=== PATIENT | female | born 1945 | race American Indian/Alaskan Native ===

== ENCOUNTER 2018-06-30 23:14 | Inpatient (IN) | payer MEDICARE ==
[2018-06-30 23:21] VITALS: BMI 20.9
[2018-06-30] MEDS ORDERED: Sodium Chloride 0.9% 1,000 ML IV STA (23:34)
[2018-07-01 00:01] LABS: BASO # 0.01 K/mm3 (0.0-2.0); BASO % 0.1 % (0.0-3.0); EOS % 0.2 % (1.5-5.0); HEMOGLOBIN 12.4 g/dL (12.0-16.0); LYMPH # 1.3 (1.2-3.4); LYMPH % 13.3 % (22.0-35.0); MEAN CELL VOLUME 86.7 fl (80.0-105.0); MEAN CORPUSCULAR HEMOGLOBIN 28.9 pg (25.0-35.0); MEAN CORPUSCULAR HGB CONC 33.3 g/dl (31.0-37.0); MEAN PLATELET VOLUME 10.8 fl (7.0-11.0); MONO # 0.9 (0.1-0.6); MONO % 8.8 % (1.0-6.0); RBC 4.29 10^6/uL (3.5-6.1); RED CELL DISTRIBUTION WIDTH 12.4 % (11.5-14.5); WHITE BLOOD COUNT 10.1 10^3/uL (4.5-11.0)
[2018-07-01 00:04] LABS: VENOUS BLOOD GAS BASE EXCESS 0.2 mmol/L (0.0-2.0); VENOUS BLOOD GAS PO2 26 mm/Hg (30-55); VENOUS BLOOD PH 7.33 (7.32-7.43)
--- NOTE | 2018-07-01 00:05 | ED PDOC ---
Arrival/HPI - General Chief Complaint: Altered Mental Status Time Seen by Provider: 06/30/18 23:24 Historian: Patient, EMS EM Caveat: Intubated - Critical Care Critical Care Minutes: 75 minutes - History of Present Illness Narrative History of Present Illness (Text): 07/01/18 00:00 73 year old female presents to emergency department brought in by EMS after pharmacist in charge owner [facility] [place]. Bee Keeper states he noticed she was there for a long time and appeared confused. EMS reports her blood sugar read high and her finger stick read high. Patient is alert and awake and oriented to place but nothing else and her answers are nonsensical. When asked if she has a history of diabetes, patient responds saying yes and also says nothing hurts although she is unable to voice complaints. Time/Duration: Prior to Arrival Symptom Onset: Gradual Symptom Course: Unchanged Activities at Onset: Light [facility] Past Medical History - Provider Review Nursing Documentation Reviewed: Yes - Endocrine/Metabolic Hx Diabetes Mellitus Type 2: Yes - Psychiatric Hx Substance Use: No - Anesthesia Hx Anesthesia: No Hx Anesthesia Reactions: No Hx Malignant Hyperthermia: No Family/Social History - Physician Review Nursing Documentation Reviewed: Yes Family/Social History: Unknown Family HX Smoking Status: Unknown If Ever Smoked Hx Alcohol Use: No Hx Substance Use: No Allergies/Home Meds Allergies/Adverse Reactions: Allergies No Known Allergies Allergy (Verified 06/30/18 23:21) Home Medications: Home Meds Medication Instructions Recorded Confirmed Unobtainable 06/30/18 06/30/18 Review of Systems - Physician Review All systems were reviewed & negative as marked: Yes - Review of Systems Systems not reviewed;Unavailable: Altered Mental Status Physical Exam Vital Signs Reviewed: Yes Vital Signs Temp Pulse Resp BP Pulse Ox 06/30/18 23:44 97.9 F 88 18 163/79 H 100 Temperature: Afebrile Blood Pressure: Normal Pulse: Regular Respiratory Rate: Normal Appearance: Positive for: Well-Appearing, Non-Toxic, Comfortable Pain Distress: None Mental Status: Positive for: Confused. No: Lethargic - Systems Exam Head: Present: Atraumatic, Normocephalic Pupils: Present: PERRL Extroacular Muscles: Present: EOMI Conjunctiva: Present: Normal Mouth: Present: Moist Mucous Membranes Neck: Present: Normal Range of Motion Respiratory/Chest: Present: Clear to Auscultation, Good Air Exchange. No: R espiratory Distress, Accessory Muscle Use Cardiovascular: Present: Regular Rate and Rhythm, Normal S1, S2. No: Murmurs Abdomen: No: Tenderness, Distention, Peritoneal Signs, Rebound, Guarding Back: Present: Normal Inspection Upper Extremity: Present: Normal Inspection. No: Cyanosis, Edema Lower Extremity: Present: Normal Inspection. No: Edema Neurological: No: GCS=15 Skin: Present: Warm, Dry, Normal Color. No: Rashes Psychiatric: No: Alert, Oriented x 3 Medical Decision Making ED Course and Treatment: 07/01/18 00:15 Impression: 73 year old female presents to emergency department brought in by EMS after found confused in [facility] in [place]. Plan: -- Labs -- IV Fluids -- Urinalysis -- Reassess and disposition Prior Visits: Notes and results from previous visits were reviewed. Progress Notes: Labs done showing hyperglycemia, but no evidence of DKA. No signs of infection noted as well. 07/01/18 00:41 EKG: Ordered, reviewed, and independently interpreted the EKG. Rate : 95 BPM Rhythm : NSR Interpretation : normal axis, normal intervals, no St elevations 07/01/18 05:15 CT Head: IMPRESSION: 1. Age-appropriate cerebellar and cerebral atrophy. 2. Mild chronic microvascular disease. 3. No evidence of acute intracranial pathology. Thank you for your kind referral of this patient. Electronically signed on Jul 01, 2018 4:21:14 AM EDT by: Boni Sánchez M.D., Certified by ABR, MSK, Neuroradiology Patient continued to be confused throughout ED course. Could still not voice name or any specific complaints. Unsure if this is her baseline. Will admit for further evaluation of altered mental status and hyperglycemia. Case discussed with Dr. Reed for hospitalist admission. - Medication Orders Current Medication Orders: Sodium Chloride (Sodium Chloride 0.9%) 1,000 mls @ 999 mls/hr IV .Q1H1M STA Stop: 07/01/18 00:34 Last Admin: 06/30/18 23:52 Dose: 999 mls/hr eMAR Start Stop Document 06/30/18 23:52 AD (Rec: 06/30/18 23:52 AD [id number] Intravenous Solution Start Date 06/30/18 Start Time 23:52 - Scribe Statement The provider has reviewed the documentation as recorded by the Scribe Tonie Ziegler All medical record entries made by the Scribe were at my direction and personally dictated by me. I have reviewed the chart and agree that the record accurately reflects my personal performance of the history, physical exam, medical decision making, and the department course for this patient. I have also personally directed, reviewed, and agree with the discharge instructions and disposition. Disposition/Present on Arrival - Present on Arrival Any Indicators Present on Arrival: No History of DVT/PE: No History of Uncontrolled Diabetes: No Urinary Catheter: No History of Decub. Ulcer: No History Surgical Site Infection Following: None - Disposition Have Diagnosis and Disposition been Completed?: Yes Diagnosis: Hyperglycemia, Altered mental status Disposition: HOSPITALIZED Disposition Time: 05:37 Condition: FAIR
[2018-07-01 00:32] LABS: ALB/GLOB RATIO 1.1 (1.1-1.8); ALBUMIN 4.4 g/dL (3.0-4.8); ALT/SGPT 42 U/L (7-56); AST/SGOT 39 U/L (14-36); BLOOD UREA NITROGEN 25 mg/dL (7-21); CALCIUM 9.6 mg/dL (8.4-10.5); GFR NON-AFRICAN AMERICAN > 60
[2018-07-01] MEDS ORDERED: Labetalol 5mg/ml (4ml) IV STA (02:45)
[2018-07-01] MEDS ORDERED: Labetalol 5mg/ml (4ml) ONE (02:51)
[2018-07-01 05:02] LABS: URINE BILIRUBIN NEGATIVE (NEGATIVE); URINE BLOOD TRACE-INTACT (NEGATIVE); URINE GLUCOSE (UA) >=1000 mg/dL (NEGATIVE); URINE LEUKOCYTE ESTERASE NEGATIVE Leu/uL (NEGATIVE); URINE PROTEIN TRACE mg/dL (<30 mg/dL); URINE UROBILINOGEN 0.2 E.U./dL (<1 E.U./dL)
--- NOTE | 2018-07-01 05:03 | CP.PCM.HP ---
<Mya Joaquin - Last Filed: 07/01/18 05:59> History of Present Illness - History of Present Illness History of Present Illness: Resident History & Physical for Hospitalist Service Patient is a 73 year old female with past medical history of T2DM presenting with altered mental status. History is limited and mostly obtained from ED and prior records as patient is hypersomnolent and responds to verbal questioning selectively. Patient was found at a laundromat and noted to be altered by the laundromat motor vehicle parts interpreter and so EMS was called. Currently patient denies pain, offers no other symptomatic complaints. PMH: T2DM PSH: unknown SHx: denies alcohol, tobacco, illicit drug use FHx: unknown Allergies: NKDA PMD: unknown Present on Admission - Present on Admission Any Indicators Present on Admission: Yes History of Uncontrolled Diabetes: Yes Review of Systems - Review of Systems Systems not reviewed;Unavailable: Altered Mental Status, Uncooperative Past Patient History - Past Social History Smoking Status: Unknown If Ever Smoked - PSYCHIATRIC Hx Substance Use: No - SURGICAL HISTORY Hx Surgeries: No - ANESTHESIA Hx Anesthesia: No Hx Anesthesia Reactions: No Hx Malignant Hyperthermia: No Meds Allergies/Adverse Reactions: Allergies Allergy/AdvReac Type Severity Reaction Status Date / Time No Known Allergies Allergy Verified 06/30/18 23:21 Physical Exam - Constitutional Appears: Non-toxic, No Acute Distress - Head Exam Head Exam: ATRAUMATIC, NORMOCEPHALIC - Eye Exam Eye Exam: EOMI, Normal appearance, PERRL - ENT Exam ENT Exam: Mucous Membranes Moist - Neck Exam Neck exam: Positive for: Normal Inspection - Respiratory Exam Respiratory Exam: Clear to Auscultation Bilateral, NORMAL BREATHING PATTERN. absent: Accessory Muscle Use, Rales, Rhonchi, Wheezes, Respiratory Distress - Cardiovascular Exam Cardiovascular Exam: REGULAR RHYTHM, +S1, +S2. absent: Systolic Murmur - GI/Abdominal Exam GI & Abdominal Exam: Normal Bowel Sounds, Soft. absent: Distended, Firm, Guarding, Rebound, Rigid, Tenderness Additional comments: midline surgical scar - Extremities Exam Extremities exam: Positive for: normal capillary refill, pedal pulses present. Negative for: tenderness Additional comments: RLE big toe ulcer - Neurological Exam Neurological exam: Altered - Skin Skin Exam: Dry, Intact, Normal Color, Warm Results - Vital Signs Recent Vital Signs: Last Vital Signs Temp 97.9 F 06/30/18 23:44 Pulse 82 07/01/18 03:30 Resp 18 07/01/18 03:30 BP 131/98 H 07/01/18 03:30 Pulse Ox 98 07/01/18 03:30 - Labs Result Diagrams: 06/30/18 23:50 06/30/18 23:50 Labs: Laboratory Results - last 24 hr 06/30/18 06/30/18 06/30/18 23:31 23:50 23:50 WBC 10.1 RBC 4.29 Hgb 12.4 Hct 37.2 MCV 86.7 MCH 28.9 MCHC 33.3 RDW 12.4 Plt Count 340 MPV 10.8 Neut % (Auto) 77.6 H Lymph % (Auto) 13.3 L [place] % (Auto) 8.8 H Eos % (Auto) 0.2 L Baso % (Auto) 0.1 Lymph # (Auto) 1.3 [place] # (Auto) 0.9 H Eos # (Auto) 0.0 Baso # (Auto) 0.01 Absolute Neuts (auto) 7.85 H pO2 26 L VBG pH 7.33 VBG pCO2 51.0 VBG HCO3 26.9 VBG Total CO2 28.5 H VBG O2 Sat (Calc) 49.7 VBG Base Excess 0.2 VBG Potassium 4.5 Sodium 128.0 L Chloride 86.0 L Glucose > 750 H* Lactate 1.6 FiO2 21.0 Crit Value Called To Sandra king Crit Value Called By Blood Gas Notified Time 3 Carbon Dioxide Anion Gap BUN Creatinine Est GFR ( Amer) Est GFR (Non-Af Amer) POC Glucose (mg/dL) > 500 H* Random Glucose Calcium Total Bilirubin AST ALT Alkaline Phosphatase Total Protein Albumin Globulin Albumin/Globulin Ratio Venous Blood Potassium 4.5 06/30/18 07/01/18 23:50 01:03 WBC RBC Hgb Hct MCV MCH MCHC RDW Plt Count MPV Neut % (Auto) Lymph % (Auto) [place] % (Auto) Eos % (Auto) Baso % (Auto) Lymph # (Auto) [place] # (Auto) Eos # (Auto) Baso # (Auto) Absolute Neuts (auto) pO2 VBG pH VBG pCO2 VBG HCO3 VBG Total CO2 VBG O2 Sat (Calc) VBG Base Excess VBG Potassium Sodium 127 L Chloride 88 L Glucose Lactate FiO2 Crit Value Called To Crit Value Called By Blood Gas Notified Time Carbon Dioxide 27 Anion Gap 17 BUN 25 H Creatinine 0.8 Est GFR ( Amer) > 60 Est GFR (Non-Af Amer) > 60 POC Glucose (mg/dL) 465 H* Random Glucose 717 H* Calcium 9.6 Total Bilirubin 0.5 AST 39 H ALT 42 Alkaline Phosphatase 132 H Total Protein 8.5 H Albumin 4.4 Globulin 4.1 Albumin/Globulin Ratio 1.1 Venous Blood Potassium Assessment & Plan - Assessment and Plan (Free Text) Assessment: Patient is a 73 year old female with past medical history of T2DM presenting with altered mental status. Plan: Altered mental status - CT head shows age appropriate changes, no acute pathology - EKG shows NSR - UDS negative - afebrile, no leukocytosis - IVF @ 150 ccs/hr Hyperglycemia - ISS, Accuchecks - Hgba1c - Diabetic education RLE ulcer - wound care Pseudohyponatremia - Na 127 on admission, corrected 133 - continue to monitor PPX - Lovenox SC, Protonix Case reviewed with Dr. Brianna Joaquin PGY-1 <Alexx Reed - Last Filed: 07/01/18 06:06> Results - Vital Signs Recent Vital Signs: Last Vital Signs Temp 97.9 F 06/30/18 23:44 Pulse 96 H 07/01/18 05:33 Resp 18 07/01/18 05:33 BP 136/62 07/01/18 05:33 Pulse Ox 100 07/01/18 05:33 - Labs Result Diagrams: 06/30/18 23:50 06/30/18 23:50 Labs: Laboratory Results - last 24 hr 06/30/18 06/30/18 06/30/18 23:31 23:50 23:50 WBC 10.1 RBC 4.29 Hgb 12.4 Hct 37.2 MCV 86.7 MCH 28.9 MCHC 33.3 RDW 12.4 Plt Count 340 MPV 10.8 Neut % (Auto) 77.6 H Lymph % (Auto) 13.3 L [place] % (Auto) 8.8 H Eos % (Auto) 0.2 L Baso % (Auto) 0.1 Lymph # (Auto) 1.3 [place] # (Auto) 0.9 H Eos # (Auto) 0.0 Baso # (Auto) 0.01 Absolute Neuts (auto) 7.85 H pO2 26 L VBG pH 7.33 VBG pCO2 51.0 VBG HCO3 26.9 VBG Total CO2 28.5 H VBG O2 Sat (Calc) 49.7 VBG Base Excess 0.2 VBG Potassium 4.5 Sodium 128.0 L Chloride 86.0 L Glucose > 750 H* Lactate 1.6 FiO2 21.0 Crit Value Called To Sandra king Crit Value Called By Blood Gas Notified Time 3 Carbon Dioxide Anion Gap BUN Creatinine Est GFR ( Amer) Est GFR (Non-Af Amer) POC Glucose (mg/dL) > 500 H* Random Glucose Calcium Total Bilirubin AST ALT Alkaline Phosphatase Total Protein Albumin Globulin Albumin/Globulin Ratio Venous Blood Potassium 4.5 Urine Color Urine Appearance Urine pH Ur Specific [place] Urine Protein Urine Glucose (UA) Urine Ketones Urine Blood Urine Nitrate Urine Bilirubin Urine Urobilinogen Ur Leukocyte Esterase Urine RBC Urine WBC Ur Epithelial Cells Urine Opiates Screen Urine Methadone Screen Ur Barbiturates Screen Ur Phencyclidine Scrn Ur Amphetamines Screen U Benzodiazepines Scrn U Oth Cocaine Metabols U Cannabinoids Screen 06/30/18 07/01/18 07/01/18 23:50 01:03 04:20 WBC RBC Hgb Hct MCV MCH MCHC RDW Plt Count MPV Neut % (Auto) Lymph % (Auto) [place] % (Auto) Eos % (Auto) Baso % (Auto) Lymph # (Auto) [place] # (Auto) Eos # (Auto) Baso # (Auto) Absolute Neuts (auto) pO2 VBG pH VBG pCO2 VBG HCO3 VBG Total CO2 VBG O2 Sat (Calc) VBG Base Excess VBG Potassium Sodium 127 L Chloride 88 L Glucose Lactate FiO2 Crit Value Called To Crit Value Called By Blood Gas Notified Time Carbon Dioxide 27 Anion Gap 17 BUN 25 H Creatinine 0.8 Est GFR ( Amer) > 60 Est GFR (Non-Af Amer) > 60 POC Glucose (mg/dL) 465 H* Random Glucose 717 H* Calcium 9.6 Total Bilirubin 0.5 AST 39 H ALT 42 Alkaline Phosphatase 132 H Total Protein 8.5 H Albumin 4.4 Globulin 4.1 Albumin/Globulin Ratio 1.1 Venous Blood Potassium Urine Color Light yellow Urine Appearance Sl cloudy Urine pH 7.0 Ur Specific [place] 1.015 Urine Protein Trace H Urine Glucose (UA) >=1000 Urine Ketones 15 H Urine Blood Trace-intact H Urine Nitrate Negative Urine Bilirubin Negative Urine Urobilinogen 0.2 Ur Leukocyte Esterase Negative Urine RBC 0 - 2 Urine WBC 0 - 2 Ur Epithelial Cells 0 - 2 Urine Opiates Screen Urine Methadone Screen Ur Barbiturates Screen Ur Phencyclidine Scrn Ur Amphetamines Screen U Benzodiazepines Scrn U Oth Cocaine Metabols U Cannabinoids Screen 07/01/18 04:20 WBC RBC Hgb Hct MCV MCH MCHC RDW Plt Count MPV Neut % (Auto) Lymph % (Auto) [place] % (Auto) Eos % (Auto) Baso % (Auto) Lymph # (Auto) [place] # (Auto) Eos # (Auto) Baso # (Auto) Absolute Neuts (auto) pO2 VBG pH VBG pCO2 VBG HCO3 VBG Total CO2 VBG O2 Sat (Calc) VBG Base Excess VBG Potassium Sodium Chloride Glucose Lactate FiO2 Crit Value Called To Crit Value Called By Blood Gas Notified Time Carbon Dioxide Anion Gap BUN Creatinine Est GFR ( Amer) Est GFR (Non-Af Amer) POC Glucose (mg/dL) Random Glucose Calcium Total Bilirubin AST ALT Alkaline Phosphatase Total Protein Albumin Globulin Albumin/Globulin Ratio Venous Blood Potassium Urine Color Urine Appearance Urine pH Ur Specific [place] Urine Protein Urine Glucose (UA) Urine Ketones Urine Blood Urine Nitrate Urine Bilirubin Urine Urobilinogen Ur Leukocyte Esterase Urine RBC Urine WBC Ur Epithelial Cells Urine Opiates Screen Negative Urine Methadone Screen Negative Ur Barbiturates Screen Negative Ur Phencyclidine Scrn Negative Ur Amphetamines Screen Negative U Benzodiazepines Scrn Negative U Oth Cocaine Metabols Negative U Cannabinoids Screen Negative Attending/Attestation - Attestation I have personally seen and examined this patient.: Yes I have fully participated in the care of the patient.: Yes I have reviewed all pertinent clinical information: Yes Notes (Text): 07/01/18 06:05 Patient was seen when she was in bed # 14 in the ER. Medical record was reviewed. Agree with history, physical examination, assessment and plan.
[2018-07-01 05:08] LABS: BARBITURATES, UR NEGATIVE (NEGATIVE); BENZODIAZEPINES, UR NEGATIVE (NEGATIVE); OPIATES, UR NEGATIVE (NEGATIVE); PHENCYCLIDINE, UR NEGATIVE (NEGATIVE)
[2018-07-01 05:15] LABS: URINE APPEARANCE SL CLOUDY (CLEAR); URINE COLOR LIGHT YELLOW (YELLOW)
[2018-07-01] MEDS ORDERED: Dextrose 50% SYRINGE Inj (50 ml) IV PRN (05:31)
[2018-07-01 05:52] LABS: URINE RBC 0 - 2 /hpf (0-2); URINE WBC 0 - 2 /hpf (0-6)
[2018-07-01 05:53] LABS: URINE EPITHELIAL CELLS 0 - 2 /hpf (0-5)
[2018-07-01 06:33] LABS: ARTERIAL BLOOD GAS HCO3 22.6 mmol/L (21-28); ARTERIAL BLOOD GAS HEMOGLOBIN 11.1 g/dL (11.7-17.4); ARTERIAL BLOOD GAS O2 CAPACITY 15.4 mL/dl (16-24); ARTERIAL BLOOD GAS O2 CONTENT 15.3 ML/dl (15-23); ARTERIAL BLOOD GAS O2 SAT 99.5 % (95-98); ARTERIAL BLOOD GAS PCO2 29 mm/Hg (35-45); ARTERIAL BLOOD GAS TCO2 23.5 mmol.L (22-28)
[2018-07-01] MEDS: Sodium Chloride 0.9% 1,000 ML IV SCH ×4 (07:57→23:00)
[2018-07-01] MEDS: Insulin Reg-MEDIUM-Coverage SC SCH ×4 (08:04→22:10)
[2018-07-01] MEDS ORDERED: Insulin Regular 1 UNITS/0.01 ML ML ONE (08:07)
[2018-07-01 08:24] LABS: HEMOGLOBIN 11.1 g/dL (12.0-16.0); MEAN CELL VOLUME 84.7 fl (80.0-105.0); MEAN CORPUSCULAR HEMOGLOBIN 29.2 pg (25.0-35.0); MEAN CORPUSCULAR HGB CONC 34.5 g/dl (31.0-37.0); MEAN PLATELET VOLUME 10.3 fl (7.0-11.0); RBC 3.8 10^6/uL (3.5-6.1); RED CELL DISTRIBUTION WIDTH 12.2 % (11.5-14.5); WHITE BLOOD COUNT 9.8 10^3/uL (4.5-11.0)
[2018-07-01 08:54] LABS: ALB/GLOB RATIO 0.9 (1.1-1.8); ALBUMIN 3.4 g/dL (3.0-4.8); ALT/SGPT 36 U/L (7-56); AST/SGOT 33 U/L (14-36); BLOOD UREA NITROGEN 16 mg/dL (7-21); CALCIUM 8.9 mg/dL (8.4-10.5); GFR NON-AFRICAN AMERICAN > 60
[2018-07-01 08:57] LABS: HDL CHOLESTEROL 50 mg/dL (29-60)
[2018-07-01 08:59] LABS: LDL CHOLESTEROL 76 mg/dL (0-129)
[2018-07-01] MEDS: Enoxaparin 40 mg Syringe SC SCH (10:04)
--- NOTE | 2018-07-01 11:25 | RAD ---
PROCEDURE: Radiographs of the right great toe. Clinical history foot ulcer TECHNIQUE:: AP radiograph of the right foot, with oblique and lateral view of the right great toe. COMPARISON: None. FINDINGS: BONES: No visible fracture or evidence of osteomyelitis. JOINTS: Normal. SOFT TISSUES: Soft tissue swelling distal tuft region 1st digit. OTHER FINDINGS: None. IMPRESSION: Soft tissue swelling without acute articular or osseous abnormality.
--- NOTE | 2018-07-01 11:44 | CT ---
Date of service: 07/01/2018 PROCEDURE: CT HEAD WITHOUT CONTRAST. HISTORY: Altered mental status. COMPARISON: None available. TECHNIQUE: Axial computed tomography images were obtained through the head/brain without intravenous contrast. Supplemental Coronal and Sagittal projections created and reviewed. Radiation dose: Total exam DLP = 819.55 mGy-cm. This CT exam was performed using one or more of the following dose reduction techniques: Automated exposure control, adjustment of the mA and/or kV according to patient size, and/or use of iterative reconstruction technique. FINDINGS: HEMORRHAGE: No intracranial hemorrhage. BRAIN: No mass effect or edema. Cortical and cerebellar atrophy, periventricular small vessel disease. VENTRICLES: Unremarkable. No hydrocephalus. CALVARIUM: Unremarkable. PARANASAL SINUSES: Unremarkable as visualized. No significant inflammatory changes. MASTOID AIR CELLS: Unremarkable as visualized. No inflammatory changes. OTHER FINDINGS: None. IMPRESSION: No acute intracranial abnormalities. No significant findings to account for the clinical presentation. Concordant results (preliminary interpretation) provided by [facility]. Procedure Completed: 03:19. Preliminary Report: Interpreted and electronically signed: 04:21. Final Interpretation: 11:40.
[2018-07-01] MEDS ORDERED: Piperacillin/Tazobact 3.375 gm 100 ML IVPB STA (12:09)
--- NOTE | 2018-07-01 12:32 | RAD ---
Date of service: 07/01/2018 HISTORY: fever COMPARISON: No prior. FINDINGS: LUNGS: No active pulmonary disease. PLEURA: No significant pleural effusion identified, no pneumothorax apparent. CARDIOVASCULAR: Atherosclerotic calcifications identified primarily aortic arch. No radiographic findings to suggest acute or significant cardiovascular disease. OSSEOUS STRUCTURES: No significant abnormalities. VISUALIZED UPPER ABDOMEN: Normal. OTHER FINDINGS: None. IMPRESSION: No active disease.
[2018-07-01] MEDS: Vancomycin 1gm in NS 250ml 1 GM/250 ML BAG IVPB SCH (12:35)
[2018-07-01] MEDS ORDERED: Pneumococcal 23-Valent Vaccine IM ONE (14:32)
[2018-07-01] MEDS ORDERED: Influenza Vaccine 60 mcg/0.5 mL SYR (4YR UP) IM ONE (14:32)
--- NOTE | 2018-07-01 15:34 | CP.PCM.PCO ---
Addendum Addendum: Shantanu Araujo PGY2 IM Note RN Ileana Cleveland managed to have records from patient's PMD faxed. Reviewed: Patient's name is Jessica Brizuela (ID faxed but with poor quality picture). : 1945 PMD: Dr. Akbar ([place], [place]) Meds: Aspirin 81mg daily, Atorvastatin 40mg HS, Plavix 75mg daily, Gabapentin 300mg TID, Metformin 1000mg daily, Novolog sliding scale Will start Aspirin 81mg daily at this time Will hold Plavix untill seen by Podiatry for further recs
--- NOTE | 2018-07-01 19:40 | CP.PCM.CON ---
History of Present Illness - History of Present Illness History of Present Illness: Infectious Disease Consultation: July 01, 2018 73 yo female with history of Type II DM. The patient was found to be altered in a laundromat. Patient herself gives little information. Patient's PMD is edouard ellitly in [place], [place], his name is Dr. Akbar. The patient name is Jessica Brizuela. Patient had fever of 101.0 F. No leukocytosis. Limited information provided by the patient. Patient is hyperglycemic on admission and still has elevated glucose levels. PMHx: DM Type 2, unable to obtain further information. PSHx: none given but noted midline abdominal scar. Allergies: Ibuprofen Social Hx: No given Tobacco, EtOH, or illicit drug use Active Medications Acetaminophen (Tylenol 325mg Tab) 650 mg PO Q4 PRN PRN Reason: Fever >100.4 F Aspirin (Ecotrin) 81 mg PO DAILY [facility] Last Admin: 07/01/18 17:20 Dose: 81 mg Dextrose (Dextrose 50% Inj) 0 ml IV STAT PRN; Protocol PRN Reason: Hypoglycemia Protocol Enoxaparin Sodium (Lovenox) 40 mg SC DAILY [facility]; Protocol Last Admin: 07/01/18 10:04 Dose: 40 mg Dextrose (Dextrose 5% In Water 1000 Ml) 1,000 mls @ 0 mls/hr IV .Q0M PRN; Protocol PRN Reason: Hypoglycemia Protocol Sodium Chloride (Sodium Chloride 0.9%) 1,000 mls @ 150 mls/hr IV .Q6H40M [facility] Last Admin: 07/01/18 19:28 Dose: 150 mls/hr Vancomycin HCl (Vancomycin 1gm) 1 gm in 250 mls @ 167 mls/hr IVPB DAILY [facility]; Protocol Last Admin: 07/01/18 12:35 Dose: 167 mls/hr Insulin Detemir (Levemir) 10 unit SC HS [facility] Insulin Human Regular (Humulin R Med) 0 units SC ACHS [facility]; Protocol Last Admin: 07/01/18 17:20 Dose: 7 units Pantoprazole Sodium (Protonix Inj) 40 mg IVP DAILY [facility] Last Admin: 07/01/18 10:03 Dose: 40 mg Family Hx: unknown ROS: not giving much information Past Patient History - Past Social History Smoking Status: Unknown If Ever Smoked - CARDIAC Hx Cardiac Disorders: Yes (UNKNOWN) Hx Hypercholesterolemia: Yes Hx Peripheral Vascular Disease: Yes (PAD) - PULMONARY Hx Respiratory Disorders: No - NEUROLOGICAL Hx Neurological Disorder: Yes (POLYNEUROPATHY) - HEENT Hx HEENT Problems: Yes (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 IS SWOLLEN AND PAINFUL SURROUNDING SKIN IS DARKENED BLACK TO WHITE SKIN DISCOLORATION. RIGHT SHOULDER BRUISED AREA WITH AN OPEN SCRAPED WOUND MEASURES 1 X 1 CM DRY - MUSCULOSKELETAL/RHEUMATOLOGICAL Hx Musculoskeletal Disorders: Yes (DIFFICULTY WALKING DUE TO PAIN TO LEGS,CALVES AND THIGHS) Hx Falls: (UNKNOWN) Hx Unsteady Gait: Yes (CANE) - GASTROINTESTINAL Hx Gastrointestinal Disorders: Yes (INCONTINENT) - GENITOURINARY/GYNECOLOGICAL Hx Genitourinary Disorders: Yes Hx Incontinence: Yes - PSYCHIATRIC Hx Psychophysiologic Disorder: Yes Hx Depression: Yes Hx Substance Use: No (UNKNOWN) - SURGICAL HISTORY Hx Surgeries: Yes (SX DEBRIDEMENT OF INFECTED FOOT ULCER,WAS ON VANCO) - ANESTHESIA Hx Anesthesia: No Hx Anesthesia Reactions: No Hx Malignant Hyperthermia: No Meds Allergies/Adverse Reactions: Allergies Allergy/AdvReac Type Severity Reaction Status Date / Time ibuprofen Allergy RASH Verified 07/01/18 15:40 - Medications Medications: Current Medications Acetaminophen (Tylenol 325mg Tab) 650 mg PO Q4 PRN PRN Reason: Fever >100.4 F Aspirin (Ecotrin) 81 mg PO DAILY [facility] Last Admin: 07/01/18 17:20 Dose: 81 mg Dextrose (Dextrose 50% Inj) 0 ml IV STAT PRN; Protocol PRN Reason: Hypoglycemia Protocol Enoxaparin Sodium (Lovenox) 40 mg SC DAILY [facility]; Protocol Last Admin: 07/01/18 10:04 Dose: 40 mg Dextrose (Dextrose 5% In Water 1000 Ml) 1,000 mls @ 0 mls/hr IV .Q0M PRN; Protocol PRN Reason: Hypoglycemia Protocol Sodium Chloride (Sodium Chloride 0.9%) 1,000 mls @ 150 mls/hr IV .Q6H40M [facility] Last Admin: 07/01/18 15:02 Dose: 150 mls/hr Vancomycin HCl (Vancomycin 1gm) 1 gm in 250 mls @ 167 mls/hr IVPB DAILY [facility]; Protocol Last Admin: 07/01/18 12:35 Dose: 167 mls/hr Insulin Detemir (Levemir) 10 unit SC HS [facility] Insulin Human Regular (Humulin R Med) 0 units SC ACHS [facility]; Protocol Last Admin: 07/01/18 17:20 Dose: 7 units Pantoprazole Sodium (Protonix Inj) 40 mg IVP DAILY [facility] Last Admin: 07/01/18 10:03 Dose: 40 mg Physical Exam - Constitutional Appears: Non-toxic, No Acute Distress - Head Exam Head Exam: ATRAUMATIC, NORMOCEPHALIC - Eye Exam Eye Exam: EOMI, PERRL Pupil Exam: NORMAL ACCOMODATION, PERRL - ENT Exam ENT Exam: Mucous Membranes Moist, Normal External Ear Exam, TM's Normal Bilaterally - Neck Exam Neck exam: Positive for: Full Rom, Normal Inspection - Respiratory Exam Respiratory Exam: Clear to Auscultation Bilateral, NORMAL BREATHING PATTERN. absent: Rales, Rhonchi, Wheezes - Cardiovascular Exam Cardiovascular Exam: REGULAR RHYTHM, RRR, +S1, +S2 - GI/Abdominal Exam GI & Abdominal Exam: Normal Bowel Sounds, Soft. absent: Distended, Tenderness Additional comments: midline surgical scar. - Extremities Exam Additional comments: RLE big toe ulcer. - Neurological Exam Neurological exam: Alert, CN II-XII Intact - Psychiatric Exam Psychiatric exam: Flat Affect Additional comments: Distant - Skin Additional comments: As above. Results - Vital Signs Recent Vital Signs: Last Vital Signs Temp 98.4 F 07/01/18 18:49 Pulse 94 H 07/01/18 18:49 Resp 20 07/01/18 17:07 BP 116/61 07/01/18 18:49 Pulse Ox 97 07/01/18 17:07 - Labs Result Diagrams: 07/01/18 08:10 07/01/18 08:10 Labs: Laboratory Results - last 24 hr 06/30/18 06/30/18 06/30/18 23:31 23:50 23:50 WBC 10.1 RBC 4.29 Hgb 12.4 Hct 37.2 MCV 86.7 MCH 28.9 MCHC 33.3 RDW 12.4 Plt Count 340 MPV 10.8 Neut % (Auto) 77.6 H Lymph % (Auto) 13.3 L Mccreary % (Auto) 8.8 H Eos % (Auto) 0.2 L Baso % (Auto) 0.1 Lymph # (Auto) 1.3 Mccreary # (Auto) 0.9 H Eos # (Auto) 0.0 Baso # (Auto) 0.01 Absolute Neuts (auto) 7.85 H pCO2 pO2 26 L HCO3 ABG pH ABG Total CO2 ABG O2 Saturation ABG O2 Content ABG Base Excess ABG Hemoglobin ABG Carboxyhemoglobin POC ABG HHb (Measured) ABG Methemoglobin ABG O2 Capacity VBG pH 7.33 VBG pCO2 51.0 VBG HCO3 26.9 VBG Total CO2 28.5 H VBG O2 Sat (Calc) 49.7 VBG Base Excess 0.2 VBG Potassium 4.5 Hgb O2 Saturation Sodium 128.0 L Chloride 86.0 L Glucose > 750 H* Lactate 1.6 FiO2 21.0 Crit Value Called To Sandra kign Crit Value Called By Blood Gas Notified Time 3 Potassium Carbon Dioxide Anion Gap BUN Creatinine Est GFR ( Amer) Est GFR (Non-Af Amer) POC Glucose (mg/dL) > 500 H* Random Glucose Calcium Magnesium Total Bilirubin AST ALT Alkaline Phosphatase Total Protein Albumin Globulin Albumin/Globulin Ratio Triglycerides Cholesterol LDL Cholesterol Direct HDL Cholesterol TSH 3rd Generation Venous Blood Potassium 4.5 Urine Color Urine Appearance Urine pH Ur Specific [place] Urine Protein Urine Glucose (UA) Urine Ketones Urine Blood Urine Nitrate Urine Bilirubin Urine Urobilinogen Ur Leukocyte Esterase Urine RBC Urine WBC Ur Epithelial Cells Urine Opiates Screen Urine Methadone Screen Ur Barbiturates Screen Ur Phencyclidine Scrn Ur Amphetamines Screen U Benzodiazepines Scrn U Oth Cocaine Metabols U Cannabinoids Screen Alcohol, Quantitative B-Hydroxybutyrate 06/30/18 07/01/18 07/01/18 23:50 01:03 04:20 WBC RBC Hgb Hct MCV MCH MCHC RDW Plt Count MPV Neut % (Auto) Lymph % (Auto) Mccreary % (Auto) Eos % (Auto) Baso % (Auto) Lymph # (Auto) Mccreary # (Auto) Eos # (Auto) Baso # (Auto) Absolute Neuts (auto) pCO2 pO2 HCO3 ABG pH ABG Total CO2 ABG O2 Saturation ABG O2 Content ABG Base Excess ABG Hemoglobin ABG Carboxyhemoglobin POC ABG HHb (Measured) ABG Methemoglobin ABG O2 Capacity VBG pH VBG pCO2 VBG HCO3 VBG Total CO2 VBG O2 Sat (Calc) VBG Base Excess VBG Potassium Hgb O2 Saturation Sodium 127 L Chloride 88 L Glucose Lactate FiO2 Crit Value Called To Crit Value Called By Blood Gas Notified Time Potassium 4.5 Carbon Dioxide 27 Anion Gap 17 BUN 25 H Creatinine 0.8 Est GFR ( Amer) > 60 Est GFR (Non-Af Amer) > 60 POC Glucose (mg/dL) 465 H* Random Glucose 717 H* Calcium 9.6 Magnesium Total Bilirubin 0.5 AST 39 H ALT 42 Alkaline Phosphatase 132 H Total Protein 8.5 H Albumin 4.4 Globulin 4.1 Albumin/Globulin Ratio 1.1 Triglycerides Cholesterol LDL Cholesterol Direct HDL Cholesterol TSH 3rd Generation Venous Blood Potassium Urine Color Light yellow Urine Appearance Sl cloudy Urine pH 7.0 Ur Specific [place] 1.015 Urine Protein Trace H Urine Glucose (UA) >=1000 Urine Ketones 15 H Urine Blood Trace-intact H Urine Nitrate Negative Urine Bilirubin Negative Urine Urobilinogen 0.2 Ur Leukocyte Esterase Negative Urine RBC 0 - 2 Urine WBC 0 - 2 Ur Epithelial Cells 0 - 2 Urine Opiates Screen Urine Methadone Screen Ur Barbiturates Screen Ur Phencyclidine Scrn Ur Amphetamines Screen U Benzodiazepines Scrn U Oth Cocaine Metabols U Cannabinoids Screen Alcohol, Quantitative B-Hydroxybutyrate 0.94 H 07/01/18 07/01/18 07/01/18 04:20 06:25 07:45 WBC RBC Hgb Hct MCV MCH MCHC RDW Plt Count MPV Neut % (Auto) Lymph % (Auto) Mccreary % (Auto) Eos % (Auto) Baso % (Auto) Lymph # (Auto) Mccreary # (Auto) Eos # (Auto) Baso # (Auto) Absolute Neuts (auto) pCO2 29 L pO2 105.0 H HCO3 22.6 ABG pH 7.50 H ABG Total CO2 23.5 ABG O2 Saturation 99.5 H ABG O2 Content 15.3 ABG Base Excess 0.1 ABG Hemoglobin 11.1 L ABG Carboxyhemoglobin 1.8 H POC ABG HHb (Measured) 0.5 ABG Methemoglobin 0.9 ABG O2 Capacity 15.4 L VBG pH VBG pCO2 VBG HCO3 VBG Total CO2 VBG O2 Sat (Calc) VBG Base Excess VBG Potassium Hgb O2 Saturation 96.8 Sodium Chloride Glucose Lactate FiO2 21.0 Crit Value Called To Crit Value Called By Blood Gas Notified Time Potassium Carbon Dioxide Anion Gap BUN Creatinine Est GFR ( Amer) Est GFR (Non-Af Amer) POC Glucose (mg/dL) 342 H Random Glucose Calcium Magnesium Total Bilirubin AST ALT Alkaline Phosphatase Total Protein Albumin Globulin Albumin/Globulin Ratio Triglycerides Cholesterol LDL Cholesterol Direct HDL Cholesterol TSH 3rd Generation Venous Blood Potassium Urine Color Urine Appearance Urine pH Ur Specific [place] Urine Protein Urine Glucose (UA) Urine Ketones Urine Blood Urine Nitrate Urine Bilirubin Urine Urobilinogen Ur Leukocyte Esterase Urine RBC Urine WBC Ur Epithelial Cells Urine Opiates Screen Negative Urine Methadone Screen Negative Ur Barbiturates Screen Negative Ur Phencyclidine Scrn Negative Ur Amphetamines Screen Negative U Benzodiazepines Scrn Negative U Oth Cocaine Metabols Negative U Cannabinoids Screen Negative Alcohol, Quantitative B-Hydroxybutyrate 07/01/18 07/01/18 07/01/18 08:10 08:10 08:10 WBC 9.8 RBC 3.80 Hgb 11.1 L Hct 32.2 L MCV 84.7 MCH 29.2 MCHC 34.5 RDW 12.2 Plt Count 306 MPV 10.3 Neut % (Auto) Lymph % (Auto) Mccreary % (Auto) Eos % (Auto) Baso % (Auto) Lymph # (Auto) Mccreary # (Auto) Eos # (Auto) Baso # (Auto) Absolute Neuts (auto) pCO2 pO2 HCO3 ABG pH ABG Total CO2 ABG O2 Saturation ABG O2 Content ABG Base Excess ABG Hemoglobin ABG Carboxyhemoglobin POC ABG HHb (Measured) ABG Methemoglobin ABG O2 Capacity VBG pH VBG pCO2 VBG HCO3 VBG Total CO2 VBG O2 Sat (Calc) VBG Base Excess VBG Potassium Hgb O2 Saturation Sodium Chloride Glucose Lactate FiO2 Crit Value Called To Crit Value Called By Blood Gas Notified Time Potassium Carbon Dioxide Anion Gap BUN Creatinine Est GFR ( Amer) Est GFR (Non-Af Amer) POC Glucose (mg/dL) Random Glucose Calcium Magnesium Total Bilirubin AST ALT Alkaline Phosphatase Total Protein Albumin Globulin Albumin/Globulin Ratio Triglycerides Cholesterol LDL Cholesterol Direct HDL Cholesterol TSH 3rd Generation 0.82 Venous Blood Potassium Urine Color Urine Appearance Urine pH Ur Specific [place] Urine Protein Urine Glucose (UA) Urine Ketones Urine Blood Urine Nitrate Urine Bilirubin Urine Urobilinogen Ur Leukocyte Esterase Urine RBC Urine WBC Ur Epithelial Cells Urine Opiates Screen Urine Methadone Screen Ur Barbiturates Screen Ur Phencyclidine Scrn Ur Amphetamines Screen U Benzodiazepines Scrn U Oth Cocaine Metabols U Cannabinoids Screen Alcohol, Quantitative < 10 B-Hydroxybutyrate 07/01/18 07/01/18 07/01/18 08:10 11:38 16:43 WBC RBC Hgb Hct MCV MCH MCHC RDW Plt Count MPV Neut % (Auto) Lymph % (Auto) Mccreary % (Auto) Eos % (Auto) Baso % (Auto) Lymph # (Auto) Mccreary # (Auto) Eos # (Auto) Baso # (Auto) Absolute Neuts (auto) pCO2 pO2 HCO3 ABG pH ABG Total CO2 ABG O2 Saturation ABG O2 Content ABG Base Excess ABG Hemoglobin ABG Carboxyhemoglobin POC ABG HHb (Measured) ABG Methemoglobin ABG O2 Capacity VBG pH VBG pCO2 VBG HCO3 VBG Total CO2 VBG O2 Sat (Calc) VBG Base Excess VBG Potassium Hgb O2 Saturation Sodium 134 Chloride 98 Glucose Lactate FiO2 Crit Value Called To Crit Value Called By Blood Gas Notified Time Potassium 3.8 Carbon Dioxide 24 Anion Gap 16 BUN 16 Creatinine 0.6 L Est GFR ( Amer) > 60 Est GFR (Non-Af Amer) > 60 POC Glucose (mg/dL) 374 H 327 H Random Glucose 336 H* D Calcium 8.9 Magnesium 2.1 Total Bilirubin 0.4 AST 33 ALT 36 Alkaline Phosphatase 97 Total Protein 7.2 Albumin 3.4 Globulin 3.7 Albumin/Globulin Ratio 0.9 L Triglycerides 70 Cholesterol 161 LDL Cholesterol Direct 76 HDL Cholesterol 50 TSH 3rd Generation Venous Blood Potassium Urine Color Urine Appearance Urine pH Ur Specific [place] Urine Protein Urine Glucose (UA) Urine Ketones Urine Blood Urine Nitrate Urine Bilirubin Urine Urobilinogen Ur Leukocyte Esterase Urine RBC Urine WBC Ur Epithelial Cells Urine Opiates Screen Urine Methadone Screen Ur Barbiturates Screen Ur Phencyclidine Scrn Ur Amphetamines Screen U Benzodiazepines Scrn U Oth Cocaine Metabols U Cannabinoids Screen Alcohol, Quantitative B-Hydroxybutyrate Assessment & Plan - Assessment and Plan (Free Text) Assessment: 73 yo female presenting for altered mental status, fevers up to 101.0 F, and hyperglycemia. Negative Chest X-ray. X-ray right big toe showing swelling of the soft tissues only. Head CT negative. Patient was hyponatremic. Unclear how the patient's DM control is normally. Likely with some degree of dehydration in addition to the hyperglycemia. Check Hgb A1c. Monitor glucose levels. Started on Vancomycin and Zosyn. Villagran cultures. Supportive care. Spoke with Dr. Rockwell. Thank you for allowing me to participate in the care of the patient, we will follow with you.
[2018-07-01] MEDS: Insulin Detemir 100 units/ml Vial (Levemir) SC SCH (22:19)
[2018-07-01] MEDS: Piperacillin/Tazobact 3.375 gm 100 ML IVPB SCH (22:20)
[2018-07-02] MEDS: Piperacillin/Tazobact 3.375 gm 100 ML IVPB SCH ×3 (05:37→21:45)
[2018-07-02 07:39] LABS: BASO # 0.01 K/mm3 (0.0-2.0); BASO % 0.1 % (0.0-3.0); EOS # 0.1 (0.0-0.7); EOS % 1.3 % (1.5-5.0); HEMOGLOBIN 10.6 g/dL (12.0-16.0); LYMPH # 2.4 (1.2-3.4); LYMPH % 22.8 % (22.0-35.0); MEAN CELL VOLUME 85.3 fl (80.0-105.0); MEAN CORPUSCULAR HEMOGLOBIN 28.8 pg (25.0-35.0); MEAN CORPUSCULAR HGB CONC 33.8 g/dl (31.0-37.0); MEAN PLATELET VOLUME 10.8 fl (7.0-11.0); MONO # 1.3 (0.1-0.6); RBC 3.68 10^6/uL (3.5-6.1); RED CELL DISTRIBUTION WIDTH 12.2 % (11.5-14.5); WHITE BLOOD COUNT 10.6 10^3/uL (4.5-11.0)
[2018-07-02 08:23] LABS: ALB/GLOB RATIO 0.8 (1.1-1.8); ALBUMIN 2.7 g/dL (3.0-4.8); ALT/SGPT 32 U/L (7-56); AST/SGOT 41 U/L (14-36); BLOOD UREA NITROGEN 15 mg/dL (7-21); CALCIUM 8.1 mg/dL (8.4-10.5); GFR NON-AFRICAN AMERICAN > 60
[2018-07-02] MEDS ORDERED: Potassium Chloride 20 mEq ER Tab PO ONE (08:42)
[2018-07-02] MEDS: Insulin Reg-MEDIUM-Coverage SC SCH ×4 (09:00→21:55)
[2018-07-02] MEDS: Enoxaparin 40 mg Syringe SC SCH (09:33)
[2018-07-02] MEDS: Vancomycin 1gm in NS 250ml 1 GM/250 ML BAG IVPB SCH (09:33)
--- NOTE | 2018-07-02 10:33 | CP.PCM.PN ---
<Jeffrey Vo - Last Filed: 07/02/18 15:30> Subjective - Date & Time of Evaluation Date of Evaluation: 07/02/18 Time of Evaluation: 15:30 - Subjective Subjective: Jeffrey Vo, PGY1 Medicine Progress Note: Pt was seen and examined this AM at bedside. Pt overnight noted to be found to have bedbugs. Pt is AOx3 and when asked about meds states that she only takes aspirn and not plavix. She states that she was in the area visiting a friend when she found herself to be ill and was brought here. Pt is originally from [place]. Pt states that she has had the ulcer on her foot for a long time, and has not noticed any recent change. Objective - Vital Signs/Intake and Output Vital Signs (last 24 hours): Temp Pulse Resp BP Pulse Ox 98.5 F 85 20 108/60 96 07/02/18 05:54 07/02/18 05:54 07/02/18 05:54 07/02/18 05:54 07/02/18 05:54 Intake and Output: 07/02/18 07/02/18 06:59 18:59 Intake Total 2000 Output Total 500 Balance 1500 - Medications Medications: Current Medications Acetaminophen (Tylenol 325mg Tab) 650 mg PO Q4 PRN PRN Reason: Fever >100.4 F Aspirin (Ecotrin) 81 mg PO DAILY [facility] Last Admin: 07/02/18 09:35 Dose: 81 mg Dextrose (Dextrose 50% Inj) 0 ml IV STAT PRN; Protocol PRN Reason: Hypoglycemia Protocol Enoxaparin Sodium (Lovenox) 40 mg SC DAILY [facility]; Protocol Last Admin: 07/02/18 09:33 Dose: 40 mg Dextrose (Dextrose 5% In Water 1000 Ml) 1,000 mls @ 0 mls/hr IV .Q0M PRN; Protocol PRN Reason: Hypoglycemia Protocol Sodium Chloride (Sodium Chloride 0.9%) 1,000 mls @ 150 mls/hr IV .Q6H40M [facility] Last Admin: 07/01/18 23:00 Dose: 150 mls/hr Vancomycin HCl (Vancomycin 1gm) 1 gm in 250 mls @ 167 mls/hr IVPB DAILY [facility]; P rotocol Last Admin: 07/02/18 09:33 Dose: 167 mls/hr Piperacillin Sod/Tazobactam Sod (Zosyn 3.375 In Ns 100ml) 100 mls @ 25 mls/hr IVPB Q8 [facility]; Protocol Last Admin: 07/02/18 05:37 Dose: 25 mls/hr Insulin Detemir (Levemir) 10 unit SC [facility] Last Admin: 07/01/18 22:19 Dose: 10 units Insulin Human Regular (Humulin R Med) 0 units SC [facility]; Protocol Last Admin: 07/02/18 09:00 Dose: Not Given Pantoprazole Sodium (Protonix Ec Tab) 40 mg PO 0600 [facility] - Labs Labs: 07/02/18 07:00 07/02/18 07:00 - Constitutional Appears: Non-toxic, No Acute Distress - Head Exam Head Exam: ATRAUMATIC, NORMAL INSPECTION, NORMOCEPHALIC - Eye Exam Eye Exam: EOMI, Normal appearance, PERRL - Respiratory Exam Respiratory Exam: Clear to Ausculation Bilateral, NORMAL BREATHING PATTERN. absent: Accessory Muscle Use, Rales, Rhonchi, Wheezes, Respiratory Distress, Stridor - Cardiovascular Exam Cardiovascular Exam: RRR, +S1, +S2. absent: Gallop, Rubs - GI/Abdominal Exam GI & Abdominal Exam: Soft, Normal Bowel Sounds. absent: Guarding, Rigid, Tenderness - Back Exam Back Exam: NORMAL INSPECTION. absent: CVA tenderness (L), CVA tenderness (R) - Neurological Exam Neurological Exam: Alert, Awake, Oriented x3 - Psychiatric Exam Psychiatric exam: Normal Affect, Normal Mood - Skin Skin Exam: Dry, Normal Color, Warm Assessment and Plan - Assessment and Plan (Free Text) Assessment: Patient is a 73 year old female with past medical history of T2DM presenting with altered mental status. Sugars were initially noted to be elevated in the 700s and have been downtrending since. Pt is noted to NOT have an anion gap. Plan: Altered mental status: Resolved - Pt is now AOx3 - Likely 2/2 elevated blood glucose levels upon admission in the 700s - CT head shows age appropriate changes, no acute pathology - UDS negative - afebrile, no leukocytosis - IVF @ 150 ccs/hr - UA (-) for nitrates, LE or WBC - Ucx (-) - BCx (-) - CXR: NAD Hyperglycemia - ISS, Accuchecks - Hgba1c - 15.5 - Latest glucose is noted to be 231 - Diabetic education RLE ulcer - wound care - Vanc and zosyn started - ID on board, recs appreciated - XR showed soft tissue swelling w/o acute articular or osseous abnormality - Podiatry on board Pseudohyponatremia - Na 135 now - continue to monitor PPX - Lovenox SC, Protonix Bed Bugs: - Pt is in isolation for 24 hours post bath Case reviewed with Dr. Luli Vo PGY-1 <Omari Rockwell - Last Filed: 07/02/18 16:12> Objective - Vital Signs/Intake and Output Vital Signs (last 24 hours): Temp Pulse Resp BP Pulse Ox 97.8 F 67 18 149/78 96 07/02/18 11:48 07/02/18 11:48 07/02/18 11:48 07/02/18 11:48 07/02/18 05:54 Intake and Output: 07/02/18 07/02/18 06:59 18:59 Intake Total 2000 2000 Output Total 500 500 Balance 1500 1500 - Medications Medications: Current Medications Acetaminophen (Tylenol 325mg Tab) 650 mg PO Q4 PRN PRN Reason: Fever >100.4 F Aspirin (Ecotrin) 81 mg PO DAILY [facility] Last Admin: 07/02/18 09:35 Dose: 81 mg Dextrose (Dextrose 50% Inj) 0 ml IV STAT PRN; Protocol PRN Reason: Hypoglycemia Protocol Enoxaparin Sodium (Lovenox) 40 mg SC DAILY [facility]; Protocol Last Admin: 07/02/18 09:33 Dose: 40 mg Dextrose (Dextrose 5% In Water 1000 Ml) 1,000 mls @ 0 mls/hr IV .Q0M PRN; Protocol PRN Reason: Hypoglycemia Protocol Sodium Chloride (Sodium Chloride 0.9%) 1,000 mls @ 150 mls/hr IV .Q6H40M [facility] Last Admin: 07/01/18 23:00 Dose: 150 mls/hr Vancomycin HCl (Vancomycin 1gm) 1 gm in 250 mls @ 167 mls/hr IVPB DAILY [facility]; Protocol Last Admin: 07/02/18 09:33 Dose: 167 mls/hr Piperacillin Sod/Tazobactam Sod (Zosyn 3.375 In Ns 100ml) 100 mls @ 25 mls/hr IVPB Q8 [facility]; Protocol Last Admin: 07/02/18 14:06 Dose: 25 mls/hr Insulin Detemir (Levemir) 10 unit SC HS [facility] Last Admin: 07/01/18 22:19 Dose: 10 units Insulin Human Regular (Humulin R Med) 0 units SC ACHS [facility]; Protocol Last Admin: 07/02/18 12:49 Dose: Not Given Pantoprazole Sodium (Protonix Ec Tab) 40 mg PO 0600 [facility] - Labs Labs: 07/02/18 07:00 07/02/18 07:00 Attending/Attestation - Attestation I have personally seen and examined this patient.: Yes I have fully participated in the care of the patient.: Yes I have reviewed all pertinent clinical information, including history, physical exam and plan: Yes Notes (Text): 07/02/18 16:01 73 year old female with past medical history of diabetes who presented with altered mental status, now resolved. Initially found to have significantly elevated blood sugars >700s which improved with iv fluids and insulin. A1c is 15.5 and patient is started on levemir. coding educator consult is requested. She was also found to have fever and noted to have right big toe ulcer. ID and podiatry are following. She is on iv antibiotics. Doppler study is ordered. Xray was reviewed. Omari Rockwell MD Hospitalist.
--- NOTE | 2018-07-02 14:25 | CP.PCM.CON ---
<Paulino Zhong - Last Filed: 07/02/18 14:20> History of Present Illness - History of Present Illness History of Present Illness: Podiatry - Dr. Izabella Vanegasmickey Brizuela is a 73 year old female patient PMHx DM2 seen and evaluated for right hallux ulceration. Unable to obtain full HPI due to patient's mental status. Patient states she has had the wound to her right great toe for a few months; states she has had surgery in her right great toe in the past however unknown to patient why a procedure was performed. Patient does not recall who performed surgery. Patient reports mild pain to wound site. Limited information provided. 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 IS SWOLLEN AND PAINFUL SURROUNDING SKIN IS DARKENED BLACK TO WHITE SKIN DISCOLORATION. RIGHT SHOULDER BRUISED AREA WITH AN OPEN SCRAPED WOUND MEASURES 1 X 1 CM DRY - MUSCULOSKELETAL/RHEUMATOLOGICAL Hx Musculoskeletal Disorders: Yes (DIFFICULTY WALKING DUE TO PAIN TO LEGS,CALVES AND THIGHS) Hx Falls: (UNKNOWN) Hx Unsteady Gait: Yes (CANE) - GASTROINTESTINAL Hx Gastrointestinal Disorders: Yes (INCONTINENT) - GENITOURINARY/GYNECOLOGICAL Hx Genitourinary Disorders: Yes Hx Incontinence: Yes - PSYCHIATRIC Hx Psychophysiologic Disorder: Yes Hx Depression: Yes Hx Substance Use: No (UNKNOWN) - SURGICAL HISTORY Hx Surgeries: Yes (SX DEBRIDEMENT OF INFECTED FOOT ULCER,WAS ON VANCO) - ANESTHESIA Hx Anesthesia: No Hx Anesthesia Reactions: No Hx Malignant Hyperthermia: No Meds Allergies/Adverse Reactions: Allergies Allergy/AdvReac Type Severity Reaction Status Date / Time ibuprofen Allergy RASH Verified 07/01/18 15:40 - Medications Medications: Current Medications Acetaminophen (Tylenol 325mg Tab) 650 mg PO Q4 PRN PRN Reason: Fever >100.4 F Aspirin (Ecotrin) 81 mg PO DAILY [facility] Last Admin: 07/02/18 09:35 Dose: 81 mg Dextrose (Dextrose 50% Inj) 0 ml IV STAT PRN; Protocol PRN Reason: Hypoglycemia Protocol Enoxaparin Sodium (Lovenox) 40 mg SC DAILY [facility]; Protocol Last Admin: 07/02/18 09:33 Dose: 40 mg Dextrose (Dextrose 5% In Water 1000 Ml) 1,000 mls @ 0 mls/hr IV .Q0M PRN; Protocol PRN Reason: Hypoglycemia Protocol Sodium Chloride (Sodium Chloride 0.9%) 1,000 mls @ 150 mls/hr IV .Q6H40M [facility] Last Admin: 07/01/18 23:00 Dose: 150 mls/hr Vancomycin HCl (Vancomycin 1gm) 1 gm in 250 mls @ 167 mls/hr IVPB DAILY [facility]; Protocol Last Admin: 07/02/18 09:33 Dose: 167 mls/hr Piperacillin Sod/Tazobactam Sod (Zosyn 3.375 In Ns 100ml) 100 mls @ 25 mls/hr IVPB Q8 [facility]; Protocol Last Admin: 07/02/18 14:06 Dose: 25 mls/hr Insulin Detemir (Levemir) 10 unit SC HS [facility] Last Admin: 07/01/18 22:19 Dose: 10 units Insulin Human Regular (Humulin R Med) 0 units SC ACHS [facility]; Protocol Last Admin: 07/02/18 12:49 Dose: Not Given Pantoprazole Sodium (Protonix Ec Tab) 40 mg PO 0600 [facility] Physical Exam - Constitutional Appears: Non-toxic, No Acute Distress, Confused - Extremities Exam Additional comments: VASC: R DP weakly palpalbe 1/4. L DP and bilateral PT pulses nonpalpable. CFT <3 seconds to all digits. Temperature gradient warm to warm RLE, warm to cold LLE. +1 pitting edema noted to LLE. NEURO: Gross sensation intact. DERM: Dry eschar measuring approximately 2 x 2 cm noted to distal tuft of right hallux - hyperkeratotic rim present; absent drainage; absent purulence; absent flucutance; absent malodor; no periwound erythema present. ORTHO: No pain on palpation noted to right hallux eschar. Pain on palpation noted to entire left foot, with pain on ROM 1st MPJ, MTJ, STJ, ankle joint. - Neurological Exam Neurological exam: Altered Results - Vital Signs Recent Vital Signs: Last Vital Signs Temp 97.8 F 07/02/18 11:48 Pulse 67 07/02/18 11:48 Resp 18 07/02/18 11:48 BP 149/78 07/02/18 11:48 Pulse Ox 96 07/02/18 05:54 - Labs Result Diagrams: 07/02/18 07:00 07/02/18 07:00 Labs: Laboratory Results - last 24 hr 07/01/18 07/01/18 07/01/18 08:10 16:43 21:19 WBC RBC Hgb Hct MCV MCH MCHC RDW Plt Count MPV Neut % (Auto) Lymph % (Auto) Howell % (Auto) Eos % (Auto) Baso % (Auto) Lymph # (Auto) Howell # (Auto) Eos # (Auto) Baso # (Auto) Absolute Neuts (auto) Sodium Potassium Chloride Carbon Dioxide Anion Gap BUN Creatinine Est GFR ( Amer) Est GFR (Non-Af Amer) POC Glucose (mg/dL) 327 H 279 H Random Glucose Hemoglobin A1c 15.5 H Calcium Phosphorus Magnesium Total Bilirubin AST ALT Alkaline Phosphatase Total Protein Albumin Globulin Albumin/Globulin Ratio 07/02/18 07/02/18 07/02/18 07:00 07:00 07:15 WBC 10.6 RBC 3.68 Hgb 10.6 L Hct 31.4 L MCV 85.3 MCH 28.8 MCHC 33.8 RDW 12.2 Plt Count 305 MPV 10.8 Neut % (Auto) 63.8 Lymph % (Auto) 22.8 Howell % (Auto) 12.0 H Eos % (Auto) 1.3 L Baso % (Auto) 0.1 Lymph # (Auto) 2.4 Howell # (Auto) 1.3 H Eos # (Auto) 0.1 Baso # (Auto) 0.01 Absolute Neuts (auto) 6.76 H Sodium 135 Potassium 3.5 L Chloride 103 Carbon Dioxide 25 Anion Gap 10 BUN 15 Creatinine 0.6 L Est GFR ( Amer) > 60 Est GFR (Non-Af Amer) > 60 POC Glucose (mg/dL) 116 H Random Glucose 120 H Hemoglobin A1c Calcium 8.1 L Phosphorus 2.9 Magnesium 1.8 Total Bilirubin 0.2 AST 41 H D ALT 32 Alkaline Phosphatase 73 Total Protein 6.2 Albumin 2.7 L Globulin 3.5 Albumin/Globulin Ratio 0.8 L 07/02/18 11:08 WBC RBC Hgb Hct MCV MCH MCHC RDW Plt Count MPV Neut % (Auto) Lymph % (Auto) Howell % (Auto) Eos % (Auto) Baso % (Auto) Lymph # (Auto) Howell # (Auto) Eos # (Auto) Baso # (Auto) Absolute Neuts (auto) Sodium Potassium Chloride Carbon Dioxide Anion Gap BUN Creatinine Est GFR ( Amer) Est GFR (Non-Af Amer) POC Glucose (mg/dL) 231 H Random Glucose Hemoglobin A1c Calcium Phosphorus Magnesium Total Bilirubin AST ALT Alkaline Phosphatase Total Protein Albumin Globulin Albumin/Globulin Ratio Assessment & Plan - Assessment and Plan (Free Text) Assessment: 73F with 1) right hallux eschar, stable 2) LLE PVD Plan: Patient seen and evaluated Discussed with attending, Dr. Parekh VSS Bilateral arterial duplex ordered as patient's LLE cool to touch with non- palpable pulses, f/u R foot XR reviewed: unremarkable Left foot and ankle XR ordered, f/u Local wound care provided: DSD RLE Continue abx per ID Podiatry will continue to follow <Radha Parekh - Last Filed: 07/02/18 19:31> Meds - Medications Medications: Current Medications Acetaminophen (Tylenol 325mg Tab) 650 mg PO Q4 PRN PRN Reason: Fever >100.4 F Aspirin (Ecotrin) 81 mg PO DAILY [facility] Last Admin: 07/02/18 09:35 Dose: 81 mg Dextrose (Dextrose 50% Inj) 0 ml IV STAT PRN; Protocol PRN Reason: Hypoglycemia Protocol Enoxaparin Sodium (Lovenox) 40 mg SC DAILY [facility]; Protocol Last Admin: 07/02/18 09:33 Dose: 40 mg Dextrose (Dextrose 5% In Water 1000 Ml) 1,000 mls @ 0 mls/hr IV .Q0M PRN; Protocol PRN Reason: Hypoglycemia Protocol Sodium Chloride (Sodium Chloride 0.9%) 1,000 mls @ 150 mls/hr IV .Q6H40M [facility] Last Admin: 07/01/18 23:00 Dose: 150 mls/hr Vancomycin HCl (Vancomycin 1gm) 1 gm in 250 mls @ 167 mls/hr IVPB DAILY [facility]; Protocol Last Admin: 07/02/18 09:33 Dose: 167 mls/hr Piperacillin Sod/Tazobactam Sod (Zosyn 3.375 In Ns 100ml) 100 mls @ 25 mls/hr IVPB Q8 [facility]; Protocol Last Admin: 07/02/18 14:06 Dose: 25 mls/hr Insulin Detemir (Levemir) 10 unit SC HS [facility] Last Admin: 07/01/18 22:19 Dose: 10 units Insulin Human Regular (Humulin R Med) 0 units SC ACHS [facility]; Protocol Last Admin: 07/02/18 17:44 Dose: Not Given Pantoprazole Sodium (Protonix Ec Tab) 40 mg PO 0600 [facility] Results - Vital Signs Recent Vital Signs: Last Vital Signs Temp 98.8 F 07/02/18 17:41 Pulse 88 07/02/18 17:41 Resp 20 07/02/18 17:41 BP 117/67 07/02/18 17:41 Pulse Ox 96 07/02/18 05:54 - Labs Result Diagrams: 07/02/18 07:00 07/02/18 07:00 Labs: Laboratory Results - last 24 hr 07/01/18 07/01/18 07/02/18 08:10 21:19 07:00 WBC 10.6 RBC 3.68 Hgb 10.6 L Hct 31.4 L MCV 85.3 MCH 28.8 MCHC 33.8 RDW 12.2 Plt Count 305 MPV 10.8 Neut % (Auto) 63.8 Lymph % (Auto) 22.8 Howell % (Auto) 12.0 H Eos % (Auto) 1.3 L Baso % (Auto) 0.1 Lymph # (Auto) 2.4 Howell # (Auto) 1.3 H Eos # (Auto) 0.1 Baso # (Auto) 0.01 Absolute Neuts (auto) 6.76 H Sodium Potassium Chloride Carbon Dioxide Anion Gap BUN Creatinine Est GFR ( Amer) Est GFR (Non-Af Amer) POC Glucose (mg/dL) 279 H Random Glucose Hemoglobin A1c 15.5 H Calcium Phosphorus Magnesium Total Bilirubin AST ALT Alkaline Phosphatase Total Protein Albumin Globulin Albumin/Globulin Ratio 07/02/18 07/02/18 07/02/18 07:00 07:15 11:08 WBC RBC Hgb Hct MCV MCH MCHC RDW Plt Count MPV Neut % (Auto) Lymph % (Auto) Howell % (Auto) Eos % (Auto) Baso % (Auto) Lymph # (Auto) Howell # (Auto) Eos # (Auto) Baso # (Auto) Absolute Neuts (auto) Sodium 135 Potassium 3.5 L Chloride 103 Carbon Dioxide 25 Anion Gap 10 BUN 15 Creatinine 0.6 L Est GFR ( Amer) > 60 Est GFR (Non-Af Amer) > 60 POC Glucose (mg/dL) 116 H 231 H Random Glucose 120 H Hemoglobin A1c Calcium 8.1 L Phosphorus 2.9 Magnesium 1.8 Total Bilirubin 0.2 AST 41 H D ALT 32 Alkaline Phosphatase 73 Total Protein 6.2 Albumin 2.7 L Globulin 3.5 Albumin/Globulin Ratio 0.8 L 07/02/18 16:04 WBC RBC Hgb Hct MCV MCH MCHC RDW Plt Count MPV Neut % (Auto) Lymph % (Auto) Howell % (Auto) Eos % (Auto) Baso % (Auto) Lymph # (Auto) Howell # (Auto) Eos # (Auto) Baso # (Auto) Absolute Neuts (auto) Sodium Potassium Chloride Carbon Dioxide Anion Gap BUN Creatinine Est GFR ( Amer) Est GFR (Non-Af Amer) POC Glucose (mg/dL) 231 H Random Glucose Hemoglobin A1c Calcium Phosphorus Magnesium Total Bilirubin AST ALT Alkaline Phosphatase Total Protein Albumin Globulin Albumin/Globulin Ratio Attending/Attestation - Attestation I have personally seen and examined this patient.: No I have fully participated in the care of the patient.: No I have reviewed all pertinent clinical information: No
--- NOTE | 2018-07-02 17:12 | CP.PCM.PN ---
Subjective - Date & Time of Evaluation Date of Evaluation: 07/02/18 Time of Evaluation: 14:00 - Subjective Subjective: Infectious Disease Follow Up: July 02, 2018 73 yo female with history of Type II DM. The patient was found to be altered in a laundromat. Patient herself gives little information. Patient's PMD is apparently in [place], [place], his name is Dr. Akbar. The patient name is Jessica Brizuela. Patient had fever of 101.0 F. No leukocytosis. Limited information provided by the patient. Patient is hyperglycemic on admission and still has elevated glucose levels. Under isolation now for bedbugs. No further fever episodes today. Objective - Vital Signs/Intake and Output Vital Signs (last 24 hours): Temp Pulse Resp BP Pulse Ox 97.8 F 70 18 149/78 96 07/02/18 11:48 07/02/18 16:14 07/02/18 11:48 07/02/18 11:48 07/02/18 05:54 Intake and Output: 07/02/18 07/02/18 06:59 18:59 Intake Total 2000 2000 Output Total 500 500 Balance 1500 1500 - Medications Medications: Current Medications Acetaminophen (Tylenol 325mg Tab) 650 mg PO Q4 PRN PRN Reason: Fever >100.4 F Aspirin (Ecotrin) 81 mg PO DAILY [facility] Last Admin: 07/02/18 09:35 Dose: 81 mg Dextrose (Dextrose 50% Inj) 0 ml IV STAT PRN; Protocol PRN Reason: Hypoglycemia Protocol Enoxaparin Sodium (Lovenox) 40 mg SC DAILY [facility]; Protocol Last Admin: 07/02/18 09:33 Dose: 40 mg Dextrose (Dextrose 5% In Water 1000 Ml) 1,000 mls @ 0 mls/hr IV .Q0M PRN; Protocol PRN Reason: Hypoglycemia Protocol Sodium Chloride (Sodium Chloride 0.9%) 1,000 mls @ 150 mls/hr IV .Q6H40M [facility] Last Admin: 07/01/18 23:00 Dose: 150 mls/hr Vancomycin HCl (Vancomycin 1gm) 1 gm in 250 mls @ 167 mls/hr IVPB DAILY [facility]; Protocol Last Admin: 07/02/18 09:33 Dose: 167 mls/hr Piperacillin Sod/Tazobactam Sod (Zosyn 3.375 In Ns 100ml) 100 mls @ 25 mls/hr IVPB Q8 [facility]; Protocol Last Admin: 07/02/18 14:06 Dose: 25 mls/hr Insulin Detemir (Levemir) 10 unit SC HS [facility] Last Admin: 07/01/18 22:19 Dose: 10 units Insulin Human Regular (Humulin R Med) 0 units SC ACHS [facility]; Protocol Last Admin: 07/02/18 12:49 Dose: Not Given Pantoprazole Sodium (Protonix Ec Tab) 40 mg PO 0600 [facility] - Labs Labs: 07/02/18 07:00 07/02/18 07:00 - Constitutional Appears: Non-toxic, No Acute Distress, Chronically Ill - Head Exam Head Exam: ATRAUMATIC, NORMOCEPHALIC - Eye Exam Eye Exam: EOMI, PERRL Pupil Exam: NORMAL ACCOMODATION, PERRL - ENT Exam ENT Exam: Mucous Membranes Moist, Normal External Ear Exam, TM's Normal Bilater ally - Neck Exam Neck Exam: Full ROM, Normal Inspection - Respiratory Exam Respiratory Exam: Clear to Ausculation Bilateral, NORMAL BREATHING PATTERN. absent: Rales, Rhonchi, Wheezes - Cardiovascular Exam Cardiovascular Exam: REGULAR RHYTHM, RRR, +S1, +S2 - GI/Abdominal Exam GI & Abdominal Exam: Soft, Normal Bowel Sounds. absent: Distended, Tenderness Additional comments: midline surgical scar. - Extremities Exam Additional comments: RLE big toe ulcer/eschar. Mild edema of the left lower leg. - Neurological Exam Neurological Exam: Alert, Awake, CN II-XII Intact, Oriented x3 - Psychiatric Exam Psychiatric exam: Flat Affect Additional comments: Distant. Often answers questions with "I don't know", "I don't remember", or "I forgot". - Skin Additional comments: As above. Assessment and Plan - Assessment and Plan (Free Text) Assessment: 73 yo female presenting for altered mental status, fevers up to 101.0 F, and hyperglycemia. Negative Chest X-ray. X-ray right big toe showing swelling of the soft tissues only. Head CT negative. Patient was hyponatremic. Unclear how the patient's DM control is normally. Likely with some degree of dehydration in addition to the hyperglycemia. Check Hgb A1c. Monitor glucose levels. Started on Vancomycin and Zosyn. Villagran cultures. Supportive care. Afebrile today. Found to have bedbugs and isolated now. Spoke with Dr. Rockwell. Thank you for allowing me to participate in the care of the patient, we will f omar with you.
[2018-07-02] MEDS: Insulin Detemir 100 units/ml Vial (Levemir) SC SCH (21:46)
[2018-07-03] MEDS: Piperacillin/Tazobact 3.375 gm 100 ML IVPB SCH ×3 (06:17→23:10)
[2018-07-03] MEDS: Pantoprazole 40 mg EC Tab PO SCH (06:17)
[2018-07-03] MEDS: Insulin Reg-MEDIUM-Coverage SC SCH ×4 (08:16→23:12)
[2018-07-03 09:11] LABS: BASO # 0.01 K/mm3 (0.0-2.0); BASO % 0.1 % (0.0-3.0); EOS # 0.1 (0.0-0.7); EOS % 1.1 % (1.5-5.0); HEMOGLOBIN 11.2 g/dL (12.0-16.0); LYMPH # 1.9 (1.2-3.4); LYMPH % 20.5 % (22.0-35.0); MEAN CELL VOLUME 86.2 fl (80.0-105.0); MEAN CORPUSCULAR HEMOGLOBIN 28.6 pg (25.0-35.0); MEAN CORPUSCULAR HGB CONC 33.1 g/dl (31.0-37.0); MEAN PLATELET VOLUME 10.4 fl (7.0-11.0); MONO # 0.9 (0.1-0.6); MONO % 9.1 % (1.0-6.0); RBC 3.92 10^6/uL (3.5-6.1); RED CELL DISTRIBUTION WIDTH 12.4 % (11.5-14.5); WHITE BLOOD COUNT 9.4 10^3/uL (4.5-11.0)
[2018-07-03] MEDS: Vancomycin 1gm in NS 250ml 1 GM/250 ML BAG IVPB SCH (09:15)
[2018-07-03] MEDS: Enoxaparin 40 mg Syringe SC SCH (09:15)
[2018-07-03 09:45] LABS: ALB/GLOB RATIO 0.8 (1.1-1.8); ALBUMIN 2.9 g/dL (3.0-4.8); ALT/SGPT 29 U/L (7-56); AST/SGOT 46 U/L (14-36); BLOOD UREA NITROGEN 12 mg/dL (7-21); CALCIUM 8.4 mg/dL (8.4-10.5); GFR NON-AFRICAN AMERICAN > 60
--- NOTE | 2018-07-03 10:55 | CP.PCM.PN ---
<Edmond Ba - Last Filed: 07/03/18 10:52> Subjective - Date & Time of Evaluation Date of Evaluation: 07/03/18 Time of Evaluation: 10:52 - Subjective Subjective: Podiatry progress note - Dr. Parekh/Reza 73F seen and evaluated at bedside under bed bug precautions with Dr. Parekh. Resting comfortably, reports mild pain in the left foot and lower leg. Denies n/v/f/c/sob today and denies acute events overnight. Objective - Vital Signs/Intake and Output Vital Signs (last 24 hours): Temp Pulse Resp BP Pulse Ox 98.6 F 90 18 155/75 H 98 07/03/18 06:00 07/03/18 06:00 07/03/18 06:00 07/03/18 06:00 07/03/18 06:00 Intake and Output: 07/03/18 07/03/18 06:59 18:59 Intake Total 2320 Output Total 1300 Balance 1020 - Medications Medications: Current Medications Acetaminophen (Tylenol 325mg Tab) 650 mg PO Q4 PRN PRN Reason: Fever >100.4 F Aspirin (Ecotrin) 81 mg PO DAILY [facility] Last Admin: 07/03/18 09:15 Dose: 81 mg Dextrose (Dextrose 50% Inj) 0 ml IV STAT PRN; Protocol PRN Reason: Hypoglycemia Protocol Enoxaparin Sodium (Lovenox) 40 mg SC DAILY [facility]; Protocol Last Admin: 07/03/18 09:15 Dose: 40 mg Dextrose (Dextrose 5% In Water 1000 Ml) 1,000 mls @ 0 mls/hr IV .Q0M [facility]; Protocol PRN Reason: Hypoglycemia Protocol Sodium Chloride (Sodium Chloride 0.9%) 1,000 mls @ 150 mls/hr IV .Q6H40M [facility] Last Admin: 07/01/18 23:00 Dose: 150 mls/hr Vancomycin HCl (Vancomycin 1gm) 1 gm in 250 mls @ 167 mls/hr IVPB DAILY [facility]; Protocol Last Admin: 07/03/18 09:15 Dose: 167 mls/hr Piperacillin Sod/Tazobactam Sod (Zosyn 3.375 In Ns 100ml) 100 mls @ 25 mls/hr IVPB Q8 [facility]; Protocol Last Admin: 07/03/18 06:17 Dose: 25 mls/hr Insulin Detemir (Levemir) [address] [facility] Last Admin: 07/02/18 21:46 Dose: 10 units Insulin Human Regular (Humulin R Med) 0 units SC [facility]; Protocol Last Admin: 07/03/18 08:16 Dose: Not Given Pantoprazole Sodium (Protonix Ec Tab) 40 mg PO 0600 [facility] Last Admin: 07/03/18 06:17 Dose: 40 mg - Labs Labs: 07/03/18 08:30 07/03/18 08:30 - Constitutional Appears: Non-toxic - Head Exam Head Exam: ATRAUMATIC - Extremities Exam Additional comments: VASC: R DP weakly palpalbe 1/4. L DP and bilateral PT pulses nonpalpable. CFT >3 seconds to all digits. Temperature gradient warm to warm RLE, warm to cold LLE. +1 pitting edema noted to LLE. NEURO: Gross sensation intact. DERM: Dry eschar measuring approximately 2 x 2 cm noted to distal tuft of right hallux - hyperkeratotic rim present; absent drainage; absent purulence; absent flucutance; absent malodor; no periwound erythema present. ORTHO: No pain on palpation noted to right hallux eschar. Pain on palpation noted to entire left foot, with pain on ROM 1st MPJ, MTJ, STJ, ankle joint. - Neurological Exam Neurological Exam: Alert, Awake, Oriented x3 - Psychiatric Exam Psychiatric exam: Normal Affect, Normal Mood Assessment and Plan - Assessment and Plan (Free Text) Assessment: 73F with 1) right hallux eschar, stable 2) LLE PVD Plan: Patient seen and evaluated with Dr. Parekh VSAbebe Bilateral arterial duplex ordered as patient's LLE cool to touch with non- palpable pulses, f/u Consult for Dr. Cory junior appreciated Venous duplex ordered for calf pain - f/u Left foot and ankle XR ordered, f/u Local wound care provided: DSD RLE Continue abx per ID Podiatry will continue to follow <Radha Parekh - Last Filed: 07/09/18 15:42> Objective - Vital Signs/Intake and Output Vital Signs (last 24 hours): Temp Pulse Resp BP Pulse Ox 99 F 84 20 130/80 98 07/09/18 06:00 07/09/18 10:51 07/09/18 06:00 07/09/18 10:51 07/09/18 06:00 - Medications Medications: Current Medications Acetaminophen (Tylenol 325mg Tab) 650 mg PO Q4 PRN PRN Reason: Fever >100.4 F Last Admin: 07/06/18 20:35 Dose: 650 mg Aspirin (Ecotrin) 81 mg PO DAILY [facility] Last Admin: 07/09/18 10:51 Dose: 81 mg Atorvastatin Calcium (Lipitor) 20 mg PO DIN [facility] Last Admin: 07/08/18 17:40 Dose: 20 mg Cephalexin Monohydrate (Keflex) 500 mg PO BID [facility]; Protocol Stop: 07/19/18 10:01 Last Admin: 07/09/18 10:51 Dose: 500 mg Clopidogrel Bisulfate (Plavix) 75 mg PO DAILY [facility] Last Admin: 07/09/18 11:00 Dose: 75 mg Dextrose (Dextrose 50% Inj) 0 ml IV STAT PRN; Protocol PRN Reason: Hypoglycemia Protocol Enoxaparin Sodium (Lovenox) 40 mg SC DAILY [facility]; Protocol Last Admin: 07/09/18 10:51 Dose: 40 mg Gabapentin (Neurontin) 100 mg PO BID [facility]; Protocol Last Admin: 07/08/18 17:40 Dose: 100 mg Gabapentin (Neurontin) 300 mg PO HS [facility]; Protocol Last Admin: 07/08/18 21:54 Dose: 300 mg Dextrose (Dextrose 5% In Water 1000 Ml) 1,000 mls @ 0 mls/hr IV .Q0M [facility]; Protocol PRN Reason: Hypoglycemia Protocol Insulin Detemir (Levemir) 10 unit SC Q12H [facility] Last Admin: 07/09/18 10:52 Dose: 10 units Insulin Human Regular (Humulin R Med) 0 units SC ACHS [facility]; Protocol Last Admin: 07/09/18 13:00 Dose: 3 units Metoprolol Tartrate (Lopressor) 25 mg PO 0800,1800 [facility] Last Admin: 07/09/18 10:51 Dose: 25 mg Pantoprazole Sodium (Protonix Ec Tab) 40 mg PO 0600 [facility] Last Admin: 07/09/18 05:31 Dose: 40 mg - Labs Labs: 07/08/18 06:30 07/08/18 06:30 Attending/Attestation - Attestation I have personally seen and examined this patient.: Yes I have fully participated in the care of the patient.: Yes I have reviewed all pertinent clinical information, including history, physical exam and plan: Yes
[2018-07-03] MEDS: Sodium Chloride 0.9% 1,000 ML IV SCH ×3 (13:59→23:10)
--- NOTE | 2018-07-03 14:09 | CP.PCM.PN ---
<Jeffrey Vo - Last Filed: 07/03/18 16:34> Subjective - Date & Time of Evaluation Date of Evaluation: 07/03/18 Time of Evaluation: 09:00 - Subjective Subjective: Jeffrey Vo, PGY1 Medicine Progress Note: Pt was seen and examined this AM at bedside. Pt had bath and was placed on 24 hour isolation for bedbugs overnight. Pt is AOx3 and when asked about meds states that she only takes aspirin and not plavix. Pt states that at this time she has no acute complaints, but does admit to some tenderness of L foot when palpated. Objective - Vital Signs/Intake and Output Vital Signs (last 24 hours): Temp Pulse Resp BP Pulse Ox 99.3 F 82 19 141/78 98 07/03/18 12:00 07/03/18 12:00 07/03/18 12:00 07/03/18 12:00 07/03/18 06:00 Intake and Output: 07/03/18 07/03/18 06:59 18:59 Intake Total 2320 Output Total 1300 Balance 1020 - Medications Medications: Current Medications Acetaminophen (Tylenol 325mg Tab) 650 mg PO Q4 PRN PRN Reason: Fever >100.4 F Aspirin (Ecotrin) 81 mg PO DAILY [facility] Last Admin: 07/03/18 09:15 Dose: 81 mg Dextrose (Dextrose 50% Inj) 0 ml IV STAT PRN; Protocol PRN Reason: Hypoglycemia Protocol Enoxaparin Sodium (Lovenox) 40 mg SC DAILY [facility]; Protocol Last Admin: 07/03/18 09:15 Dose: 40 mg Dextrose (Dextrose 5% In Water 1000 Ml) 1,000 mls @ 0 mls/hr IV .Q0M PRN; Protocol PRN Reason: Hypoglycemia Protocol Sodium Chloride (Sodium Chloride 0.9%) 1,000 mls @ 150 mls/hr IV .Q6H40M [facility] Last Admin: 07/03/18 13:59 Dose: 150 mls/hr Vancomycin HCl (Vancomycin 1gm) 1 gm in 250 mls @ 167 mls/hr IVPB DAILY [facility]; Protocol Last Admin: 07/03/18 09:15 Dose: 167 mls/hr Piperacillin Sod/Tazobactam Sod (Zosyn 3.375 In Ns 100ml) 100 mls @ 25 mls/hr IVPB Q8 [facility]; Protocol Last Admin: 07/03/18 13:57 Dose: 25 mls/hr Insulin Detemir (Levemir) 10 unit SC HS [facility] Last Admin: 07/02/18 21:46 Dose: 10 units Insulin Human Regular (Humulin R Med) 0 units SC ACHS [facility]; Protocol Last Admin: 07/03/18 12:43 Dose: 3 units Pantoprazole Sodium (Protonix Ec Tab) 40 mg PO 0600 [facility] Last Admin: 07/03/18 06:17 Dose: 40 mg - Labs Labs: 07/03/18 08:30 07/03/18 08:30 - Constitutional Appears: Non-toxic, No Acute Distress - Head Exam Head Exam: ATRAUMATIC, NORMAL INSPECTION, NORMOCEPHALIC - Eye Exam Eye Exam: EOMI, Normal appearance, PERRL - Respiratory Exam Respiratory Exam: Clear to Ausculation Bilateral, NORMAL BREATHING PATTERN. absent: Accessory Muscle Use, Rales, Rhonchi, Wheezes, Respiratory Distress, Stridor - Cardiovascular Exam Cardiovascular Exam: RRR, +S1, +S2. absent: Gallop, Rubs - GI/Abdominal Exam GI & Abdominal Exam: Soft, Normal Bowel Sounds. absent: Guarding, Rigid, Tenderness - Extremities Exam Extremities exam: Positive for: normal capillary refill, pedal pulses present. Negative for: tenderness Additional comments: RLE big toe ulcer, LLE toe swelling with fluctuance. - Back Exam Back Exam: NORMAL INSPECTION. absent: CVA tenderness (L), CVA tenderness (R) - Neurological Exam Neurological Exam: Alert, Awake, Oriented x3 - Psychiatric Exam Psychiatric exam: Normal Affect, Normal Mood - Skin Skin Exam: Dry, Normal Color, Warm Assessment and Plan - Assessment and Plan (Free Text) Assessment: Patient is a 73 year old female with past medical history of T2DM presenting with altered mental status. Sugars were initially noted to be elevated in the 700s and have been downtrending since. Pt is noted to NOT have an anion gap. Plan: Altered mental status: Resolved - Pt is now AOx3 - Likely 2/2 elevated blood glucose levels upon admission in the 700s, now resolved - CT head shows age appropriate changes, no acute pathology - UDS negative - afebrile, no leukocytosis - IVF @ 150 ccs/hr - UA (-) for nitrates, LE or WBC - Ucx (-) - BCx (-) - CXR: NAD Hyperglycemia w/o elevated AG - ISS, Accuchecks - Hgba1c - 15.5 - Adjusting insulin regimen as per daily sugars - Diabetic education RLE ulcer - wound care - Vanc and zosyn started - ID on board, recs appreciated - XR showed soft tissue swelling w/o acute articular or osseous abnormality - Podiatry on board - f/u b/l arterial US - f/u venous duplex US of LE - f/u L ankle and foot XR Pseudohyponatremia - Na 137 now - continue to monitor PPX - Lovenox SC, Protonix Bed Bugs: - Pt is in isolation for 24 hours post bath - Will have isolation d/mercedes today Case reviewed with Dr. Pam Vo PGY-1 <Lorena Orozco - Last Filed: 07/08/18 11:00> Objective - Vital Signs/Intake and Output Vital Signs (last 24 hours): Temp Pulse Resp BP Pulse Ox 100 F H 92 H 18 123/68 96 07/07/18 22:00 07/07/18 22:00 07/07/18 22:00 07/07/18 22:00 07/07/18 22:00 Intake and Output: 07/08/18 07/08/18 06:59 18:59 Intake Total 660 Balance 660 - Medications Medications: Current Medications Acetaminophen (Tylenol 325mg Tab) 650 mg PO Q4 PRN PRN Reason: Fever >100.4 F Last Admin: 07/06/18 20:35 Dose: 650 mg Aspirin (Ecotrin) 81 mg PO DAILY [facility] Last Admin: 07/08/18 09:45 Dose: 81 mg Atorvastatin Calcium (Lipitor) 20 mg PO DIN [facility] Cephalexin Monohydrate (Keflex) 500 mg PO BID [facility]; Protocol Stop: 07/19/18 10:01 Last Admin: 07/08/18 09:46 Dose: 500 mg Clopidogrel Bisulfate (Plavix) 75 mg PO DAILY [facility] Last Admin: 07/08/18 09:46 Dose: 75 mg Dextrose (Dextrose 50% Inj) 0 ml IV STAT PRN; Protocol PRN Reason: Hypoglycemia Protocol Enoxaparin Sodium (Lovenox) 40 mg SC DAILY [facility]; Protocol Last Admin: 07/08/18 09:45 Dose: 40 mg Gabapentin (Neurontin) 100 mg PO BID [facility]; Protocol Last Admin: 07/08/18 09:46 Dose: 100 mg Gabapentin (Neurontin) 300 mg PO HS [facility]; Protocol Last Admin: 07/07/18 22:36 Dose: 300 mg Dextrose (Dextrose 5% In Water 1000 Ml) 1,000 mls @ 0 mls/hr IV .Q0M PRN; Protocol PRN Reason: Hypoglycemia Protocol Insulin Detemir (Levemir) 10 unit SC Q12H [facility] Last Admin: 07/08/18 09:49 Dose: 10 units Insulin Human Regular (Humulin R Med) 0 units SC ACHS [facility]; Protocol Last Admin: 07/08/18 07:46 Dose: Not Given Metoprolol Tartrate (Lopressor) 25 mg PO 0800,1800 [facility] Last Admin: 07/08/18 09:45 Dose: 25 mg Pantoprazole Sodium (Protonix Ec Tab) 40 mg PO 0600 [facility] Last Admin: 07/08/18 05:32 Dose: 40 mg - Labs Labs: 07/08/18 06:30 07/08/18 06:30 Attending/Attestation - Attestation I have personally seen and examined this patient.: Yes I have fully participated in the care of the patient.: Yes I have reviewed all pertinent clinical information, including history, physical exam and plan: Yes Notes (Text): 07/08/18 11:00 Medical record note made by the resident after discussion with my direction and input after the patient was personally seen and examined by me. I have reviewed the chart and agree that the record accurately reflects by personal performance of the history, physical exam, data review, and medical decision-making, in the course for the patient. I have also personally directed the plan of care.
--- NOTE | 2018-07-03 16:35 | CP.PCM.PN ---
Subjective - Date & Time of Evaluation Date of Evaluation: 07/03/18 Time of Evaluation: 15:00 - Subjective Subjective: Infectious Disease Follow Up: July 03, 2018 73 yo female with history of Type II DM. The patient was found to be altered in a laundromat. Patient herself gives little information. Patient's PMD is apparently in [place], [place], his name is Dr. Akbar. The patient name is Jessica Brizuela. Patient had fever of 101.0 F. No leukocytosis. Limited information provided by the patient. Patient is hyperglycemic on admission and still has elevated glucose levels. Under isolation now for bedbugs. No further fever episodes today. Duplex pending. Objective - Vital Signs/Intake and Output Vital Signs (last 24 hours): Temp Pulse Resp BP Pulse Ox 99.3 F 87 19 141/78 98 07/03/18 12:00 07/03/18 14:00 07/03/18 12:00 07/03/18 12:00 07/03/18 06:00 Intake and Output: 07/03/18 07/03/18 06:59 18:59 Intake Total 2320 Output Total 1300 Balance 1020 - Medications Medications: Current Medications Acetaminophen (Tylenol 325mg Tab) 650 mg PO Q4 PRN PRN Reason: Fever >100.4 F Aspirin (Ecotrin) 81 mg PO DAILY [facility] Last Admin: 07/03/18 09:15 Dose: 81 mg Dextrose (Dextrose 50% Inj) 0 ml IV STAT PRN; Protocol PRN Reason: Hypoglycemia Protocol Enoxaparin Sodium (Lovenox) 40 mg SC DAILY [facility]; Protocol Last Admin: 07/03/18 09:15 Dose: 40 mg Dextrose (Dextrose 5% In Water 1000 Ml) 1,000 mls @ 0 mls/hr IV .Q0M PRN; Protocol PRN Reason: Hypoglycemia Protocol Sodium Chloride (Sodium Chloride 0.9%) 1,000 mls @ 150 mls/hr IV .Q6H40M [facility] Last Admin: 07/03/18 13:59 Dose: 150 mls/hr Vancomycin HCl (Vancomycin 1gm) 1 gm in 250 mls @ 167 mls/hr IVPB DAILY [facility]; Protocol Last Admin: 07/03/18 09:15 Dose: 167 mls/hr Piperacillin Sod/Tazobactam Sod (Zosyn 3.375 In Ns 100ml) 100 mls @ 25 mls/hr IVPB Q8 [facility]; Protocol Last Admin: 07/03/18 13:57 Dose: 25 mls/hr Insulin Detemir (Levemir) 10 unit SC HS [facility] Last Admin: 07/02/18 21:46 Dose: 10 units Insulin Human Regular (Humulin R Med) 0 units SC ACHS [facility]; Protocol Last Admin: 07/03/18 12:43 Dose: 3 units Pantoprazole Sodium (Protonix Ec Tab) 40 mg PO 0600 [facility] Last Admin: 07/03/18 06:17 Dose: 40 mg - Labs Labs: 07/03/18 08:30 07/03/18 08:30 - Constitutional Appears: Non-toxic, No Acute Distress, Chronically Ill - Head Exam Head Exam: ATRAUMATIC, NORMOCEPHALIC - Eye Exam Eye Exam: EOMI, PERRL Pupil Exam: NORMAL ACCOMODATION, PERRL - ENT Exam ENT Exam: Mucous Membranes Moist, Normal External Ear Exam, TM's Normal Bilaterally - Neck Exam Neck Exam: Full ROM, Normal Inspection - Respiratory Exam Respiratory Exam: Clear to Ausculation Bilateral, NORMAL BREATHING PATTERN. absent: Rales, Rhonchi, Wheezes - Cardiovascular Exam Cardiovascular Exam: REGULAR RHYTHM, RRR, +S1, +S2 - GI/Abdominal Exam GI & Abdominal Exam: Soft, Normal Bowel Sounds. absent: Distended, Tenderness Additional comments: midline surgical scar. - Extremities Exam Additional comments: RLE big toe ulcer/eschar. Mild edema of the left lower leg. - Neurological Exam Neurological Exam: Alert, Awake, CN II-XII Intact, Oriented x3 - Psychiatric Exam Psychiatric exam: Flat Affect Additional comments: Distant. Often answers questions with "I don't know", "I don't remember", or "I forgot". - Skin Additional comments: As above. Assessment and Plan - Assessment and Plan (Free Text) Assessment: 73 yo female presenting for altered mental status, fevers up to 101.0 F, and hyperglycemia. Negative Chest X-ray. X-ray right big toe showing swelling of the soft tissues only. Head CT negative. Patient was hyponatremic. Unclear how the patient's DM control is normally. Likely with some degree of dehydration in addition to the hyperglycemia. Check Hgb A1c. Monitor glucose levels. Started on Vancomycin and Zosyn. Villagran cultures. Supportive care. Afebrile today. Found to have bedbugs and remains isolated. Duplex studies pending. Spoke with Dr. Rockwell. Thank you for allowing me to participate in the care of the patient, we will follow with you.
[2018-07-03] MEDS: Insulin Detemir 100 units/ml Vial (Levemir) SC SCH (23:11)
[2018-07-04] MEDS: Piperacillin/Tazobact 3.375 gm 100 ML IVPB SCH ×3 (06:13→22:14)
[2018-07-04] MEDS: Pantoprazole 40 mg EC Tab PO SCH (06:14)
[2018-07-04] MEDS: Sodium Chloride 0.9% 1,000 ML IV SCH (06:17)
[2018-07-04] MEDS: Insulin Reg-MEDIUM-Coverage SC SCH ×4 (07:41→22:14)
[2018-07-04 09:16] LABS: BASO # 0.01 K/mm3 (0.0-2.0); BASO % 0.1 % (0.0-3.0); EOS % 0.5 % (1.5-5.0); HEMOGLOBIN 11.8 g/dL (12.0-16.0); LYMPH # 1.6 (1.2-3.4); LYMPH % 18.6 % (22.0-35.0); MEAN CELL VOLUME 86.3 fl (80.0-105.0); MEAN CORPUSCULAR HEMOGLOBIN 28.9 pg (25.0-35.0); MEAN CORPUSCULAR HGB CONC 33.4 g/dl (31.0-37.0); MEAN PLATELET VOLUME 10.3 fl (7.0-11.0); MONO % 11.3 % (1.0-6.0); RBC 4.09 10^6/uL (3.5-6.1); RED CELL DISTRIBUTION WIDTH 12.3 % (11.5-14.5); WHITE BLOOD COUNT 8.8 10^3/uL (4.5-11.0)
[2018-07-04 09:35] LABS: ALB/GLOB RATIO 0.8 (1.1-1.8); ALBUMIN 3.1 g/dL (3.0-4.8); ALT/SGPT 32 U/L (7-56); AST/SGOT 46 U/L (14-36); BLOOD UREA NITROGEN 9 mg/dL (7-21); CALCIUM 8.6 mg/dL (8.4-10.5); GFR NON-AFRICAN AMERICAN > 60
[2018-07-04] MEDS: Enoxaparin 40 mg Syringe SC SCH (10:25)
[2018-07-04] MEDS: Vancomycin 1gm in NS 250ml 1 GM/250 ML BAG IVPB SCH (10:26)
--- NOTE | 2018-07-04 10:37 | CP.PCM.PN ---
<Edmond Ba - Last Filed: 07/04/18 10:34> Subjective - Date & Time of Evaluation Date of Evaluation: 07/04/18 Time of Evaluation: 10:34 - Subjective Subjective: Podiatry progress note - Dr. Parekh/Reza 73F seen and evaluated at bedside under bed bug precautions with Dr. Parekh. Resting comfortably, reports significant tenderness to the left midfoot. Denies n/v/f/c/sob today and denies acute events overnight. Objective - Vital Signs/Intake and Output Vital Signs (last 24 hours): Temp Pulse Resp BP Pulse Ox 98.4 F 84 18 163/84 H 98 07/04/18 06:00 07/04/18 06:00 07/04/18 06:00 07/04/18 06:00 07/03/18 06:00 Intake and Output: 07/04/18 07/04/18 06:59 18:59 Intake Total 695 Output Total 1250 Balance -555 - Medications Medications: Current Medications Acetaminophen (Tylenol 325mg Tab) 650 mg PO Q4 PRN PRN Reason: Fever >100.4 F Aspirin (Ecotrin) 81 mg PO DAILY [facility] Last Admin: 07/04/18 10:25 Dose: 81 mg Dextrose (Dextrose 50% Inj) 0 ml IV STAT PRN; Protocol PRN Reason: Hypoglycemia Protocol Enoxaparin Sodium (Lovenox) 40 mg SC DAILY [facility]; Protocol Last Admin: 07/04/18 10:25 Dose: 40 mg Dextrose (Dextrose 5% In Water 1000 Ml) 1,000 mls @ 0 mls/hr IV .Q0M PRN; Protocol PRN Reason: Hypoglycemia Protocol Sodium Chloride (Sodium Chloride 0.9%) 1,000 mls @ 150 mls/hr IV .Q6H40M [facility] Last Admin: 07/04/18 06:17 Dose: 150 mls/hr Vancomycin HCl (Vancomycin 1gm) 1 gm in 250 mls @ 167 mls/hr IVPB DAILY [facility]; Protocol Last Admin: 07/04/18 10:26 Dose: 167 mls/hr Piperacillin Sod/Tazobactam Sod (Zosyn 3.375 In Ns 100ml) 100 mls @ 25 mls/hr IVPB Q8 [facility]; Protocol Last Admin: 07/04/18 06:13 Dose: 25 mls/hr Insulin Detemir (Levemir) 10 unit SC [facility] Last Admin: 07/03/18 23:11 Dose: 10 units Insulin Human Regular (Humulin R Med) 0 units SC [facility]; Protocol Last Admin: 07/04/18 07:41 Dose: Not Given Pantoprazole Sodium (Protonix Ec Tab) 40 mg PO 0600 [facility] Last Admin: 07/04/18 06:14 Dose: 40 mg - Labs Labs: 07/04/18 09:00 07/04/18 09:00 - Constitutional Appears: Non-toxic - Head Exam Head Exam: ATRAUMATIC - Extremities Exam Additional comments: VASC: R DP weakly palpalbe 1/4. L DP and bilateral PT pulses nonpalpable. CFT >3 seconds to all digits. Temperature gradient warm to warm RLE, warm to cold LLE. +1 pitting edema noted to LLE. NEURO: Gross sensation intact. DERM: Dry eschar measuring approximately 2 x 2 cm noted to distal tuft of right hallux - hyperkeratotic rim present; absent drainage; absent purulence; absent flucutance; absent malodor; no periwound erythema present. ORTHO: No pain on palpation noted to right hallux eschar. Pain on palpation noted to entire left foot, with pain on ROM 1st MPJ, MTJ, STJ, ankle joint. - Neurological Exam Neurological Exam: Alert, Awake, Oriented x3 - Psychiatric Exam Psychiatric exam: Normal Affect, Normal Mood Assessment and Plan - Assessment and Plan (Free Text) Assessment: 73F with 1) right hallux eschar, stable 2) LLE PVD and midfoot pain Plan: Patient seen and evaluated with Dr. Parekh VSS Bilateral arterial duplex ordered as patient's LLE cool to touch with non- palpable pulses, f/u Consult for Dr. Ray - sandi appreciated Venous duplex ordered for calf pain - f/u Left foot and ankle XR ordered, f/u No evidence of abscess on left foot clinically No dressings applied to feet Continue abx per ID Podiatry will continue to follow <Radha Parekh - Last Filed: 07/09/18 15:38> Objective - Vital Signs/Intake and Output Vital Signs (last 24 hours): Temp Pulse Resp BP Pulse Ox 99 F 84 20 130/80 98 07/09/18 06:00 07/09/18 10:51 07/09/18 06:00 07/09/18 10:51 07/09/18 06:00 - Medications Medications: Current Medications Acetaminophen (Tylenol 325mg Tab) 650 mg PO Q4 PRN PRN Reason: Fever >100.4 F Last Admin: 07/06/18 20:35 Dose: 650 mg Aspirin (Ecotrin) 81 mg PO DAILY [facility] Last Admin: 07/09/18 10:51 Dose: 81 mg Atorvastatin Calcium (Lipitor) 20 mg PO DIN [facility] Last Admin: 07/08/18 17:40 Dose: 20 mg Cephalexin Monohydrate (Keflex) 500 mg PO BID [facility]; Protocol Stop: 07/19/18 10:01 Last Admin: 07/09/18 10:51 Dose: 500 mg Clopidogrel Bisulfate (Plavix) 75 mg PO DAILY [facility] Last Admin: 07/09/18 11:00 Dose: 75 mg Dextrose (Dextrose 50% Inj) 0 ml IV STAT PRN; Protocol PRN Reason: Hypoglycemia Protocol Enoxaparin Sodium (Lovenox) 40 mg SC DAILY [facility]; Protocol Last Admin: 07/09/18 10:51 Dose: 40 mg Gabapentin (Neurontin) 100 mg PO BID [facility]; Protocol Last Admin: 07/08/18 17:40 Dose: 100 mg Gabapentin (Neurontin) 300 mg PO HS [facility]; Protocol Last Admin: 07/08/18 21:54 Dose: 300 mg Dextrose (Dextrose 5% In Water 1000 Ml) 1,000 mls @ 0 mls/hr IV .Q0M PRN; Protocol PRN Reason: Hypoglycemia Protocol Insulin Detemir (Levemir) 10 unit SC Q12H [facility] Last Admin: 07/09/18 10:52 Dose: 10 units Insulin Human Regular (Humulin R Med) 0 units SC ACHS [facility]; Protocol Last Admin: 07/09/18 13:00 Dose: 3 units Metoprolol Tartrate (Lopressor) 25 mg PO 0800,1800 [facility] Last Admin: 07/09/18 10:51 Dose: 25 mg Pantoprazole Sodium (Protonix Ec Tab) 40 mg PO 0600 [facility] Last Admin: 07/09/18 05:31 Dose: 40 mg - Labs Labs: 07/08/18 06:30 07/08/18 06:30 Attending/Attestation - Attestation I have personally seen and examined this patient.: Yes I have fully participated in the care of the patient.: Yes I have reviewed all pertinent clinical information, including history, physical exam and plan: Yes
--- NOTE | 2018-07-04 12:21 | CP.PCM.PCO ---
Physician Communication Note - Physician Communication Note Physician Communication Note: PVR's, venous duplex, xrays pending, continue antibiotics
--- NOTE | 2018-07-04 13:29 | RAD ---
Date of service: 07/04/2018 PROCEDURE: Left Ankle Radiographs. HISTORY: generalized L ankle pain COMPARISON: None available. FINDINGS: BONES: Normal. No fracture. JOINTS: Normal. No osteoarthritis. Ankle mortise maintained. Talar dome intact SOFT TISSUES: Normal. OTHER FINDINGS: None. IMPRESSION: Normal left ankle radiographs.
--- NOTE | 2018-07-04 13:30 | RAD ---
Date of service: 07/04/2018 PROCEDURE: Left Foot Radiographs. HISTORY: generalized L foot pain COMPARISON: None. FINDINGS: BONES: Normal. No fracture. JOINTS: Normal. SOFT TISSUES: Normal. OTHER FINDINGS: None. IMPRESSION: Normal left foot radiographs.
[2018-07-04] MEDS ORDERED: Potassium Chloride 20 mEq ER Tab PO STA (13:38)
--- NOTE | 2018-07-04 14:05 | CP.PCM.PCO ---
Physician Communication Note - Physician Communication Note Physician Communication Note: PVR's and venous duplex pending result
--- NOTE | 2018-07-04 15:46 | CP.PCM.PN ---
<Jeffrey Vo - Last Filed: 07/04/18 15:52> Subjective - Date & Time of Evaluation Date of Evaluation: 07/04/18 Time of Evaluation: 15:52 - Subjective Subjective: Jeffrey Vo PGY1 Medicine Progress Note: Pt was seen and examined this AM at bedside. Pt had no acute overnight events. Pt continues to admit to L sided foot pain, and some tingling in her fingers which is likely 2/2 neuropathy due to her poorly controlled DM. Otherwise pt denies any fevers, chills, chest pain, palpitations, SOB, cough, abd pain, n/v, c/d, or dysuria. Objective - Vital Signs/Intake and Output Vital Signs (last 24 hours): Temp Pulse Resp BP Pulse Ox 98.2 F 84 18 161/84 H 98 07/04/18 14:00 07/04/18 14:00 07/04/18 14:00 07/04/18 14:00 07/04/18 14:00 Intake and Output: 07/04/18 07/04/18 06:59 18:59 Intake Total 695 Output Total 1250 Balance -555 - Medications Medications: Current Medications Acetaminophen (Tylenol 325mg Tab) 650 mg PO Q4 PRN PRN Reason: Fever >100.4 F Aspirin (Ecotrin) 81 mg PO DAILY [facility] Last Admin: 07/04/18 10:25 Dose: 81 mg Dextrose (Dextrose 50% Inj) 0 ml IV STAT PRN; Protocol PRN Reason: Hypoglycemia Protocol Enoxaparin Sodium (Lovenox) 40 mg SC DAILY [facility]; Protocol Last Admin: 07/04/18 10:25 Dose: 40 mg Gabapentin (Neurontin) 100 mg PO BID [facility]; Protocol Gabapentin (Neurontin) 300 mg PO HS [facility]; Protocol Dextrose (Dextrose 5% In Water 1000 Ml) 1,000 mls @ 0 mls/hr IV .Q0M PRN; Protocol PRN Reason: Hypoglycemia Protocol Sodium Chloride (Sodium Chloride 0.9%) 1,000 mls @ 150 mls/hr IV .Q6H40M [facility] Last Admin: 07/04/18 06:17 Dose: 150 mls/hr Piperacillin Sod/Tazobactam Sod (Zosyn 3.375 In Ns 100ml) 100 mls @ 25 mls/hr IVPB Q8 [facility]; Protocol Last Admin: 07/04/18 14:24 Dose: 25 mls/hr Insulin Detemir (Levemir) 10 unit SC HS [facility] Last Admin: 07/03/18 23:11 Dose: 10 units Insulin Human Regular (Humulin R Med) 0 units SC ACHS [facility]; Protocol Last Admin: 07/04/18 11:21 Dose: Not Given Pantoprazole Sodium (Protonix Ec Tab) 40 mg PO 0600 [facility] Last Admin: 07/04/18 06:14 Dose: 40 mg - Labs Labs: 07/04/18 09:00 07/04/18 09:00 - Constitutional Appears: Non-toxic, No Acute Distress - Head Exam Head Exam: ATRAUMATIC, NORMAL INSPECTION, NORMOCEPHALIC - Eye Exam Eye Exam: EOMI, Normal appearance, PERRL - Respiratory Exam Respiratory Exam: Clear to Ausculation Bilateral, NORMAL BREATHING PATTERN. absent: Accessory Muscle Use, Rales, Rhonchi, Wheezes, Respiratory Distress, Stridor - Cardiovascular Exam Cardiovascular Exam: RRR, +S1, +S2. absent: Gallop, Rubs - GI/Abdominal Exam GI & Abdominal Exam: Soft, Normal Bowel Sounds. absent: Guarding, Rigid, Tenderness - Extremities Exam Extremities exam: Positive for: normal capillary refill, pedal pulses present. Negative for: tenderness Additional comments: RLE big toe ulcer, LLE toe swelling with fluctuance. - Back Exam Back Exam: NORMAL INSPECTION. absent: CVA tenderness (L), CVA tenderness (R) - Neurological Exam Neurological Exam: Alert, Awake, Oriented x3 - Psychiatric Exam Psychiatric exam: Normal Affect, Normal Mood - Skin Skin Exam: Dry, Normal Color, Warm Assessment and Plan - Assessment and Plan (Free Text) Assessment: Patient is a 73 year old female with past medical history of T2DM presenting with altered mental status. Sugars were initially noted to be elevated in the 700s and have been downtrending since. Pt is noted to NOT have an anion gap. Plan: Altered mental status: Resolved - Pt is now AOx3 - Likely 2/2 elevated blood glucose levels upon admission in the 700s, now resolved - CT head shows age appropriate changes, no acute pathology - UDS negative - afebrile, no leukocytosis - IVF @ 150 ccs/hr - UA (-) for nitrates, LE or WBC - Ucx (-) - BCx (-) - CXR: NAD Hyperglycemia w/o elevated AG - ISS, Accuchecks - Hgba1c - 15.5 - Adjusting insulin regimen as per daily sugars - Diabetic education RLE ulcer - wound care - Vanc and zosyn started - ID on board, recs appreciated - XR showed soft tissue swelling w/o acute articular or osseous abnormality - Podiatry on board - Arterial US done - awaiting report - Venous duplex US of LE done - awaiting report - f/u L ankle and foot XR - Per ID recs - Kefllex 500mg BID po for 14 days upon d/c. Pseudohyponatremia - Na 137 now - continue to monitor PPX - Lovenox SC, Protonix PAD: - Asa and plavix - Will f/u with arterial US - awaiting report Bed Bugs: - Pt is in isolation for 24 hours post bath - Isolation d/mercedes today Case reviewed with Dr. Pam Vo PGY-1 <Lorena Orozco - Last Filed: 07/08/18 11:00> Objective - Vital Signs/Intake and Output Vital Signs (last 24 hours): Temp Pulse Resp BP Pulse Ox 100 F H 92 H 18 123/68 96 07/07/18 22:00 07/07/18 22:00 07/07/18 22:00 07/07/18 22:00 07/07/18 22:00 Intake and Output: 07/08/18 07/08/18 06:59 18:59 Intake Total 660 Balance 660 - Medications Medications: Current Medications Acetaminophen (Tylenol 325mg Tab) 650 mg PO Q4 PRN PRN Reason: Fever >100.4 F Last Admin: 07/06/18 20:35 Dose: 650 mg Aspirin (Ecotrin) 81 mg PO DAILY [facility] Last Admin: 07/08/18 09:45 Dose: 81 mg Atorvastatin Calcium (Lipitor) 20 mg PO DIN [facility] Cephalexin Monohydrate (Keflex) 500 mg PO BID [facility]; Protocol Stop: 07/19/18 10:01 Last Admin: 07/08/18 09:46 Dose: 500 mg Clopidogrel Bisulfate (Plavix) 75 mg PO DAILY [facility] Last Admin: 07/08/18 09:46 Dose: 75 mg Dextrose (Dextrose 50% Inj) 0 ml IV STAT PRN; Protocol PRN Reason: Hypoglycemia Protocol Enoxaparin Sodium (Lovenox) 40 mg SC DAILY [facility]; Protocol Last Admin: 07/08/18 09:45 Dose: 40 mg Gabapentin (Neurontin) 100 mg PO BID [facility]; Protocol Last Admin: 07/08/18 09:46 Dose: 100 mg Gabapentin (Neurontin) 300 mg PO HS [facility]; Protocol Last Admin: 07/07/18 22:36 Dose: 300 mg Dextrose (Dextrose 5% In Water 1000 Ml) 1,000 mls @ 0 mls/hr IV .Q0M PRN; Protocol PRN Reason: Hypoglycemia Protocol Insulin Detemir (Levemir) 10 unit SC Q12H [facility] Last Admin: 07/08/18 09:49 Dose: 10 units Insulin Human Regular (Humulin R Med) 0 units SC ACHS [facility]; Protocol Last Admin: 07/08/18 07:46 Dose: Not Given Metoprolol Tartrate (Lopressor) 25 mg PO 0800,1800 [facility] Last Admin: 07/08/18 09:45 Dose: 25 mg Pantoprazole Sodium (Protonix Ec Tab) 40 mg PO 0600 [facility] Last Admin: 07/08/18 05:32 Dose: 40 mg - Labs Labs: 07/08/18 06:30 07/08/18 06:30 Attending/Attestation - Attestation I have personally seen and examined this patient.: Yes I have fully participated in the care of the patient.: Yes I have reviewed all pertinent clinical information, including history, physical exam and plan: Yes Notes (Text): 07/08/18 11:00 Medical record note made by the resident after discussion with my direction and input after the patient was personally seen and examined by me. I have reviewed the chart and agree that the record accurately reflects by personal performance of the history, physical exam, data review, and medical decision-making, in the course for the patient. I have also personally directed the plan of care.
--- NOTE | 2018-07-04 17:20 | CP.PCM.PN ---
Subjective - Date & Time of Evaluation Date of Evaluation: 07/04/18 Time of Evaluation: 16:00 - Subjective Subjective: Infectious Disease Follow Up: July 04, 2018 73 yo female with history of Type II DM. The patient was found to be altered in a laundromat. Patient herself gives little information. Patient's PMD is apparently in [place], [place], his name is Dr. Akbar. The patient name is Jessica Brizuela. Patient had fever of 101.0 F. No leukocytosis. Limited information provided by the patient. Patient is hyperglycemic on admission and still has elevated glucose levels. Under isolation now for bedbugs. No further fever episodes today. Afebrile for the last few days now. Duplex pending. Objective - Vital Signs/Intake and Output Vital Signs (last 24 hours): Temp Pulse Resp BP Pulse Ox 98.2 F 84 18 161/84 H 98 07/04/18 14:00 07/04/18 14:00 07/04/18 14:00 07/04/18 14:00 07/04/18 14:00 Intake and Output: 07/04/18 07/04/18 06:59 18:59 Intake Total 695 Output Total 1250 Balance -555 - Medications Medications: Current Medications Acetaminophen (Tylenol 325mg Tab) 650 mg PO Q4 PRN PRN Reason: Fever >100.4 F Aspirin (Ecotrin) 81 mg PO DAILY [facility] Last Admin: 07/04/18 10:25 Dose: 81 mg Dextrose (Dextrose 50% Inj) 0 ml IV STAT PRN; Protocol PRN Reason: Hypoglycemia Protocol Enoxaparin Sodium (Lovenox) 40 mg SC DAILY [facility]; Protocol Last Admin: 07/04/18 10:25 Dose: 40 mg Gabapentin (Neurontin) 100 mg PO BID [facility]; Protocol Gabapentin (Neurontin) 300 mg PO HS [facility]; Protocol Dextrose (Dextrose 5% In Water 1000 Ml) 1,000 mls @ 0 mls/hr IV .Q0M PRN; Protocol PRN Reason: Hypoglycemia Protocol Sodium Chloride (Sodium Chloride 0.9%) 1,000 mls @ 150 mls/hr IV .Q6H40M [facility] Last Admin: 07/04/18 06:17 Dose: 150 mls/hr Piperacillin Sod/Tazobactam Sod (Zosyn 3.375 In Ns 100ml) 100 mls @ 25 mls/hr IVPB Q8 [facility]; Protocol Last Admin: 07/04/18 14:24 Dose: 25 mls/hr Insulin Detemir (Levemir) 10 unit SC HS [facility] Last Admin: 07/03/18 23:11 Dose: 10 units Insulin Human Regular (Humulin R Med) 0 units SC ACHS [facility]; Protocol Last Admin: 07/04/18 11:21 Dose: Not Given Pantoprazole Sodium (Protonix Ec Tab) 40 mg PO 0600 [facility] Last Admin: 07/04/18 06:14 Dose: 40 mg - Labs Labs: 07/04/18 09:00 07/04/18 09:00 - Constitutional Appears: Non-toxic, No Acute Distress, Chronically Ill - Head Exam Head Exam: ATRAUMATIC, NORMOCEPHALIC - Eye Exam Eye Exam: EOMI, PERRL Pupil Exam: NORMAL ACCOMODATION, PERRL - ENT Exam ENT Exam: Mucous Membranes Moist, Normal External Ear Exam, TM's Normal Bilaterally - Neck Exam Neck Exam: Full ROM, Normal Inspection - Respiratory Exam Respiratory Exam: Clear to Ausculation Bilateral, NORMAL BREATHING PATTERN. absent: Rales, Rhonchi, Wheezes - Cardiovascular Exam Cardiovascular Exam: REGULAR RHYTHM, RRR, +S1, +S2 - GI/Abdominal Exam GI & Abdominal Exam: Soft, Normal Bowel Sounds. absent: Distended, Tenderness Additional comments: midline surgical scar - Extremities Exam Additional comments: RLE big toe ulcer/eschar. Mild edema of the left lower leg. - Neurological Exam Neurological Exam: Alert, Awake, CN II-XII Intact, Oriented x3 - Psychiatric Exam Psychiatric exam: Flat Affect Additional comments: Distant. Often answers questions with "I don't know", "I don't remember", or "I forgot". - Skin Additional comments: As above. Assessment and Plan - Assessment and Plan (Free Text) Assessment: 73 yo female presenting for altered mental status, fevers up to 101.0 F, and hyperglycemia. Negative Chest X-ray. X-ray right big toe showing swelling of the soft tissues only. Head CT negative. Patient was hyponatremic. Unclear how the patient's DM control is normally. Likely with some degree of dehydration in addition to the hyperglycemia. Check Hgb A1c. Monitor glucose levels. Started on Vancomycin and Zosyn. Villagran cultures. Supportive care. Afebrile today. Found to have bedbugs and remains isolated. Duplex studies pending. Cultures negative. Left foot and ankle X-ray negative. Considering oral antibiotic care with Keflex. Spoke with Dr. Orozco. Thank you for allowing me to participate in the care of the patient, we will follow with you.
[2018-07-04] MEDS: Insulin Detemir 100 units/ml Vial (Levemir) SC SCH (22:14)
[2018-07-05] MEDS: Pantoprazole 40 mg EC Tab PO SCH (05:39)
[2018-07-05 06:47] LABS: BASO # 0.01 K/mm3 (0.0-2.0); BASO % 0.1 % (0.0-3.0); EOS # 0.1 (0.0-0.7); EOS % 0.9 % (1.5-5.0); HEMOGLOBIN 10.6 g/dL (12.0-16.0); LYMPH % 21.3 % (22.0-35.0); MEAN CELL VOLUME 86.4 fl (80.0-105.0); MEAN CORPUSCULAR HEMOGLOBIN 28.9 pg (25.0-35.0); MEAN CORPUSCULAR HGB CONC 33.4 g/dl (31.0-37.0); MEAN PLATELET VOLUME 9.7 fl (7.0-11.0); MONO # 0.8 (0.1-0.6); MONO % 9.1 % (1.0-6.0); RBC 3.67 10^6/uL (3.5-6.1); RED CELL DISTRIBUTION WIDTH 12.3 % (11.5-14.5); WHITE BLOOD COUNT 9.2 10^3/uL (4.5-11.0)
[2018-07-05 07:16] LABS: ALB/GLOB RATIO 0.9 (1.1-1.8); ALBUMIN 3.1 g/dL (3.0-4.8); ALT/SGPT 30 U/L (7-56); AST/SGOT 48 U/L (14-36); BLOOD UREA NITROGEN 11 mg/dL (7-21); CALCIUM 8.5 mg/dL (8.4-10.5); GFR NON-AFRICAN AMERICAN > 60
[2018-07-05] MEDS: Enoxaparin 40 mg Syringe SC SCH (09:03)
[2018-07-05] MEDS: Insulin Reg-MEDIUM-Coverage SC SCH ×3 (09:03→17:12)
[2018-07-05] MEDS ORDERED: Insulin Detemir 100 units/ml Vial (Levemir) SC SCH (11:12)
--- NOTE | 2018-07-05 11:35 | CP.PCM.PN ---
<Edmond Ba - Last Filed: 07/05/18 11:32> Subjective - Date & Time of Evaluation Date of Evaluation: 07/05/18 Time of Evaluation: 11:32 - Subjective Subjective: Podiatry progress note - Dr. Parekh/Reza 73F seen and evaluated at bedside. Patient is no longer under precautions. Resting comfortably, reports significant tenderness to the left midfoot. Denies n/v/f/c/sob today and denies acute events overnight. Reports elongated nails that she has not had cut in 3 months. Objective - Vital Signs/Intake and Output Vital Signs (last 24 hours): Temp Pulse Resp BP Pulse Ox 100 F H 81 18 151/76 H 98 07/05/18 08:19 07/05/18 06:00 07/05/18 06:00 07/05/18 06:00 07/05/18 06:00 Intake and Output: 07/05/18 07/05/18 06:59 18:59 Intake Total 360 Balance 360 - Medications Medications: Current Medications Acetaminophen (Tylenol 325mg Tab) 650 mg PO Q4 PRN PRN Reason: Fever >100.4 F Aspirin (Ecotrin) 81 mg PO DAILY [facility] Last Admin: 07/05/18 09:03 Dose: 81 mg Cephalexin Monohydrate (Keflex) 500 mg PO BID [facility]; Protocol Stop: 07/19/18 10:01 Last Admin: 07/05/18 09:03 Dose: 500 mg Clopidogrel Bisulfate (Plavix) 75 mg PO DAILY [facility] Last Admin: 07/05/18 09:03 Dose: 75 mg Dextrose (Dextrose 50% Inj) 0 ml IV STAT PRN; Protocol PRN Reason: Hypoglycemia Protocol Enoxaparin Sodium (Lovenox) 40 mg SC DAILY [facility]; Protocol Last Admin: 07/05/18 09:03 Dose: 40 mg Gabapentin (Neurontin) 100 mg PO BID [facility]; Protocol Last Admin: 07/05/18 09:03 Dose: 100 mg Gabapentin (Neurontin) 300 mg PO HS [facility]; Protocol Last Admin: 07/05/18 04:58 Dose: Not Given Dextrose (Dextrose 5% In Water 1000 Ml) 1,000 mls @ 0 mls/hr IV .Q0M PRN; Protocol PRN Reason: Hypoglycemia Protocol Insulin Detemir (Levemir) 14 unit SC HS [facility] Insulin Human Regular (Humulin R Med) 0 units SC ACHS [facility]; Protocol Last Admin: 07/05/18 09:03 Dose: 3 units Pantoprazole Sodium (Protonix Ec Tab) 40 mg PO 0600 [facility] Last Admin: 07/05/18 05:39 Dose: 40 mg - Labs Labs: 07/05/18 06:00 07/05/18 06:00 - Constitutional Appears: Non-toxic - Head Exam Head Exam: ATRAUMATIC - Extremities Exam Additional comments: VASC: R DP weakly palpalbe 1/4. L DP and bilateral PT pulses nonpalpable. CFT >3 seconds to all digits. Temperature gradient warm to warm RLE, warm to cold LLE. +1 pitting edema noted to LLE. NEURO: Gross sensation intact. DERM: Dry eschar measuring approximately 2 x 2 cm noted to distal tuft of right hallux - hyperkeratotic rim present; absent drainage; absent purulence; absent flucutance; absent malodor; no periwound erythema present. ORTHO: No pain on palpation noted to right hallux eschar. Pain on palpation noted to entire left foot, with pain on ROM 1st MPJ, MTJ, STJ, ankle joint. - Neurological Exam Neurological Exam: Alert, Awake, Oriented x3 - Psychiatric Exam Psychiatric exam: Normal Affect, Normal Mood Assessment and Plan - Assessment and Plan (Free Text) Assessment: 73F with 1) right hallux eschar, stable 2) LLE PVD and midfoot pain Plan: Patient seen and evaluated Discussed in detail with Dr. Reza PORRAS Bilateral arterial duplex ordered - significant PVD noted b/l, worse in the left, no official read yet Consult for Dr. Ray - recs appreciated Venous duplex ordered for calf pain - negative DVT Left foot and ankle XR ordered - no acute fractures or dislocations No evidence of abscess on left foot clinically No dressings applied to feet Nails cut with nail nipper without incident - patient tolerated well Continue abx per ID No intervention per podiatry, vascular consult pending Podiatry will continue to follow <Meek Cobb - Last Filed: 07/05/18 16:42> Objective - Vital Signs/Intake and Output Vital Signs (last 24 hours): Temp Pulse Resp BP Pulse Ox 99.8 F H 81 18 151/76 H 98 07/05/18 13:00 07/05/18 06:00 07/05/18 06:00 07/05/18 06:00 07/05/18 06:00 Intake and Output: 07/05/18 07/05/18 06:59 18:59 Intake Total 360 Balance 360 - Medications Medications: Current Medications Acetaminophen (Tylenol 325mg Tab) 650 mg PO Q4 PRN PRN Reason: Fever >100.4 F Aspirin (Ecotrin) 81 mg PO DAILY [facility] Last Admin: 07/05/18 09:03 Dose: 81 mg Cephalexin Monohydrate (Keflex) 500 mg PO BID [facility]; Protocol Stop: 07/19/18 10:01 Last Admin: 07/05/18 09:03 Dose: 500 mg Clopidogrel Bisulfate (Plavix) 75 mg PO DAILY [facility] Last Admin: 07/05/18 09:03 Dose: 75 mg Dextrose (Dextrose 50% Inj) 0 ml IV STAT PRN; Protocol PRN Reason: Hypoglycemia Protocol Enoxaparin Sodium (Lovenox) 40 mg SC DAILY [facility]; Protocol Last Admin: 07/05/18 09:03 Dose: 40 mg Gabapentin (Neurontin) 100 mg PO BID [facility]; Protocol Last Admin: 07/05/18 09:03 Dose: 100 mg Gabapentin (Neurontin) 300 mg PO HS [facility]; Protocol Last Admin: 07/05/18 04:58 Dose: Not Given Dextrose (Dextrose 5% In Water 1000 Ml) 1,000 mls @ 0 mls/hr IV .Q0M PRN; Protocol PRN Reason: Hypoglycemia Protocol Sodium Chloride (Sodium Chloride 0.9%) 1,000 mls @ 80 mls/hr IV .[id number] [facility] Insulin Detemir (Levemir) 14 unit SC HS [facility] Insulin Human Regular (Humulin R Med) 0 units SC ACHS [facility]; Protocol Last Admin: 07/05/18 12:53 Dose: 3 units Pantoprazole Sodium (Protonix Ec Tab) 40 mg PO 0600 [facility] Last Admin: 07/05/18 05:39 Dose: 40 mg - Labs Labs: 07/05/18 06:00 07/05/18 06:00 Attending/Attestation - Attestation I have personally seen and examined this patient.: Yes I have fully participated in the care of the patient.: Yes I have reviewed all pertinent clinical information, including history, physical exam and plan: Yes
--- NOTE | 2018-07-05 12:25 | US ---
PROCEDURE: Lower extremity ALYSE exam HISTORY: Peripheral vascular disease with pain and claudication. Diabetes PHYSICIAN(S): Maged Ray MD. FINDINGS: The right resting ALYSE is moderately abnormal, 0.77. The left resting ABIs severely abnormal, 0.46 The brachial systolic pressures are symmetric. The high thigh pressures and waveforms are relatively normal. The right calf PVR waveform is normal and augments normally. The left calf PVR waveform is severely blunted. The findings are consistent with left SFA occlusive disease. The right ankle and metatarsal waveforms are moderately blunted. The left ankle and metatarsal waveforms are nearly flat. This is consistent with bilateral popliteal, trifurcation, and/or tibial disease IMPRESSION: 1. Severely abnormal left ALYSE at rest. 2. Left SFA occlusive disease. 3. Bilateral popliteal, trifurcation, and/or tibial disease greater on the left than the right 4. If clinically indicated, further evaluation with an MRA with gadolinium runoff, CTA runoff, or conventional arteriogram can be considered
--- NOTE | 2018-07-05 12:26 | US ---
HISTORY: Leg pain and swelling. Evaluate for DVT PHYSICIAN(S): Maged Ray MD. TECHNIQUE: Duplex sonography and color-flow Doppler with graded compression were used to evaluate the deep venous systems of both lower extremities. FINDINGS: The visualized deep venous systems of both lower extremities are sonographically normal and compressible. Normal wave forms and augmentation are seen. There is no sonographic evidence for deep venous thrombosis in the visualized segments of both lower extremities. IMPRESSION: No sonographic evidence for deep venous thrombosis in the visualized segments of both lower extremities.
[2018-07-05] MEDS ORDERED: Oxycodone/Acetaminophen 5/325 mg Tab PO SCH (12:30)
[2018-07-05] MEDS ORDERED: Sodium Chloride 0.9% 1,000 ML IV SCH (15:30)
--- NOTE | 2018-07-05 19:51 | CP.PCM.PN ---
<Jeffrey Vo - Last Filed: 07/05/18 19:46> Subjective - Date & Time of Evaluation Date of Evaluation: 07/05/18 Time of Evaluation: 19:46 - Subjective Subjective: Jeffrey Vo, PGY1 Medicine Progress Note: Pt was seen and examined this AM at bedside. Pt had no acute overnight events. Pt continues to admit to L sided foot pain, and some tingling in her fingers which is likely 2/2 neuropathy due to her poorly controlled DM. Otherwise pt denies any fevers, chills, chest pain, palpitations, SOB, cough, abd pain, n/v, c/d, or dysuria. Objective - Vital Signs/Intake and Output Vital Signs (last 24 hours): Temp Pulse Resp BP Pulse Ox 99.8 F H 81 18 151/76 H 98 07/05/18 13:00 07/05/18 06:00 07/05/18 06:00 07/05/18 06:00 07/05/18 06:00 - Medications Medications: Current Medications Acetaminophen (Tylenol 325mg Tab) 650 mg PO Q4 PRN PRN Reason: Fever >100.4 F Aspirin (Ecotrin) 81 mg PO DAILY [facility] Last Admin: 07/05/18 09:03 Dose: 81 mg Cephalexin Monohydrate (Keflex) 500 mg PO BID [facility]; Protocol Stop: 07/19/18 10:01 Last Admin: 07/05/18 17:11 Dose: 500 mg Clopidogrel Bisulfate (Plavix) 75 mg PO DAILY [facility] Last Admin: 07/05/18 09:03 Dose: 75 mg Dextrose (Dextrose 50% Inj) 0 ml IV STAT PRN; Protocol PRN Reason: Hypoglycemia Protocol Enoxaparin Sodium (Lovenox) 40 mg SC DAILY [facility]; Protocol Last Admin: 07/05/18 09:03 Dose: 40 mg Gabapentin (Neurontin) 100 mg PO BID [facility]; Protocol Last Admin: 07/05/18 17:11 Dose: 100 mg Gabapentin (Neurontin) 300 mg PO HS [facility]; Protocol Last Admin: 07/05/18 04:58 Dose: Not Given Dextrose (Dextrose 5% In Water 1000 Ml) 1,000 mls @ 0 mls/hr IV .Q0M PRN; Protocol PRN Reason: Hypoglycemia Protocol Sodium Chloride (Sodium Chloride 0.9%) 1,000 mls @ 80 mls/hr IV .[id number] [facility] Last Admin: 07/05/18 17:12 Dose: 80 mls/hr Insulin Detemir (Levemir) 14 unit SC [facility] Insulin Human Regular (Humulin R Med) 0 units SC ACHS [facility]; Protocol Last Admin: 07/05/18 17:12 Dose: 1 units Pantoprazole Sodium (Protonix Ec Tab) 40 mg PO 0600 [facility] Last Admin: 07/05/18 05:39 Dose: 40 mg - Labs Labs: 07/05/18 06:00 07/05/18 06:00 - Constitutional Appears: Non-toxic, No Acute Distress - Head Exam Head Exam: ATRAUMATIC, NORMAL INSPECTION, NORMOCEPHALIC - Eye Exam Eye Exam: EOMI, Normal appearance, PERRL - Respiratory Exam Respiratory Exam: Clear to Ausculation Bilateral, NORMAL BREATHING PATTERN. absent: Accessory Muscle Use, Rales, Rhonchi, Wheezes, Respiratory Distress, Stridor - Cardiovascular Exam Cardiovascular Exam: RRR, +S1, +S2. absent: Gallop, Rubs - GI/Abdominal Exam GI & Abdominal Exam: Soft, Normal Bowel Sounds. absent: Guarding, Rigid, Tenderness - Extremities Exam Extremities exam: Positive for: normal capillary refill, pedal pulses present. Negative for: tenderness Additional comments: RLE big toe ulcer, LLE toe swelling without fluctuance. - Back Exam Back Exam: NORMAL INSPECTION. absent: CVA tenderness (L), CVA tenderness (R) - Neurological Exam Neurological Exam: Alert, Awake, Oriented x3 - Psychiatric Exam Psychiatric exam: Normal Affect, Normal Mood - Skin Skin Exam: Dry, Normal Color, Warm Assessment and Plan - Assessment and Plan (Free Text) Assessment: Patient is a 73 year old female with past medical history of T2DM presenting with altered mental status. Sugars were initially noted to be elevated in the 700s and have been downtrending since. Pt is noted to NOT have an anion gap. Plan: Altered mental status: Resolved - Pt is now AOx3 - Likely 2/2 elevated blood glucose levels upon admission in the 700s, now resolved - CT head shows age appropriate changes, no acute pathology - UDS negative - afebrile, no leukocytosis - IVF @ 150 ccs/hr - UA (-) for nitrates, LE or WBC - Ucx (-) - BCx (-) - CXR: NAD Hyperglycemia w/o elevated AG - ISS, Accuchecks - Hgba1c - 15.5 - Adjusted pts levemir to 14 units qd, will cont to monitor - Diabetic education RLE ulcer - wound care - Vanc and zosyn started - ID on board, recs appreciated - XR showed soft tissue swelling w/o acute articular or osseous abnormality - Podiatry on board - Arterial US done - Severely abnormal L ALYSE @ rest ALYSE is .46. R ALYSE is at .77 and is moderately abnormal - Venous duplex US of LE done - No evidence of DVT - L ankle and L foot XR shows normal radiographs of the ankle and foot - Per ID recs - Kefllex 500mg BID po for 14 days upon d/c. Pseudohyponatremia: Resolved - Na 136 now - continue to monitor PPX - Lovenox SC, Protonix PAD: - Asa and plavix - Will f/u with arterial US - noted above Bed Bugs: - Pt is in isolation for 24 hours post bath - Isolation d/mercedes 07/04/[address] Pam Vo PGY-1 <Lorena Orozco - Last Filed: 07/06/18 16:58> Objective - Vital Signs/Intake and Output Vital Signs (last 24 hours): Temp Pulse Resp BP Pulse Ox 97 F L 100 H 18 149/84 97 07/06/18 09:24 07/06/18 09:24 07/06/18 09:24 07/06/18 09:24 07/06/18 09:24 Intake and Output: 07/06/18 07/06/18 06:59 18:59 Intake Total 120 Output Total 1150 Balance -1030 - Medications Medications: Current Medications Acetaminophen (Tylenol 325mg Tab) 650 mg PO Q4 PRN PRN Reason: Fever >100.4 F Aspirin (Ecotrin) 81 mg PO DAILY [facility] Last Admin: 07/06/18 09:49 Dose: 81 mg Cephalexin Monohydrate (Keflex) 500 mg PO BID [facility]; Protocol Stop: 07/19/18 10:01 Last Admin: 07/06/18 09:48 Dose: 500 mg Clopidogrel Bisulfate (Plavix) 75 mg PO DAILY [facility] Last Admin: 07/06/18 09:49 Dose: 75 mg Dextrose (Dextrose 50% Inj) 0 ml IV STAT PRN; Protocol PRN Reason: Hypoglycemia Protocol Enoxaparin Sodium (Lovenox) 40 mg SC DAILY [facility]; Protocol Last Admin: 07/06/18 09:48 Dose: 40 mg Gabapentin (Neurontin) 100 mg PO BID [facility]; Protocol Last Admin: 07/06/18 09:48 Dose: 100 mg Gabapentin (Neurontin) 300 mg PO HS [facility]; Protocol Last Admin: 07/05/18 23:28 Dose: 300 mg Dextrose (Dextrose 5% In Water 1000 Ml) 1,000 mls @ 0 mls/hr IV .Q0M PRN; Protocol PRN Reason: Hypoglycemia Protocol Insulin Detemir (Levemir) 7 unit SC Q12H [facility] Insulin Human Regular (Humulin R Med) 0 units SC ACHS [facility]; Protocol Last Admin: 07/06/18 16:40 Dose: 7 units Metoprolol Tartrate (Lopressor) 25 mg PO 0800,1800 [facility] Pantoprazole Sodium (Protonix Ec Tab) 40 mg PO 0600 [facility] Last Admin: 07/06/18 05:12 Dose: Not Given - Labs Labs: 07/06/18 08:00 07/06/18 08:00 Attending/Attestation - Attestation I have personally seen and examined this patient.: Yes I have fully participated in the care of the patient.: Yes I have reviewed all pertinent clinical information, including history, physical exam and plan: Yes Notes (Text): 07/06/18 16:51 Patient was seen and examined with medical specialist. 73 year old female with PMH of diabetes,HTN,pvd, and non compliance with medication was admitted with altered mental status, found to have significantly elevated blood sugars >700s which improved with iv fluids and insulin. A1c is 15.5 and patient is started on levemir. Blood sugars are running high, Levemir dose is increased , we will monitor blood sugars. Infected right big toe ulcer. Patient is afebrile, wound cultures are negative, on oral keflex,ID and Podiatry are following. Severe PVD .bnormal L ALYSE @ rest ALYSE is .46. R ALYSE is at .77 and is moderately abnormal, CT angogram is ordered, IR is consulted.Patient is ON ASA/Plavix . Peripheral Neuropathy on Neurotin. Patient was evaluated by PT , will need GABBY ,however patient is refusing. 07/06/18 16:54 07/06/18 16:56
--- NOTE | 2018-07-05 19:54 | CP.PCM.PN ---
Subjective - Date & Time of Evaluation Date of Evaluation: 07/05/18 Time of Evaluation: 17:45 - Subjective Subjective: Infectious Disease Follow Up: July 05, 2018 73 yo female with history of Type II DM. The patient was found to be altered in a laundromat. Patient herself gives little information. Patient's PMD is apparently in [place], [place], his name is Dr. Akbar. The patient name is Jessica Brizuela. Patient had fever of 101.0 F. No leukocytosis. Limited information provided by the patient. Patient is hyperglycemic on admission and still has elevated glucose levels. Under isolation now for bedbugs. No further fever episodes today. Afebrile for the last few days now. Duplex showing disease of the vessels of the left leg. Noted borderline fevers up to 100.0 F. Objective - Vital Signs/Intake and Output Vital Signs (last 24 hours): Temp Pulse Resp BP Pulse Ox 99.8 F H 81 18 151/76 H 98 07/05/18 13:00 07/05/18 06:00 07/05/18 06:00 07/05/18 06:00 07/05/18 06:00 - Medications Medications: Current Medications Acetaminophen (Tylenol 325mg Tab) 650 mg PO Q4 PRN PRN Reason: Fever >100.4 F Aspirin (Ecotrin) 81 mg PO DAILY [facility] Last Admin: 07/05/18 09:03 Dose: 81 mg Cephalexin Monohydrate (Keflex) 500 mg PO BID [facility]; Protocol Stop: 07/19/18 10:01 Last Admin: 07/05/18 17:11 Dose: 500 mg Clopidogrel Bisulfate (Plavix) 75 mg PO DAILY [facility] Last Admin: 07/05/18 09:03 Dose: 75 mg Dextrose (Dextrose 50% Inj) 0 ml IV STAT PRN; Protocol PRN Reason: Hypoglycemia Protocol Enoxaparin Sodium (Lovenox) 40 mg SC DAILY [facility]; Protocol Last Admin: 07/05/18 09:03 Dose: 40 mg Gabapentin (Neurontin) 100 mg PO BID [facility]; Protocol Last Admin: 07/05/18 17:11 Dose: 100 mg Gabapentin (Neurontin) 300 mg PO HS [facility]; Protocol Last Admin: 07/05/18 04:58 Dose: Not Given Dextrose (Dextrose 5% In Water 1000 Ml) 1,000 mls @ 0 mls/hr IV .Q0M PRN; Protocol PRN Reason: Hypoglycemia Protocol Sodium Chloride (Sodium Chloride 0.9%) 1,000 mls @ 80 mls/hr IV .[id number] [facility] Last Admin: 07/05/18 17:12 Dose: 80 mls/hr Insulin Detemir (Levemir) 14 unit SC HS [facility] Insulin Human Regular (Humulin R Med) 0 units SC ACHS [facility]; Protocol Last Admin: 07/05/18 17:12 Dose: 1 units Pantoprazole Sodium (Protonix Ec Tab) 40 mg PO 0600 [facility] Last Admin: 07/05/18 05:39 Dose: 40 mg - Labs Labs: 07/05/18 06:00 07/05/18 06:00 - Constitutional Appears: Non-toxic, No Acute Distress, Chronically Ill - Head Exam Head Exam: ATRAUMATIC, NORMOCEPHALIC - Eye Exam Eye Exam: EOMI, PERRL Pupil Exam: NORMAL ACCOMODATION, PERRL - ENT Exam ENT Exam: Mucous Membranes Moist, Normal External Ear Exam, TM's Normal Yohan aterally - Neck Exam Neck Exam: Full ROM, Normal Inspection - Respiratory Exam Respiratory Exam: Clear to Ausculation Bilateral, NORMAL BREATHING PATTERN. absent: Rales, Rhonchi, Wheezes - Cardiovascular Exam Cardiovascular Exam: REGULAR RHYTHM, RRR, +S1, +S2 - GI/Abdominal Exam GI & Abdominal Exam: Soft, Normal Bowel Sounds. absent: Distended, Tenderness Additional comments: midline surgical scar. - Extremities Exam Additional comments: RLE big toe ulcer/eschar. Mild edema of the left lower leg. - Neurological Exam Neurological Exam: Alert, Awake, CN II-XII Intact, Oriented x3 - Psychiatric Exam Psychiatric exam: Flat Affect Additional comments: Distant. Often answers questions with "I don't know", "I don't remember", or "I forgot". - Skin Additional comments: As above. Assessment and Plan - Assessment and Plan (Free Text) Assessment: 73 yo female presenting for altered mental status, fevers up to 101.0 F, and hyperglycemia. Negative Chest X-ray. X-ray right big toe showing swelling of the soft tissues only. Head CT negative. Patient was hyponatremic. Unclear how the patient's DM control is normally. Likely with some degree of dehydration in addition to the hyperglycemia. Check Hgb A1c. Monitor glucose levels. Started on Vancomycin and Zosyn. Villagran cultures. Supportive care. Afebrile today. Found to have bedbugs and remains isolated. Duplex studies pending. Cultures negative. Left foot and ankle X-ray negative. Considering oral antibiotic care with Keflex. Spoke with Dr. Orozco. No new issues. Thank you for allowing me to participate in the care of the patient, we will follow with you.
[2018-07-06] MEDS: Pantoprazole 40 mg EC Tab PO SCH (05:12)
[2018-07-06] MEDS: Insulin Reg-MEDIUM-Coverage SC SCH ×3 (07:41→16:40)
[2018-07-06 08:24] LABS: BASO # 0.02 K/mm3 (0.0-2.0); BASO % 0.2 % (0.0-3.0); EOS # 0.1 (0.0-0.7); HEMOGLOBIN 10.7 g/dL (12.0-16.0); LYMPH # 1.3 (1.2-3.4); LYMPH % 12.9 % (22.0-35.0); MEAN CELL VOLUME 84.8 fl (80.0-105.0); MEAN CORPUSCULAR HEMOGLOBIN 28.5 pg (25.0-35.0); MEAN CORPUSCULAR HGB CONC 33.5 g/dl (31.0-37.0); MEAN PLATELET VOLUME 9.8 fl (7.0-11.0); MONO # 1.1 (0.1-0.6); MONO % 10.8 % (1.0-6.0); RBC 3.76 10^6/uL (3.5-6.1); RED CELL DISTRIBUTION WIDTH 12.4 % (11.5-14.5); WHITE BLOOD COUNT 10.3 10^3/uL (4.5-11.0)
[2018-07-06 08:40] LABS: ALB/GLOB RATIO 0.8 (1.1-1.8); ALT/SGPT 31 U/L (7-56); AST/SGOT 43 U/L (14-36); BLOOD UREA NITROGEN 9 mg/dL (7-21); CALCIUM 8.6 mg/dL (8.4-10.5); GFR NON-AFRICAN AMERICAN > 60
[2018-07-06] MEDS ORDERED: Iodixanol 320 mg/ml 150 ml Bottle IV ONE (09:17)
[2018-07-06] MEDS: Enoxaparin 40 mg Syringe SC SCH (09:48)
--- NOTE | 2018-07-06 10:19 | CP.PCM.PN ---
<Edmond Ba - Last Filed: 07/06/18 10:17> Subjective - Date & Time of Evaluation Date of Evaluation: 07/06/18 Time of Evaluation: 10:18 - Subjective Subjective: Podiatry progress note - Dr. Parekh/Reza 73F seen and evaluated at bedside with Dr. Parekh. Resting comfortably, reports significant tenderness to the left midfoot. Denies n/v/f/c/sob today and denies acute events overnight. Objective - Vital Signs/Intake and Output Vital Signs (last 24 hours): Temp Pulse Resp BP Pulse Ox 97 F L 100 H 18 149/84 97 07/06/18 09:24 07/06/18 09:24 07/06/18 09:24 07/06/18 09:24 07/06/18 09:24 Intake and Output: 07/06/18 07/06/18 06:59 18:59 Intake Total 120 Output Total 1150 Balance -1030 - Medications Medications: Current Medications Acetaminophen (Tylenol 325mg Tab) 650 mg PO Q4 PRN PRN Reason: Fever >100.4 F Aspirin (Ecotrin) 81 mg PO DAILY [facility] Last Admin: 07/06/18 09:49 Dose: 81 mg Cephalexin Monohydrate (Keflex) 500 mg PO BID [facility]; Protocol Stop: 07/19/18 10:01 Last Admin: 07/06/18 09:48 Dose: 500 mg Clopidogrel Bisulfate (Plavix) 75 mg PO DAILY [facility] Last Admin: 07/06/18 09:49 Dose: 75 mg Dextrose (Dextrose 50% Inj) 0 ml IV STAT PRN; Protocol PRN Reason: Hypoglycemia Protocol Enoxaparin Sodium (Lovenox) 40 mg SC DAILY [facility]; Protocol Last Admin: 07/06/18 09:48 Dose: 40 mg Gabapentin (Neurontin) 100 mg PO BID [facility]; Protocol Last Admin: 07/06/18 09:48 Dose: 100 mg Gabapentin (Neurontin) 300 mg PO HS [facility]; Protocol Last Admin: 07/05/18 23:28 Dose: 300 mg Dextrose (Dextrose 5% In Water 1000 Ml) 1,000 mls @ 0 mls/hr IV .Q0M PRN; Protocol PRN Reason: Hypoglycemia Protocol Insulin Detemir (Levemir) 14 unit SC [facility] Last Admin: 03/20/19 23:25 Dose: 14 units Insulin Human Regular (Humulin R Med) 0 units SC ACHS [facility]; Protocol Last Admin: 07/06/18 07:41 Dose: Not Given Pantoprazole Sodium (Protonix Ec Tab) 40 mg PO 0600 [facility] Last Admin: 07/06/18 05:12 Dose: Not Given - Labs Labs: 07/06/18 08:00 07/06/18 08:00 - Constitutional Appears: Non-toxic - Head Exam Head Exam: ATRAUMATIC - Extremities Exam Additional comments: VASC: R DP weakly palpalbe 1/4. L DP and bilateral PT pulses nonpalpable. CFT >3 seconds to all digits. Temperature gradient warm to warm RLE, warm to cold LLE. +1 pitting edema noted to LLE. NEURO: Gross sensation intact. DERM: Dry eschar measuring approximately 2 x 2 cm noted to distal tuft of right hallux - hyperkeratotic rim present; absent drainage; absent purulence; absent flucutance; absent malodor; no periwound erythema present. ORTHO: No pain on palpation noted to right hallux eschar. Pain on palpation noted to entire left foot, with pain on ROM 1st MPJ, MTJ, STJ, ankle joint. - Neurological Exam Neurological Exam: Alert, Awake, Oriented x3 - Psychiatric Exam Psychiatric exam: Normal Affect Assessment and Plan - Assessment and Plan (Free Text) Assessment: 73F with 1) right hallux eschar, stable 2) LLE PVD and midfoot pain Plan: Patient seen and evaluated with Dr. Parekh VSAbebe Bilateral arterial duplex ordered - significant PVD noted b/l, worse in the le ft, no official read yet Patient needs vascular intervention Consult for Dr. Ray - [facility] appreciated Venous duplex ordered for calf pain - negative DVT Left foot and ankle XR ordered - no acute fractures or dislocations No evidence of abscess on left foot clinically No dressings applied to feet Continue abx per ID No intervention per podiatry, vascular consult pending Podiatry will continue to follow <Radha Parekh - Last Filed: 07/09/18 15:35> Objective - Vital Signs/Intake and Output Vital Signs (last 24 hours): Temp Pulse Resp BP Pulse Ox 99 F 84 20 130/80 98 07/09/18 06:00 07/09/18 10:51 07/09/18 06:00 07/09/18 10:51 07/09/18 06:00 - Medications Medications: Current Medications Acetaminophen (Tylenol 325mg Tab) 650 mg PO Q4 PRN PRN Reason: Fever >100.4 F Last Admin: 07/06/18 20:35 Dose: 650 mg Aspirin (Ecotrin) 81 mg PO DAILY [facility] Last Admin: 07/09/18 10:51 Dose: 81 mg Atorvastatin Calcium (Lipitor) 20 mg PO DIN [facility] Last Admin: 07/08/18 17:40 Dose: 20 mg Cephalexin Monohydrate (Keflex) 500 mg PO BID [facility]; Protocol Stop: 07/19/18 10:01 Last Admin: 07/09/18 10:51 Dose: 500 mg Clopidogrel Bisulfate (Plavix) 75 mg PO DAILY [facility] Last Admin: 07/09/18 11:00 Dose: 75 mg Dextrose (Dextrose 50% Inj) 0 ml IV STAT PRN; Protocol PRN Reason: Hypoglycemia Protocol Enoxaparin Sodium (Lovenox) 40 mg SC DAILY [facility]; Protocol Last Admin: 07/09/18 10:51 Dose: 40 mg Gabapentin (Neurontin) 100 mg PO BID [facility]; Protocol Last Admin: 07/08/18 17:40 Dose: 100 mg Gabapentin (Neurontin) 300 mg PO HS [facility]; Protocol Last Admin: 07/08/18 21:54 Dose: 300 mg Dextrose (Dextrose 5% In Water 1000 Ml) 1,000 mls @ 0 mls/hr IV .Q0M PRN; Protocol PRN Reason: Hypoglycemia Protocol Insulin Detemir (Levemir) 10 unit SC Q12H [facility] Last Admin: 07/09/18 10:52 Dose: 10 units Insulin Human Regular (Humulin R Med) 0 units SC ACHS [facility]; Protocol Last Admin: 07/09/18 13:00 Dose: 3 units Metoprolol Tartrate (Lopressor) 25 mg PO 0800,1800 [facility] Last Admin: 07/09/18 10:51 Dose: 25 mg Pantoprazole Sodium (Protonix Ec Tab) 40 mg PO 0600 [facility] Last Admin: 07/09/18 05:31 Dose: 40 mg - Labs Labs: 07/08/18 06:30 07/08/18 06:30 Attending/Attestation - Attestation I have personally seen and examined this patient.: Yes I have fully participated in the care of the patient.: Yes I have reviewed all pertinent clinical information, including history, physical exam and plan: Yes Notes (Text): 07/09/18 15:34 Diabetic female with severe PVD ALYSE .3 - awaiting vascular input
--- NOTE | 2018-07-06 13:57 | CT ---
Date of service: 07/06/2018 PROCEDURE: CT Angiography Abdomen, Pelvis and Lower Extremity with Contrast HISTORY: severe PAD COMPARISON: None. TECHNIQUE: Technique: CT angiography of the abdomen, pelvis and bilateral lower extremities performed in the arterial phase of enhancement. Coronal and sagittal reformats, and well as rotating MIP images of the vessels generated at the workstation. Intravenous contrast dose: 150 cc of Visipaque Radiation dose: Total exam DLP = 973.86 mGy-cm. This CT exam was performed using one or more of the following dose reduction techniques: Automated exposure control, adjustment of the mA and/or kV according to patient size, and/or use of iterative reconstruction technique. FINDINGS: CT ANGIOGRAPHY: Extensive vascular calcification ABDOMINAL AORTA:: Calcified aorta. No aneurysm or occlusion MAJOR AORTIC BRANCHES: Celiac [place]: Unremarkable. Superior mesenteric artery: Unremarkable. Inferior mesenteric artery: Unremarkable. Renal arteries: Unremarkable. PELVIC ARTERIES: Right Common Iliac: Unremarkable. Right External Iliac: Unremarkable. Right Internal Iliac: Unremarkable. Left Common Iliac: Unremarkable. Left External Iliac: Unremarkable. Left Internal Iliac: Unremarkable. RIGHT LOWER EXTREMITY ARTERIES: Right Common Femoral: Unremarkable. Right Superficial Femoral: Severe stenosis in the right distal SFA. Right Profunda Femoris: Unremarkable. Right Popliteal:Unremarkable. Single vessel continuous runoff to the ankle via the posterior tibial. The anterior tibial is narrow with multi focal stenosis LEFT LOWER EXTREMITY ARTERIES: Left Common Femoral: Unremarkable. Left Superficial Femoral: There is a high-grade stenosis of the distal SFA Left Profunda Femoris: Unremarkable. Left Popliteal: There is a high-grade focal stenosis in the popliteal Single vessel continuous runoff to the ankle via the posterior tibial. The anterior tibial is narrow with multi focal stenosis NON-ANGIOGRAPHIC ASPECT OF THE EXAM: LOWER THORAX: Unremarkable. LIVER: Unremarkable. No gross lesion or ductal dilatation. GALLBLADDER AND BILE DUCTS: Unremarkable. PANCREAS: Unremarkable. No gross lesion or ductal dilatation. SPLEEN: Unremarkable. ADRENALS: Unremarkable. No mass. KIDNEYS AND URETERS: Unremarkable. No hydronephrosis. No solid mass. STOMACH AND BOWEL: Unremarkable. No obstruction. No gross mural thickening. APPENDIX: Normal appendix. PERITONEUM: Unremarkable. No free fluid. No free air. LYMPH NODES: Unremarkable. No enlarged lymph nodes. BLADDER: Unremarkable. REPRODUCTIVE: Unremarkable. BONES: No acute fracture. OTHER FINDINGS: None. IMPRESSION: Severe stenosis in the distal superficial femoral arteries bilaterally. Single vessel runoff to both ankles via the posterior tibial. The anterior tibials are thin and narrow with multi focal stenosis
--- NOTE | 2018-07-06 16:20 | CP.PCM.PN ---
<Jeffrey Vo - Last Filed: 07/06/18 18:09> Subjective - Date & Time of Evaluation Date of Evaluation: 07/06/18 Time of Evaluation: 09:00 - Subjective Subjective: Jeffrey Vo PGY1 Medicine Progress Note: Pt was seen and examined this AM at bedside. Pt had no acute overnight events. Pt continues to admit to L sided foot pain. Otherwise pt denies any fevers, chills, chest pain, palpitations, SOB, cough, abd pain, n/v, c/d, or dysuria. Pt will be going for CT angiography to assess for LE vasculature later today. Objective - Vital Signs/Intake and Output Vital Signs (last 24 hours): Temp Pulse Resp BP Pulse Ox 97 F L 100 H 18 149/84 97 07/06/18 09:24 07/06/18 09:24 07/06/18 09:24 07/06/18 09:24 07/06/18 09:24 Intake and Output: 07/06/18 07/06/18 06:59 18:59 Intake Total 120 Output Total 1150 Balance -1030 - Medications Medications: Current Medications Acetaminophen (Tylenol 325mg Tab) 650 mg PO Q4 PRN PRN Reason: Fever >100.4 F Aspirin (Ecotrin) 81 mg PO DAILY [facility] Last Admin: 07/06/18 09:49 Dose: 81 mg Cephalexin Monohydrate (Keflex) 500 mg PO BID [facility]; Protocol Stop: 07/19/18 10:01 Last Admin: 07/06/18 09:48 Dose: 500 mg Clopidogrel Bisulfate (Plavix) 75 mg PO DAILY [facility] Last Admin: 07/06/18 09:49 Dose: 75 mg Dextrose (Dextrose 50% Inj) 0 ml IV STAT PRN; Protocol PRN Reason: Hypoglycemia Protocol Enoxaparin Sodium (Lovenox) 40 mg SC DAILY [facility]; Protocol Last Admin: 07/06/18 09:48 Dose: 40 mg Gabapentin (Neurontin) 100 mg PO BID [facility]; Protocol Last Admin: 07/06/18 09:48 Dose: 100 mg Gabapentin (Neurontin) 300 mg PO HS [facility]; Protocol Last Admin: 07/05/18 23:28 Dose: 300 mg Dextrose (Dextrose 5% In Water 1000 Ml) 1,000 mls @ 0 mls/hr IV .Q0M PRN; Protocol PRN Reason: Hypoglycemia Protocol Insulin Detemir (Levemir) 7 unit SC Q12H [facility] Insulin Human Regular (Humulin R Med) 0 units SC ACHS [facility]; Protocol Last Admin: 07/06/18 11:30 Dose: Not Given Metoprolol Tartrate (Lopressor) 25 mg PO 0800,1800 [facility] Pantoprazole Sodium (Protonix Ec Tab) 40 mg PO 0600 [facility] Last Admin: 07/06/18 05:12 Dose: Not Given - Labs Labs: 07/06/18 08:00 07/06/18 08:00 - Constitutional Appears: Non-toxic, No Acute Distress - Head Exam Head Exam: ATRAUMATIC, NORMAL INSPECTION, NORMOCEPHALIC - Eye Exam Eye Exam: EOMI, Normal appearance, PERRL - Respiratory Exam Respiratory Exam: Clear to Ausculation Bilateral, NORMAL BREATHING PATTERN. absent: Accessory Muscle Use, Rales, Rhonchi, Wheezes, Respiratory Distress, Stridor - Cardiovascular Exam Cardiovascular Exam: RRR, +S1, +S2. absent: Gallop, Rubs - GI/Abdominal Exam GI & Abdominal Exam: Soft, Normal Bowel Sounds. absent: Guarding, Rigid, Tenderness - Extremities Exam Extremities exam: Positive for: normal capillary refill, pedal pulses present. Negative for: tenderness Additional comments: RLE big toe ulcer, LLE toe swelling without fluctuance. - Back Exam Back Exam: NORMAL INSPECTION. absent: CVA tenderness (L), CVA tenderness (R) - Neurological Exam Neurological Exam: Alert, Awake, Oriented x3 - Psychiatric Exam Psychiatric exam: Normal Affect, Normal Mood - Skin Skin Exam: Dry, Normal Color, Warm Assessment and Plan - Assessment and Plan (Free Text) Assessment: Patient is a 73 year old female with past medical history of T2DM presenting with altered mental status. Sugars were initially noted to be elevated in the 700s and have been downtrending since. Pt is noted to NOT have an anion gap. Plan: PAD: - Asa and plavix - Arterial US done - Severely abnormal L ALYSE @ rest ALYSE is .46. R ALYSE is at .77 and is moderately abnormal - Venous duplex US of LE done - No evidence of DVT - L ankle and L foot XR shows normal radiographs of the ankle and foot - CT angiogram showed Severe stenosis in the distal superficial femoral arteries bilaterally. Single vessel runoff to both ankles via the posterior tibial. The anterior tibials are thin and narrow with multi focal stenosis - Will cont to monitor Altered mental status: Resolved - Pt is now AOx3 - Likely 2/2 elevated blood glucose levels upon admission in the 700s, now reso lved - CT head shows age appropriate changes, no acute pathology - UDS negative - afebrile, no leukocytosis - IVF @ 150 ccs/hr - UA (-) for nitrates, LE or WBC - Ucx (-) - BCx (-) - CXR: NAD Hyperglycemia w/o elevated AG - ISS, Accuchecks - Hgba1c - 15.5 - Adjusted pts levemir to 14 units qd, will cont to monitor - Diabetic education RLE ulcer - wound care - Vanc and zosyn started - ID on board, recs appreciated - XR showed soft tissue swelling w/o acute articular or osseous abnormality - Podiatry on board - Per ID recs - Kefllex 500mg BID po for 14 days upon d/c. Pseudohyponatremia: Resolved - Na 139 now - continue to monitor Bed Bugs: - Isolation d/mercedes 07/04/17 PPX - Lovenox SC, Protonix Case reviewed with Dr. Pam Vo PGY-1 <Lorena Orozco - Last Filed: 07/08/18 10:59> Objective - Vital Signs/Intake and Output Vital Signs (last 24 hours): Temp Pulse Resp BP Pulse Ox 100 F H 92 H 18 123/68 96 07/07/18 22:00 07/07/18 22:00 07/07/18 22:00 07/07/18 22:00 07/07/18 22:00 Intake and Output: 07/08/18 07/08/18 06:59 18:59 Intake Total 660 Balance 660 - Medications Medications: Current Medications Acetaminophen (Tylenol 325mg Tab) 650 mg PO Q4 PRN PRN Reason: Fever >100.4 F Last Admin: 07/06/18 20:35 Dose: 650 mg Aspirin (Ecotrin) 81 mg PO DAILY [facility] Last Admin: 07/08/18 09:45 Dose: 81 mg Atorvastatin Calcium (Lipitor) 20 mg PO DIN [facility] Cephalexin Monohydrate (Keflex) 500 mg PO BID [facility]; Protocol Stop: 07/19/18 10:01 Last Admin: 07/08/18 09:46 Dose: 500 mg Clopidogrel Bisulfate (Plavix) 75 mg PO DAILY [facility] Last Admin: 07/08/18 09:46 Dose: 75 mg Dextrose (Dextrose 50% Inj) 0 ml IV STAT PRN; Protocol PRN Reason: Hypoglycemia Protocol Enoxaparin Sodium (Lovenox) 40 mg SC DAILY [facility]; Protocol Last Admin: 07/08/18 09:45 Dose: 40 mg Gabapentin (Neurontin) 100 mg PO BID [facility]; Protocol Last Admin: 07/08/18 09:46 Dose: 100 mg Gabapentin (Neurontin) 300 mg PO HS [facility]; Protocol Last Admin: 07/07/18 22:36 Dose: 300 mg Dextrose (Dextrose 5% In Water 1000 Ml) 1,000 mls @ 0 mls/hr IV .Q0M PRN; Protocol PRN Reason: Hypoglycemia Protocol Insulin Detemir (Levemir) 10 unit SC Q12H [facility] Last Admin: 07/08/18 09:49 Dose: 10 units Insulin Human Regular (Humulin R Med) 0 units SC ACHS [facility]; Protocol Last Admin: 07/08/18 07:46 Dose: Not Given Metoprolol Tartrate (Lopressor) 25 mg PO 0800,1800 [facility] Last Admin: 07/08/18 09:45 Dose: 25 mg Pantoprazole Sodium (Protonix Ec Tab) 40 mg PO 0600 [facility] Last Admin: 07/08/18 05:32 Dose: 40 mg - Labs Labs: 07/08/18 06:30 07/08/18 06:30 Attending/Attestation - Attestation I have personally seen and examined this patient.: Yes I have fully participated in the care of the patient.: Yes I have reviewed all pertinent clinical information, including history, physical exam and plan: Yes Notes (Text): 07/08/18 10:58 Medical record note made by the resident after discussion with my direction and input after the patient was personally seen and examined by me. I have reviewed the chart and agree that the record accurately reflects by personal performance of the history, physical exam, data review, and medical decision-making, in the course for the patient. I have also personally directed the plan of care.
[2018-07-06] MEDS ORDERED: Insulin Detemir 100 units/ml Vial (Levemir) SC SCH (22:00)
--- NOTE | 2018-07-07 | CP.PCM.PN ---
Subjective - Date & Time of Evaluation Date of Evaluation: 07/06/18 Time of Evaluation: 21:00 - Subjective Subjective: Infectious Disease Follow Up: July 06, 2018 73 yo female with history of Type II DM. The patient was found to be altered in a laundromat. Patient herself gives little information. Patient's PMD is apparently in [place], [place], his name is Dr. Akbar. The patient name is Jessica Brizuela. Patient had fever of 101.0 F. No leukocytosis. Limited information provided by the patient. Patient is hyperglycemic on admission and still has elevated glucose levels. Was under isolation for bedbugs. No further fever episodes today. Afebrile for the last few days now. Duplex showing disease of the vessels of the left leg. Noted borderline fevers up to 100.[address] Angiography? Objective - Vital Signs/Intake and Output Vital Signs (last 24 hours): Temp Pulse Resp BP Pulse Ox 99.7 F H 91 H 18 124/66 97 07/06/18 22:56 07/06/18 17:06 07/06/18 17:06 07/06/18 17:06 07/06/18 17:06 Intake and Output: 07/06/18 07/07/18 18:59 06:59 Intake Total 360 Balance 360 - Medications Medications: Current Medications Acetaminophen (Tylenol 325mg Tab) 650 mg PO Q4 PRN PRN Reason: Fever >100.4 F Last Admin: 07/06/18 20:35 Dose: 650 mg Aspirin (Ecotrin) 81 mg PO DAILY [facility] Last Admin: 07/06/18 09:49 Dose: 81 mg Cephalexin Monohydrate (Keflex) 500 mg PO BID [facility]; Protocol Stop: 07/19/18 10:01 Last Admin: 07/06/18 17:48 Dose: 500 mg Clopidogrel Bisulfate (Plavix) 75 mg PO DAILY [facility] Last Admin: 07/06/18 09:49 Dose: 75 mg Dextrose (Dextrose 50% Inj) 0 ml IV STAT PRN; Protocol PRN Reason: Hypoglycemia Protocol Enoxaparin Sodium (Lovenox) 40 mg SC DAILY [facility]; Protocol Last Admin: 07/06/18 09:48 Dose: 40 mg Gabapentin (Neurontin) 100 mg PO BID [facility]; Protocol Last Admin: 07/06/18 17:48 Dose: 100 mg Gabapentin (Neurontin) 300 mg PO HS [facility]; Protocol Last Admin: 07/06/18 22:05 Dose: 300 mg Dextrose (Dextrose 5% In Water 1000 Ml) 1,000 mls @ 0 mls/hr IV .Q0M PRN; Protocol PRN Reason: Hypoglycemia Protocol Insulin Detemir (Levemir) 7 unit SC Q12H [facility] Last Admin: 07/06/18 22:05 Dose: 7 units Insulin Human Regular (Humulin R Med) 0 units SC ACHS [facility]; Protocol Last Admin: 07/06/18 16:40 Dose: 7 units Metoprolol Tartrate (Lopressor) 25 mg PO 0800,1800 [facility] Last Admin: 07/06/18 17:48 Dose: 25 mg Pantoprazole Sodium (Protonix Ec Tab) 40 mg PO 0600 [facility] Last Admin: 07/06/18 05:12 Dose: Not Given - Labs Labs: 07/06/18 08:00 07/06/18 08:00 - Constitutional Appears: Non-toxic, No Acute Distress, Chronically Ill - Head Exam Head Exam: ATRAUMATIC, NORMOCEPHALIC - Eye Exam Eye Exam: EOMI, PERRL Pupil Exam: NORMAL ACCOMODATION, PERRL - ENT Exam ENT Exam: Mucous Membranes Moist, Normal External Ear Exam, TM's Normal Bilaterally - Neck Exam Neck Exam: Full ROM, Normal Inspection - Respiratory Exam Respiratory Exam: Clear to Ausculation Bilateral, NORMAL BREATHING PATTERN. absent: Rales, Rhonchi, Wheezes - Cardiovascular Exam Cardiovascular Exam: REGULAR RHYTHM, RRR, +S1, +S2 - GI/Abdominal Exam GI & Abdominal Exam: Soft, Normal Bowel Sounds. absent: Distended, Tenderness Additional comments: midline surgical scar. - Extremities Exam Additional comments: RLE big toe ulcer/eschar. Mild edema of the left lower leg. - Neurological Exam Neurological Exam: Alert, Awake, CN II-XII Intact, Oriented x3 - Psychiatric Exam Psychiatric exam: Flat Affect Additional comments: Distant. Often answers questions with "I don't know", "I don't remember", or "I forgot". - Skin Additional comments: As above Assessment and Plan - Assessment and Plan (Free Text) Assessment: 73 yo female presenting for altered mental status, fevers up to 101.0 F, and hyperglycemia. Negative Chest X-ray. X-ray right big toe showing swelling of the soft tissues only. Head CT negative. Patient was hyponatremic. Unclear how the patient's DM control is normally. Likely with some degree of dehyd ration in addition to the hyperglycemia. Check Hgb A1c... 15.5. Monitor glucose levels. Started on Vancomycin and Zosyn. Villagran cultures. Supportive care. Afebrile today. Found to have bedbugs and was isolated. Patient was washed and now off isolation. Duplex studies pending. Cultures negative. Left foot and ankle X-ray negative. Considering oral antibiotic care with Keflex. Patient with diabetes that is not under control. Spoke with Dr. Orozco. No new issues. Thank you for allowing me to participate in the care of the patient, we will follow with you.
[2018-07-07] MEDS: Pantoprazole 40 mg EC Tab PO SCH (05:32)
[2018-07-07] MEDS: Insulin Reg-MEDIUM-Coverage SC SCH ×3 (08:26→17:49)
[2018-07-07] MEDS: Insulin Detemir 100 units/ml Vial (Levemir) SC SCH ×2 (10:19→21:47)
[2018-07-07] MEDS: Enoxaparin 40 mg Syringe SC SCH (10:20)
--- NOTE | 2018-07-07 13:47 | CP.PCM.PN ---
<Jeffrey Vo - Last Filed: 07/07/18 18:26> Subjective - Date & Time of Evaluation Date of Evaluation: 07/07/18 Time of Evaluation: 18:26 - Subjective Subjective: Jeffrey Vo PGY1 Medicine Progress Note: Pt was seen and examined this AM at bedside. Pt had no acute overnight events. Pt continues to admit to L sided foot pain. Otherwise pt denies any fevers, chills, chest pain, palpitations, SOB, cough, abd pain, n/v, c/d, or dysuria. Objective - Vital Signs/Intake and Output Vital Signs (last 24 hours): Temp Pulse Resp BP Pulse Ox 98.6 F 97 H 18 148/79 97 07/07/18 06:00 07/07/18 08:26 07/07/18 06:00 07/07/18 08:26 07/07/18 06:00 Intake and Output: 07/07/18 07/07/18 06:59 18:59 Intake Total 540 Balance 540 - Medications Medications: Current Medications Acetaminophen (Tylenol 325mg Tab) 650 mg PO Q4 PRN PRN Reason: Fever >100.4 F Last Admin: 07/06/18 20:35 Dose: 650 mg Aspirin (Ecotrin) 81 mg PO DAILY [facility] Last Admin: 07/07/18 10:19 Dose: 81 mg Cephalexin Monohydrate (Keflex) 500 mg PO BID [facility]; Protocol Stop: 07/19/18 10:01 Last Admin: 07/07/18 10:20 Dose: 500 mg Clopidogrel Bisulfate (Plavix) 75 mg PO DAILY [facility] Last Admin: 07/07/18 10:20 Dose: 75 mg Dextrose (Dextrose 50% Inj) 0 ml IV STAT PRN; Protocol PRN Reason: Hypoglycemia Protocol Enoxaparin Sodium (Lovenox) 40 mg SC DAILY [facility]; Protocol Last Admin: 07/07/18 10:20 Dose: 40 mg Gabapentin (Neurontin) 100 mg PO BID [facility]; Protocol Last Admin: 07/07/18 10:19 Dose: 100 mg Gabapentin (Neurontin) 300 mg PO HS [facility]; Protocol Last Admin: 07/06/18 22:05 Dose: 300 mg Dextrose (Dextrose 5% In Water 1000 Ml) 1,000 mls @ 0 mls/hr IV .Q0M PRN; Protocol PRN Reason: Hypoglycemia Protocol Insulin Detemir (Levemir) 10 unit SC Q12H [facility] Last Admin: 07/07/18 10:19 Dose: 10 units Insulin Human Regular (Humulin R Med) 0 units SC ACHS [facility]; Protocol Last Admin: 07/07/18 12:15 Dose: 5 units Metoprolol Tartrate (Lopressor) 25 mg PO 0800,1800 [facility] Last Admin: 07/07/18 08:26 Dose: 25 mg Pantoprazole Sodium (Protonix Ec Tab) 40 mg PO 0600 [facility] Last Admin: 07/07/18 05:32 Dose: 40 mg - Labs Labs: 07/06/18 08:00 07/06/18 08:00 - Constitutional Appears: Non-toxic, No Acute Distress - Head Exam Head Exam: ATRAUMATIC, NORMAL INSPECTION, NORMOCEPHALIC - Eye Exam Eye Exam: EOMI, Normal appearance, PERRL - Respiratory Exam Respiratory Exam: Clear to Ausculation Bilateral, NORMAL BREATHING PATTERN. absent: Accessory Muscle Use, Rales, Rhonchi, Wheezes, Respiratory Distress, Stridor - Cardiovascular Exam Cardiovascular Exam: RRR, +S1, +S2. absent: Gallop, Rubs - GI/Abdominal Exam GI & Abdominal Exam: Soft, Normal Bowel Sounds. absent: Guarding, Rigid, Tenderness - Extremities Exam Extremities exam: Positive for: normal capillary refill, pedal pulses present. Negative for: tenderness Additional comments: RLE big toe ulcer, LLE toe swelling without fluctuance. - Back Exam Back Exam: NORMAL INSPECTION. absent: CVA tenderness (L), CVA tenderness (R) - Neurological Exam Neurological Exam: Alert, Awake, Oriented x3 - Psychiatric Exam Psychiatric exam: Normal Affect, Normal Mood - Skin Skin Exam: Dry, Normal Color, Warm Assessment and Plan - Assessment and Plan (Free Text) Assessment: Patient is a 73 year old female with past medical history of T2DM presenting with altered mental status. Sugars were initially noted to be elevated in the 700s and have been downtrending since. Pt is noted to NOT have an anion gap. Plan: PAD: - Asa and plavix - Arterial US done - Severely abnormal L ALYSE @ rest ALYSE is .46. R ALYSE is at .77 and is moderately abnormal - Venous duplex US of LE done - No evidence of DVT - L ankle and L foot XR shows normal radiographs of the ankle and foot - CT angiogram showed Severe stenosis in the distal superficial femoral arteries bilaterally. Single vessel runoff to both ankles via the posterior tibial. The anterior tibials are thin and narrow with multi focal stenosis - IR consulted, awaiting recs - Will cont to monitor Altered mental status: Resolved - Pt is now AOx3 - Likely 2/2 elevated blood glucose levels upon admission in the 700s, now resolved - CT head shows age appropriate changes, no acute pathology - UDS negative - afebrile, no leukocytosis - UA (-) for nitrates, LE or WBC - Ucx (-) - BCx (-) - CXR: NAD Hyperglycemia w/o elevated AG - ISS, Accuchecks - Hgba1c - 15.5 - Adjusted pts levemir to 20 units qd, will cont to monitor - Diabetic education RLE ulcer - wound care - ID on board, recs appreciated - XR showed soft tissue swelling w/o acute articular or osseous abnormality - Podiatry on board - Per ID recs - Kefllex 500mg BID po for 14 days upon d/c. Pseudohyponatremia: Resolved - continue to monitor Bed Bugs: - Isolation d/mercedes 07/04/17 PPX - Lovenox SC, Protonix Dispo: Follow up with IR regarding further intervention Case reviewed with Dr. Pam Vo PGY-1 <Lorena Orozco - Last Filed: 07/08/18 10:58> Objective - Vital Signs/Intake and Output Vital Signs (last 24 hours): Temp Pulse Resp BP Pulse Ox 100 F H 92 H 18 123/68 96 07/07/18 22:00 07/07/18 22:00 07/07/18 22:00 07/07/18 22:00 07/07/18 22:00 Intake and Output: 07/08/18 07/08/18 06:59 18:59 Intake Total 660 Balance 660 - Medications Medications: Current Medications Acetaminophen (Tylenol 325mg Tab) 650 mg PO Q4 PRN PRN Reason: Fever >100.4 F Last Admin: 07/06/18 20:35 Dose: 650 mg Aspirin (Ecotrin) 81 mg PO DAILY [facility] Last Admin: 07/08/18 09:45 Dose: 81 mg Atorvastatin Calcium (Lipitor) 20 mg PO DIN [facility] Cephalexin Monohydrate (Keflex) 500 mg PO BID [facility]; Protocol Stop: 07/19/18 10:01 Last Admin: 07/08/18 09:46 Dose: 500 mg Clopidogrel Bisulfate (Plavix) 75 mg PO DAILY [facility] Last Admin: 07/08/18 09:46 Dose: 75 mg Dextrose (Dextrose 50% Inj) 0 ml IV STAT PRN; Protocol PRN Reason: Hypoglycemia Protocol Enoxaparin Sodium (Lovenox) 40 mg SC DAILY [facility]; Protocol Last Admin: 07/08/18 09:45 Dose: 40 mg Gabapentin (Neurontin) 100 mg PO BID [facility]; Protocol Last Admin: 07/08/18 09:46 Dose: 100 mg Gabapentin (Neurontin) 300 mg PO HS [facility]; Protocol Last Admin: 07/07/18 22:36 Dose: 300 mg Dextrose (Dextrose 5% In Water 1000 Ml) 1,000 mls @ 0 mls/hr IV .Q0M PRN; Protocol PRN Reason: Hypoglycemia Protocol Insulin Detemir (Levemir) 10 unit SC Q12H [facility] Last Admin: 07/08/18 09:49 Dose: 10 units Insulin Human Regular (Humulin R Med) 0 units SC ACHS [facility]; Protocol Last Admin: 07/08/18 07:46 Dose: Not Given Metoprolol Tartrate (Lopressor) 25 mg PO 0800,1800 [facility] Last Admin: 07/08/18 09:45 Dose: 25 mg Pantoprazole Sodium (Protonix Ec Tab) 40 mg PO 0600 [facility] Last Admin: 07/08/18 05:32 Dose: 40 mg - Labs Labs: 07/08/18 06:30 07/08/18 06:30 Attending/Attestation - Attestation I have personally seen and examined this patient.: Yes I have fully participated in the care of the patient.: Yes I have reviewed all pertinent clinical information, including history, physical exam and plan: Yes Notes (Text): 07/08/18 10:56 Patient was seen and examined with vice president medical affairs. 73 year old female with PMH of diabetes,HTN,PVD, and noncompliance with medication was admitted with altered mental status, found to have significantly elevated blood sugars >700s which improved with iv fluids and insulin. Patient mental status is back to base line. HbA1c is 15.5 and patient is started on levemir. We will monitor blood sugars and will adjust medication. Infected right big toe ulcer. Patient is afebrile, wound cultures are negative, on oral keflex,ID and Podiatry are following. Severe PVD .bnormal L ALYSE @ rest ALYSE is .46. R ALYSE is at .77 and is moderately abnormal, CT angiogram is ordered, IR is consulted. Patient is ON ASA/Plavix . CT angiogram showed severe stenosis in the distal superficial femoral arteries bilaterally. Single vessel runoff to both ankles via the posterior tibial. The anterior tibials are thin and narrow with multi focal stenosis.IR evaluation is pending. Peripheral Neuropathy on Neurotin.
--- NOTE | 2018-07-07 16:27 | CP.PCM.PN ---
Subjective - Date & Time of Evaluation Date of Evaluation: 07/07/18 Time of Evaluation: 15:00 - Subjective Subjective: Infectious Disease Follow Up: July 07, 2018 73 yo female with history of Type II DM. The patient was found to be altered in a laundromat. Patient herself gives little information. Patient's PMD is apparently in [place], [place], his name is Dr. Akbar. The patient name is Jessica Brizuela. Patient had fever of 101.0 F. No leukocytosis. Limited information provided by the patient. Patient is hyperglycemic on admission and still has elevated glucose levels. Was under isolation for bedbugs. No further fever episodes today. Afebrile for the last few days now. Duplex showing disease of the vessels of the left leg. Noted borderline fevers up to 100.[address] Angiography showing severe stenosis in the distal superficial femoral arteries bilaterally. Single vessel runoff to both ankles via the posterior tibials. The anterior tibials are thin and narrow with multi focal stenosis. Objective - Vital Signs/Intake and Output Vital Signs (last 24 hours): Temp Pulse Resp BP Pulse Ox 98.9 F 92 H 20 113/65 96 07/07/18 14:00 07/07/18 14:00 07/07/18 14:00 07/07/18 14:00 07/07/18 14:00 Intake and Output: 07/07/18 07/07/18 06:59 18:59 Intake Total 540 Balance 540 - Medications Medications: Current Medications Acetaminophen (Tylenol 325mg Tab) 650 mg PO Q4 PRN PRN Reason: Fever >100.4 F Last Admin: 07/06/18 20:35 Dose: 650 mg Aspirin (Ecotrin) 81 mg PO DAILY [facility] Last Admin: 07/07/18 10:19 Dose: 81 mg Cephalexin Monohydrate (Keflex) 500 mg PO BID [facility]; Protocol Stop: 07/19/18 10:01 Last Admin: 07/07/18 10:20 Dose: 500 mg Clopidogrel Bisulfate (Plavix) 75 mg PO DAILY [facility] Last Admin: 07/07/18 10:20 Dose: 75 mg Dextrose (Dextrose 50% Inj) 0 ml IV STAT PRN; Protocol PRN Reason: Hypoglycemia Protocol Enoxaparin Sodium (Lovenox) 40 mg SC DAILY [facility]; Protocol Last Admin: 07/07/18 10:20 Dose: 40 mg Gabapentin (Neurontin) 100 mg PO BID [facility]; Protocol Last Admin: 07/07/18 10:19 Dose: 100 mg Gabapentin (Neurontin) 300 mg PO HS [facility]; Protocol Last Admin: 07/06/18 22:05 Dose: 300 mg Dextrose (Dextrose 5% In Water 1000 Ml) 1,000 mls @ 0 mls/hr IV .Q0M PRN; Protocol PRN Reason: Hypoglycemia Protocol Insulin Detemir (Levemir) 10 unit SC Q12H [facility] Last Admin: 07/07/18 10:19 Dose: 10 units Insulin Human Regular (Humulin R Med) 0 units SC ACHS [facility]; Protocol Last Admin: 07/07/18 12:15 Dose: 5 units Metoprolol Tartrate (Lopressor) 25 mg PO 0800,1800 [facility] Last Admin: 07/07/18 08:26 Dose: 25 mg Pantoprazole Sodium (Protonix Ec Tab) 40 mg PO 0600 [facility] Last Admin: 07/07/18 05:32 Dose: 40 mg - Labs Labs: 07/06/18 08:00 07/06/18 08:00 - Constitutional Appears: Non-toxic, No Acute Distress, Chronically Ill - Head Exam Head Exam: ATRAUMATIC, NORMOCEPHALIC - Eye Exam Eye Exam: EOMI, PERRL Pupil Exam: NORMAL ACCOMODATION, PERRL - ENT Exam ENT Exam: Mucous Membranes Moist, Normal External Ear Exam, TM's Normal Bilaterally - Neck Exam Neck Exam: Full ROM, Normal Inspection - Respiratory Exam Respiratory Exam: Clear to Ausculation Bilateral, NORMAL BREATHING PATTERN. absent: Rales, Rhonchi, Wheezes - Cardiovascular Exam Cardiovascular Exam: REGULAR RHYTHM, RRR, +S1, +S2 - GI/Abdominal Exam GI & Abdominal Exam: Soft, Normal Bowel Sounds. absent: Distended, Tenderness Additional comments: midline surgical scar. - Extremities Exam Additional comments: RLE big toe ulcer/eschar. Mild edema of the left lower leg. - Neurological Exam Neurological Exam: Alert, Awake, CN II-XII Intact, Oriented x3 - Psychiatric Exam Psychiatric exam: Flat Affect Additional comments: Distant. Often answers questions with "I don't know", "I don't remember", or "I forgot". - Skin Additional comments: As above. Assessment and Plan - Assessment and Plan (Free Text) Assessment: 73 yo female presenting for altered mental status, fevers up to 101.0 F, and hyperglycemia. Negative Chest X-ray. X-ray right big toe showing swelling of the soft tissues only. Head CT negative. Patient was hyponatremic. Unclear how the patient's DM control is normally. Likely with some degree of dehydration in addition to the hyperglycemia. Check Hgb A1c... 15.5. Monitor glucose levels. Started on Vancomycin and Zosyn. Villagran cultures. Supportive care. Afebrile today. Found to have bedbugs and was isolated. Patient was washed and now off isolation. Duplex studies pending. Cultures negative. Left foot and ankle X-ray negative. Considering oral antibiotic care with Keflex. Patient with diabetes that is not under control. Spoke with Dr. Orozco. No new issues. Thank you for allowing me to participate in the care of the patient, we will follow with you.
[2018-07-08] MEDS: Pantoprazole 40 mg EC Tab PO SCH (05:32)
[2018-07-08 07:27] LABS: BASO # 0.03 K/mm3 (0.0-2.0); BASO % 0.4 % (0.0-3.0); EOS # 0.1 (0.0-0.7); EOS % 1.1 % (1.5-5.0); HEMOGLOBIN 10.1 g/dL (12.0-16.0); LYMPH # 1.8 (1.2-3.4); LYMPH % 21.6 % (22.0-35.0); MEAN CELL VOLUME 88.5 fl (80.0-105.0); MEAN CORPUSCULAR HEMOGLOBIN 28.2 pg (25.0-35.0); MEAN CORPUSCULAR HGB CONC 31.9 g/dl (31.0-37.0); MEAN PLATELET VOLUME 9.5 fl (7.0-11.0); MONO % 12.1 % (1.0-6.0); RBC 3.58 10^6/uL (3.5-6.1); RED CELL DISTRIBUTION WIDTH 12.4 % (11.5-14.5); WHITE BLOOD COUNT 8.2 10^3/uL (4.5-11.0)
[2018-07-08] MEDS: Insulin Reg-MEDIUM-Coverage SC SCH ×4 (07:46→21:50)
[2018-07-08 08:06] LABS: ALB/GLOB RATIO 0.8 (1.1-1.8); ALBUMIN 3.1 g/dL (3.0-4.8); ALT/SGPT 38 U/L (7-56); AST/SGOT 45 U/L (14-36); BLOOD UREA NITROGEN 12 mg/dL (7-21); CALCIUM 8.7 mg/dL (8.4-10.5); GFR NON-AFRICAN AMERICAN > 60
[2018-07-08] MEDS: Enoxaparin 40 mg Syringe SC SCH (09:45)
[2018-07-08] MEDS: Insulin Detemir 100 units/ml Vial (Levemir) SC SCH ×2 (09:49→21:54)
[2018-07-08] MEDS ORDERED: Potassium Chloride 40 mEq/30 ml LIQ UD PO ONE (09:53)
--- NOTE | 2018-07-08 14:33 | CP.PCM.PN ---
Subjective - Date & Time of Evaluation Date of Evaluation: 07/08/18 Time of Evaluation: 13:15 - Subjective Subjective: Infectious Disease Follow Up: July 08, 2018 73 yo female with history of Type II DM. The patient was found to be altered in a laundromat. Patient herself gives little information. Patient's PMD is apparently in [place], [place], his name is Dr. Akbar. The patient name is Jessica Brizuela. Patient had fever of 101.0 F. No leukocytosis. Limited information provided by the patient. Patient is hyperglycemic on admission and still has elevated glucose levels. Was under isolation for bedbugs. No further fever episodes today. Afebrile for the last few days now. Duplex showing disease of the vessels of the left leg. Noted borderline fevers up to 100.[address] Angiography showing severe stenosis in the distal superficial femoral arteries bilaterally. Single vessel runoff to both ankles via the posterior tibials. The anterior tibials are thin and narrow with multi focal stenosis. Significant peripheral vascular disease bilaterally. Objective - Vital Signs/Intake and Output Vital Signs (last 24 hours): Temp Pulse Resp BP Pulse Ox 100 F H 92 H 18 123/68 96 07/07/18 22:00 07/07/18 22:00 07/07/18 22:00 07/07/18 22:00 07/07/18 22:00 Intake and Output: 07/08/18 07/08/18 06:59 18:59 Intake Total 660 Balance 660 - Medications Medications: Current Medications Acetaminophen (Tylenol 325mg Tab) 650 mg PO Q4 PRN PRN Reason: Fever >100.4 F Last Admin: 07/06/18 20:35 Dose: 650 mg Aspirin (Ecotrin) 81 mg PO DAILY [facility] Last Admin: 07/08/18 09:45 Dose: 81 mg Atorvastatin Calcium (Lipitor) 20 mg PO DIN [facility] Cephalexin Monohydrate (Keflex) 500 mg PO BID [facility]; Protocol Stop: 07/19/18 10:01 Last Admin: 07/08/18 09:46 Dose: 500 mg Clopidogrel Bisulfate (Plavix) 75 mg PO DAILY [facility] Last Admin: 07/08/18 09:46 Dose: 75 mg Dextrose (Dextrose 50% Inj) 0 ml IV STAT PRN; Protocol PRN Reason: Hypoglycemia Protocol Enoxaparin Sodium (Lovenox) 40 mg SC DAILY [facility]; Protocol Last Admin: 07/08/18 09:45 Dose: 40 mg Gabapentin (Neurontin) 100 mg PO BID [facility]; Protocol Last Admin: 07/08/18 09:46 Dose: 100 mg Gabapentin (Neurontin) 300 mg PO HS [facility]; Protocol Last Admin: 07/07/18 22:36 Dose: 300 mg Dextrose (Dextrose 5% In Water 1000 Ml) 1,000 mls @ 0 mls/hr IV .Q0M PRN; Protocol PRN Reason: Hypoglycemia Protocol Insulin Detemir (Levemir) 10 unit SC Q12H [facility] Last Admin: 07/08/18 09:49 Dose: 10 units Insulin Human Regular (Humulin R Med) 0 units SC ACHS [facility]; Protocol Last Admin: 07/08/18 12:38 Dose: 5 units Metoprolol Tartrate (Lopressor) 25 mg PO 0800,1800 [facility] Last Admin: 07/08/18 09:45 Dose: 25 mg Pantoprazole Sodium (Protonix Ec Tab) 40 mg PO 0600 [facility] Last Admin: 07/08/18 05:32 Dose: 40 mg - Labs Labs: 07/08/18 06:30 07/08/18 06:30 - Constitutional Appears: Non-toxic, No Acute Distress, Chronically Ill - Head Exam Head Exam: ATRAUMATIC, NORMOCEPHALIC - Eye Exam Eye Exam: EOMI, PERRL Pupil Exam: NORMAL ACCOMODATION, PERRL - ENT Exam ENT Exam: Mucous Membranes Moist, Normal External Ear Exam, TM's Normal Bilaterally - Neck Exam Neck Exam: Full ROM, Normal Inspection - Respiratory Exam Respiratory Exam: Clear to Ausculation Bilateral, NORMAL BREATHING PATTERN. absent: Rales, Rhonchi, Wheezes - Cardiovascular Exam Cardiovascular Exam: REGULAR RHYTHM, RRR, +S1, +S2 - GI/Abdominal Exam GI & Abdominal Exam: Soft, Normal Bowel Sounds. absent: Distended, Tenderness Additional comments: midline surgical scar. - Extremities Exam Additional comments: RLE big toe ulcer/eschar. Mild edema of the left lower leg. - Neurological Exam Neurological Exam: Alert, Awake, CN II-XII Intact, Oriented x3 - Psychiatric Exam Psychiatric exam: Flat Affect Additional comments: Distant. Often answers questions with "I don't know", "I don't remember", or "I forgot". - Skin Additional comments: As above. Assessment and Plan - Assessment and Plan (Free Text) Assessment: 73 yo female presenting for altered mental status, fevers up to 101.0 F, and hyperglycemia. Negative Chest X-ray. X-ray right big toe showing swelling of the soft tissues only. Head CT negative. Patient was hyponatremic. Unclear how the patient's DM control is normally. Likely with some degree of dehydration in addition to the hyperglycemia. Check Hgb A1c... 15.5. Monitor glucose levels. Started on Vancomycin and Zosyn. Villagran cultures. Supportive care. Afebrile today. Found to have bedbugs and was isolated. Patient was washed and now off isolation. Duplex studies pending. Cultures negative. Left foot and ankle X-ray negative. Considering oral antibiotic care with Keflex. Patient with diabetes that is not under control. Borderline fevers. Spoke with Dr. Orozco. No new issues. Thank you for allowing me to participate in the care of the patient, we will follow with you.
--- NOTE | 2018-07-08 15:02 | CP.PCM.PN ---
<Jose Hernandez - Last Filed: 07/08/18 15:04> Subjective - Date & Time of Evaluation Date of Evaluation: 07/08/18 Time of Evaluation: 11:00 - Subjective Subjective: INTERNAL MEDICINE PROGRESS NOTE FOR DR. EZEQUIEL Hernandez PGY1 Pt seen and examined at bedside this am. No acute events overnight. She is reporting continued foot pain but is otherwise denying 12 point ROS. Objective - Vital Signs/Intake and Output Vital Signs (last 24 hours): Temp Pulse Resp BP Pulse Ox 100 F H 92 H 18 123/68 96 07/07/18 22:00 07/07/18 22:00 07/07/18 22:00 07/07/18 22:00 07/07/18 22:00 Intake and Output: 07/08/18 07/08/18 06:59 18:59 Intake Total 660 520 Balance 660 520 - Medications Medications: Current Medications Acetaminophen (Tylenol 325mg Tab) 650 mg PO Q4 PRN PRN Reason: Fever >100.4 F Last Admin: 07/06/18 20:35 Dose: 650 mg Aspirin (Ecotrin) 81 mg PO DAILY [facility] Last Admin: 07/08/18 09:45 Dose: 81 mg Atorvastatin Calcium (Lipitor) 20 mg PO DIN [facility] Cephalexin Monohydrate (Keflex) 500 mg PO BID [facility]; Protocol Stop: 07/19/18 10:01 Last Admin: 07/08/18 09:46 Dose: 500 mg Clopidogrel Bisulfate (Plavix) 75 mg PO DAILY [facility] Last Admin: 07/08/18 09:46 Dose: 75 mg Dextrose (Dextrose 50% Inj) 0 ml IV STAT PRN; Protocol PRN Reason: Hypoglycemia Protocol Enoxaparin Sodium (Lovenox) 40 mg SC DAILY [facility]; Protocol Last Admin: 07/08/18 09:45 Dose: 40 mg Gabapentin (Neurontin) 100 mg PO BID [facility]; Protocol Last Admin: 07/08/18 09:46 Dose: 100 mg Gabapentin (Neurontin) 300 mg PO HS [facility]; Protocol Last Admin: 07/07/18 22:36 Dose: 300 mg Dextrose (Dextrose 5% In Water 1000 Ml) 1,000 mls @ 0 mls/hr IV .Q0M PRN; P rotocol PRN Reason: Hypoglycemia Protocol Insulin Detemir (Levemir) 10 unit SC Q12H [facility] Last Admin: 07/08/18 09:49 Dose: 10 units Insulin Human Regular (Humulin R Med) 0 units SC ACHS [facility]; Protocol Last Admin: 07/08/18 12:38 Dose: 5 units Metoprolol Tartrate (Lopressor) 25 mg PO 0800,1800 [facility] Last Admin: 07/08/18 09:45 Dose: 25 mg Pantoprazole Sodium (Protonix Ec Tab) 40 mg PO 0600 [facility] Last Admin: 07/08/18 05:32 Dose: 40 mg - Labs Labs: 07/08/18 06:30 07/08/18 06:30 - Constitutional Appears: Non-toxic, No Acute Distress - Head Exam Head Exam: ATRAUMATIC, NORMAL INSPECTION, NORMOCEPHALIC - Eye Exam Eye Exam: EOMI, Normal appearance, PERRL - Respiratory Exam Respiratory Exam: Clear to Ausculation Bilateral, NORMAL BREATHING PATTERN. absent: Accessory Muscle Use, Rales, Rhonchi, Wheezes, Respiratory Distress, Stridor - Cardiovascular Exam Cardiovascular Exam: RRR, +S1, +S2. absent: Gallop, Rubs - GI/Abdominal Exam GI & Abdominal Exam: Soft, Normal Bowel Sounds. absent: Guarding, Rigid, Tenderness - Extremities Exam Extremities exam: Positive for: normal capillary refill, pedal pulses present. Negative for: tenderness Additional comments: RLE big toe ulcer, LLE toe swelling without fluctuance. - Back Exam Back Exam: NORMAL INSPECTION. absent: CVA tenderness (L), CVA tenderness (R) - Neurological Exam Neurological Exam: Alert, Awake, Oriented x3 - Psychiatric Exam Psychiatric exam: Normal Affect, Normal Mood - Skin Skin Exam: Dry, Normal Color, Warm Assessment and Plan - Assessment and Plan (Free Text) Assessment: 73 year old female with PMH of diabetes,HTN,PVD, and noncompliance with medication was admitted with altered mental status, found to have significantly elevated blood sugars >700s which improved with iv fluids and insulin. Patient mental status is back to baseline. Plan: PAD: - Continue Asa and plavix - will start lipitor today - Arterial US done - Severely abnormal L LAYSE @ rest ALYSE is .46. R ALYSE is at .77 and is moderately abnormal - Venous duplex US of LE done - No evidence of DVT - L ankle and L foot XR shows normal radiographs of the ankle and foot - CT angiogram showed Severe stenosis in the distal superficial femoral arteries bilaterally. Single vessel runoff to both ankles via the posterior tibial. The anterior tibials are thin and narrow with multi focal stenosis - IR consulted, awaiting recs - Will cont to monitor Altered mental status: Resolved - Pt is now AOx3 - Likely 2/2 elevated blood glucose levels upon admission in the 700s, now resolved - CT head shows age appropriate changes, no acute pathology - UDS negative - afebrile, no leukocytosis - UA (-) for nitrates, LE or WBC - Ucx (-) - BCx (-) - CXR: NAD Hyperglycemia w/o elevated AG - ISS, Accuchecks - Hgba1c - 15.5 - Adjusted pts levemir to 10u Q12, improved control - Diabetic education RLE ulcer - continue keflex per ID recs - wound care - XR showed soft tissue swelling w/o acute articular or osseous abnormality - Podiatry on board PPX - Lovenox SC, Protonix Dispo: Follow up with IR regarding further intervention Case reviewed with Dr. Ezequiel Hernandez PGY1 <Lorena Orozco - Last Filed: 07/08/18 17:57> Objective - Vital Signs/Intake and Output Vital Signs (last 24 hours): Temp Pulse Resp BP Pulse Ox 98.7 F 82 16 123/73 99 07/08/18 14:00 07/08/18 14:00 07/08/18 14:00 07/08/18 14:00 07/08/18 14:00 Intake and Output: 07/08/18 07/08/18 06:59 18:59 Intake Total 660 520 Balance 660 520 - Medications Medications: Current Medications Acetaminophen (Tylenol 325mg Tab) 650 mg PO Q4 PRN PRN Reason: Fever >100.4 F Last Admin: 07/06/18 20:35 Dose: 650 mg Aspirin (Ecotrin) 81 mg PO DAILY [facility] Last Admin: 07/08/18 09:45 Dose: 81 mg Atorvastatin Calcium (Lipitor) 20 mg PO DIN [facility] Last Admin: 07/08/18 17:40 Dose: 20 mg Cephalexin Monohydrate (Keflex) 500 mg PO BID [facility]; Protocol Stop: 07/19/18 10:01 Last Admin: 07/08/18 17:40 Dose: 500 mg Clopidogrel Bisulfate (Plavix) 75 mg PO DAILY [facility] Last Admin: 07/08/18 09:46 Dose: 75 mg Dextrose (Dextrose 50% Inj) 0 ml IV STAT PRN; Protocol PRN Reason: Hypoglycemia Protocol Enoxaparin Sodium (Lovenox) 40 mg SC DAILY [facility]; Protocol Last Admin: 07/08/18 09:45 Dose: 40 mg Gabapentin (Neurontin) 100 mg PO BID [facility]; Protocol Last Admin: 07/08/18 17:40 Dose: 100 mg Gabapentin (Neurontin) 300 mg PO HS [facility]; Protocol Last Admin: 07/07/18 22:36 Dose: 300 mg Dextrose (Dextrose 5% In Water 1000 Ml) 1,000 mls @ 0 mls/hr IV .Q0M PRN; Protocol PRN Reason: Hypoglycemia Protocol Insulin Detemir (Levemir) 10 unit SC Q12H [facility] Last Admin: 07/08/18 09:49 Dose: 10 units Insulin Human Regular (Humulin R Med) 0 units SC ACHS [facility]; Protocol Last Admin: 07/08/18 17:39 Dose: 5 units Metoprolol Tartrate (Lopressor) 25 mg PO 0800,1800 [facility] Last Admin: 07/08/18 17:40 Dose: 25 mg Pantoprazole Sodium (Protonix Ec Tab) 40 mg PO 0600 [facility] Last Admin: 07/08/18 05:32 Dose: 40 mg - Labs Labs: 07/08/18 06:30 07/08/18 06:30 Attending/Attestation - Attestation I have personally seen and examined this patient.: Yes I have fully participated in the care of the patient.: Yes I have reviewed all pertinent clinical information, including history, physical exam and plan: Yes Notes (Text): 07/08/18 17:57 Medical record note made by the resident after discussion with my direction and input after the patient was personally seen and examined by me. I have reviewed the chart and agree that the record accurately reflects by personal performance of the history, physical exam, data review, and medical decision-making, in the course for the patient. I have also personally directed the plan of care.
[2018-07-09] MEDS: Pantoprazole 40 mg EC Tab PO SCH (05:31)
[2018-07-09] MEDS: Insulin Reg-MEDIUM-Coverage SC SCH ×5 (08:35→22:31)
[2018-07-09] MEDS: Enoxaparin 40 mg Syringe SC SCH (10:51)
[2018-07-09] MEDS: Insulin Detemir 100 units/ml Vial (Levemir) SC SCH ×2 (10:52→22:35)
--- NOTE | 2018-07-09 12:31 | CP.PCM.PN ---
<Shantanu Reyes - Last Filed: 07/09/18 12:27> Subjective - Date & Time of Evaluation Date of Evaluation: 07/09/18 Time of Evaluation: 12:27 - Subjective Subjective: Podiatry Progress Note for Dr. Cobb and Izabella 73F seen and evaluated at bedside for b/l foot pain secondary to PAD. Patient is AAO x 3 and NAD, resting comfortably in bed. Denies any acute overnight events or new pedal complaints. States that pain to both feet is constantly present. Denies any recent N/V/F/C/CP/SOB/D Objective - Vital Signs/Intake and Output Vital Signs (last 24 hours): Temp Pulse Resp BP Pulse Ox 99 F 84 20 130/80 98 07/09/18 06:00 07/09/18 10:51 07/09/18 06:00 07/09/18 10:51 07/09/18 06:00 - Medications Medications: Current Medications Acetaminophen (Tylenol 325mg Tab) 650 mg PO Q4 PRN PRN Reason: Fever >100.4 F Last Admin: 07/06/18 20:35 Dose: 650 mg Aspirin (Ecotrin) 81 mg PO DAILY [facility] Last Admin: 07/09/18 10:51 Dose: 81 mg Atorvastatin Calcium (Lipitor) 20 mg PO DIN [facility] Last Admin: 07/08/18 17:40 Dose: 20 mg Cephalexin Monohydrate (Keflex) 500 mg PO BID [facility]; Protocol Stop: 07/19/18 10:01 Last Admin: 07/09/18 10:51 Dose: 500 mg Clopidogrel Bisulfate (Plavix) 75 mg PO DAILY [facility] Last Admin: 07/08/18 09:46 Dose: 75 mg Dextrose (Dextrose 50% Inj) 0 ml IV STAT PRN; Protocol PRN Reason: Hypoglycemia Protocol Enoxaparin Sodium (Lovenox) 40 mg SC DAILY [facility]; Protocol Last Admin: 07/09/18 10:51 Dose: 40 mg Gabapentin (Neurontin) 100 mg PO BID [facility]; Protocol Last Admin: 07/08/18 17:40 Dose: 100 mg Gabapentin (Neurontin) 300 mg PO HS [facility]; Protocol Last Admin: 07/08/18 21:54 Dose: 300 mg Dextrose (Dextrose 5% In Water 1000 Ml) 1,000 mls @ 0 mls/hr IV .Q0M PRN; Garth col PRN Reason: Hypoglycemia Protocol Insulin Detemir (Levemir) 10 unit SC Q12H [facility] Last Admin: 07/09/18 10:52 Dose: 10 units Insulin Human Regular (Humulin R Med) 0 units SC ACHS [facility]; Protocol Last Admin: 07/09/18 08:36 Dose: 1 units Metoprolol Tartrate (Lopressor) 25 mg PO 0800,1800 [facility] Last Admin: 07/09/18 10:51 Dose: 25 mg Pantoprazole Sodium (Protonix Ec Tab) 40 mg PO 0600 [facility] Last Admin: 07/09/18 05:31 Dose: 40 mg - Labs Labs: 07/08/18 06:30 07/08/18 06:30 - Constitutional Appears: Well, Non-toxic, No Acute Distress - Extremities Exam Additional comments: VASC: R DP weakly palpalbe 1/4. L DP and bilateral PT pulses nonpalpable. CFT >3 seconds to all digits. Temperature gradient warm to warm RLE, warm to cold LLE. +1 pitting edema noted to LLE. NEURO: Epicritic and protective sensation grossly intact b/l DERM: Dry eschar measuring approximately 2 x 2 cm noted to distal tuft of right hallux - hyperkeratotic rim present; absent drainage; absent purulence; absent flucutance; absent malodor; no periwound erythema present. No clinical signs of infection appreciated ORTHO: No pain on palpation noted to right hallux eschar. Pain on palpation noted to entire left foot, with pain on ROM 1st MPJ, MTJ, STJ, ankle joint. - Neurological Exam Neurological Exam: Alert, Awake, Oriented x3 - Psychiatric Exam Psychiatric exam: Normal Affect, Normal Mood Assessment and Plan - Assessment and Plan (Free Text) Assessment: 73F seen and evaluated at bedside for b/l foot pain secondary to PAD Plan: Patient seen and evaluated Plan discussed with Dr. Cobb Bilateral arterial duplex ordered - significant PVD noted b/l, worse in the left, no official read yet Patient needs vascular intervention Consult for Dr. Ray - sandi appreciated Venous duplex ordered for calf pain - negative DVT Left foot and ankle XR ordered - no acute fractures or dislocations No evidence of abscess on left foot clinically No dressings applied to feet Continue abx per ID No intervention per podiatry, vascular consult pending Podiatry will continue to follow <Meek Cobb - Last Filed: 07/10/18 09:56> Objective - Vital Signs/Intake and Output Vital Signs (last 24 hours): Temp Pulse Resp BP Pulse Ox 99.7 F H 85 18 166/84 H 100 07/10/18 06:00 07/10/18 08:52 07/10/18 06:00 07/10/18 08:52 07/10/18 06:00 Intake and Output: 07/10/18 07/10/18 06:59 18:59 Intake Total 120 Balance 120 - Medications Medications: Current Medications Acetaminophen (Tylenol 325mg Tab) 650 mg PO Q4 PRN PRN Reason: Fever >100.4 F Last Admin: 07/06/18 20:35 Dose: 650 mg Aspirin (Ecotrin) 81 mg PO DAILY [facility] Last Admin: 07/10/18 09:25 Dose: 81 mg Atorvastatin Calcium (Lipitor) 20 mg PO DIN [facility] Last Admin: 07/09/18 17:59 Dose: 20 mg Cephalexin Monohydrate (Keflex) 500 mg PO BID [facility]; Protocol Stop: 07/19/18 10:01 Last Admin: 07/10/18 09:25 Dose: 500 mg Clopidogrel Bisulfate (Plavix) 75 mg PO DAILY [facility] Last Admin: 07/10/18 09:25 Dose: 75 mg Dextrose (Dextrose 50% Inj) 0 ml IV STAT PRN; Protocol PRN Reason: Hypoglycemia Protocol Enoxaparin Sodium (Lovenox) 40 mg SC DAILY [facility]; Protocol Last Admin: 07/10/18 09:26 Dose: 40 mg Gabapentin (Neurontin) 100 mg PO BID [facility]; Protocol Last Admin: 07/10/18 09:25 Dose: 100 mg Gabapentin (Neurontin) 300 mg PO HS [facility]; Protocol Last Admin: 07/09/18 22:35 Dose: 300 mg Dextrose (Dextrose 5% In Water 1000 Ml) 1,000 mls @ 0 mls/hr IV .Q0M PRN; Protocol PRN Reason: Hypoglycemia Protocol Insulin Detemir (Levemir) 10 unit SC Q12H [facility] Last Admin: 07/10/18 09:40 Dose: 10 units Insulin Human Regular (Humulin R Med) 0 units SC ACHS [facility]; Protocol Last Admin: 07/10/18 08:51 Dose: 1 units Metoprolol Tartrate (Lopressor) 25 mg PO 0800,1800 [facility] Last Admin: 07/10/18 08:52 Dose: 25 mg Pantoprazole Sodium (Protonix Ec Tab) 40 mg PO 0600 [facility] Last Admin: 07/10/18 05:17 Dose: 40 mg - Labs Labs: 07/10/18 07:45 07/10/18 07:45 Attending/Attestation - Attestation I have personally seen and examined this patient.: Yes I have fully participated in the care of the patient.: Yes I have reviewed all pertinent clinical information, including history, physical exam and plan: Yes
--- NOTE | 2018-07-09 15:55 | CP.PCM.PN ---
<Jose Hernandez - Last Filed: 07/09/18 15:52> Subjective - Date & Time of Evaluation Date of Evaluation: 07/09/18 Time of Evaluation: 11:00 - Subjective Subjective: INTERNAL MEDICINE PROGRESS NOTE Jose Hernandez PGY1 Pt seen and examined at bedside this am. No acute events overnight. Pt continues to report L foot pain. She otherwise denies 12 point ROS Objective - Vital Signs/Intake and Output Vital Signs (last 24 hours): Temp Pulse Resp BP Pulse Ox 99 F 84 20 130/80 98 07/09/18 06:00 07/09/18 10:51 07/09/18 06:00 07/09/18 10:51 07/09/18 06:00 - Medications Medications: Current Medications Acetaminophen (Tylenol 325mg Tab) 650 mg PO Q4 PRN PRN Reason: Fever >100.4 F Last Admin: 07/06/18 20:35 Dose: 650 mg Aspirin (Ecotrin) 81 mg PO DAILY [facility] Last Admin: 07/09/18 10:51 Dose: 81 mg Atorvastatin Calcium (Lipitor) 20 mg PO DIN [facility] Last Admin: 07/08/18 17:40 Dose: 20 mg Cephalexin Monohydrate (Keflex) 500 mg PO BID [facility]; Protocol Stop: 07/19/18 10:01 Last Admin: 07/09/18 10:51 Dose: 500 mg Clopidogrel Bisulfate (Plavix) 75 mg PO DAILY [facility] Last Admin: 07/09/18 11:00 Dose: 75 mg Dextrose (Dextrose 50% Inj) 0 ml IV STAT PRN; Protocol PRN Reason: Hypoglycemia Protocol Enoxaparin Sodium (Lovenox) 40 mg SC DAILY [facility]; Protocol Last Admin: 07/09/18 10:51 Dose: 40 mg Gabapentin (Neurontin) 100 mg PO BID [facility]; Protocol Last Admin: 07/08/18 17:40 Dose: 100 mg Gabapentin (Neurontin) 300 mg PO HS [facility]; Protocol Last Admin: 07/08/18 21:54 Dose: 300 mg Dextrose (Dextrose 5% In Water 1000 Ml) 1,000 mls @ 0 mls/hr IV .Q0M PRN; Protocol PRN Reason: Hypoglycemia Protocol Insulin Detemir (Levemir) 10 unit SC Q12H [facility] Last Admin: 07/09/18 10:52 Dose: 10 units Insulin Human Regular (Humulin R Med) 0 units SC ACHS [facility]; Protocol Last Admin: 07/09/18 13:00 Dose: 3 units Metoprolol Tartrate (Lopressor) 25 mg PO 0800,1800 [facility] Last Admin: 07/09/18 10:51 Dose: 25 mg Pantoprazole Sodium (Protonix Ec Tab) 40 mg PO 0600 [facility] Last Admin: 07/09/18 05:31 Dose: 40 mg - Labs Labs: 07/08/18 06:30 07/08/18 06:30 - Constitutional Appears: Non-toxic, No Acute Distress - Head Exam Head Exam: ATRAUMATIC, NORMAL INSPECTION, NORMOCEPHALIC - Eye Exam Eye Exam: EOMI, Normal appearance, PERRL - Respiratory Exam Respiratory Exam: Clear to Ausculation Bilateral, NORMAL BREATHING PATTERN. absent: Accessory Muscle Use, Rales, Rhonchi, Wheezes, Respiratory Distress, Stridor - Cardiovascular Exam Cardiovascular Exam: RRR, +S1, +S2. absent: Gallop, Rubs - GI/Abdominal Exam GI & Abdominal Exam: Soft, Normal Bowel Sounds. absent: Guarding, Rigid, Tenderness - Extremities Exam Extremities exam: Positive for: normal capillary refill, pedal pulses present. Negative for: tenderness Additional comments: RLE big toe ulcer, LLE toe swelling without fluctuance. - Back Exam Back Exam: NORMAL INSPECTION. absent: CVA tenderness (L), CVA tenderness (R) - Neurological Exam Neurological Exam: Alert, Awake, Oriented x3 - Psychiatric Exam Psychiatric exam: Normal Affect, Normal Mood - Skin Skin Exam: Dry, Normal Color, Warm Assessment and Plan - Assessment and Plan (Free Text) Assessment: 73 year old female with PMH of diabetes,HTN,PVD, and noncompliance with medication was admitted with altered mental status, found to have significantly elevated blood sugars >700s which improved with iv fluids and insulin. Patient mental status is back to baseline. Pt's clinical course complicated by severe L foot pain requiring thrombolytic intervention Plan: PAD: - Continue Asa and plavix - continue lipitor - Arterial US done - Severely abnormal L ALYSE @ rest ALYSE is .46. R ALYSE is at .77 and is moderately abnormal - Venous duplex US of LE done - No evidence of DVT - L ankle and L foot XR shows normal radiographs of the ankle and foot - CT angiogram showed Severe stenosis in the distal superficial femoral arteries bilaterally. Single vessel runoff to both ankles via the posterior tibial. The anterior tibials are thin and narrow with multi focal stenosis - IR consulted, awaiting recs - Will cont to monitor Altered mental status: Resolved - Pt is now AOx3 - Likely 2/2 elevated blood glucose levels upon admission in the 700s, now resolved - CT head shows age appropriate changes, no acute pathology - UDS negative - afebrile, no leukocytosis - UA (-) for nitrates, LE or WBC - Ucx (-) - BCx (-) - CXR: NAD Hyperglycemia w/o elevated AG - ISS, Accuchecks - Hgba1c - 15.5 - Adjusted pts levemir to 10u Q12, improved control - Diabetic education RLE ulcer - continue keflex per ID recs - wound care - XR showed soft tissue swelling w/o acute articular or osseous abnormality - Podiatry on board PPX - Lovenox SC, Protonix Dispo: Follow up with IR regarding further intervention Case reviewed with Dr Pam Hernandez PGY1 <Lorena Orozco - Last Filed: 07/17/18 08:05> Objective - Vital Signs/Intake and Output Vital Signs (last 24 hours): Temp Pulse Resp BP Pulse Ox 97.8 F 80 20 111/55 L 98 07/16/18 06:00 07/16/18 17:14 07/16/18 06:00 07/16/18 17:14 07/16/18 06:00 - Medications Medications: Current Medications Atorvastatin Calcium (Lipitor) 20 mg PO DIN [facility] Last Admin: 07/16/18 17:13 Dose: 20 mg Cephalexin Monohydrate (Keflex) 500 mg PO Q6 [facility]; Protocol Last Admin: 07/17/18 06:01 Dose: 500 mg Clonidine HCl (Catapres) 0.1 mg PO BID [facility] Last Admin: 07/16/18 17:14 Dose: Not Given Clopidogrel Bisulfate (Plavix) 75 mg PO DAILY [facility] Last Admin: 07/16/18 09:04 Dose: 75 mg Gabapentin (Neurontin) 300 mg PO BID [facility]; Protocol Last Admin: 07/16/18 17:12 Dose: 300 mg Insulin Detemir (Levemir) 12 unit SC Q12H [facility] Last Admin: 07/16/18 22:24 Dose: 12 unit Insulin Human Regular (Humulin R Med) 0 units SC ACHS [facility]; Protocol Last Admin: 07/16/18 22:23 Dose: Not Given Metoprolol Tartrate (Lopressor) 25 mg PO 0800,1800 [facility] Last Admin: 07/16/18 17:14 Dose: 25 mg Nitroglycerin (Nitro-Bid 2% Oint) 2 ea TOP Q8 [facility] Last Admin: 07/17/18 06:02 Dose: 2 ea Ondansetron HCl (Zofran Inj) 4 mg IVP ONCE PRN PRN Reason: Nausea/Vomiting Pantoprazole Sodium (Protonix Ec Tab) 40 mg PO 0600 [facility] Last Admin: 07/17/18 06:03 Dose: 40 mg - Labs Labs: 07/16/18 07:00 07/16/18 07:00 APTT 54.4 Seconds (26.9-38.3) H 07/15/18 07:00 Attending/Attestation - Attestation I have personally seen and examined this patient.: Yes I have fully participated in the care of the patient.: Yes I have reviewed all pertinent clinical information, including history, physical exam and plan: Yes Notes (Text): 07/17/18 08:03 Patient was seen and examined with biomedical engineering aide. 73 year old female with PMH of diabetes,HTN,PVD, and noncompliance with medication was admitted with altered mental status, found to have significantly elevated blood sugars >700s which improved with iv fluids and insulin. Patient mental status is back to base line.HbA1c is 15.5 and patient is started on levemir. .Blood sugars are better controlled.Infected right big toe ulcer. Patient is afebrile, wound cultures are negative, on oral keflex,ID and Podiatry are following.Patient has Severe PVD .Abnormal L ALYSE @ rest ALYSE is .46. R AYLSE is at .77 and is moderately abnormal. Patient is on ASA/Plavix . CT angiogram showed severe stenosis in the distal superficial femoral arteries bilaterally. Single vessel runoff to both ankles via the posterior tibial. The anterior tibials are thin and narrow with multi focal stenosis. IR evaluation is pending
--- NOTE | 2018-07-09 17:53 | CP.PCM.PN ---
Subjective - Date & Time of Evaluation Date of Evaluation: 07/09/18 Time of Evaluation: 16:30 - Subjective Subjective: Infectious Disease Follow Up: July 09, 2018 73 yo female with history of Type II DM. The patient was found to be altered in a laundromat. Patient herself gives little information. Patient's PMD is apparently in [place], [place], his name is Dr. Akbar. The patient name is Jessica Brizuela. Patient had fever of 101.0 F. No leukocytosis. Limited information provided by the patient. Patient is hyperglycemic on admission and still has elevated glucose levels. Was under isolation for bedbugs. No further fever episodes today. Afebrile for the last few days now. Duplex showing disease of the vessels of the left leg. Abdominal CT Angiography showing severe stenosis in the distal superficial femoral arteries bilaterally. Single vessel runoff to both ankles via the posterior tibials. The anterior tibials are thin and narrow with multi focal stenosis. Significant peripheral vascular disease bilaterally. Objective - Vital Signs/Intake and Output Vital Signs (last 24 hours): Temp Pulse Resp BP Pulse Ox 99 F 84 20 130/80 98 07/09/18 06:00 07/09/18 10:51 07/09/18 06:00 07/09/18 10:51 07/09/18 06:00 - Medications Medications: Current Medications Acetaminophen (Tylenol 325mg Tab) 650 mg PO Q4 PRN PRN Reason: Fever >100.4 F Last Admin: 07/06/18 20:35 Dose: 650 mg Aspirin (Ecotrin) 81 mg PO DAILY [facility] Last Admin: 07/09/18 10:51 Dose: 81 mg Atorvastatin Calcium (Lipitor) 20 mg PO DIN [facility] Last Admin: 07/08/18 17:40 Dose: 20 mg Cephalexin Monohydrate (Keflex) 500 mg PO BID [facility]; Protocol Stop: 07/19/18 10:01 Last Admin: 07/09/18 10:51 Dose: 500 mg Clopidogrel Bisulfate (Plavix) 75 mg PO DAILY [facility] Last Admin: 07/09/18 11:00 Dose: 75 mg Dextrose (Dextrose 50% Inj) 0 ml IV STAT PRN; Protocol PRN Reason: Hypoglycemia Protocol Enoxaparin Sodium (Lovenox) 40 mg SC DAILY [facility]; Protocol Last Admin: 07/09/18 10:51 Dose: 40 mg Gabapentin (Neurontin) 100 mg PO BID [facility]; Protocol Last Admin: 07/08/18 17:40 Dose: 100 mg Gabapentin (Neurontin) 300 mg PO HS [facility]; Protocol Last Admin: 07/08/18 21:54 Dose: 300 mg Dextrose (Dextrose 5% In Water 1000 Ml) 1,000 mls @ 0 mls/hr IV .Q0M PRN; Protocol PRN Reason: Hypoglycemia Protocol Insulin Detemir (Levemir) 10 unit SC Q12H [facility] Last Admin: 07/09/18 10:52 Dose: 10 units Insulin Human Regular (Humulin R Med) 0 units SC ACHS [facility]; Protocol Last Admin: 07/09/18 13:00 Dose: 3 units Metoprolol Tartrate (Lopressor) 25 mg PO 0800,1800 [facility] Last Admin: 07/09/18 10:51 Dose: 25 mg Pantoprazole Sodium (Protonix Ec Tab) 40 mg PO 0600 [facility] Last Admin: 07/09/18 05:31 Dose: 40 mg - Labs Labs: 07/08/18 06:30 07/08/18 06:30 - Constitutional Appears: Non-toxic, No Acute Distress, Chronically Ill - Head Exam Head Exam: ATRAUMATIC, NORMOCEPHALIC - Eye Exam Eye Exam: EOMI, PERRL Pupil Exam: NORMAL ACCOMODATION, PERRL - ENT Exam ENT Exam: Mucous Membranes Moist, Normal External Ear Exam, TM's Normal Bilat erally - Neck Exam Neck Exam: Full ROM, Normal Inspection - Respiratory Exam Respiratory Exam: Clear to Ausculation Bilateral, NORMAL BREATHING PATTERN. absent: Rales, Rhonchi, Wheezes - Cardiovascular Exam Cardiovascular Exam: REGULAR RHYTHM, RRR, +S1, +S2 - GI/Abdominal Exam GI & Abdominal Exam: Soft, Normal Bowel Sounds. absent: Distended, Tenderness Additional comments: midline surgical scar. - Extremities Exam Additional comments: RLE big toe ulcer/eschar. Mild edema of the left lower leg. - Neurological Exam Neurological Exam: Alert, Awake, CN II-XII Intact, Oriented x3 - Psychiatric Exam Psychiatric exam: Flat Affect Additional comments: Distant. Often answers questions with "I don't know", "I don't remember", or "I forgot". - Skin Additional comments: As above. Assessment and Plan - Assessment and Plan (Free Text) Assessment: 73 yo female presenting for altered mental status, fevers up to 101.0 F, and hyperglycemia. Negative Chest X-ray. X-ray right big toe showing swelling of the soft tissues only. Head CT negative. Patient was hyponatremic. Unclear how the patient's DM control is normally. Likely with some degree of dehydration in addition to the hyperglycemia. Check Hgb A1c... 15.5. Monitor glucose levels. Started on Vancomycin and Zosyn. Villagran cultures. Supportive care. Afebrile today. Found to have bedbugs and was isolated. Patient was washed and now off isolation. Duplex studies showing severe peripheral vascular disease bilaterally. Cultures negative. Left foot and ankle X-ray negative. Considering oral ant ibiotic care with Keflex. Patient with diabetes that is not under control. Borderline fevers. Spoke with Dr. Orozco. No new issues. Thank you for allowing me to participate in the care of the patient, we will follow with you.
[2018-07-10] MEDS: Pantoprazole 40 mg EC Tab PO SCH (05:17)
[2018-07-10 08:10] LABS: BASO # 0.04 K/mm3 (0.0-2.0); BASO % 0.4 % (0.0-3.0); EOS # 0.1 (0.0-0.7); EOS % 1.3 % (1.5-5.0); HEMOGLOBIN 9.6 g/dL (12.0-16.0); LYMPH # 1.9 (1.2-3.4); LYMPH % 18.7 % (22.0-35.0); MEAN CELL VOLUME 87.3 fl (80.0-105.0); MEAN CORPUSCULAR HEMOGLOBIN 28.3 pg (25.0-35.0); MEAN CORPUSCULAR HGB CONC 32.4 g/dl (31.0-37.0); MEAN PLATELET VOLUME 9.1 fl (7.0-11.0); MONO # 1.1 (0.1-0.6); MONO % 11.2 % (1.0-6.0); RBC 3.39 10^6/uL (3.5-6.1); RED CELL DISTRIBUTION WIDTH 12.3 % (11.5-14.5)
--- NOTE | 2018-07-10 08:11 | CP.PCM.PN ---
<ElizabethSavageh - Last Filed: 07/10/18 11:26> Subjective - Date & Time of Evaluation Date of Evaluation: 07/10/18 Time of Evaluation: 07:54 - Subjective Subjective: Medicine Progress Note for Dr. Rockwell 73F seen and evaluated at bedside this morning. No acute events overnight. No complaints overnight. Admits to left>right toe pain. Patient had low grade temp 99.9 overnight. Denies chills, n/v/d, SOB, CP, or urinary symptoms. Objective - Vital Signs/Intake and Output Vital Signs (last 24 hours): Temp Pulse Resp BP Pulse Ox 99.9 F H 85 18 144/71 98 07/09/18 22:31 07/09/18 22:31 07/09/18 22:31 07/09/18 22:31 07/09/18 22:31 Intake and Output: 07/10/18 07/10/18 06:59 18:59 Intake Total 120 Balance 120 - Medications Medications: Current Medications Acetaminophen (Tylenol 325mg Tab) 650 mg PO Q4 PRN PRN Reason: Fever >100.4 F Last Admin: 07/06/18 20:35 Dose: 650 mg Aspirin (Ecotrin) 81 mg PO DAILY [facility] Last Admin: 07/09/18 10:51 Dose: 81 mg Atorvastatin Calcium (Lipitor) 20 mg PO DIN [facility] Last Admin: 07/09/18 17:59 Dose: 20 mg Cephalexin Monohydrate (Keflex) 500 mg PO BID [facility]; Protocol Stop: 07/19/18 10:01 Last Admin: 07/09/18 18:18 Dose: 500 mg Clopidogrel Bisulfate (Plavix) 75 mg PO DAILY [facility] Last Admin: 07/09/18 11:00 Dose: 75 mg Dextrose (Dextrose 50% Inj) 0 ml IV STAT PRN; Protocol PRN Reason: Hypoglycemia Protocol Enoxaparin Sodium (Lovenox) 40 mg SC DAILY [facility]; Protocol Last Admin: 07/09/18 10:51 Dose: 40 mg Gabapentin (Neurontin) 100 mg PO BID [facility]; Protocol Last Admin: 07/09/18 17:59 Dose: 100 mg Gabapentin (Neurontin) 300 mg PO HS [facility]; Protocol Last Admin: 07/09/18 22:35 Dose: 300 mg Dextrose (Dextrose 5% In Water 1000 Ml) 1,000 mls @ 0 mls/hr IV .Q0M PRN; Protocol PRN Reason: Hypoglycemia Protocol Insulin Detemir (Levemir) 10 unit SC Q12H [facility] Last Admin: 07/09/18 22:35 Dose: 10 units Insulin Human Regular (Humulin R Med) 0 units SC ACHS [facility]; Protocol Last Admin: 07/09/18 22:31 Dose: Not Given Metoprolol Tartrate (Lopressor) 25 mg PO 0800,1800 [facility] Last Admin: 07/09/18 18:00 Dose: 25 mg Pantoprazole Sodium (Protonix Ec Tab) 40 mg PO 0600 [facility] Last Admin: 07/10/18 05:17 Dose: 40 mg - Labs Labs: 07/08/18 06:30 07/08/18 06:30 - Constitutional Appears: Well, Non-toxic, No Acute Distress - Head Exam Head Exam: ATRAUMATIC, NORMAL INSPECTION, NORMOCEPHALIC - Eye Exam Eye Exam: EOMI - ENT Exam ENT Exam: Mucous Membranes Dry - Respiratory Exam Respiratory Exam: NORMAL BREATHING PATTERN. absent: Wheezes, Respiratory Distress - Cardiovascular Exam Cardiovascular Exam: REGULAR RHYTHM. absent: Tachycardia - GI/Abdominal Exam GI & Abdominal Exam: Soft, Normal Bowel Sounds. absent: Tenderness - Extremities Exam Extremities Exam: absent: Calf Tenderness, Pedal Edema Additional comments: Tenderness to palpation of lower extremities bilaterally nonpalpable DP/PT pulses bilaterally Right first toe superficial ulcer, no necrosis or drainage Purpura on soles of feet bilaterally - Neurological Exam Neurological Exam: Alert, Awake - Psychiatric Exam Psychiatric exam: Normal Affect, Normal Mood - Skin Skin Exam: Dry, Intact, Normal Color, Warm Assessment and Plan - Assessment and Plan (Free Text) Assessment: 73 year old female with PMH of diabetes,HTN,PVD, and noncompliance with medication was admitted with altered mental status and hyperglycemia. Clinical course complicated by ichemic rest pain of the left LE, pending IR intervention with Dr. Ray. Plan: PAD - Continue Asa and Plavix - Continue Lipitor - Arterial US: Severely abnormal L ALYSE @ rest ALYSE is .46. R ALYSE is at .77 and is moderately abnormal - Venous duplex US of LE: No evidence of DVT - Normal radiographs of the ankle and foot - CT angiogram 07/06: severe stenosis in the distal superficial femoral arteries bilaterally. Single vessel runoff to both ankles via the posterior tibial. The anterior tibials are thin and narrow with multi focal stenosis - IR endovascular intervention Tuesday or Tuesday, will hold Lovenox night prior to procedure. Continue ASA and Plavix - Cardiology consulted for cardiac clearance prior to procedure: pending ECHO and EKG Altered mental status, resolved - Pt is now AOx3 - Likely 2/2 elevated blood glucose levels upon admission in the 700s, now resol binta - CT head: age appropriate changes, no acute pathology - UDS negative - Low grade temperature of 99.9 overnight - UA (-) for nitrates, LE or WBC - Ucx (-) - BCx (-) - CXR negative for active disease Hyperglycemia w/o elevated AG - ISS, Accuchecks - Hgba1c 15.5 - Increased Levemir 12u Q12 - Diabetic education RLE ulcer - Continue Keflex per ID - Local wound care - XR showed soft tissue swelling w/o acute articular or osseous abnormality - Podiatry following PPX DVT: Lovenox SC GI:Protonix Patient plan reviewed and discussed with Dr. Luli Johnson PGY1 <Omari Rockwell - Last Filed: 07/10/18 12:32> Objective - Vital Signs/Intake and Output Vital Signs (last 24 hours): Temp Pulse Resp BP Pulse Ox 99.7 F H 85 18 166/84 H 100 07/10/18 06:00 07/10/18 08:52 07/10/18 06:00 07/10/18 08:52 07/10/18 06:00 Intake and Output: 07/10/18 07/10/18 06:59 18:59 Intake Total 120 Balance 120 - Medications Medications: Current Medications Acetaminophen (Tylenol 325mg Tab) 650 mg PO Q4 PRN PRN Reason: Fever >100.4 F Last Admin: 07/06/18 20:35 Dose: 650 mg Aspirin (Ecotrin) 81 mg PO DAILY [facility] Last Admin: 07/10/18 09:25 Dose: 81 mg Atorvastatin Calcium (Lipitor) 20 mg PO DIN [facility] Last Admin: 07/09/18 17:59 Dose: 20 mg Cephalexin Monohydrate (Keflex) 500 mg PO BID [facility]; Protocol Stop: 07/19/18 10:01 Last Admin: 07/10/18 09:25 Dose: 500 mg Clopidogrel Bisulfate (Plavix) 75 mg PO DAILY [facility] Last Admin: 07/10/18 09:25 Dose: 75 mg Dextrose (Dextrose 50% Inj) 0 ml IV STAT PRN; Protocol PRN Reason: Hypoglycemia Protocol Enoxaparin Sodium (Lovenox) 40 mg SC DAILY [facility]; Protocol Last Admin: 07/10/18 09:26 Dose: 40 mg Gabapentin (Neurontin) 100 mg PO BID [facility]; Protocol Last Admin: 07/10/18 09:25 Dose: 100 mg Gabapentin (Neurontin) 300 mg PO HS [facility]; Protocol Last Admin: 07/09/18 22:35 Dose: 300 mg Dextrose (Dextrose 5% In Water 1000 Ml) 1,000 mls @ 0 mls/hr IV .Q0M PRN; Protocol PRN Reason: Hypoglycemia Protocol Insulin Detemir (Levemir) 12 unit SC Q12H [facility] Last Admin: 07/10/18 12:01 Dose: Not Given Insulin Human Regular (Humulin R Med) 0 units SC ACHS [facility]; Protocol Last Admin: 07/10/18 12:05 Dose: 3 units Metoprolol Tartrate (Lopressor) 25 mg PO 0800,1800 [facility] Last Admin: 07/10/18 08:52 Dose: 25 mg Pantoprazole Sodium (Protonix Ec Tab) 40 mg PO 0600 [facility] Last Admin: 07/10/18 05:17 Dose: 40 mg - Labs Labs: 07/10/18 07:45 07/10/18 07:45 Attending/Attestation - Attestation I have personally seen and examined this patient.: Yes I have fully participated in the care of the patient.: Yes I have reviewed all pertinent clinical information, including history, physical exam and plan: Yes Notes (Text): 07/10/18 12:24 73 year old female with past medical history of diabetes, hypertension, PVD and history of medication noncompliance who initially presented with altered mental status and significantly elevated blood sugars (>700) which improved with iv fluids and insulin. Mental status is also now at baseline. A1c is 15.5 and patient is started on levemir. Patient was also found to have right big toe ulcer and severe PAD/PVD. Arterial doppler showed severely abnormal L ALYSE 0.46 and moderately abnormal R ALYSE 0.77. CT angiogram showed severe stenosis in the distal superficial femoral arteries bilaterally; single vessel runoff to both ankles via the posterior tibial; anterior tibials are thin and narrow with multifocal stenosis. Podiatry and ID are following. Patient is pending IR procedure possibly tomorrow. Cardiology evaluation was requested who ordered for echocardiogram. Continue with aspirin, plavix and lipitor. Continue with antibiotics as per ID. Omari Rockwell MD Hospitalist.
[2018-07-10 08:35] LABS: BLOOD UREA NITROGEN 20 mg/dL (7-21); CALCIUM 8.4 mg/dL (8.4-10.5); GFR NON-AFRICAN AMERICAN > 60
[2018-07-10] MEDS: Insulin Reg-MEDIUM-Coverage SC SCH ×4 (08:51→22:21)
--- NOTE | 2018-07-10 09:22 | CON ---
DATE: 07/10/2018 TIME: 9 a.m. CHIEF COMPLAINT/HISTORY OF PRESENT ILLNESS: This is a 73-year-old female who was admitted with hyperglycemia, dehydration, and mental status changes. She was noted to have a dry eschar on the tip of her right first toe. Her mental status has improved significantly and she now is complaining of left foot pain. Both feet demonstrate chronic ischemic changes. As mentioned previously, she has a dry eschar on the tip of the right toe, which has been there for several months. She has moderate tenderness to palpation of the left mid foot and toes. Her pulse exam demonstrates normal femoral pulses. Her popliteal and distal pulses are absent. Her ALYSE/PVR exam on admission demonstrates left SFA and bilateral tibial disease, greater on the left than the right. I reviewed her CTA runoff. This demonstrates bilateral popliteal and tibial disease. RECOMMENDATIONS: Ms. Brizuela is having ischemic rest pain in the left foot. Hopefully, the popliteal and limited tibial lesions can be addressed with endovascular techniques. I discussed the issues with the patient. She needs to establish a PCP relationship in [place] and be more compliant with her care. Her BUN and creatinine are normal. We will schedule an arteriogram with possible left lower extremity intervention during this admission. Maged Ray MD MTDWade
[2018-07-10] MEDS: Enoxaparin 40 mg Syringe SC SCH (09:26)
[2018-07-10] MEDS: Insulin Detemir 100 units/ml Vial (Levemir) SC SCH ×3 (09:40→22:24)
--- NOTE | 2018-07-10 11:55 | CP.PCM.PN ---
<Edmond Ba - Last Filed: 07/10/18 11:53> Subjective - Date & Time of Evaluation Date of Evaluation: 07/10/18 Time of Evaluation: 11:53 - Subjective Subjective: Podiatry progress note - Drs. Cobb/Izabella 73F seen and evaluated at bedside with Dr. Parekh for b/l foot pain secondary to PAD. Resting comfortably in bed. Denies any acute overnight events or new pedal complaints. States that pain to both feet is constantly present. Denies n/v/f/c/sob/cp today. Objective - Vital Signs/Intake and Output Vital Signs (last 24 hours): Temp Pulse Resp BP Pulse Ox 99.7 F H 85 18 166/84 H 100 07/10/18 06:00 07/10/18 08:52 07/10/18 06:00 07/10/18 08:52 07/10/18 06:00 Intake and Output: 07/10/18 07/10/18 06:59 18:59 Intake Total 120 Balance 120 - Medications Medications: Current Medications Acetaminophen (Tylenol 325mg Tab) 650 mg PO Q4 PRN PRN Reason: Fever >100.4 F Last Admin: 07/06/18 20:35 Dose: 650 mg Aspirin (Ecotrin) 81 mg PO DAILY [facility] Last Admin: 07/10/18 09:25 Dose: 81 mg Atorvastatin Calcium (Lipitor) 20 mg PO DIN [facility] Last Admin: 07/09/18 17:59 Dose: 20 mg Cephalexin Monohydrate (Keflex) 500 mg PO BID [facility]; Protocol Stop: 07/19/18 10:01 Last Admin: 07/10/18 09:25 Dose: 500 mg Clopidogrel Bisulfate (Plavix) 75 mg PO DAILY [facility] Last Admin: 07/10/18 09:25 Dose: 75 mg Dextrose (Dextrose 50% Inj) 0 ml IV STAT PRN; Protocol PRN Reason: Hypoglycemia Protocol Enoxaparin Sodium (Lovenox) 40 mg SC DAILY [facility]; Protocol Last Admin: 07/10/18 09:26 Dose: 40 mg Gabapentin (Neurontin) 100 mg PO BID [facility]; Protocol Last Admin: 07/10/18 09:25 Dose: 100 mg Gabapentin (Neurontin) 300 mg PO HS [facility]; Protocol Last Admin: 07/09/18 22:35 Dose: 300 mg Dextrose (Dextrose 5% In Water 1000 Ml) 1,000 mls @ 0 mls/hr IV .Q0M PRN; Protocol PRN Reason: Hypoglycemia Protocol Insulin Detemir (Levemir) 12 unit SC Q12H [facility] Insulin Human Regular (Humulin R Med) 0 units SC ACHS [facility]; Protocol Last Admin: 07/10/18 08:51 Dose: 1 units Metoprolol Tartrate (Lopressor) 25 mg PO 0800,1800 [facility] Last Admin: 07/10/18 08:52 Dose: 25 mg Pantoprazole Sodium (Protonix Ec Tab) 40 mg PO 0600 [facility] Last Admin: 07/10/18 05:17 Dose: 40 mg - Labs Labs: 07/10/18 07:45 07/10/18 07:45 - Constitutional Appears: Non-toxic - Head Exam Head Exam: ATRAUMATIC - Extremities Exam Additional comments: VASC: R DP weakly palpalbe 1/4. L DP and bilateral PT pulses nonpalpable. CFT >3 seconds to all digits. Temperature gradient warm to warm RLE, warm to cold LLE. +1 pitting edema noted to LLE. NEURO: Epicritic and protective sensation grossly intact b/l DERM: Dry eschar measuring approximately 2 x 2 cm noted to distal tuft of right hallux - hyperkeratotic rim present; absent drainage; absent purulence; absent flucutance; absent malodor; no periwound erythema present. No clinical signs of infection appreciated ORTHO: No pain on palpation noted to right hallux eschar. Pain on palpation noted to entire left foot, with pain on ROM 1st MPJ, MTJ, STJ, ankle joint. - Neurological Exam Neurological Exam: Alert, Awake, Oriented x3 - Psychiatric Exam Psychiatric exam: Normal Affect, Normal Mood Assessment and Plan - Assessment and Plan (Free Text) Assessment: 73F with b/l foot pain secondary to PAD Plan: Patient seen and evaluated with Dr. Parekh Bilateral arterial duplex ordered - significant PVD noted b/l, more severe on left Patient needs vascular intervention Consult for Dr. Ray - sandi appreciated Venous duplex ordered for calf pain - negative DVT Left foot and ankle XR ordered - no acute fractures or dislocations No evidence of abscess on left foot clinically No dressings applied to feet Continue abx per ID No intervention per podiatry, vascular consult pending Podiatry will continue to follow <Radha Parekh - Last Filed: 07/16/18 14:55> Objective - Vital Signs/Intake and Output Vital Signs (last 24 hours): Temp Pulse Resp BP Pulse Ox 97.8 F 81 20 138/67 98 07/16/18 06:00 07/16/18 09:04 07/16/18 06:00 07/16/18 09:04 07/16/18 06:00 Intake and Output: 07/16/18 07/16/18 06:59 18:59 Intake Total 1580 Output Total 1300 Balance 280 - Medications Medications: Current Medications Aspirin (Ecotrin) 81 mg PO DAILY [facility] Last Admin: 07/16/18 09:04 Dose: 81 mg Atorvastatin Calcium (Lipitor) 20 mg PO DIN [facility] Last Admin: 07/15/18 17:16 Dose: 20 mg Cephalexin Monohydrate (Keflex) 500 mg PO Q6 [facility]; Protocol Last Admin: 07/16/18 11:50 Dose: 500 mg Clonidine HCl (Catapres) 0.1 mg PO BID [facility] Last Admin: 07/16/18 09:04 Dose: 0.1 mg Clopidogrel Bisulfate (Plavix) 75 mg PO DAILY [facility] Last Admin: 07/16/18 09:04 Dose: 75 mg Gabapentin (Neurontin) 300 mg PO BID [facility]; Protocol Last Admin: 07/16/18 09:04 Dose: 300 mg Insulin Detemir (Levemir) 12 unit SC Q12H [facility] Last Admin: 07/16/18 09:04 Dose: 12 unit Insulin Human Regular (Humulin R Med) 0 units SC ACHS [facility]; Protocol Last Admin: 07/16/18 11:51 Dose: 1 units Metoprolol Tartrate (Lopressor) 25 mg PO 0800,1800 [facility] Last Admin: 07/16/18 08:21 Dose: 25 mg Nitroglycerin (Nitro-Bid 2% Oint) 2 ea TOP Q8 [facility] Last Admin: 07/16/18 13:16 Dose: 2 ea Ondansetron HCl (Zofran Inj) 4 mg IVP ONCE PRN PRN Reason: Nausea/Vomiting Pantoprazole Sodium (Protonix Ec Tab) 40 mg PO 0600 [facility] Last Admin: 07/16/18 05:37 Dose: 40 mg - Labs Labs: 07/16/18 07:00 07/16/18 07:00 APTT 54.4 Seconds (26.9-38.3) H 07/15/18 07:00 Attending/Attestation - Attestation I have personally seen and examined this patient.: Yes I have fully participated in the care of the patient.: Yes I have reviewed all pertinent clinical information, including history, physical exam and plan: Yes
--- NOTE | 2018-07-10 13:03 | CARD ---
APPROVED REPORT Date of service: 07/10/2018 EKG Measurement Heart [id number] <Conclusion> Normal sinus rhythm Nonspecific T wave abnormality Abnormal ECG
[2018-07-10] MEDS: Sodium Chloride 0.9% 1,000 ML IV SCH (13:30)
--- NOTE | 2018-07-10 17:28 | CP.PCM.PN ---
Subjective - Date & Time of Evaluation Date of Evaluation: 07/10/18 Time of Evaluation: 16:30 - Subjective Subjective: Infectious Disease Follow Up: July 10, 2018 73 yo female with history of Type II DM. The patient was found to be altered in a laundromat. Patient herself gives little information. Patient's PMD is apparently in [place], [place], his name is Dr. Akbar. The patient name is Jessica Brizuela. Patient had fever of 101.0 F. No leukocytosis. Limited information provided by the patient. Patient is hyperglycemic on admission and still has elevated glucose levels. Was under isolation for bedbugs. No further fever episodes today. Afebrile for the last few days now. Duplex showing disease of the vessels of the left leg. Abdominal CT Angiography showing severe stenosis in the distal superficial femoral arteries bilaterally. Single vessel runoff to both ankles via the posterior tibials. The anterior tibials are thin and narrow with multi focal stenosis. Significant peripheral vascular disease bilaterally. For angioplasty with Dr. Ray. Objective - Vital Signs/Intake and Output Vital Signs (last 24 hours): Temp Pulse Resp BP Pulse Ox 98.6 F 79 18 118/70 98 07/10/18 14:00 07/10/18 14:00 07/10/18 14:00 07/10/18 14:00 07/10/18 14:00 Intake and Output: 07/10/18 07/10/18 06:59 18:59 Intake Total 120 Balance 120 - Medications Medications: Current Medications Acetaminophen (Tylenol 325mg Tab) 650 mg PO Q4 PRN PRN Reason: Fever >100.4 F Last Admin: 07/06/18 20:35 Dose: 650 mg Aspirin (Ecotrin) 81 mg PO DAILY [facility] Last Admin: 07/10/18 09:25 Dose: 81 mg Atorvastatin Calcium (Lipitor) 20 mg PO DIN [facility] Last Admin: 07/09/18 17:59 Dose: 20 mg Cephalexin Monohydrate (Keflex) 500 mg PO BID [facility]; Protocol Stop: 07/19/18 10:01 Last Admin: 07/10/18 09:25 Dose: 500 mg Clopidogrel Bisulfate (Plavix) 75 mg PO DAILY [facility] Last Admin: 07/10/18 13:29 Dose: 75 mg Dextrose (Dextrose 50% Inj) 0 ml IV STAT PRN; Protocol PRN Reason: Hypoglycemia Protocol Enoxaparin Sodium (Lovenox) 40 mg SC DAILY [facility]; Protocol Last Admin: 07/10/18 09:26 Dose: 40 mg Gabapentin (Neurontin) 100 mg PO BID [facility]; Protocol Last Admin: 07/10/18 09:25 Dose: 100 mg Gabapentin (Neurontin) 300 mg PO HS [facility]; Protocol Last Admin: 07/09/18 22:35 Dose: 300 mg Dextrose (Dextrose 5% In Water 1000 Ml) 1,000 mls @ 0 mls/hr IV .Q0M PRN; Protocol PRN Reason: Hypoglycemia Protocol Sodium Chloride (Sodium Chloride 0.9%) 1,000 mls @ 70 mls/hr IV .[id number] [facility] Insulin Detemir (Levemir) 12 unit SC Q12H [facility] Last Admin: 07/10/18 12:01 Dose: Not Given Insulin Human Regular (Humulin R Med) 0 units SC ACHS [facility]; Protocol Last Admin: 07/10/18 12:05 Dose: 3 units Metoprolol Tartrate (Lopressor) 25 mg PO 0800,1800 [facility] Last Admin: 07/10/18 08:52 Dose: 25 mg Pantoprazole Sodium (Protonix Ec Tab) 40 mg PO 0600 [facility] Last Admin: 07/10/18 05:17 Dose: 40 mg - Labs Labs: 07/10/18 07:45 07/10/18 07:45 - Constitutional Appears: Non-toxic, No Acute Distress, Chronically Ill - Head Exam Head Exam: ATRAUMATIC - Eye Exam Eye Exam: EOMI, PERRL Pupil Exam: NORMAL ACCOMODATION, PERRL - ENT Exam ENT Exam: Mucous Membranes Moist, Normal External Ear Exam, TM's Normal Bilaterally - Neck Exam Neck Exam: Full ROM, Normal Inspection - Respiratory Exam Respiratory Exam: Clear to Ausculation Bilateral, NORMAL BREATHING PATTERN. absent: Rales, Rhonchi, Wheezes - Cardiovascular Exam Cardiovascular Exam: REGULAR RHYTHM, RRR, +S1, +S2 - GI/Abdominal Exam GI & Abdominal Exam: Soft, Normal Bowel Sounds. absent: Distended, Tenderness - Extremities Exam Additional comments: RLE big toe ulcer/eschar. Mild edema of the left lower leg. - Neurological Exam Neurological Exam: Alert, Awake, CN II-XII Intact, Oriented x3 - Psychiatric Exam Psychiatric exam: Flat Affect Additional comments: Distant. Often answers questions with "I don't know", "I don't remember", or "I forgot". - Skin Additional comments: As above. Assessment and Plan - Assessment and Plan (Free Text) Assessment: 73 yo female presenting for altered mental status, fevers up to 101.0 F, and hyperglycemia. Negative Chest X-ray. X-ray right big toe showing swelling of the soft tissues only. Head CT negative. Patient was hyponatremic. Unclear how the patient's DM control is normally. Likely with some degree of dehydration in addition to the hyperglycemia. Check Hgb A1c... 15.5. Monitor glucose levels. Started on Vancomycin and Zosyn. Villagran cultures. Supportive care. Afebrile today. Found to have bedbugs and was isolated. Patient was washed and now off isolation. Duplex studies showing severe peripheral vascular disease bilaterally. Cultures negative. Left foot and ankle X-ray negative. Considering oral antibiotic care with Keflex. Patient with diabetes that is not under control. Borderline fevers. Awaiting Angioplasty with Dr. Ray? No new issues. Thank you for allowing me to participate in the care of the patient, we will follow with you.
[2018-07-10] MEDS ORDERED: Sodium Chloride 0.45% 1,000 ML IV SCH (20:30)
--- NOTE | 2018-07-10 21:57 | CON ---
DATE: 07/10/2018 CARDIOLOGY CONSULTATION REASON FOR CONSULTATION: Cardiac clearance. HISTORY OF PRESENT ILLNESS: The patient is a 73-year-old female originally from [facility] who has a history of longstanding diabetes mellitus, however, was not taking medications. She was initially admitted because of altered mental status when she was found in a laundromat in [place]. The patient's blood sugar at that time was 717. Further workup for lower extremity pain including lower extremity ultrasound and abdominal angiogram are consistent with significant peripheral vascular disease. Impression of the angiogram with severe stenosis and distal superficial femoral arteries bilaterally. A single vessel run off to both ankles by the posterior tibial. The anterior tibialis are thin and narrow with multifocal stenosis. The patient was evaluated by Dr. Maged Ray, the interventional radiologist and recommendation that the patient had ischemic rest pain in the left foot. Hopefully, the popliteal and limited tibial lesions can be addressed with endovascular technique. The patient denies any chest pain and is unaware of any prior cardiac history. SOCIAL HISTORY: The patient is a nonsmoker. She has no family members according to her. She did live with a person in [place], but she stated that she is not a friend of her, and she does not pay her any rent and does not have her phone number, and she moved to [place]. MEDICATIONS: Aspirin 81 mg once a day, Keflex 500 mg orally twice a day, Lipitor 20 mg once a day, Lopressor 25 mg twice a day, Lovenox 40 mg subcutaneously daily, Plavix 75 mg once a day, and Neurontin 300 mg once a day. PHYSICAL EXAMINATION: GENERAL: The patient is an elderly female who does not appear to be in acute distress. VITAL SIGNS: Blood pressure 166/84, heart rate 85, temperature 99.7, and respirations 18. HEENT: Pale conjunctivae. CHEST: Clear. HEART: S1 and S2 regular. EXTREMITIES: No edema. LABORATORY DATA: Today's hemoglobin and hematocrit 9.6 and 29.6, white count 10, and platelet count 566,000. Today's SMA-7; sodium 136, potassium 4.1, chloride 102, CO2 of 29, glucose 161, BUN 20, and creatinine 0.6. ASSESSMENT: 1. Uncontrolled diabetes mellitus. 2. Peripheral vascular disease with left foot rest pain. RECOMMENDATIONS: Continue current aspirin and Plavix therapy. Continue prophylactic subcutaneous Lovenox. Continue Lopressor 25 mg twice a day. I did discuss the case with the medical team, and I requested an EKG and echo cardiac study to be performed today. Carlton Merritt MD
[2018-07-11] MEDS: Sodium Chloride 0.9% 1,000 ML IV SCH (05:21)
[2018-07-11] MEDS: Pantoprazole 40 mg EC Tab PO SCH (05:24)
[2018-07-11] MEDS ORDERED: Lidocaine PF 2% (5 ml) Inj (For Cardiac Arrhy) ONE (06:41)
[2018-07-11] MEDS ORDERED: Iodixanol 320 MG/ML 100 ML BOTTLE IV ONE ×2 (06:41→09:08)
[2018-07-11] MEDS ORDERED: Nitroglycerin 50mg in D5W 50 MG/250 ML BOTTLE IV ONE (06:41)
[2018-07-11] MEDS ORDERED: Iodixanol 320 MG/ML 200 ML BOTTLE IV ONE (06:41)
[2018-07-11] MEDS ORDERED: Heparin 2,000 ML IV ONE (06:41)
[2018-07-11] MEDS: Insulin Reg-MEDIUM-Coverage SC SCH ×4 (07:00→21:41)
[2018-07-11] MEDS ORDERED: Midazolam 2 MG/2 ML VIAL ONE ×2 (08:24→09:10)
--- NOTE | 2018-07-11 09:23 | CP.PCM.PN ---
<ElizabethDavid - Last Filed: 07/11/18 12:43> Subjective - Date & Time of Evaluation Date of Evaluation: 07/11/18 Time of Evaluation: 09:22 - Subjective Subjective: Medicine Progress Note for Dr. Rockwell 73F seen and evaluated at bedside this morning. Patient went for revascularization procedure today with IR. Continues to have left LE pain on palpation. Denies f/c, n/v/d, SOB, CP, or urinary symptoms. Objective - Vital Signs/Intake and Output Vital Signs (last 24 hours): Temp Pulse Resp BP Pulse Ox 99.1 F 82 18 140/85 98 07/11/18 06:00 07/11/18 06:00 07/11/18 06:00 07/11/18 06:00 07/11/18 06:00 Intake and Output: 07/11/18 07/11/18 06:59 18:59 Intake Total 1920 Balance 1920 - Medications Medications: Current Medications Acetaminophen (Tylenol 325mg Tab) 650 mg PO Q4 PRN PRN Reason: Fever >100.4 F Last Admin: 07/06/18 20:35 Dose: 650 mg Aspirin (Ecotrin) 81 mg PO DAILY [facility] Last Admin: 07/10/18 09:25 Dose: 81 mg Atorvastatin Calcium (Lipitor) 20 mg PO DIN [facility] Last Admin: 07/10/18 17:31 Dose: 20 mg Cephalexin Monohydrate (Keflex) 500 mg PO BID [facility]; Protocol Stop: 07/19/18 10:01 Last Admin: 07/10/18 17:31 Dose: 500 mg Clopidogrel Bisulfate (Plavix) 75 mg PO DAILY [facility] Last Admin: 07/10/18 13:29 Dose: 75 mg Dextrose (Dextrose 50% Inj) 0 ml IV STAT PRN; Protocol PRN Reason: Hypoglycemia Protocol Enoxaparin Sodium (Lovenox) 40 mg SC DAILY [facility]; Protocol Last Admin: 07/10/18 09:26 Dose: 40 mg Gabapentin (Neurontin) 100 mg PO BID [facility]; Protocol Last Admin: 07/10/18 17:31 Dose: 100 mg Gabapentin (Neurontin) 300 mg PO HS [facility]; Protocol Last Admin: 07/10/18 22:24 Dose: 300 mg Dextrose (Dextrose 5% In Water 1000 Ml) 1,000 mls @ 0 mls/hr IV .Q0M PRN; Protocol PRN Reason: Hypoglycemia Protocol Sodium Chloride (Sodium Chloride 0.9%) 1,000 mls @ 70 mls/hr IV .[id number] [facility] Last Admin: 07/11/18 05:21 Dose: 70 mls/hr Sodium Chloride (Sodium Chloride 0.45%) 1,000 mls @ 80 mls/hr IV .[id number] [facility] Stop: 07/12/18 08:00 Insulin Detemir (Levemir) 12 unit SC Q12H [facility] Last Admin: 07/10/18 22:24 Dose: 12 units Insulin Human Regular (Humulin R Med) 0 units SC ACHS [facility]; Protocol Last Admin: 07/11/18 07:00 Dose: Not Given Metoprolol Tartrate (Lopressor) 25 mg PO 0800,1800 [facility] Last Admin: 07/10/18 17:31 Dose: 25 mg Pantoprazole Sodium (Protonix Ec Tab) 40 mg PO 0600 [facility] Last Admin: 07/11/18 05:24 Dose: 40 mg - Labs Labs: 07/10/18 07:45 07/10/18 07:45 - Constitutional Appears: Well, Non-toxic, No Acute Distress - Head Exam Head Exam: ATRAUMATIC, NORMAL INSPECTION, NORMOCEPHALIC - Eye Exam Eye Exam: EOMI - ENT Exam ENT Exam: Mucous Membranes Moist - Respiratory Exam Respiratory Exam: Clear to Ausculation Bilateral, NORMAL BREATHING PATTERN. absent: Wheezes, Respiratory Distress - Cardiovascular Exam Cardiovascular Exam: REGULAR RHYTHM. absent: Tachycardia - GI/Abdominal Exam GI & Abdominal Exam: Soft, Normal Bowel Sounds. absent: Tenderness - Extremities Exam Extremities Exam: Calf Tenderness, Tenderness. absent: Joint Swelling, Pedal Edema Additional comments: tenderness of left LE full ROM - Neurological Exam Neurological Exam: Alert, Awake - Psychiatric Exam Psychiatric exam: Normal Affect, Normal Mood - Skin Additional comments: right 1st toe superficial ulceration with no erythema or drainage noted Assessment and Plan - Assessment and Plan (Free Text) Assessment: 73 year old female with PMH of diabetes,HTN,PVD, and noncompliance with medic ation was admitted with altered mental status and hyperglycemia. Clinical course complicated by ichemic rest pain of the left LE, IR intervention with Dr. Ray today. Plan: PAD - Continue Asa and Plavix - Continue Lipitor - Arterial US: Severely abnormal L ALYSE @ rest ALYSE is .46. R ALYSE is at .77 and is moderately abnormal - Venous duplex US of LE: No evidence of DVT - Normal radiographs of the ankle and foot - CT angiogram 07/06: severe stenosis in the distal superficial femoral arteries bilaterally. Single vessel runoff to both ankles via the posterior tibial. The anterior tibials are thin and narrow with multi focal stenosis - IR endovascular intervention today, pending final report. Continue ASA and Plavix - Cardiology consulted for cardiac clearance prior to procedure: pending ECHO and EKG - Patient hypertensive s/p procedure and given 0.2mg clonidine PO per cardio - Pending PT evaluation s/p revascularization procedure Altered mental status, resolved - Pt is now AOx3 - Likely 2/2 elevated blood glucose levels upon admission in the 700s, now resolved - CT head: age appropriate changes, no acute pathology - UDS negative - Low grade temperature of 99.9 overnight - UA (-) for nitrates, LE or WBC - Ucx (-) - BCx (-) - CXR negative for active disease Hyperglycemia w/o elevated AG - ISS, Accuchecks - Hgba1c 15.5 - Increased Levemir 12u Q12 - Diabetic education RLE ulcer - Continue Keflex per ID for total of 14 days - Local wound care - XR showed soft tissue swelling w/o acute articular or osseous abnormality - Podiatry following PPX DVT: Lovenox SC GI:Protonix Dispo: Will work with PT and CM regarding patient placement to [facility] or home w/ services Patient plan reviewed and discussed with Dr. Luli Johnson PGY1 <Omari Rockwell - Last Filed: 07/11/18 13:37> Objective - Vital Signs/Intake and Output Vital Signs (last 24 hours): Temp Pulse Resp BP Pulse Ox 98 F 73 10 L 165/80 H 98 07/11/18 11:56 07/11/18 11:56 07/11/18 11:56 07/11/18 11:56 07/11/18 06:00 Intake and Output: 07/11/18 07/11/18 06:59 18:59 Intake Total 0 Balance 1920 - Medications Medications: Current Medications Acetaminophen (Tylenol 325mg Tab) 650 mg PO Q4 PRN PRN Reason: Fever >100.4 F Last Admin: 07/06/18 20:35 Dose: 650 mg Aspirin (Ecotrin) 81 mg PO DAILY [facility] Last Admin: 07/10/18 09:25 Dose: 81 mg Atorvastatin Calcium (Lipitor) 20 mg PO DIN [facility] Last Admin: 07/10/18 17:31 Dose: 20 mg Cephalexin Monohydrate (Keflex) 500 mg PO BID [facility]; Protocol Stop: 07/19/18 10:01 Last Admin: 07/10/18 17:31 Dose: 500 mg Clopidogrel Bisulfate (Plavix) 75 mg PO DAILY [facility] Last Admin: 07/10/18 13:29 Dose: 75 mg Dextrose (Dextrose 50% Inj) 0 ml IV STAT PRN; Protocol PRN Reason: Hypoglycemia Protocol Enoxaparin Sodium (Lovenox) 40 mg SC DAILY [facility]; Protocol Last Admin: 07/11/18 13:23 Dose: Not Given Gabapentin (Neurontin) 100 mg PO BID [facility]; Protocol Last Admin: 07/10/18 17:31 Dose: 100 mg Gabapentin (Neurontin) 300 mg PO HS [facility]; Protocol Last Admin: 07/10/18 22:24 Dose: 300 mg Dextrose (Dextrose 5% In Water 1000 Ml) 1,000 mls @ 0 mls/hr IV .Q0M PRN; Protocol PRN Reason: Hypoglycemia Protocol Sodium Chloride (Sodium Chloride 0.9%) 1,000 mls @ 70 mls/hr IV .[id number] [facility] Last Admin: 07/11/18 05:21 Dose: 70 mls/hr Sodium Chloride (Sodium Chloride 0.45%) 1,000 mls @ 80 mls/hr IV .[id number] [facility] Stop: 07/12/18 08:00 Insulin Detemir (Levemir) 12 unit SC Q12H [facility] Last Admin: 07/11/18 13:22 Dose: Not Given Insulin Human Regular (Humulin R Med) 0 units SC ACHS [facility]; Protocol Last Admin: 07/11/18 13:21 Dose: Not Given Metoprolol Tartrate (Lopressor) 25 mg PO 0800,1800 [facility] Last Admin: 07/11/18 13:22 Dose: Not Given Ondansetron HCl (Zofran Inj) 4 mg IVP ONCE PRN PRN Reason: Nausea/Vomiting Pantoprazole Sodium (Protonix Ec Tab) 40 mg PO 0600 [facility] Last Admin: 03/26/19 05:24 Dose: 40 mg - Labs Labs: 07/10/18 07:45 07/10/18 07:45 Attending/Attestation - Attestation I have personally seen and examined this patient.: Yes I have fully participated in the care of the patient.: Yes I have reviewed all pertinent clinical information, including history, physical exam and plan: Yes Notes (Text): 07/11/18 13:35 73 year old female with past medical history of diabetes, hypertension, PVD and history of medication noncompliance who initially presented with altered mental status and significantly elevated blood sugars (>700) which improved with iv fluids and insulin. Mental status is also now at baseline. A1c is 15.5 and patient was started on levemir. Patient was also found to have right big toe ulcer and severe PAD/PVD. Arterial doppler showed severely abnormal L ALYSE 0.46 and moderately abnormal R ALYSE 0.77. CT angiogram showed severe stenosis in the distal superficial femoral arteries bilaterally; single vessel runoff to both ankles via the posterior tibial; anterior tibials are thin and narrow with multifocal stenosis. Continue with aspirin, plavix and lipitor. Continue with antibiotics as per ID. Podiatry and ID are following. Patient is for IR procedure today; will follow. Patient will need PT follow up post procedure for d/c planning recommendations. Omari Rockwell MD Hospitalist.
--- NOTE | 2018-07-11 12:57 | CARD ---
APPROVED REPORT Date of service: 07/11/2018 EKG Measurement Heart [id number] <Conclusion> Normal sinus rhythm Nonspecific T wave abnormality Abnormal ECG
[2018-07-11] MEDS: Insulin Detemir 100 units/ml Vial (Levemir) SC SCH ×3 (13:22→23:59)
[2018-07-11] MEDS: Enoxaparin 40 mg Syringe SC SCH (13:23)
--- NOTE | 2018-07-11 14:02 | VASCULAR ---
Date of service: 07/11/2018 PROCEDURE: 1. Abdominal aortogram and bilateral lower extremity runoff with left selective views. 2. Distal left SFA and popliteal artery jet stream atherectomy and drug-eluting balloon angioplasty 3. Left tibioperoneal trunk and proximal left posterior tibial artery angioplasty 4. Left anterior tibial artery angioplasty and focal drug-eluting stent placement HISTORY: Severe peripheral vascular disease. Diabetes. Severe ischemic rest pain left foot. PHYSICIAN(S): Maged Ray M.D. TECHNIQUE: The relative risks and indications of the procedure were explained to the patient and consent obtained. The patient was hydrated prior to the procedure and the appropriate labs drawn. The patient was placed supine on the arteriogram table and the right groin prepped and draped in the usual sterile fashion. Conscious sedation and monitoring were provided throughout the procedure by a nurse. Via a right common femoral artery approach, a 5 [place] sheath was placed in the right groin. Through the sheath and over a guidewire, a 5 [place] flush catheter was placed in the abdominal aorta at the level of the renal arteries and a PA DSA abdominal aortogram performed. The catheter was pulled down to the aortic bifurcation and bilateral oblique DSA pelvic arteriograms performed. Overlapping bilateral lower extremity DSA arteriograms were obtained from the inguinal ligaments to the lower legs. A 0.035 angled Glidewire was advanced over the bifurcation and placed in the mid left SFA. A 7 [place] 45 cm destination sheath was placed in the left common femoral artery.. The multi focal disease in the left SFA, popliteal artery and trifurcation was crossed with a trail laser catheter and 0.035 glidewire. Exchange is made for a 0.014 support wire. Heparin 6000 units IV and nitroglycerin in 250 mcg aliquots were given. The the left anterior tibial artery was dilated with a tapered 2.5/3.5 by 210 mm balloon. The proximal left anterior tibial artery and distal left popliteal artery was dilated with a 3.5 balloon. Eventually a 3.0 by 28 mm drug-eluting coronary stent was placed the ostium of the left anterior tibial artery. The guidewire was redirected across the left tibioperoneal trunk and posterior tibial artery. The left TP trunk and proximal left posterior tibial artery were dilated with a 3.0 balloon. Jet stream atherectomy of the distal left SFA and left popliteal artery was performed with a 2.4/3.4 catheter. Four passes were performed. The left popliteal artery was dilated with a 4.0 drug-eluting balloon. The distal left SFA was dilated with a 6 mm drug-eluting balloon. No stent was required. The sheath was removed hemostasis obtained with a Perclose device. The patient tolerated the procedure well. FINDINGS: There are single renal arteries bilaterally. The nephrograms are symmetric. The left renal artery is patent. The ostium of the right renal artery is not well seen. Smooth calcification in the arteries is noted. The abdominal aorta is patent and continuous. Aortic bifurcation is patent. The common and external iliac arteries are widely patent without radiographically significant stenosis. The internal iliac arteries are patent bilaterally. Right lower extremity: The right common femoral artery is patent with mild posterior plaque.. The right profunda femoral artery is patent. The right superficial femoral artery is diffusely disease with calcified mild stenoses distally. There are critical focal stenoses in the right popliteal artery above the knee. There is severe right trifurcation disease. Occlusions of the proximal right anterior tibial and peroneal arteries are present. Severe disease of the proximal right posterior tibial artery is noted. The right posterior tibial artery appears to be the predominant supply to the foot. There is reconstitution of the proximal right anterior tibial artery which is occluded distally.. Left lower extremity: Left common femoral artery is patent. The left profunda femoral artery is hypertrophied.. The left superficial femoral artery is diffusely diseased and smoothly calcified. There are multiple moderate stenoses in the distal left SFA. There are critical stenoses in the left popliteal artery at and above the knee. There is severe left trifurcation and tibial disease. The left anterior tibial artery has severe disease with multiple stenoses proximally. There are 2 additional stenoses in the mid to distal left anterior tibial artery. There is severe disease of the left tibioperoneal trunk and proximal left posterior tibial arteries. The left peroneal artery occludes proximally.. IMPRESSION: 1.Successful left SFA and popliteal artery jet stream atherectomy and drug-eluting balloon angioplasty. No stent was required. 2. Successful left anterior tibial artery angioplasty and focal drug-eluting stent placement 3. Successful left tibioperoneal trunk and proximal left posterior tibial artery angioplasty 4. 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 Critical right popliteal artery stenoses.
--- NOTE | 2018-07-11 14:40 | PN ---
DATE: 07/11/2018 SUBJECTIVE: The patient underwent peripheral vascular intervention today. She is currently in PACU. Denies any chest pain or foot pain. No reported hypotension or ventricular arrhythmia. PHYSICAL EXAMINATION: VITAL SIGNS: Blood pressure 160/86, heart rate 77, temperature 98, respirations 10. HEENT: Pale conjunctivae. CHEST: Clear. HEART: S1 and S2, regular. EXTREMITIES: 2+ dorsalis pedis pulses. LABORATORY DATA: Today's blood sugar is 149. ASSESSMENT: 1. Peripheral vascular disease, status post peripheral vascular intervention. The final reports is not available yet. 2. Uncontrolled diabetes mellitus. RECOMMENDATIONS: Continue aspirin 81 mg once a day, Lipitor 20 mg once a day, Lopressor 25 mg once a day, Lovenox 40 mg once a day, and Plavix 75 mg once a day. Obtain 12-lead EKG and monitor the patient on telemetry floor. Carlton Merritt MD
--- NOTE | 2018-07-11 18:10 | CP.PCM.PN ---
Subjective - Date & Time of Evaluation Date of Evaluation: 07/11/18 Time of Evaluation: 16:00 - Subjective Subjective: Infectious Disease Follow Up: July 11, 2018 73 yo female with history of Type II DM. The patient was found to be altered in a laundromat. Patient herself gives little information. Patient's PMD is apparently in [place], [place], his name is Dr. Akbar. The patient name is Jessica Brizuela. Patient had fever of 101.0 F. No leukocytosis. Limited information provided by the patient. Patient is hyperglycemic on admission and still has elevated glucose levels. Was under isolation for bedbugs. No further fever episodes today. Afebrile for the last few days now. Duplex showing disease of the vessels of the left leg. Abdominal CT Angiography showing severe stenosis in the distal superficial femoral arteries bilaterally. Single vessel runoff to both ankles via the posterior tibials. The anterior tibials are thin and narrow with multi focal stenosis. Significant peripheral vascular disease bilaterally. Had angioplasty with Dr. Ray in morning of 07/11/2018. Objective - Vital Signs/Intake and Output Vital Signs (last 24 hours): Temp Pulse Resp BP Pulse Ox 98.8 F 77 18 124/60 98 07/11/18 18:00 07/11/18 18:00 07/11/18 18:00 07/11/18 18:00 07/11/18 06:00 Intake and Output: 07/11/18 07/11/18 06:59 18:59 Intake Total 1920 Balance 1920 - Medications Medications: Current Medications Acetaminophen (Tylenol 325mg Tab) 650 mg PO Q4 PRN PRN Reason: Fever >100.4 F Last Admin: 07/06/18 20:35 Dose: 650 mg Aspirin (Ecotrin) 81 mg PO DAILY [facility] Last Admin: 07/11/18 13:28 Dose: 81 mg Atorvastatin Calcium (Lipitor) 20 mg PO DIN [facility] Last Admin: 07/10/18 17:31 Dose: 20 mg Cephalexin Monohydrate (Keflex) 500 mg PO BID [facility]; Protocol Stop: 07/19/18 10:01 Last Admin: 07/11/18 13:28 Dose: 500 mg Clopidogrel Bisulfate (Plavix) 75 mg PO DAILY [facility] Last Admin: 07/11/18 13:28 Dose: 75 mg Dextrose (Dextrose 50% Inj) 0 ml IV STAT PRN; Protocol PRN Reason: Hypoglycemia Protocol Enoxaparin Sodium (Lovenox) 40 mg SC DAILY [facility]; Protocol Last Admin: 07/11/18 13:23 Dose: Not Given Gabapentin (Neurontin) 100 mg PO BID [facility]; Protocol Last Admin: 07/11/18 13:29 Dose: 100 mg Gabapentin (Neurontin) 300 mg PO HS [facility]; Protocol Last Admin: 07/10/18 22:24 Dose: 300 mg Dextrose (Dextrose 5% In Water 1000 Ml) 1,000 mls @ 0 mls/hr IV .Q0M PRN; Protocol PRN Reason: Hypoglycemia Protocol Sodium Chloride (Sodium Chloride 0.9%) 1,000 mls @ 70 mls/hr IV .[id number] [facility] Last Admin: 07/11/18 05:21 Dose: 70 mls/hr Sodium Chloride (Sodium Chloride 0.45%) 1,000 mls @ 80 mls/hr IV .[id number] [facility] Stop: 07/12/18 08:00 Insulin Detemir (Levemir) 12 unit SC Q12H [facility] Last Admin: 07/11/18 13:22 Dose: Not Given Insulin Human Regular (Humulin R Med) 0 units SC ACHS [facility]; Protocol Last Admin: 07/11/18 13:21 Dose: Not Given Metoprolol Tartrate (Lopressor) 25 mg PO 0800,1800 [facility] Last Admin: 07/11/18 13:22 Dose: Not Given Ondansetron HCl (Zofran Inj) 4 mg IVP ONCE PRN PRN Reason: Nausea/Vomiting Pantoprazole Sodium (Protonix Ec Tab) 40 mg PO 0600 [facility] Last Admin: 07/11/18 05:24 Dose: 40 mg - Labs Labs: 07/10/18 07:45 07/10/18 07:45 - Constitutional Appears: Non-toxic, No Acute Distress, Chronically Ill - Head Exam Head Exam: ATRAUMATIC, NORMOCEPHALIC - Eye Exam Eye Exam: EOMI, PERRL Pupil Exam: NORMAL ACCOMODATION, PERRL - ENT Exam ENT Exam: Mucous Membranes Moist, Normal External Ear Exam, TM's Normal Bilaterally - Neck Exam Neck Exam: Full ROM, Normal Inspection - Respiratory Exam Respiratory Exam: Clear to Ausculation Bilateral, NORMAL BREATHING PATTERN. absent: Rales, Rhonchi, Wheezes - Cardiovascular Exam Cardiovascular Exam: REGULAR RHYTHM, RRR, +S1, +S2 - GI/Abdominal Exam GI & Abdominal Exam: Soft, Normal Bowel Sounds. absent: Distended, Tenderness - Extremities Exam Additional comments: RLE big toe ulcer/eschar. Mild edema of the left lower leg. - Neurological Exam Neurological Exam: Alert, Awake, CN II-XII Intact, Oriented x3 - Psychiatric Exam Psychiatric exam: Flat Affect Additional comments: Distant. Often answers questions with "I don't know", "I don't remember", or "I forgot". - Skin Additional comments: As above. Assessment and Plan - Assessment and Plan (Free Text) Assessment: 73 yo female presenting for altered mental status, fevers up to 101.0 F, and hyperglycemia. Negative Chest X-ray. X-ray right big toe showing swelling of the soft tissues only. Head CT negative. Patient was hyponatremic. Unclear how the patient's DM control is normally. Likely with some degree of dehydration in addition to the hyperglycemia. Check Hgb A1c... 15.5. Monitor glucose levels. Started on Vancomycin and Zosyn. Villagran cultures. Supportive care. Afebrile today. Found to have bedbugs and was isolated. Patient was washed and now off isolation. Duplex studies showing severe peripheral vascular disease bilaterally. Cultures negative. Left foot and ankle X-ray negative. Considering oral antibiotic care with Keflex. Patient with diabetes that is not under control. Borderline fevers. Angioplasty with Dr. Ray occurred on 07/11/2018. Impressions were: 1. Successful left SFA and popliteal arter jet stream atherectomy and drug- eluting stent balloon angioplasty. No stent was required. 2. Successful left anterior tibial artery angioplasty and focal drug-eluting stent placement 3. Successful left tibioperoneal trunk and proximal left posterior tibial artery angioplasty 4. 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 Critical right popliteal artery stenoses. No additional issues. Would consider total of 14 days of antibiotics both IV and orally administered. Thank you for allowing me to participate in the care of the patient, we will f omar with you.
[2018-07-12] MEDS: Pantoprazole 40 mg EC Tab PO SCH (05:32)
[2018-07-12 07:01] LABS: BASO # 0.02 K/mm3 (0.0-2.0); BASO % 0.2 % (0.0-3.0); EOS # 0.1 (0.0-0.7); EOS % 1.2 % (1.5-5.0); HEMOGLOBIN 9.1 g/dL (12.0-16.0); LYMPH # 1.8 (1.2-3.4); MEAN CELL VOLUME 87.1 fl (80.0-105.0); MEAN CORPUSCULAR HGB CONC 32.2 g/dl (31.0-37.0); MEAN PLATELET VOLUME 9.3 fl (7.0-11.0); RBC 3.25 10^6/uL (3.5-6.1); RED CELL DISTRIBUTION WIDTH 12.3 % (11.5-14.5)
[2018-07-12 07:23] LABS: BLOOD UREA NITROGEN 19 mg/dL (7-21); CALCIUM 8.4 mg/dL (8.4-10.5); GFR NON-AFRICAN AMERICAN > 60
[2018-07-12] MEDS: Insulin Reg-MEDIUM-Coverage SC SCH ×4 (07:30→21:52)
[2018-07-12] MEDS ORDERED: Enoxaparin 40 mg Syringe SC SCH (10:00)
[2018-07-12] MEDS: Insulin Detemir 100 units/ml Vial (Levemir) SC SCH ×3 (10:35→23:00)
--- NOTE | 2018-07-12 11:45 | CP.PCM.PN ---
<Edmond Ba - Last Filed: 07/12/18 11:41> Subjective - Date & Time of Evaluation Date of Evaluation: 07/12/18 Time of Evaluation: 11:41 - Subjective Subjective: Podiatry progress note - Drs. Cobb/Izabella 73F seen and evaluated at bedside with Dr. Cobb for b/l foot pain secondary to PAD. Resting comfortably in bed. Denies any acute overnight events or new pedal complaints. States that pain to both feet is constantly present. Denies n/v/f/c/sob/cp today. Objective - Vital Signs/Intake and Output Vital Signs (last 24 hours): Temp Pulse Resp BP Pulse Ox 98.6 F 92 H 20 137/93 H 99 07/12/18 06:00 07/12/18 11:00 07/12/18 06:00 07/12/18 11:00 07/12/18 06:00 Intake and Output: 07/12/18 07/12/18 06:59 18:59 Intake Total 1080 Balance 1080 - Medications Medications: Current Medications Acetaminophen (Tylenol 325mg Tab) 650 mg PO Q4 PRN PRN Reason: Fever >100.4 F Last Admin: 07/06/18 20:35 Dose: 650 mg Aspirin (Ecotrin) 81 mg PO DAILY [facility] Last Admin: 07/12/18 11:00 Dose: 81 mg Atorvastatin Calcium (Lipitor) 20 mg PO DIN [facility] Last Admin: 07/11/18 18:19 Dose: 20 mg Cephalexin Monohydrate (Keflex) 500 mg PO BID [facility]; Protocol Stop: 07/19/18 10:01 Last Admin: 07/12/18 11:00 Dose: 500 mg Clonidine HCl (Catapres) 0.1 mg PO BID [facility] Clopidogrel Bisulfate (Plavix) 75 mg PO DAILY [facility] Last Admin: 07/12/18 11:00 Dose: 75 mg Dextrose (Dextrose 50% Inj) 0 ml IV STAT PRN; Protocol PRN Reason: Hypoglycemia Protocol Enoxaparin Sodium (Lovenox) 40 mg SC DAILY [facility]; Protocol Last Admin: 07/12/18 11:00 Dose: 40 mg Gabapentin (Neurontin) 300 mg PO BID [facility]; Protocol Last Admin: 07/12/18 10:59 Dose: 300 mg Dextrose (Dextrose 5% In Water 1000 Ml) 1,000 mls @ 0 mls/hr IV .Q0M PRN; Protocol PRN Reason: Hypoglycemia Protocol Insulin Detemir (Levemir) 12 unit SC Q12H [facility] Last Admin: 07/12/18 10:35 Dose: Not Given Insulin Human Regular (Humulin R Med) 0 units SC ACHS [facility]; Protocol Last Admin: 07/12/18 07:30 Dose: Not Given Metoprolol Tartrate (Lopressor) 25 mg PO 0800,1800 [facility] Last Admin: 07/12/18 11:00 Dose: 25 mg Ondansetron HCl (Zofran Inj) 4 mg IVP ONCE PRN PRN Reason: Nausea/Vomiting Pantoprazole Sodium (Protonix Ec Tab) 40 mg PO 0600 [facility] Last Admin: 07/12/18 05:32 Dose: 40 mg - Labs Labs: 07/12/18 06:30 07/12/18 06:30 - Constitutional Appears: Non-toxic - Head Exam Head Exam: ATRAUMATIC - Extremities Exam Additional comments: VASC: R DP weakly palpalbe 1/4. L DP and bilateral PT pulses nonpalpable. CFT >3 seconds to all digits. Temperature gradient warm to warm RLE, warm to cold LLE. +1 pitting edema noted to LLE. NEURO: Epicritic and protective sensation grossly intact b/l DERM: Dry eschar measuring approximately 2 x 2 cm noted to distal tuft of right hallux - hyperkeratotic rim present; absent drainage; absent purulence; absent flucutance; absent malodor; no periwound erythema present. No clinical signs of infection appreciated; left foot digits all appear gangrenous, impending forefoot gangrene appreciated ORTHO: No pain on palpation noted to right hallux eschar. Pain on palpation noted to entire left foot, with pain on ROM 1st MPJ, MTJ, STJ, ankle joint. - Neurological Exam Neurological Exam: Alert, Awake, Oriented x3 - Psychiatric Exam Psychiatric exam: Normal Affect, Normal Mood Assessment and Plan - Assessment and Plan (Free Text) Assessment: 73F with 1) b/l foot pain secondary to PAD 2) gangrene of left forefoot Plan: Patient seen and evaluated with Dr. Cobb Bilateral arterial duplex ordered - significant PVD noted b/l, more severe on left Vascular intervention performed - discussed appearance of patients foot this morning with Dr. Ray Peripheral vascular procedure report - successful left SFA and pop artery jet stream arthrectomy and balloon angioplasty; successful left ant tib angioplasty with focal drug-eluting stent placement; successful left tibperoneal trunk and prox left PT artery angioplasty Left foot and ankle XR ordered - no acute fractures or dislocations Impending gangrene of left forefoot appreciated Continue abx per ID Will discuss podiatry intervention with Dr. Ray Podiatry will continue to follow <Meek Cobb - Last Filed: 07/13/18 07:07> Objective - Vital Signs/Intake and Output Vital Signs (last 24 hours): Temp Pulse Resp BP Pulse Ox 98.3 F 79 19 125/66 98 07/13/18 05:26 07/13/18 05:27 07/13/18 05:26 07/13/18 05:26 07/13/18 05:26 Intake and Output: 07/13/18 07/13/18 06:59 18:59 Intake Total 956 Output Total 400 Balance 556 - Medications Medications: Current Medications Acetaminophen (Tylenol 325mg Tab) 650 mg PO Q4 PRN PRN Reason: Fever >100.4 F Last Admin: 07/06/18 20:35 Dose: 650 mg Aspirin (Ecotrin) 81 mg PO DAILY [facility] Last Admin: 07/12/18 11:00 Dose: 81 mg Atorvastatin Calcium (Lipitor) 20 mg PO DIN [facility] Last Admin: 07/12/18 17:39 Dose: 20 mg Cephalexin Monohydrate (Keflex) 500 mg PO BID [facility]; Protocol Stop: 07/19/18 10:01 Last Admin: 07/12/18 17:39 Dose: 500 mg Clonidine HCl (Catapres) 0.1 mg PO BID [facility] Last Admin: 07/12/18 20:28 Dose: 0.1 mg Clopidogrel Bisulfate (Plavix) 75 mg PO DAILY [facility] Last Admin: 07/12/18 11:00 Dose: 75 mg Dextrose (Dextrose 50% Inj) 0 ml IV STAT PRN; Protocol PRN Reason: Hypoglycemia Protocol Gabapentin (Neurontin) 300 mg PO BID [facility]; Protocol Last Admin: 07/12/18 17:39 Dose: 300 mg Dextrose (Dextrose 5% In Water 1000 Ml) 1,000 mls @ 0 mls/hr IV .Q0M PRN; Protocol PRN Reason: Hypoglycemia Protocol Sodium Chloride (Sodium Chloride 0.45%) 1,000 mls @ 60 mls/hr IV .[id number] [facility] Last Admin: 07/12/18 16:19 Dose: 60 mls/hr Heparin Sodium/Sodium Chloride (Heparin 05757 Units/250ml 1/2 Normal Saline) 25,000 units in 250 mls @ 9.716 mls/hr IV .Q24H PRN; Protocol PRN Reason: ADJUST RATE PER PROTOCOL Last Admin: 07/12/18 17:16 Dose: 18 units/kg/hr, 9.716 mls/hr Insulin Detemir (Levemir) 12 unit SC Q12H [facility] Last Admin: 07/12/18 23:00 Dose: Not Given Insulin Human Regular (Humulin R Med) 0 units SC ACHS [facility]; Protocol Last Admin: 07/12/18 21:52 Dose: 2 units Metoprolol Tartrate (Lopressor) 25 mg PO 0800,1800 [facility] Last Admin: 07/12/18 17:40 Dose: 25 mg Nitroglycerin (Nitro-Bid 2% Oint) 2 ea TOP Q8 [facility] Last Admin: 07/13/18 05:45 Dose: 2 ea Ondansetron HCl (Zofran Inj) 4 mg IVP ONCE PRN PRN Reason: Nausea/Vomiting Oxycodone HCl (Oxycodone Immediate Release Tab) 2.5 mg PO DAILY [facility] Pantoprazole Sodium (Protonix Ec Tab) 40 mg PO 0600 [facility] Last Admin: 07/13/18 05:45 Dose: 40 mg - Labs Labs: 07/12/18 06:30 07/12/18 06:30 APTT 62.4 Seconds (26.9-38.3) H 07/13/18 05:45 Attending/Attestation - Attestation I have personally seen and examined this patient.: Yes I have fully participated in the care of the patient.: Yes I have reviewed all pertinent clinical information, including history, physical exam and plan: Yes
--- NOTE | 2018-07-12 12:00 | CP.PCM.PN ---
<ElizabethDavid - Last Filed: 07/12/18 15:24> Subjective - Date & Time of Evaluation Date of Evaluation: 07/12/18 Time of Evaluation: 11:44 - Subjective Subjective: Medicine Progress Note for Dr. Rockwell 73F seen and evaluated at bedside this morning. No acute events overnight. Patient continues to complain of left lower extremity pain s/p IR revascularization with 2 stents placed POD1. Patient not working with PT, will have them reassess today. Denies f/c, n/v/d, SOB, CP, or urinary symptoms. Objective - Vital Signs/Intake and Output Vital Signs (last 24 hours): Temp Pulse Resp BP Pulse Ox 98.6 F 92 H 20 137/93 H 99 07/12/18 06:00 07/12/18 11:00 07/12/18 06:00 07/12/18 11:00 07/12/18 06:00 Intake and Output: 07/12/18 07/12/18 06:59 18:59 Intake Total 1080 Balance 1080 - Medications Medications: Current Medications Acetaminophen (Tylenol 325mg Tab) 650 mg PO Q4 PRN PRN Reason: Fever >100.4 F Last Admin: 07/06/18 20:35 Dose: 650 mg Aspirin (Ecotrin) 81 mg PO DAILY [facility] Last Admin: 07/12/18 11:00 Dose: 81 mg Atorvastatin Calcium (Lipitor) 20 mg PO DIN [facility] Last Admin: 07/11/18 18:19 Dose: 20 mg Cephalexin Monohydrate (Keflex) 500 mg PO BID [facility]; Protocol Stop: 07/19/18 10:01 Last Admin: 07/12/18 11:00 Dose: 500 mg Clonidine HCl (Catapres) 0.1 mg PO BID [facility] Clopidogrel Bisulfate (Plavix) 75 mg PO DAILY [facility] Last Admin: 07/12/18 11:00 Dose: 75 mg Dextrose (Dextrose 50% Inj) 0 ml IV STAT PRN; Protocol PRN Reason: Hypoglycemia Protocol Enoxaparin Sodium (Lovenox) 40 mg SC DAILY [facility]; Protocol Last Admin: 07/12/18 11:00 Dose: 40 mg Gabapentin (Neurontin) 300 mg PO BID [facility]; Protocol Last Admin: 07/12/18 10:59 Dose: 300 mg Dextrose (Dextrose 5% In Water 1000 Ml) 1,000 mls @ 0 mls/hr IV .Q0M PRN; Protocol PRN Reason: Hypoglycemia Protocol Insulin Detemir (Levemir) 12 unit SC Q12H [facility] Last Admin: 07/12/18 10:35 Dose: Not Given Insulin Human Regular (Humulin R Med) 0 units SC ACHS [facility]; Protocol Last Admin: 07/12/18 07:30 Dose: Not Given Metoprolol Tartrate (Lopressor) 25 mg PO 0800,1800 [facility] Last Admin: 07/12/18 11:00 Dose: 25 mg Ondansetron HCl (Zofran Inj) 4 mg IVP ONCE PRN PRN Reason: Nausea/Vomiting Pantoprazole Sodium (Protonix Ec Tab) 40 mg PO 0600 [facility] Last Admin: 07/12/18 05:32 Dose: 40 mg - Labs Labs: 07/12/18 06:30 07/12/18 06:30 - Constitutional Appears: Well, Non-toxic, No Acute Distress - Head Exam Head Exam: ATRAUMATIC, NORMAL INSPECTION, NORMOCEPHALIC - Eye Exam Eye Exam: EOMI - ENT Exam ENT Exam: Mucous Membranes Dry - Respiratory Exam Respiratory Exam: NORMAL BREATHING PATTERN. absent: Wheezes, Respiratory Distress - Cardiovascular Exam Cardiovascular Exam: REGULAR RHYTHM, +S1, +S2. absent: Tachycardia - GI/Abdominal Exam GI & Abdominal Exam: Soft, Normal Bowel Sounds. absent: Tenderness - Extremities Exam Extremities Exam: Full ROM, Tenderness. absent: Calf Tenderness, Joint Swelling, Pedal Edema Additional comments: LLE tenderness to palpation Right 1st toe superificial ulceration, nonerythematous and nondraining - Neurological Exam Neurological Exam: Alert, Awake - Psychiatric Exam Psychiatric exam: Normal Affect, Normal Mood - Skin Skin Exam: Dry, Intact, Normal Color, Warm Assessment and Plan - Assessment and Plan (Free Text) Assessment: 73 year old female with PMH of diabetes,HTN,PVD, and noncompliance with med ication was admitted with altered mental status and hyperglycemia. Clinical course complicated by ichemic rest pain of the left LE. Revascularization of LLE w/ IR POD#1. Plan: PAD - S/p IR revascularization of LLE POD#1 - Pending PT evaluation s/p revascularization procedure - Cardiology following, patient pending ECHO - Continue Asa and Plavix - Continue Lipitor - Arterial US: Severely abnormal L ALYSE @ rest ALYSE is .46. R ALYSE is at .77 and is moderately abnormal - Venous duplex US of LE: No evidence of DVT - Normal radiographs of the ankle and foot - CT angiogram 07/06: severe stenosis in the distal superficial femoral arteries bilaterally. Single vessel runoff to both ankles via the posterior tibial. The anterior tibials are thin and narrow with multi focal stenosis Hypertension - Patient on Metoprolol 25mg PO BID - Per cardio, started on Clonidine 0.1mg BID - Will continue to monitor vitals Altered mental status, resolved - Pt is now AOx3 - Likely 2/2 elevated blood glucose levels upon admission in the 700s, now resolved - CT head: age appropriate changes, no acute pathology - UDS negative - Low grade temperature of 99.9 overnight - UA (-) for nitrates, LE or WBC - Ucx (-) - BCx (-) - CXR negative for active disease Hyperglycemia w/o elevated AG - ISS - Accuchecks - Hgba1c 15.5 - Levemir 12u Q12 - Diabetic education RLE ulcer - Continue Keflex per ID for total of 14 days - Local wound care - XR showed soft tissue swelling w/o acute articular or osseous abnormality - Podiatry following PPX DVT: Lovenox SC GI:Protonix Dispo: Will work with PT and CM regarding patient placement to [facility] or home w/ services for discharge planning Patient plan reviewed and discussed with Dr. Luli Johnson PGY1 <Omari Rockwell - Last Filed: 07/12/18 15:44> Objective - Vital Signs/Intake and Output Vital Signs (last 24 hours): Temp Pulse Resp BP Pulse Ox 97.1 F L 80 19 132/68 99 07/12/18 12:00 07/12/18 14:00 07/12/18 12:00 07/12/18 13:05 07/12/18 06:00 Intake and Output: 07/12/18 07/12/18 06:59 18:59 Intake Total 1080 Balance 1080 - Medications Medications: Current Medications Acetaminophen (Tylenol 325mg Tab) 650 mg PO Q4 PRN PRN Reason: Fever >100.4 F Last Admin: 07/06/18 20:35 Dose: 650 mg Aspirin (Ecotrin) 81 mg PO DAILY [facility] Last Admin: 07/12/18 11:00 Dose: 81 mg Atorvastatin Calcium (Lipitor) 20 mg PO DIN [facility] Last Admin: 07/11/18 18:19 Dose: 20 mg Cephalexin Monohydrate (Keflex) 500 mg PO BID [facility]; Protocol Stop: 07/19/18 10:01 Last Admin: 07/12/18 11:00 Dose: 500 mg Clonidine HCl (Catapres) 0.1 mg PO BID [facility] Last Admin: 07/12/18 13:05 Dose: 0.1 mg Clopidogrel Bisulfate (Plavix) 75 mg PO DAILY [facility] Last Admin: 07/12/18 11:00 Dose: 75 mg Dextrose (Dextrose 50% Inj) 0 ml IV STAT PRN; Protocol PRN Reason: Hypoglycemia Protocol Enoxaparin Sodium (Lovenox) 40 mg SC DAILY [facility]; Protocol Last Admin: 07/12/18 11:00 Dose: 40 mg Gabapentin (Neurontin) 300 mg PO BID [facility]; Protocol Last Admin: 07/12/18 10:59 Dose: 300 mg Dextrose (Dextrose 5% In Water 1000 Ml) 1,000 mls @ 0 mls/hr IV .Q0M PRN; Protocol PRN Reason: Hypoglycemia Protocol Insulin Detemir (Levemir) 12 unit SC Q12H [facility] Last Admin: 07/12/18 10:35 Dose: Not Given Insulin Human Regular (Humulin R Med) 0 units SC ACHS [facility]; Protocol Last Admin: 07/12/18 13:05 Dose: 3 units Metoprolol Tartrate (Lopressor) 25 mg PO 0800,1800 [facility] Last Admin: 07/12/18 11:00 Dose: 25 mg Ondansetron HCl (Zofran Inj) 4 mg IVP ONCE PRN PRN Reason: Nausea/Vomiting Oxycodone HCl (Oxycodone Immediate Release Tab) 2.5 mg PO DAILY [facility] Pantoprazole Sodium (Protonix Ec Tab) 40 mg PO 0600 [facility] Last Admin: 07/12/18 05:32 Dose: 40 mg - Labs Labs: 07/12/18 06:30 07/12/18 06:30 Attending/Attestation - Attestation I have personally seen and examined this patient.: Yes I have fully participated in the care of the patient.: Yes I have reviewed all pertinent clinical information, including history, physical exam and plan: Yes Notes (Text): 07/12/18 15:39 73 year old female with past medical history of diabetes, hypertension, PVD and history of medication noncompliance who initially presented with altered mental status and significantly elevated blood sugars (>700) which improved with iv fluids and insulin. Mental status is also now at baseline. A1c is 15.5 and patient was started on levemir. Patient was also found to have right big toe ulcer and severe PAD/PVD. Arterial doppler showed severely abnormal L ALYSE 0.46 and moderately abnormal R ALYSE 0.77. CT angiogram showed severe stenosis in the distal superficial femoral arteries bilaterally; single vessel runoff to both ankles via the posterior tibial; anterior tibials are thin and narrow with multifocal stenosis. Continue with aspirin, plavix and lipitor. Continue with antibiotics as per ID. Podiatry and ID are following. Patient was also seen by IR and is s/p IR procedure yesterday with successful left SFA and popliteal artherectomy and drug eluting balloon angioplasty, successful left anterior tibial artery angioplasty and focal drug eluting drug placement, and successful left tibioperoneal trunk and proximal left posterior tibial artery angioplasty. PT follow up appreciated; still recommending GABBY which patient is currently refusing. Still complains of LE pain; gabapentin dose is increased. Consider starting oxycodone if no improvement of pain. Cardiology is following as well and added clonidine for elevated blood pressure yesterday. Omari Rockwell MD Hospitalist.
--- NOTE | 2018-07-12 13:40 | PN ---
DATE: 07/12/2018 SUBJECTIVE: The patient denies any chest pain. She complains of left foot pain. PHYSICAL EXAMINATION: VITAL SIGNS: Blood pressure 137/93, heart rate 92, temperature 98.2, respirations 20. HEENT: Normocephalic. CHEST: Clear. HEART: S1 and S2 regular. EXTREMITIES: Palpable left dorsalis pedis pulse. No evidence of acute ischemic changes of the left foot. LABORATORY DATA: Today's hemoglobin and hematocrit 9.1 and 28.3, white count 10 and platelet count 465,000. SMA-7 is within normal limits today. ASSESSMENT: 1. Status post atherectomy and balloon angioplasty to the left lower extremity. 2. Uncontrolled hypertension. RECOMMENDATIONS: Continue current aspirin 81 mg once a day, Keflex 500 mg twice a day, Lipitor 20 mg once a day, Lopressor 25 mg twice a day, Lovenox at 40 mg once a day, Plavix 75 mg once a day. We will start clonidine at 0.1 mg twice a day. Carlton Merritt MD
[2018-07-12] MEDS ORDERED: Nitroglycerin 2% Ointment Foilpak UD TOP SCH (16:15)
[2018-07-12] MEDS: Sodium Chloride 0.45% 1,000 ML IV SCH (16:19)
[2018-07-12] MEDS: Heparin25000 units/250ml 1/2NS 25,000 UNITS/250 ML BAG IV PRN (17:16)
[2018-07-12] MEDS: Nitroglycerin 2% Ointment Foilpak UD TOP SCH (21:52)
--- NOTE | 2018-07-12 22:35 | CARD ---
APPROVED REPORT Date of service: 07/12/2018 EXAM: Two-dimensional and M-mode echocardiogram with Doppler and color Doppler. INDICATION PVD 2D DIMENSIONS Left Atrium (2D)5.0 (1.6-4.0cm)IVSd1.1 (0.7-1.1cm) LVDd3.6 (3.9-5.9cm)PWd1.2 (0.7-1.1cm) LVDs2.5 (2.5-4.0cm)FS (%) 32.7 % LVEF (%)62.1 (>50%) M-Mode DIMENSIONS Aortic Root2.90 (2.2-3.7cm)Aortic Cusp Exc.1.50 (1.5-2.0cm) Aortic Valve AoV Peak Bbhoctvy910.0cm/[place] Peak GR.19mmHgAI P 1/2 [id number] Mitral Valve MV E Rbbftvzu339.0cm/sMV A Kmwlvxlu858.0cm/sE/A ratio1.1 TDI Lateral E' Peak V8.09cm/sMedial E' Peak V7.80cm/sE/Lateral E'16.1 E/Medial E'16.7 Pulmonary Valve PV Peak Pppmrdpe29.6cm/sPV Peak Grad.4mmHg Tricuspid Valve TR Peak [id number]/sRAP [id number] Peak Gr.67mmHg [id number] LEFT VENTRICLE There is borderline concentric left ventricular hypertrophy. The left ventricular function is normal. The left ventricular ejection fraction is within the normal range. There is normal LV segmental wall motion. Transmitral Doppler flow pattern is Grade II-pseudonormal filling dynamics. RIGHT VENTRICLE The right ventricle is normal size. There is normal right ventricular wall thickness. The right ventricular systolic function is normal. ATRIA The left atrium is moderately dilated. The right atrium is mildly dilated. AORTIC VALVE The aortic valve is moderately thickened. There is moderate aortic regurgitation. There is no aortic valvular stenosis. MITRAL VALVE The mitral valve is moderately thickened. Mitral regurgitation is mild. There is no mitral valve stenosis. TRICUSPID VALVE There is severe tricuspid regurgitation. There is severe pulmonary hypertension. PULMONIC VALVE There is mild pulmonic valvular regurgitation. GREAT VESSELS The aortic root is normal in size. The IVC is normal in size and collapses >50% with inspiration. <Conclusion> There is borderline concentric left ventricular hypertrophy. The left ventricular function is normal. The left ventricular ejection fraction is within the normal range. There is normal LV segmental wall motion. Transmitral Doppler flow pattern is Grade II-pseudonormal filling dynamics. There is moderate aortic regurgitation. Mitral regurgitation is mild. There is severe tricuspid regurgitation. There is severe pulmonary hypertension. There is mild pulmonic valvular regurgitation.
--- NOTE | 2018-07-12 22:43 | CP.PCM.PN ---
Subjective - Date & Time of Evaluation Date of Evaluation: 07/12/18 Time of Evaluation: 22:00 - Subjective Subjective: Infectious Disease Follow Up: July 12, 2018 73 yo female with history of Type II DM. The patient was found to be altered in a laundromat. Patient herself gives little information. Patient's PMD is apparently in [place], [place], his name is Dr. Akbar. The patient name is Jessica Brizuela. Patient had fever of 101.0 F. No leukocytosis. Limited information provided by the patient. Patient is hyperglycemic on admission and still has elevated glucose levels. Was under isolation for bedbugs. No further fever episodes today. Afebrile for the last few days now. Duplex showing disease of the vessels of the left leg. Abdominal CT Angiography showing severe stenosis in the distal superficial femoral arteries bilaterally. Single vessel runoff to both ankles via the posterior tibials. The anterior tibials are thin and narrow with multi focal stenosis. Significant peripheral vascular disease bilaterally. Had angioplasty with Dr. Rya in morning of 07/11/2018. Podiatry concerned with left forefoot impending gangrene. Objective - Vital Signs/Intake and Output Vital Signs (last 24 hours): Temp Pulse Resp BP Pulse Ox 99.4 F 91 H 19 128/80 99 07/12/18 18:00 07/12/18 18:00 07/12/18 18:00 07/12/18 20:28 07/12/18 06:00 Intake and Output: 07/12/18 07/13/18 18:59 06:59 Intake Total 1016 Output Total 500 Balance 516 - Medications Medications: Current Medications Acetaminophen (Tylenol 325mg Tab) 650 mg PO Q4 PRN PRN Reason: Fever >100.4 F Last Admin: 07/06/18 20:35 Dose: 650 mg Aspirin (Ecotrin) 81 mg PO DAILY [facility] Last Admin: 07/12/18 11:00 Dose: 81 mg Atorvastatin Calcium (Lipitor) 20 mg PO DIN [facility] Last Admin: 07/12/18 17:39 Dose: 20 mg Cephalexin Monohydrate (Keflex) 500 mg PO BID [facility]; Protocol Stop: 07/19/18 10:01 Last Admin: 07/12/18 17:39 Dose: 500 mg Clonidine HCl (Catapres) 0.1 mg PO BID [facility] Last Admin: 07/12/18 20:28 Dose: 0.1 mg Clopidogrel Bisulfate (Plavix) 75 mg PO DAILY [facility] Last Admin: 07/12/18 11:00 Dose: 75 mg Dextrose (Dextrose 50% Inj) 0 ml IV STAT PRN; Protocol PRN Reason: Hypoglycemia Protocol Gabapentin (Neurontin) 300 mg PO BID [facility]; Protocol Last Admin: 07/12/18 17:39 Dose: 300 mg Dextrose (Dextrose 5% In Water 1000 Ml) 1,000 mls @ 0 mls/hr IV .Q0M PRN; Protocol PRN Reason: Hypoglycemia Protocol Sodium Chloride (Sodium Chloride 0.45%) 1,000 mls @ 60 mls/hr IV .[id number] [facility] Last Admin: 07/12/18 16:19 Dose: 60 mls/hr Heparin Sodium/Sodium Chloride (Heparin 67650 Units/250ml 1/2 Normal Saline) 25,000 units in 250 mls @ 9.716 mls/hr IV .Q24H PRN; Protocol PRN Reason: ADJUST RATE PER PROTOCOL Last Admin: 07/12/18 17:16 Dose: 18 units/kg/hr, 9.716 mls/hr Insulin Detemir (Levemir) 12 unit SC Q12H [facility] Last Admin: 07/12/18 21:52 Dose: 12 units Insulin Human Regular (Humulin R Med) 0 units SC ACHS [facility]; Protocol Last Admin: 07/12/18 21:52 Dose: 2 units Metoprolol Tartrate (Lopressor) 25 mg PO 0800,1800 [facility] Last Admin: 07/12/18 17:40 Dose: 25 mg Nitroglycerin (Nitro-Bid 2% Oint) 2 ea TOP Q8 [facility] Last Admin: 07/12/18 21:52 Dose: 2 ea Ondansetron HCl (Zofran Inj) 4 mg IVP ONCE PRN PRN Reason: Nausea/Vomiting Oxycodone HCl (Oxycodone Immediate Release Tab) 2.5 mg PO DAILY [facility] Pantoprazole Sodium (Protonix Ec Tab) 40 mg PO 0600 [facility] Last Admin: 07/12/18 05:32 Dose: 40 mg - Labs Labs: 07/12/18 06:30 07/12/18 06:30 APTT 31.2 Seconds (26.9-38.3) 07/12/18 16:50 - Constitutional Appears: Non-toxic, No Acute Distress, Chronically Ill - Head Exam Head Exam: ATRAUMATIC, NORMOCEPHALIC - Eye Exam Eye Exam: EOMI, PERRL Pupil Exam: NORMAL ACCOMODATION, PERRL - ENT Exam ENT Exam: Mucous Membranes Moist, Normal External Ear Exam, TM's Normal Bilaterally - Neck Exam Neck Exam: Full ROM, Normal Inspection - Respiratory Exam Respiratory Exam: Clear to Ausculation Bilateral, NORMAL BREATHING PATTERN. absent: Rales, Rhonchi, Wheezes - Cardiovascular Exam Cardiovascular Exam: REGULAR RHYTHM, RRR, +S1, +S2 - GI/Abdominal Exam GI & Abdominal Exam: Soft, Normal Bowel Sounds. absent: Distended, Tenderness - Extremities Exam Additional comments: RLE big toe ulcer/eschar. Mild edema of the left lower leg. Duskiness of the left forefoot. - Neurological Exam Neurological Exam: Alert, Awake, CN II-XII Intact, Oriented x3 - Psychiatric Exam Psychiatric exam: Flat Affect Additional comments: Distant. Often answers questions with "I don't know", "I don't remember", or "I forgot". - Skin Additional comments: As above. Assessment and Plan - Assessment and Plan (Free Text) Assessment: 73 yo female presenting for altered mental status, fevers up to 101.0 F, and hyperglycemia. Negative Chest X-ray. X-ray right big toe showing swelling of the soft tissues only. Head CT negative. Patient was hyponatremic. Unclear h ow the patient's DM control is normally. Likely with some degree of dehydration in addition to the hyperglycemia. Check Hgb A1c... 15.5. Monitor glucose levels. Started on Vancomycin and Zosyn. Villagran cultures. Supportive care. Afebrile today. Found to have bedbugs and was isolated. Patient was washed and now off isolation. Duplex studies showing severe peripheral vascular disease bilaterally. Cultures negative. Left foot and ankle X-ray negative. Considering oral antibiotic care with Keflex. Patient with diabetes that is not under control. Borderline fevers. Angioplasty with Dr. Ray occurred on 07/11/2018. Impressions were: 1. Successful left SFA and popliteal arter jet stream atherectomy and drug- eluting stent balloon angioplasty. No stent was required. 2. Successful left anterior tibial artery angioplasty and focal drug-eluting stent placement 3. Successful left tibioperoneal trunk and proximal left posterior tibial artery angioplasty 4. 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 Critical right popliteal artery stenoses. No additional issues. Would consider total of 14 days of antibiotics both IV and orally administered. Podiatry concerned with impending gangrene of the left forefoot. Thank you for allowing me to participate in the care of the patient, we will follow with you.
[2018-07-13] MEDS: Nitroglycerin 2% Ointment Foilpak UD TOP SCH ×3 (05:45→23:20)
[2018-07-13] MEDS: Pantoprazole 40 mg EC Tab PO SCH (05:45)
[2018-07-13] MEDS: Insulin Reg-MEDIUM-Coverage SC SCH ×3 (08:14→18:02)
[2018-07-13] MEDS: Sodium Chloride 0.45% 1,000 ML IV SCH ×2 (08:58→23:23)
--- NOTE | 2018-07-13 09:35 | CP.PCM.PN ---
Subjective - Date & Time of Evaluation Date of Evaluation: 07/13/18 Time of Evaluation: 09:34 - Subjective Subjective: Podiatry progress note - Drs. Cobb/Izabella 73F seen and evaluated at bedside with Dr. Parekh for b/l foot pain secondary to PAD. Resting comfortably in bed. Denies any acute overnight events or new pedal complaints. States that pain to both feet is constantly present. States she was unable to walk yesterday due to pain. Denies n/v/f/c/sob/cp today. Objective - Vital Signs/Intake and Output Vital Signs (last 24 hours): Temp Pulse Resp BP Pulse Ox 98.3 F 79 19 125/66 98 07/13/18 05:26 07/13/18 05:27 07/13/18 05:26 07/13/18 05:26 07/13/18 05:26 Intake and Output: 07/13/18 07/13/18 06:59 18:59 Intake Total 956 Output Total 400 Balance 556 - Medications Medications: Current Medications Acetaminophen (Tylenol 325mg Tab) 650 mg PO Q4 PRN PRN Reason: Fever >100.4 F Last Admin: 07/06/18 20:35 Dose: 650 mg Aspirin (Ecotrin) 81 mg PO DAILY [facility] Last Admin: 07/12/18 11:00 Dose: 81 mg Atorvastatin Calcium (Lipitor) 20 mg PO DIN [facility] Last Admin: 07/12/18 17:39 Dose: 20 mg Cephalexin Monohydrate (Keflex) 500 mg PO BID [facility]; Protocol Stop: 07/19/18 10:01 Last Admin: 07/12/18 17:39 Dose: 500 mg Clonidine HCl (Catapres) 0.1 mg PO BID [facility] Last Admin: 07/12/18 20:28 Dose: 0.1 mg Clopidogrel Bisulfate (Plavix) 75 mg PO DAILY [facility] Last Admin: 07/12/18 11:00 Dose: 75 mg Dextrose (Dextrose 50% Inj) 0 ml IV STAT PRN; Protocol PRN Reason: Hypoglycemia Protocol Gabapentin (Neurontin) 300 mg PO BID [facility]; Protocol Last Admin: 07/12/18 17:39 Dose: 300 mg Dextrose (Dextrose 5% In Water 1000 Ml) 1,000 mls @ 0 mls/hr IV .Q0M PRN; Protocol PRN Reason: Hypoglycemia Protocol Sodium Chloride (Sodium Chloride 0.45%) 1,000 mls @ 60 mls/hr IV .[id number] [facility] Last Admin: 07/13/18 08:58 Dose: 60 mls/hr Heparin Sodium/Sodium Chloride (Heparin 77882 Units/250ml 1/2 Normal Saline) 25,000 units in 250 mls @ 9.716 mls/hr IV .Q24H PRN; Protocol PRN Reason: ADJUST RATE PER PROTOCOL Last Admin: 07/12/18 17:16 Dose: 18 units/kg/hr, 9.716 mls/hr Insulin Detemir (Levemir) 12 unit SC Q12H [facility] Last Admin: 07/12/18 23:00 Dose: Not Given Insulin Human Regular (Humulin R Med) 0 units SC ACHS [facility]; Protocol Last Admin: 07/13/18 08:14 Dose: Not Given Metoprolol Tartrate (Lopressor) 25 mg PO 0800,1800 [facility] Last Admin: 07/12/18 17:40 Dose: 25 mg Nitroglycerin (Nitro-Bid 2% Oint) 2 ea TOP Q8 [facility] Last Admin: 07/13/18 05:45 Dose: 2 ea Ondansetron HCl (Zofran Inj) 4 mg IVP ONCE PRN PRN Reason: Nausea/Vomiting Oxycodone HCl (Oxycodone Immediate Release Tab) 2.5 mg PO DAILY [facility] Pantoprazole Sodium (Protonix Ec Tab) 40 mg PO 0600 [facility] Last Admin: 07/13/18 05:45 Dose: 40 mg - Labs Labs: 07/12/18 06:30 07/12/18 06:30 APTT 62.4 Seconds (26.9-38.3) H 07/13/18 05:45 - Constitutional Appears: Non-toxic - Head Exam Head Exam: ATRAUMATIC - Extremities Exam Additional comments: VASC: R DP weakly palpalbe 1/4. L DP and bilateral PT pulses nonpalpable. CFT >3 seconds to all digits. Temperature gradient warm to warm RLE, warm to cold LLE. +1 pitting edema noted to LLE. NEURO: Epicritic and protective sensation grossly intact b/l DERM: Dry eschar measuring approximately 2 x 2 cm noted to distal tuft of right hallux - hyperkeratotic rim present; absent drainage; absent purulence; absent flucutance; absent malodor; no periwound erythema present. No clinical signs of infection appreciated; left foot digits all appear gangrenous, impending forefoot gangrene appreciated; ecchymosis appreciated at the left first mpj ORTHO: No pain on palpation noted to right hallux eschar. Pain on palpation noted to entire left foot, with pain on ROM 1st MPJ, MTJ, STJ, ankle joint. - Neurological Exam Neurological Exam: Alert, Awake, Oriented x3 - Psychiatric Exam Psychiatric exam: Normal Affect, Normal Mood Assessment and Plan - Assessment and Plan (Free Text) Assessment: 73F with 1) b/l foot pain secondary to PAD 2) gangrene of left forefoot Plan: Patient seen and evaluated with Dr. Parekh Bilateral arterial duplex ordered - significant PVD noted b/l, more severe on left Peripheral vascular procedure report - successful left SFA and pop artery jet stream arthrectomy and balloon angioplasty; successful left ant tib angioplasty with focal drug-eluting stent placement; successful left tibperoneal trunk and prox left PT artery angioplasty Left foot and ankle XR ordered - no acute fractures or dislocations Left foot MRI ordered - pending Impending gangrene of left forefoot appreciated Continue abx per ID Will discuss podiatry intervention with Dr. Ray Podiatry will continue to follow
[2018-07-13] MEDS: oxyCODONE 5 mg Immediate Release Tab PO SCH (10:34)
[2018-07-13] MEDS: Insulin Detemir 100 units/ml Vial (Levemir) SC SCH ×2 (10:36→23:20)
--- NOTE | 2018-07-13 10:43 | CP.PCM.PCO ---
Physician Communication Note - Physician Communication Note Physician Communication Note: continue heparin drip, MRI pending
--- NOTE | 2018-07-13 15:25 | PN ---
DATE: 07/13/2018 SUBJECTIVE: The patient is complaining of mild foot pain. She denies any chest pain. PHYSICAL EXAMINATION: VITAL SIGNS: Blood pressure 115/58, heart rate 91, temperature 98.3, and respirations 19. HEENT: Clear conjunctivae. CHEST: Clear. HEART: S1 and S2 regular. EXTREMITIES: No edema. LABORATORY DATA: Today's blood sugar is 270 and 126 respectively. Echocardiographic study done yesterday revealed borderline concentric LVH with normal systolic function, moderate aortic insufficiency, mild mitral insufficiency, and severe pulmonary hypertension. ASSESSMENT: 1. Status post left lower extremity atherectomy and balloon angioplasty. 2. Severe pulmonary hypertension. 3. Moderate aortic insufficiency. 4. Uncontrolled diabetes mellitus. 5. Hypertension. RECOMMENDATIONS: Continue clonidine 0.1 mg twice a day, aspirin 81 mg once a day, Lipitor 20 mg once a day, Lopressor 25 mg twice a day, and Plavix 75 mg once a day. The patient was started yesterday on intravenous heparin. Carlton Merritt MD
--- NOTE | 2018-07-13 16:01 | CP.PCM.PN ---
<Jose Salvador - Last Filed: 07/13/18 16:02> Subjective - Date & Time of Evaluation Date of Evaluation: 07/13/18 Time of Evaluation: 10:00 - Subjective Subjective: PGY-2 medicine progress note for Dr Rockwell No acute events noted overnight. Patient stated pain in left foot is better. Denied f/c, n/v. Stated she will try to work with PT. Still reluctant to go to rehab. Objective - Vital Signs/Intake and Output Vital Signs (last 24 hours): Temp Pulse Resp BP Pulse Ox 98.4 F 77 18 106/63 98 07/13/18 12:00 07/13/18 12:00 07/13/18 12:00 07/13/18 12:00 07/13/18 05:26 Intake and Output: 07/13/18 07/13/18 06:59 18:59 Intake Total 956 Output Total 400 Balance 556 - Medications Medications: Current Medications Acetaminophen (Tylenol 325mg Tab) 650 mg PO Q4 PRN PRN Reason: Fever >100.4 F Last Admin: 07/06/18 20:35 Dose: 650 mg Aspirin (Ecotrin) 81 mg PO DAILY [facility] Last Admin: 07/13/18 10:36 Dose: 81 mg Atorvastatin Calcium (Lipitor) 20 mg PO DIN [facility] Last Admin: 07/12/18 17:39 Dose: 20 mg Cephalexin Monohydrate (Keflex) 500 mg PO BID [facility]; Protocol Stop: 07/19/18 10:01 Last Admin: 07/13/18 10:36 Dose: 500 mg Clonidine HCl (Catapres) 0.1 mg PO BID [facility] Last Admin: 07/13/18 10:35 Dose: 0.1 mg Clopidogrel Bisulfate (Plavix) 75 mg PO DAILY [facility] Last Admin: 07/13/18 10:36 Dose: 75 mg Dextrose (Dextrose 50% Inj) 0 ml IV STAT PRN; Protocol PRN Reason: Hypoglycemia Protocol Gabapentin (Neurontin) 300 mg PO BID [facility]; Protocol Last Admin: 07/13/18 10:37 Dose: 300 mg Dextrose (Dextrose 5% In Water 1000 Ml) 1,000 mls @ 0 mls/hr IV .Q0M PRN; Protocol PRN Reason: Hypoglycemia Protocol Sodium Chloride (Sodium Chloride 0.45%) 1,000 mls @ 60 mls/hr IV .[id number] [facility] Last Admin: 07/13/18 08:58 Dose: 60 mls/hr Heparin Sodium/Sodium Chloride (Heparin 49732 Units/250ml 1/2 Normal Saline) 25,000 units in 250 mls @ 9.716 mls/hr IV .Q24H PRN; Protocol PRN Reason: ADJUST RATE PER PROTOCOL Last Admin: 07/12/18 17:16 Dose: 18 units/kg/hr, 9.716 mls/hr Insulin Detemir (Levemir) 12 unit SC Q12H [facility] Last Admin: 07/13/18 10:36 Dose: 12 units Insulin Human Regular (Humulin R Med) 0 units SC ACHS [facility]; Protocol Last Admin: 07/13/18 12:28 Dose: 3 units Metoprolol Tartrate (Lopressor) 25 mg PO 0800,1800 [facility] Last Admin: 07/13/18 10:36 Dose: 25 mg Nitroglycerin (Nitro-Bid 2% Oint) 2 ea TOP Q8 [facility] Last Admin: 07/13/18 14:35 Dose: 2 ea Ondansetron HCl (Zofran Inj) 4 mg IVP ONCE PRN PRN Reason: Nausea/Vomiting Oxycodone HCl (Oxycodone Immediate Release Tab) 2.5 mg PO DAILY [facility] Last Admin: 07/13/18 10:34 Dose: 2.5 mg Pantoprazole Sodium (Protonix Ec Tab) 40 mg PO 0600 [facility] Last Admin: 07/13/18 05:45 Dose: 40 mg - Labs Labs: 07/12/18 06:30 07/12/18 06:30 APTT 62.4 Seconds (26.9-38.3) H 07/13/18 05:45 - Additional Findings Additional findings: - Constitutional Appears: Well, Non-toxic, No Acute Distress - Head Exam Head Exam: ATRAUMATIC, NORMAL INSPECTION, NORMOCEPHALIC - Eye Exam Eye Exam: EOMI - ENT Exam ENT Exam: Mucous Membranes Dry - Respiratory Exam Respiratory Exam: NORMAL BREATHING PATTERN. absent: Wheezes, Respiratory Distress - Cardiovascular Exam Cardiovascular Exam: REGULAR RHYTHM, +S1, +S2. absent: Tachycardia - GI/Abdominal Exam GI & Abdominal Exam: Soft, Normal Bowel Sounds. absent: Tenderness - Extremities Exam Extremities Exam: Full ROM, Tenderness. absent: Calf Tenderness, Joint Swelling, Pedal Edema Additional comments: LLE tenderness to palpation Right 1st toe superificial ulceration, nonerythematous and nondraining - Neurological Exam Neurological Exam: Alert, Awake - Psychiatric Exam Psychiatric exam: Normal Affect, Normal Mood - Skin Skin Exam: Dry, Intact, Normal Color, Warm Assessment and Plan - Assessment and Plan (Free Text) Plan: 73 year old female with PMH of diabetes,HTN,PVD, and noncompliance with medication was admitted with altered mental status and hyperglycemia. Clinical course complicated by ichemic rest pain of the left LE. Revascularization of LLE w/ IR POD#1. Plan: PAD - S/p IR revascularization of LLE POD#2 - Pending PT evaluation s/p revascularization procedure - Cardiology following - ECHO: Borderline concentric LVH, EF normal; Moderate AR, mild MR, severe TR, mild NJ, Severe pulm HTN - Continue Asa and Plavix - Continue Lipitor - Arterial US: Severely abnormal L ALYSE @ rest ALYSE is .46. R ALYSE is at .77 and is moderately abnormal - Venous duplex US of LE: No evidence of DVT - Normal radiographs of the ankle and foot - CT angiogram 07/06: severe stenosis in the distal superficial femoral arteries bilaterally. Single vessel runoff to both ankles via the posterior tibial. The anterior tibials are thin and narrow with multi focal stenosis - f/u MRI of left foot - concern for gangrene and osteo - right foot was cold - started heparin drip evening of 07/12 - follow-up with Dr Ray regarding plan for right foot Hypertension - Patient on Metoprolol 25mg PO BID - Per cardio, started on Clonidine 0.1mg BID - Will continue to monitor vitals Altered mental status, resolved - Pt is now AOx3 - Likely 2/2 elevated blood glucose levels upon admission in the 700s, now resolved - CT head: age appropriate changes, no acute pathology - UDS negative - Low grade temperature of 99.9 overnight - UA (-) for nitrates, LE or WBC - Ucx (-) - BCx (-) - CXR negative for active disease Hyperglycemia w/o elevated AG - ISS - Accuchecks - Hgba1c 15.5 - Levemir 12u Q12 - Diabetic education RLE ulcer - Continue Keflex per ID for total of 14 days - Local wound care - XR showed soft tissue swelling w/o acute articular or osseous abnormality - Podiatry following PPX DVT: Lovenox SC GI:Protonix Dispo: Will work with PT and CM regarding patient placement to [facility] or home w/ services for discharge planning Patient plan reviewed and discussed with Dr. Rockwell <Omari Rockwell - Last Filed: 07/13/18 17:08> Objective - Vital Signs/Intake and Output Vital Signs (last 24 hours): Temp Pulse Resp BP Pulse Ox 98.4 F 77 18 106/63 98 07/13/18 12:00 07/13/18 12:00 07/13/18 12:00 07/13/18 12:00 07/13/18 05:26 Intake and Output: 07/13/18 07/13/18 06:59 18:59 Intake Total 956 Output Total 400 Balance 556 - Medications Medications: Current Medications Acetaminophen (Tylenol 325mg Tab) 650 mg PO Q4 PRN PRN Reason: Fever >100.4 F Last Admin: 07/06/18 20:35 Dose: 650 mg Aspirin (Ecotrin) 81 mg PO DAILY [facility] Last Admin: 07/13/18 10:36 Dose: 81 mg Atorvastatin Calcium (Lipitor) 20 mg PO DIN [facility] Last Admin: 07/12/18 17:39 Dose: 20 mg Cephalexin Monohydrate (Keflex) 500 mg PO BID [facility]; Protocol Stop: 07/19/18 10:01 Last Admin: 07/13/18 10:36 Dose: 500 mg Clonidine HCl (Catapres) 0.1 mg PO BID [facility] Last Admin: 07/13/18 10:35 Dose: 0.1 mg Clopidogrel Bisulfate (Plavix) 75 mg PO DAILY [facility] Last Admin: 07/13/18 10:36 Dose: 75 mg Dextrose (Dextrose 50% Inj) 0 ml IV STAT PRN; Protocol PRN Reason: Hypoglycemia Protocol Gabapentin (Neurontin) 300 mg PO BID [facility]; Protocol Last Admin: 07/13/18 10:37 Dose: 300 mg Dextrose (Dextrose 5% In Water 1000 Ml) 1,000 mls @ 0 mls/hr IV .Q0M PRN; Protocol PRN Reason: Hypoglycemia Protocol Sodium Chloride (Sodium Chloride 0.45%) 1,000 mls @ 60 mls/hr IV .[id number] [facility] Last Admin: 07/13/18 08:58 Dose: 60 mls/hr Heparin Sodium/Sodium Chloride (Heparin 17879 Units/250ml 1/2 Normal Saline) 25,000 units in 250 mls @ 9.716 mls/hr IV .Q24H PRN; Protocol PRN Reason: ADJUST RATE PER PROTOCOL Last Admin: 07/12/18 17:16 Dose: 18 units/kg/hr, 9.716 mls/hr Insulin Detemir (Levemir) 12 unit SC Q12H [facility] Last Admin: 07/13/18 10:36 Dose: 12 units Insulin Human Regular (Humulin R Med) 0 units SC ACHS [facility]; Protocol Last Admin: 07/13/18 12:28 Dose: 3 units Metoprolol Tartrate (Lopressor) 25 mg PO 0800,1800 [facility] Last Admin: 07/13/18 10:36 Dose: 25 mg Nitroglycerin (Nitro-Bid 2% Oint) 2 ea TOP Q8 [facility] Last Admin: 07/13/18 14:35 Dose: 2 ea Ondansetron HCl (Zofran Inj) 4 mg IVP ONCE PRN PRN Reason: Nausea/Vomiting Oxycodone HCl (Oxycodone Immediate Release Tab) 2.5 mg PO DAILY [facility] Last Admin: 07/13/18 10:34 Dose: 2.5 mg Pantoprazole Sodium (Protonix Ec Tab) 40 mg PO 0600 [facility] Last Admin: 07/13/18 05:45 Dose: 40 mg - Labs Labs: 07/12/18 06:30 07/12/18 06:30 APTT 62.4 Seconds (26.9-38.3) H 07/13/18 05:45 Attending/Attestation - Attestation I have personally seen and examined this patient.: Yes I have fully participated in the care of the patient.: Yes I have reviewed all pertinent clinical information, including history, physical exam and plan: Yes Notes (Text): 07/13/18 17:05 73 year old female with past medical history of diabetes, hypertension, PVD and history of medication noncompliance who initially presented with altered mental status and significantly elevated blood sugars (>700) which improved with iv fluids and insulin. AMS resolved. A1c is 15.5 and patient was started on levemir. Patient was also found to have right big toe ulcer and severe PAD/PVD. Arterial doppler showed severely abnormal L ALYSE 0.46 and moderately abnormal R ALYSE 0.77. CT angiogram showed severe stenosis in the distal superficial femoral arteries bilaterally; single vessel runoff to both ankles via the posterior tibial; anterior tibials are thin and narrow with multifocal stenosis. Continue with aspirin, plavix and lipitor. Continue with antibiotics as per ID. Podiatry and ID are following. Patient is s/p IR procedure POD #2 with successful left SFA and popliteal artherectomy and drug eluting balloon angioplasty, successful left anterior tibial artery angioplasty and focal drug eluting drug placement, and successful left tibioperoneal trunk and proximal left posterior tibial artery angioplasty. Yesterday she complained of right foot pain and was seen by IR and started on heparin drip. PT is following; still recommending GABBY which patient is currently refusing. Cardiology is following and patient is on metoprolol and clonidine for hypertension. Omari Rockwell MD Hospitalist.
[2018-07-13] MEDS: Heparin25000 units/250ml 1/2NS 25,000 UNITS/250 ML BAG IV PRN (18:00)
--- NOTE | 2018-07-13 18:05 | CP.PCM.PN ---
Subjective - Date & Time of Evaluation Date of Evaluation: 07/13/18 Time of Evaluation: 16:00 - Subjective Subjective: Infectious Disease Follow Up: July 13, 2018 73 yo female with history of Type II DM. The patient was found to be altered in a laundromat. Patient herself gives little information. Patient's PMD is apparently in [place], [place], his name is Dr. Akbar. The patient name is Jessica Brizuela. Patient had fever of 101.0 F. No leukocytosis. Limited information provided by the patient. Patient is hyperglycemic on admission and still has elevated glucose levels. Was under isolation for bedbugs. No further fever episodes today. Afebrile for the last few days now. Duplex showing disease of the vessels of the left leg. Abdominal CT Angiography showing severe stenosis in the distal superficial femoral arteries bilaterally. Single vessel runoff to both ankles via the posterior tibials. The anterior tibials are thin and narrow with multi focal stenosis. Significant peripheral vascular disease bilaterally. Had angioplasty with Dr. Ray in morning of 07/11/2018. Podiatry concerned with left forefoot impending gangrene. Nearing completion of IV antibiotics. Objective - Vital Signs/Intake and Output Vital Signs (last 24 hours): Temp Pulse Resp BP Pulse Ox 98.2 F 85 19 128/69 98 07/13/18 17:49 07/13/18 17:49 07/13/18 17:49 07/13/18 17:49 07/13/18 05:26 Intake and Output: 07/13/18 07/13/18 06:59 18:59 Intake Total 956 Output Total 400 Balance 556 - Medications Medications: Current Medications Acetaminophen (Tylenol 325mg Tab) 650 mg PO Q4 PRN PRN Reason: Fever >100.4 F Last Admin: 07/06/18 20:35 Dose: 650 mg Aspirin (Ecotrin) 81 mg PO DAILY [facility] Last Admin: 07/13/18 10:36 Dose: 81 mg Atorvastatin Calcium (Lipitor) 20 mg PO DIN [facility] Last Admin: 07/12/18 17:39 Dose: 20 mg Cephalexin Monohydrate (Keflex) 500 mg PO BID [facility]; Protocol Stop: 07/19/18 10:01 Last Admin: 07/13/18 10:36 Dose: 500 mg Clonidine HCl (Catapres) 0.1 mg PO BID [facility] Last Admin: 07/13/18 10:35 Dose: 0.1 mg Clopidogrel Bisulfate (Plavix) 75 mg PO DAILY [facility] Last Admin: 07/13/18 10:36 Dose: 75 mg Dextrose (Dextrose 50% Inj) 0 ml IV STAT PRN; Protocol PRN Reason: Hypoglycemia Protocol Gabapentin (Neurontin) 300 mg PO BID [facility]; Protocol Last Admin: 07/13/18 10:37 Dose: 300 mg Dextrose (Dextrose 5% In Water 1000 Ml) 1,000 mls @ 0 mls/hr IV .Q0M PRN; Protocol PRN Reason: Hypoglycemia Protocol Sodium Chloride (Sodium Chloride 0.45%) 1,000 mls @ 60 mls/hr IV .[id number] [facility] Last Admin: 07/13/18 08:58 Dose: 60 mls/hr Heparin Sodium/Sodium Chloride (Heparin 21419 Units/250ml 1/2 Normal Saline) 25,000 units in 250 mls @ 9.716 mls/hr IV .Q24H PRN; Protocol PRN Reason: ADJUST RATE PER PROTOCOL Last Admin: 07/12/18 17:16 Dose: 18 units/kg/hr, 9.716 mls/hr Insulin Detemir (Levemir) 12 unit SC Q12H [facility] Last Admin: 07/13/18 10:36 Dose: 12 units Insulin Human Regular (Humulin R Med) 0 units SC ACHS [facility]; Protocol Last Admin: 07/13/18 12:28 Dose: 3 units Metoprolol Tartrate (Lopressor) 25 mg PO 0800,1800 [facility] Last Admin: 07/13/18 10:36 Dose: 25 mg Nitroglycerin (Nitro-Bid 2% Oint) 2 ea TOP Q8 [facility] Last Admin: 07/13/18 14:35 Dose: 2 ea Ondansetron HCl (Zofran Inj) 4 mg IVP ONCE PRN PRN Reason: Nausea/Vomiting Oxycodone HCl (Oxycodone Immediate Release Tab) 2.5 mg PO DAILY [facility] Last Admin: 07/13/18 10:34 Dose: 2.5 mg Pantoprazole Sodium (Protonix Ec Tab) 40 mg PO 0600 [facility] Last Admin: 07/13/18 05:45 Dose: 40 mg - Labs Labs: 07/12/18 06:30 07/12/18 06:30 APTT 62.4 Seconds (26.9-38.3) H 07/13/18 05:45 - Constitutional Appears: Non-toxic, No Acute Distress, Chronically Ill - Head Exam Head Exam: ATRAUMATIC, NORMOCEPHALIC - Eye Exam Eye Exam: EOMI, PERRL Pupil Exam: NORMAL ACCOMODATION, PERRL - ENT Exam ENT Exam: Mucous Membranes Moist, Normal External Ear Exam, TM's Normal Bilater ally - Neck Exam Neck Exam: Full ROM, Normal Inspection - Respiratory Exam Respiratory Exam: Clear to Ausculation Bilateral, NORMAL BREATHING PATTERN. absent: Rales, Rhonchi, Wheezes - Cardiovascular Exam Cardiovascular Exam: REGULAR RHYTHM, RRR, +S1, +S2 - GI/Abdominal Exam GI & Abdominal Exam: Soft, Normal Bowel Sounds. absent: Distended, Tenderness - Extremities Exam Additional comments: RLE big toe ulcer/eschar. Mild edema of the left lower leg. Duskiness of the left forefoot. - Neurological Exam Neurological Exam: Alert, Awake, CN II-XII Intact, Oriented x3 - Psychiatric Exam Psychiatric exam: Flat Affect Additional comments: Distant. Often answers questions with "I don't know", "I don't remember", or "I forgot". - Skin Additional comments: As above. Assessment and Plan - Assessment and Plan (Free Text) Assessment: 73 yo female presenting for altered mental status, fevers up to 101.0 F, and hyperglycemia. Negative Chest X-ray. X-ray right big toe showing swelling of the soft tissues only. Head CT negative. Patient was hyponatremic. Unclear how the patient's DM control is normally. Likely with some degree of dehydration in addition to the hyperglycemia. Check Hgb A1c... 15.5. Monitor glucose levels. Started on Vancomycin and Zosyn. Villagran cultures. Supportive care. Afebrile today. Found to have bedbugs and was isolated. Patient was washed and now off isolation. Duplex studies showing severe peripheral vascular disease bilaterally. Cultures negative. Left foot and ankle X-ray negative. Considering oral antibiotic care with Keflex. Patient with diabetes that is not under control. Borderline fevers. Angioplasty with Dr. Ray occurred on 07/11/2018. Impressions were: 1. Successful left SFA and popliteal arter jet stream atherectomy and drug- eluting stent balloon angioplasty. No stent was required. 2. Successful left anterior tibial artery angioplasty and focal drug-eluting stent placement 3. Successful left tibioperoneal trunk and proximal left posterior tibial artery angioplasty 4. 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 Critical right popliteal artery stenoses. No additional issues. Would consider total of 14 days of antibiotics both IV and orally administered. Podiatry concerned with impending gangrene of the left forefoot. Noted echocardiogram report and severity of valve disease. Thank you for allowing me to participate in the care of the patient, we will follow with you.
[2018-07-14] MEDS: Pantoprazole 40 mg EC Tab PO SCH (07:03)
[2018-07-14] MEDS: Nitroglycerin 2% Ointment Foilpak UD TOP SCH ×3 (07:03→22:15)
[2018-07-14 07:04] LABS: BASO # 0.04 K/mm3 (0.0-2.0); BASO % 0.3 % (0.0-3.0); EOS # 0.2 (0.0-0.7); EOS % 1.8 % (1.5-5.0); HEMOGLOBIN 7.7 g/dL (12.0-16.0); LYMPH # 2.1 (1.2-3.4); LYMPH % 16.8 % (22.0-35.0); MEAN CELL VOLUME 86.7 fl (80.0-105.0); MEAN CORPUSCULAR HEMOGLOBIN 27.7 pg (25.0-35.0); MEAN PLATELET VOLUME 9.2 fl (7.0-11.0); MONO # 1.3 (0.1-0.6); MONO % 10.6 % (1.0-6.0); RBC 2.78 10^6/uL (3.5-6.1); RED CELL DISTRIBUTION WIDTH 12.3 % (11.5-14.5); WHITE BLOOD COUNT 12.5 10^3/uL (4.5-11.0)
[2018-07-14 07:16] LABS: BLOOD UREA NITROGEN 21 mg/dL (7-21); CALCIUM 8.1 mg/dL (8.4-10.5); GFR NON-AFRICAN AMERICAN > 60
--- NOTE | 2018-07-14 10:00 | CP.PCM.PN ---
<David Johnson - Last Filed: 07/14/18 12:25> Subjective - Date & Time of Evaluation Date of Evaluation: 07/14/18 Time of Evaluation: 09:57 - Subjective Subjective: Medicine Progress Note for Dr. Rockwell 73F seen and evaluated at bedside this morning. No acute events overnight. States LE pain has improved since yesterday. Left 1st and 2nd toe continue to look dry gangrene and cool to touch. Patient currently on heparin drip. Denies f/c, n/v/d, SOB, CP, or urinary symptoms. Objective - Vital Signs/Intake and Output Vital Signs (last 24 hours): Temp Pulse Resp BP Pulse Ox 98.5 F 91 H 20 118/66 98 07/14/18 06:00 07/14/18 06:00 07/14/18 06:00 07/14/18 08:32 07/13/18 05:26 Intake and Output: 07/14/18 07/14/18 06:59 18:59 Intake Total 2276 Balance 2276 - Medications Medications: Current Medications Acetaminophen (Tylenol 325mg Tab) 650 mg PO Q4 PRN PRN Reason: Fever >100.4 F Last Admin: 07/06/18 20:35 Dose: 650 mg Aspirin (Ecotrin) 81 mg PO DAILY [facility] Last Admin: 07/13/18 10:36 Dose: 81 mg Atorvastatin Calcium (Lipitor) 20 mg PO DIN [facility] Last Admin: 07/13/18 18:01 Dose: 20 mg Cephalexin Monohydrate (Keflex) 500 mg PO BID [facility]; Protocol Stop: 07/19/18 10:01 Last Admin: 07/13/18 18:01 Dose: 500 mg Clonidine HCl (Catapres) 0.1 mg PO BID [facility] Last Admin: 07/13/18 18:02 Dose: 0.1 mg Clopidogrel Bisulfate (Plavix) 75 mg PO DAILY [facility] Last Admin: 07/13/18 10:36 Dose: 75 mg Dextrose (Dextrose 50% Inj) 0 ml IV STAT PRN; Protocol PRN Reason: Hypoglycemia Protocol Gabapentin (Neurontin) 300 mg PO BID [facility]; Protocol Last Admin: 07/13/18 18:01 Dose: 300 mg Dextrose (Dextrose 5% In Water 1000 Ml) 1,000 mls @ 0 mls/hr IV .Q0M PRN; Protocol PRN Reason: Hypoglycemia Protocol Sodium Chloride (Sodium Chloride 0.45%) 1,000 mls @ 60 mls/hr IV .[id number] [facility] Last Admin: 07/13/18 23:23 Dose: 60 mls/hr Heparin Sodium/Sodium Chloride (Heparin 10780 Units/250ml 1/2 Normal Saline) 25,000 units in 250 mls @ 9.716 mls/hr IV .Q24H PRN; Protocol PRN Reason: ADJUST RATE PER PROTOCOL Stop: 07/15/18 10:00 Last Admin: 07/13/18 18:00 Dose: 18 units/kg/hr, 9.716 mls/hr Insulin Detemir (Levemir) 12 unit SC Q12H [facility] Last Admin: 07/13/18 23:20 Dose: 12 units Insulin Human Regular (Humulin R Med) 0 units SC ACHS [facility]; Protocol Last Admin: 07/13/18 18:02 Dose: 5 units Metoprolol Tartrate (Lopressor) 25 mg PO 0800,1800 [facility] Last Admin: 07/14/18 08:32 Dose: 25 mg Nitroglycerin (Nitro-Bid 2% Oint) 2 ea TOP Q8 [facility] Last Admin: 07/14/18 07:03 Dose: 2 ea Ondansetron HCl (Zofran Inj) 4 mg IVP ONCE PRN PRN Reason: Nausea/Vomiting Oxycodone HCl (Oxycodone Immediate Release Tab) 2.5 mg PO DAILY [facility] Last Admin: 07/13/18 10:34 Dose: 2.5 mg Pantoprazole Sodium (Protonix Ec Tab) 40 mg PO 0600 [facility] Last Admin: 07/14/18 07:03 Dose: 40 mg - Labs Labs: 07/14/18 06:30 07/14/18 06:30 APTT 56.2 Seconds (26.9-38.3) H 07/14/18 06:30 - Constitutional Appears: Well, Non-toxic, No Acute Distress - Head Exam Head Exam: ATRAUMATIC, NORMAL INSPECTION, NORMOCEPHALIC - Eye Exam Eye Exam: EOMI - ENT Exam ENT Exam: Mucous Membranes Dry - Respiratory Exam Respiratory Exam: NORMAL BREATHING PATTERN. absent: Wheezes, Respiratory Distress - Cardiovascular Exam Cardiovascular Exam: REGULAR RHYTHM, +S1, +S2. absent: Murmur - GI/Abdominal Exam GI & Abdominal Exam: Soft, Normal Bowel Sounds. absent: Tenderness - Extremities Exam Additional comments: Left 1st and 2nd toe dry gangrene, cool to touch Rest of left LE warm, less tender to palpation Right LE cool to touch, minimal tenderness, nonpalpable DP/PT pulses - Neurological Exam Neurological Exam: Alert, Awake - Psychiatric Exam Psychiatric exam: Normal Affect, Normal Mood - Skin Skin Exam: Dry, Intact, Normal Color, Warm Additional comments: Right 1st toe superficial ulceration Assessment and Plan - Assessment and Plan (Free Text) Assessment: 73 year old female with PMH of diabetes,HTN,PVD, and noncompliance with medi cation was admitted with altered mental status and hyperglycemia. Clinical course complicated by ichemic rest pain of the left LE. Revascularization of LLE w/ IR POD#3. Plan: PAD - S/p IR revascularization of LLE POD#3 - ECHO: Borderline concentric LVH, EF normal; Moderate AR, mild MR, severe TR, mild IL, Severe pulm HTN - Continue Asa and Plavix - Continue Lipitor - Arterial US: Severely abnormal L ALYSE @ rest ALYSE is .46. R ALYSE is at .77 and is moderately abnormal - Venous duplex US of LE: No evidence of DVT - Normal radiographs of the ankle and foot - CT angiogram 07/06: severe stenosis in the distal superficial femoral arteries bilaterally. Single vessel runoff to both ankles via the posterior tibial. The anterior tibials are thin and narrow with multi focal stenosis - Peripheral vascular procedure report: successful left SFA and pop artery jet stream arthrectomy and balloon angioplasty; successful left ant tib angioplasty with focal drug-eluting stent placement; successful left tibperoneal trunk and prox left PT artery angioplasty Left Lower Extremity Gangrene - F/u MRI of left foot - concern for gangrene and osteo - Started heparin drip evening of 07/12 - per IR, discontinue heparin drip jack rrow morning - Recent drop in Hgb, 7.7, will repeat H/H in afternoon, no overt signs of bleeding noted at this time - Transfuse as needed - Podiatry following, pending further recommendations; possible amputation candidate - Will continue to monitor Hypertension - Patient on Metoprolol 25mg PO BID - Per cardio, started on Clonidine 0.1mg BID - Cardiology following - Will continue to monitor vitals Altered mental status, resolved - Pt is now AOx3 - Likely 2/2 elevated blood glucose levels upon admission in the 700s, now resolved - CT head: age appropriate changes, no acute pathology - UDS negative - Low grade temperature of 99.9 overnight - UA (-) for nitrates, LE or WBC - Ucx (-) - BCx (-) - CXR negative for active disease Hyperglycemia w/o elevated AG - ISS - Accuchecks - Hgba1c 15.5 - Levemir 12u Q12 - Diabetic education 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 Luli Johnson PGY1 <Omari Rockwell - Last Filed: 07/14/18 15:22> Objective - Vital Signs/Intake and Output Vital Signs (last 24 hours): Temp Pulse Resp BP Pulse Ox 98.6 F 71 18 91/52 L 98 07/14/18 12:00 07/14/18 12:00 07/14/18 12:00 07/14/18 12:00 07/13/18 05:26 Intake and Output: 07/14/18 07/14/18 06:59 18:59 Intake Total 2276 Balance 2276 - Medications Medications: Current Medications Acetaminophen (Tylenol 325mg Tab) 650 mg PO Q4 PRN PRN Reason: Fever >100.4 F Last Admin: 07/06/18 20:35 Dose: 650 mg Aspirin (Ecotrin) 81 mg PO DAILY [facility] Last Admin: 07/14/18 10:44 Dose: 81 mg Atorvastatin Calcium (Lipitor) 20 mg PO DIN [facility] Last Admin: 07/13/18 18:01 Dose: 20 mg Cephalexin Monohydrate (Keflex) 500 mg PO BID [facility]; Protocol Stop: 07/19/18 10:01 Last Admin: 07/14/18 10:44 Dose: 500 mg Clonidine HCl (Catapres) 0.1 mg PO BID [facility] Last Admin: 07/14/18 10:44 Dose: 0.1 mg Clopidogrel Bisulfate (Plavix) 75 mg PO DAILY [facility] Last Admin: 07/14/18 10:46 Dose: 75 mg Dextrose (Dextrose 50% Inj) 0 ml IV STAT PRN; Protocol PRN Reason: Hypoglycemia Protocol Gabapentin (Neurontin) 300 mg PO BID [facility]; Protocol Last Admin: 07/14/18 10:44 Dose: 300 mg Dextrose (Dextrose 5% In Water 1000 Ml) 1,000 mls @ 0 mls/hr IV .Q0M PRN; Protocol PRN Reason: Hypoglycemia Protocol Heparin Sodium/Sodium Chloride (Heparin 01844 Units/250ml 1/2 Normal Saline) 25,000 units in 250 mls @ 9.716 mls/hr IV .Q24H PRN; Protocol PRN Reason: ADJUST RATE PER PROTOCOL Stop: 07/15/18 10:00 Last Admin: 07/13/18 18:00 Dose: 18 units/kg/hr, 9.716 mls/hr Insulin Detemir (Levemir) 12 unit SC Q12H [facility] Last Admin: 07/14/18 13:02 Dose: 12 units Insulin Human Regular (Humulin R Med) 0 units SC ACHS [facility]; Protocol Last Admin: 07/14/18 13:02 Dose: 3 units Metoprolol Tartrate (Lopressor) 25 mg PO 0800,1800 [facility] Last Admin: 07/14/18 08:32 Dose: 25 mg Nitroglycerin (Nitro-Bid 2% Oint) 2 ea TOP Q8 [facility] Last Admin: 07/14/18 13:16 Dose: Not Given Ondansetron HCl (Zofran Inj) 4 mg IVP ONCE PRN PRN Reason: Nausea/Vomiting Oxycodone HCl (Oxycodone Immediate Release Tab) 2.5 mg PO DAILY [facility] Last Admin: 07/14/18 10:48 Dose: 2.5 mg Pantoprazole Sodium (Protonix Ec Tab) 40 mg PO 0600 [facility] Last Admin: 07/14/18 07:03 Dose: 40 mg - Labs Labs: 07/14/18 11:50 07/14/18 06:30 APTT 56.2 Seconds (26.9-38.3) H 07/14/18 06:30 Attending/Attestation - Attestation I have personally seen and examined this patient.: Yes I have fully participated in the care of the patient.: Yes I have reviewed all pertinent clinical information, including history, physical exam and plan: Yes Notes (Text): 07/14/18 15:20 73 year old female with past medical history of diabetes, hypertension, PVD and history of medication noncompliance who initially presented with altered mental status and significantly elevated blood sugars (>700) which improved with iv fluids and insulin. AMS resolved. A1c is 15.5 and patient was started on levemir. Patient was also found to have right big toe ulcer and severe PAD/PVD. Arterial doppler showed severely abnormal L ALYSE 0.46 and moderately abnormal R ALYSE 0.77. Continue with antibiotics as per ID. CT angiogram showed severe stenosis in the distal superficial femoral arteries bilaterally; single vessel runoff to both ankles via the posterior tibial; anterior tibials are thin and narrow with multifocal stenosis. Continue with aspirin, plavix and lipitor. Patient is s/p IR procedure POD #3 with successful left SFA and popliteal artherectomy and drug eluting balloon angioplasty, successful left anterior tibial artery angioplasty and focal drug eluting drug placement, and successful left tibioperoneal trunk and proximal left posterior tibial artery angioplasty. Continue with heparin drip as per IR. Podiatry is following and patient is pending MRI foot. Patient is on metoprolol and clonidine for hypertension. PT is following; currently recommending GABBY. Omari Rockwell MD Hospitalist.
--- NOTE | 2018-07-14 10:33 | CP.PCM.PN ---
<Edmond Ba - Last Filed: 07/14/18 11:56> Subjective - Date & Time of Evaluation Date of Evaluation: 07/14/18 Time of Evaluation: 10:29 - Subjective Subjective: Podiatry progress note - Drs. Cobb/Izabella 73F seen and evaluated at bedside this AM for b/l foot pain secondary to PAD. Resting comfortably in bed. Denies any acute overnight events or new pedal complaints. States that pain to both feet is constantly present and the left is much worse than the right. States she was unable to walk yesterday due to pain Objective - Vital Signs/Intake and Output Vital Signs (last 24 hours): Temp Pulse Resp BP Pulse Ox 98.5 F 91 H 20 118/66 98 07/14/18 06:00 07/14/18 06:00 07/14/18 06:00 07/14/18 08:32 07/13/18 05:26 Intake and Output: 07/14/18 07/14/18 06:59 18:59 Intake Total 2276 Balance 2276 - Medications Medications: Current Medications Acetaminophen (Tylenol 325mg Tab) 650 mg PO Q4 PRN PRN Reason: Fever >100.4 F Last Admin: 07/06/18 20:35 Dose: 650 mg Aspirin (Ecotrin) 81 mg PO DAILY [facility] Last Admin: 07/13/18 10:36 Dose: 81 mg Atorvastatin Calcium (Lipitor) 20 mg PO DIN [facility] Last Admin: 07/13/18 18:01 Dose: 20 mg Cephalexin Monohydrate (Keflex) 500 mg PO BID [facility]; Protocol Stop: 07/19/18 10:01 Last Admin: 07/13/18 18:01 Dose: 500 mg Clonidine HCl (Catapres) 0.1 mg PO BID [facility] Last Admin: 07/13/18 18:02 Dose: 0.1 mg Clopidogrel Bisulfate (Plavix) 75 mg PO DAILY [facility] Last Admin: 07/13/18 10:36 Dose: 75 mg Dextrose (Dextrose 50% Inj) 0 ml IV STAT PRN; Protocol PRN Reason: Hypoglycemia Protocol Gabapentin (Neurontin) 300 mg PO BID [facility]; Protocol Last Admin: 07/13/18 18:01 Dose: 300 mg Dextrose (Dextrose 5% In Water 1000 Ml) 1,000 mls @ 0 mls/hr IV .Q0M PRN; Protocol PRN Reason: Hypoglycemia Protocol Heparin Sodium/Sodium Chloride (Heparin 38295 Units/250ml 1/2 Normal Saline) 25,000 units in 250 mls @ 9.716 mls/hr IV .Q24H PRN; Protocol PRN Reason: ADJUST RATE PER PROTOCOL Stop: 07/15/18 10:00 Last Admin: 07/13/18 18:00 Dose: 18 units/kg/hr, 9.716 mls/hr Insulin Detemir (Levemir) 12 unit SC Q12H [facility] Last Admin: 07/13/18 23:20 Dose: 12 units Insulin Human Regular (Humulin R Med) 0 units SC ACHS [facility]; Protocol Last Admin: 07/13/18 18:02 Dose: 5 units Metoprolol Tartrate (Lopressor) 25 mg PO 0800,1800 [facility] Last Admin: 07/14/18 08:32 Dose: 25 mg Nitroglycerin (Nitro-Bid 2% Oint) 2 ea TOP Q8 [facility] Last Admin: 07/14/18 07:03 Dose: 2 ea Ondansetron HCl (Zofran Inj) 4 mg IVP ONCE PRN PRN Reason: Nausea/Vomiting Oxycodone HCl (Oxycodone Immediate Release Tab) 2.5 mg PO DAILY [facility] Last Admin: 07/13/18 10:34 Dose: 2.5 mg Pantoprazole Sodium (Protonix Ec Tab) 40 mg PO 0600 [facility] Last Admin: 07/14/18 07:03 Dose: 40 mg - Labs Labs: 07/14/18 06:30 07/14/18 06:30 APTT 56.2 Seconds (26.9-38.3) H 07/14/18 06:30 - Constitutional Appears: Non-toxic - Head Exam Head Exam: ATRAUMATIC - Extremities Exam Additional comments: B/l LE focused VASC: R DP weakly palpalbe 1/4. L DP and bilateral PT pulses nonpalpable. CFT >3 seconds to all digits. Temperature gradient warm to warm RLE, warm to cold LLE. +1 pitting edema noted to LLE. NEURO: Epicritic and protective sensation grossly intact b/l DERM: Dry eschar measuring approximately 2 x 2 cm noted to distal tuft of right hallux - hyperkeratotic rim present; absent drainage; absent purulence; absent flucutance; absent malodor; no periwound erythema present. No clinical signs of infection appreciated; left foot digits all appear gangrenous, impending forefoot gangrene appreciated; ecchymosis appreciated at the left first mpj ORTHO: No pain on palpation noted to right hallux eschar. Pain on palpation noted to entire left foot, with pain on ROM 1st MPJ, MTJ, STJ, ankle joint. - Neurological Exam Neurological Exam: Alert, Awake, Oriented x3 - Psychiatric Exam Psychiatric exam: Normal Affect, Normal Mood Assessment and Plan - Assessment and Plan (Free Text) Assessment: 73F with 1) b/l foot pain secondary to PAD 2) gangrene of left forefoot Plan: Patient seen and evaluated Discussed with Dr. Cobb Bilateral arterial duplex ordered - significant PVD noted b/l, more severe on left Peripheral vascular procedure report - successful left SFA and pop artery jet stream arthrectomy and balloon angioplasty; successful left ant tib angioplasty with focal drug-eluting stent placement; successful left tibperoneal trunk and prox left PT artery angioplasty Left foot and ankle XR ordered - no acute fractures or dislocations Left foot MRI ordered - pending Impending gangrene of left forefoot appreciated Continue abx per ID Will wait for demarcation of foot to consider podiatric surgical intervention Upon discharge will follow with Dr. Cobb/Izabella in wound center as outpatient Podiatry will continue to follow <Meek Cobb - Last Filed: 07/14/18 13:41> Objective - Vital Signs/Intake and Output Vital Signs (last 24 hours): Temp Pulse Resp BP Pulse Ox 98.6 F 71 18 91/52 L 98 07/14/18 12:00 07/14/18 12:00 07/14/18 12:00 07/14/18 12:00 07/13/18 05:26 Intake and Output: 07/14/18 07/14/18 06:59 18:59 Intake Total 2276 Balance 2276 - Medications Medications: Current Medications Acetaminophen (Tylenol 325mg Tab) 650 mg PO Q4 PRN PRN Reason: Fever >100.4 F Last Admin: 07/06/18 20:35 Dose: 650 mg Aspirin (Ecotrin) 81 mg PO DAILY [facility] Last Admin: 07/14/18 10:44 Dose: 81 mg Atorvastatin Calcium (Lipitor) 20 mg PO DIN [facility] Last Admin: 07/13/18 18:01 Dose: 20 mg Cephalexin Monohydrate (Keflex) 500 mg PO BID [facility]; Protocol Stop: 07/19/18 10:01 Last Admin: 07/14/18 10:44 Dose: 500 mg Clonidine HCl (Catapres) 0.1 mg PO BID [facility] Last Admin: 07/14/18 10:44 Dose: 0.1 mg Clopidogrel Bisulfate (Plavix) 75 mg PO DAILY [facility] Last Admin: 07/14/18 10:46 Dose: 75 mg Dextrose (Dextrose 50% Inj) 0 ml IV STAT PRN; Protocol PRN Reason: Hypoglycemia Protocol Gabapentin (Neurontin) 300 mg PO BID [facility]; Protocol Last Admin: 07/14/18 10:44 Dose: 300 mg Dextrose (Dextrose 5% In Water 1000 Ml) 1,000 mls @ 0 mls/hr IV .Q0M PRN; Protocol PRN Reason: Hypoglycemia Protocol Heparin Sodium/Sodium Chloride (Heparin 46840 Units/250ml 1/2 Normal Saline) 25,000 units in 250 mls @ 9.716 mls/hr IV .Q24H PRN; Protocol PRN Reason: ADJUST RATE PER PROTOCOL Stop: 07/15/18 10:00 Last Admin: 07/13/18 18:00 Dose: 18 units/kg/hr, 9.716 mls/hr Insulin Detemir (Levemir) 12 unit SC Q12H [facility] Last Admin: 07/14/18 13:02 Dose: 12 units Insulin Human Regular (Humulin R Med) 0 units SC ACHS [facility]; Protocol Last Admin: 07/14/18 13:02 Dose: 3 units Metoprolol Tartrate (Lopressor) 25 mg PO 0800,1800 [facility] Last Admin: 07/14/18 08:32 Dose: 25 mg Nitroglycerin (Nitro-Bid 2% Oint) 2 ea TOP Q8 [facility] Last Admin: 07/14/18 13:16 Dose: Not Given Ondansetron HCl (Zofran Inj) 4 mg IVP ONCE PRN PRN Reason: Nausea/Vomiting Oxycodone HCl (Oxycodone Immediate Release Tab) 2.5 mg PO DAILY [facility] Last Admin: 07/14/18 10:48 Dose: 2.5 mg Pantoprazole Sodium (Protonix Ec Tab) 40 mg PO 0600 [facility] Last Admin: 07/14/18 07:03 Dose: 40 mg - Labs Labs: 07/14/18 11:50 07/14/18 06:30 APTT 56.2 Seconds (26.9-38.3) H 07/14/18 06:30 Attending/Attestation - Attestation I have personally seen and examined this patient.: Yes I have fully participated in the care of the patient.: Yes I have reviewed all pertinent clinical information, including history, physical exam and plan: Yes
[2018-07-14] MEDS: Insulin Reg-MEDIUM-Coverage SC SCH ×4 (10:44→22:15)
[2018-07-14] MEDS: oxyCODONE 5 mg Immediate Release Tab PO SCH (10:48)
--- NOTE | 2018-07-14 10:55 | CP.PCM.PCO ---
Additional Comments - Additional Comments Additional Comments: MRI pending will confirm with Dr. Ray office regarding LLE stent compatibility, continue heparin drip
[2018-07-14 11:57] LABS: HEMOGLOBIN 7.6 g/dL (12.0-16.0)
[2018-07-14] MEDS: Insulin Detemir 100 units/ml Vial (Levemir) SC SCH ×2 (13:02→22:30)
--- NOTE | 2018-07-14 14:26 | CP.PCM.PN ---
Subjective - Date & Time of Evaluation Date of Evaluation: 07/14/18 Time of Evaluation: 14:00 - Subjective Subjective: Infectious Disease Follow Up: July 14, 2018 73 yo female with history of Type II DM. The patient was found to be altered in a laundromat. Patient herself gives little information. Patient's PMD is apparently in [place], [place], his name is Dr. Akbar. The patient name is Jessica Brizuela. Patient had fever of 101.0 F. No leukocytosis. Limited information provided by the patient. Patient is hyperglycemic on admission and still has elevated glucose levels. Was under isolation for bedbugs. No further fever episodes today. Afebrile for the last few days now. Duplex showing disease of the vessels of the left leg. Abdominal CT Angiography showing severe stenosis in the distal superficial femoral arteries bilaterally. Single vessel runoff to both ankles via the posterior tibials. The anterior tibials are thin and narrow with multi focal stenosis. Significant peripheral vascular disease bilaterally. Had angioplasty with Dr. Ray in morning of 07/11/2018. Podiatry concerned with left forefoot impending gangrene. Nearing completion of IV antibiotics. Awaiting MRI. Objective - Vital Signs/Intake and Output Vital Signs (last 24 hours): Temp Pulse Resp BP Pulse Ox 98.6 F 71 18 91/52 L 98 07/14/18 12:00 07/14/18 12:00 07/14/18 12:00 07/14/18 12:00 07/13/18 05:26 Intake and Output: 07/14/18 07/14/18 06:59 18:59 Intake Total 2276 Balance 2276 - Medications Medications: Current Medications Acetaminophen (Tylenol 325mg Tab) 650 mg PO Q4 PRN PRN Reason: Fever >100.4 F Last Admin: 07/06/18 20:35 Dose: 650 mg Aspirin (Ecotrin) 81 mg PO DAILY [facility] Last Admin: 07/14/18 10:44 Dose: 81 mg Atorvastatin Calcium (Lipitor) 20 mg PO DIN [facility] Last Admin: 07/13/18 18:01 Dose: 20 mg Cephalexin Monohydrate (Keflex) 500 mg PO BID [facility]; Protocol Stop: 07/19/18 10:01 Last Admin: 07/14/18 10:44 Dose: 500 mg Clonidine HCl (Catapres) 0.1 mg PO BID [facility] Last Admin: 07/14/18 10:44 Dose: 0.1 mg Clopidogrel Bisulfate (Plavix) 75 mg PO DAILY [facility] Last Admin: 07/14/18 10:46 Dose: 75 mg Dextrose (Dextrose 50% Inj) 0 ml IV STAT PRN; Protocol PRN Reason: Hypoglycemia Protocol Gabapentin (Neurontin) 300 mg PO BID [facility]; Protocol Last Admin: 07/14/18 10:44 Dose: 300 mg Dextrose (Dextrose 5% In Water 1000 Ml) 1,000 mls @ 0 mls/hr IV .Q0M PRN; Protocol PRN Reason: Hypoglycemia Protocol Heparin Sodium/Sodium Chloride (Heparin 20491 Units/250ml 1/2 Normal Saline) 25,000 units in 250 mls @ 9.716 mls/hr IV .Q24H PRN; Protocol PRN Reason: ADJUST RATE PER PROTOCOL Stop: 07/15/18 10:00 Last Admin: 07/13/18 18:00 Dose: 18 units/kg/hr, 9.716 mls/hr Insulin Detemir (Levemir) 12 unit SC Q12H [facility] Last Admin: 07/14/18 13:02 Dose: 12 units Insulin Human Regular (Humulin R Med) 0 units SC ACHS [facility]; Protocol Last Admin: 07/14/18 13:02 Dose: 3 units Metoprolol Tartrate (Lopressor) 25 mg PO 0800,1800 [facility] Last Admin: 07/14/18 08:32 Dose: 25 mg Nitroglycerin (Nitro-Bid 2% Oint) 2 ea TOP Q8 [facility] Last Admin: 07/14/18 13:16 Dose: Not Given Ondansetron HCl (Zofran Inj) 4 mg IVP ONCE PRN PRN Reason: Nausea/Vomiting Oxycodone HCl (Oxycodone Immediate Release Tab) 2.5 mg PO DAILY [facility] Last Admin: 07/14/18 10:48 Dose: 2.5 mg Pantoprazole Sodium (Protonix Ec Tab) 40 mg PO 0600 [facility] Last Admin: 07/14/18 07:03 Dose: 40 mg - Labs Labs: 07/14/18 11:50 07/14/18 06:30 APTT 56.2 Seconds (26.9-38.3) H 07/14/18 06:30 - Constitutional Appears: Non-toxic, No Acute Distress, Chronically Ill - Head Exam Head Exam: ATRAUMATIC, NORMOCEPHALIC - Eye Exam Eye Exam: EOMI, PERRL Pupil Exam: NORMAL ACCOMODATION, PERRL - ENT Exam ENT Exam: Mucous Membranes Moist, Normal External Ear Exam, TM's Normal Bilater ally - Neck Exam Neck Exam: Full ROM, Normal Inspection - Respiratory Exam Respiratory Exam: Clear to Ausculation Bilateral, NORMAL BREATHING PATTERN. absent: Rales, Rhonchi, Wheezes - Cardiovascular Exam Cardiovascular Exam: REGULAR RHYTHM, RRR, +S1, +S2 - GI/Abdominal Exam GI & Abdominal Exam: Soft, Normal Bowel Sounds. absent: Distended, Tenderness - Extremities Exam Additional comments: RLE big toe ulcer/eschar. Mild edema of the left lower leg. Duskiness of the left forefoot. - Neurological Exam Neurological Exam: Alert, Awake, CN II-XII Intact, Oriented x3 - Psychiatric Exam Psychiatric exam: Flat Affect Additional comments: Distant. Often answers questions with "I don't know", "I don't remember", or "I forgot". - Skin Additional comments: As above Assessment and Plan - Assessment and Plan (Free Text) Assessment: 73 yo female presenting for altered mental status, fevers up to 101.0 F, and hyperglycemia. Negative Chest X-ray. X-ray right big toe showing swelling of t he soft tissues only. Head CT negative. Patient was hyponatremic. Unclear how the patient's DM control is normally. Likely with some degree of dehydration in addition to the hyperglycemia. Check Hgb A1c... 15.5. Monitor glucose levels. Started on Vancomycin and Zosyn. Villagran cultures. Supportive care. Afebrile today. Found to have bedbugs and was isolated. Patient was washed and now off isolation. Duplex studies showing severe peripheral vascular disease bilaterally. Cultures negative. Left foot and ankle X-ray negative. Considering oral antibiotic care with Keflex. Patient with diabetes that is not under control. Borderline fevers. Angioplasty with Dr. Ray occurred on 07/11/2018. Impressions were: 1. Successful left SFA and popliteal arter jet stream atherectomy and drug- eluting stent balloon angioplasty. No stent was required. 2. Successful left anterior tibial artery angioplasty and focal drug-eluting stent placement 3. Successful left tibioperoneal trunk and proximal left posterior tibial artery angioplasty 4. 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 Critical right popliteal artery stenoses. No additional issues. Would consider total of 14 days of antibiotics both IV and orally administered. Podiatry concerned with impending gangrene of the left forefoot. Noted echocardiogram report and severity of valve disease. Patient awaiting MRI. Thank you for allowing me to participate in the care of the patient, we will follow with you.
--- NOTE | 2018-07-14 18:11 | PN ---
DATE: 07/14/2018 SUBJECTIVE: The patient denies any chest pain. She complaints of mild left foot pain. PHYSICAL EXAMINATION: VITAL SIGNS: Blood pressure 118/66, heart rate 79, temperature 98.5, respirations 20. HEENT: Normocephalic. CHEST: Clear. HEART: S1 and S2 regular. EXTREMITIES: No edema. LABORATORY DATA: Today's hemoglobin and hematocrit 7.7 and 24.1, white count 12.5, platelet count 461,000. Today's SMA-7 is within normal limits. Calcium is normal 8.1. The latest PTT is 56.2. ASSESSMENT: 1. Status post left superficial femoral artery arthrectomy and drug-eluting balloon angioplasty. 2. Left anterior tibial artery angioplasty and focal drug-eluting stent placement. 3. Left left posterior tibial artery angioplasty. 4. Hypertension. RECOMMENDATIONS: Continue current intravenous heparin and regimen. Continue aspirin and Plavix. Continue clonidine at 0.1 mg once a day, Lopressor 25 mg twice a day, Neurontin 300 mg twice a day. Carlton Merritt MD
[2018-07-14 21:46] LABS: HEMOGLOBIN 8.2 g/dL (12.0-16.0)
[2018-07-14] MEDS: Heparin25000 units/250ml 1/2NS 25,000 UNITS/250 ML BAG IV PRN (23:53)
[2018-07-15] MEDS: Nitroglycerin 2% Ointment Foilpak UD TOP SCH ×3 (05:44→22:20)
[2018-07-15] MEDS: Pantoprazole 40 mg EC Tab PO SCH (05:46)
[2018-07-15] MEDS: Insulin Reg-MEDIUM-Coverage SC SCH ×4 (10:18→22:18)
[2018-07-15] MEDS: Insulin Detemir 100 units/ml Vial (Levemir) SC SCH ×2 (10:19→22:19)
[2018-07-15] MEDS: oxyCODONE 5 mg Immediate Release Tab PO SCH (10:20)
--- NOTE | 2018-07-15 12:07 | PN ---
DATE: 07/15/2018 SUBJECTIVE: The patient is a 73-year-old female seen at bedside for continued evaluation and management of impending gangrene of her left forefoot. The patient is reporting less pain in the area but she is still unable to ambulate due to the severity of her foot pain. The patient also has a non-stageable wound on her right medial hallux. OBJECTIVE: VITAL SIGNS: Revealed temperature of 99, pulse rate of 77, blood pressure of 130/71, respiratory rate of 19. EXTREMITIES: Nonpalpable pedal pulses on the left lower extremity. Nonpalpable popliteal pulse noted as well as weakly palpable dorsalis pedis pulse on the right lower extremity and nonpalpable posterior tib pulse. There is noted to be dry eschar covering the medial aspect of the right hallux that measures approximately 2 x 2 cm. There is no drainage. There is no opening. There is no purulence. No signs of acute bacterial infection on the right great toe. Left foot presents with impending ischemia of the forefoot particularly on the medial aspect of the foot on the first ray. The ischemic changes have not demarcated and hallux and second digit and now becoming gangrenous and there is noted ischemia on the remaining digits. There is no signs of open lesions. There is no drainage. There is no purulence. No underlying abscess formation noted. However, there is pain upon palpation. LABORATORY FINDINGS: Reveal a white count of 12.5, hemoglobin of 7.7, hematocrit of 24.1, platelet count of 451. The patient had undergone angioplasty on the left lower extremity on 07/11/[address] Maged Ray, which was deemed successful at that time. However, in the ensuing few days, there is noted to be increasing gangrenous in is ischemic changes to the left fourth particularly the first and second digits. ASSESSMENT: Status post left lower extremity angioplasty with impending gangrene of the left forefoot with noted ischemic pain. PLAN: The patient's right hallux ulceration was cleansed with normal sterile saline and application of Xeroform and a dry sterile dressing was applied. A dry sterile dressing was applied to the left foot. At this point, it appears that her entire left forefoot is becoming ischemic and yet it has not demarcated and continues to worsen with each passing day. We will wait for demarcation of the forefoot to occur to consider possible transmetatarsal amputation. However, left below-knee amputation cannot be ruled out at this point. Next few days will be critical as to determining the course of action for her left lower extremity. We will continue to follow daily. The patient is currently on heparin, Plavix, and Ecotrin as well as Nitro-patch for her pain. She is still unable to bear weight due to the ischemic pain in her left foot. She will be seen and followed daily. Meek Cobb DPM
--- NOTE | 2018-07-15 15:13 | CP.PCM.PN ---
<Jose Salvador R - Last Filed: 07/15/18 15:10> Subjective - Date & Time of Evaluation Date of Evaluation: 07/15/18 Time of Evaluation: 10:30 - Subjective Subjective: PGY-2 medicine progress note for Dr Rockwell No acute events noted overnight. Patient's friend at bedside. Pt stated left foot pain better. Both feet wrapped by podiatry earlier today. Denied diarrhea, abd pain, f/c, n/v. Sugars controlled. Objective - Vital Signs/Intake and Output Vital Signs (last 24 hours): Temp Pulse Resp BP Pulse Ox 98.8 F 76 18 147/70 97 07/15/18 06:00 07/15/18 10:19 07/15/18 06:00 07/15/18 10:19 07/15/18 06:00 Intake and Output: 07/15/18 07/15/18 06:59 18:59 Intake Total 250 Balance 250 - Medications Medications: Current Medications Acetaminophen (Tylenol 325mg Tab) 650 mg PO Q4 PRN PRN Reason: Fever >100.4 F Last Admin: 07/06/18 20:35 Dose: 650 mg Aspirin (Ecotrin) 81 mg PO DAILY [facility] Last Admin: 07/15/18 10:18 Dose: 81 mg Atorvastatin Calcium (Lipitor) 20 mg PO DIN [facility] Last Admin: 07/14/18 17:28 Dose: 20 mg Cephalexin Monohydrate (Keflex) 500 mg PO BID [facility]; Protocol Stop: 07/19/18 10:01 Last Admin: 07/15/18 10:19 Dose: 500 mg Clonidine HCl (Catapres) 0.1 mg PO BID [facility] Last Admin: 07/15/18 10:18 Dose: 0.1 mg Clopidogrel Bisulfate (Plavix) 75 mg PO DAILY [facility] Last Admin: 07/15/18 10:21 Dose: 75 mg Dextrose (Dextrose 50% Inj) 0 ml IV STAT PRN; Protocol PRN Reason: Hypoglycemia Protocol Gabapentin (Neurontin) 300 mg PO BID [facility]; Protocol Last Admin: 07/15/18 10:20 Dose: 300 mg Dextrose (Dextrose 5% In Water 1000 Ml) 1,000 mls @ 0 mls/hr IV .Q0M PRN; Protocol PRN Reason: Hypoglycemia Protocol Insulin Detemir (Levemir) 12 unit SC Q12H [facility] Last Admin: 07/15/18 10:19 Dose: 12 units Insulin Human Regular (Humulin R Med) 0 units SC ACHS [facility]; Protocol Last Admin: 07/15/18 14:25 Dose: Not Given Metoprolol Tartrate (Lopressor) 25 mg PO 0800,1800 [facility] Last Admin: 07/15/18 10:19 Dose: 25 mg Nitroglycerin (Nitro-Bid 2% Oint) 2 ea TOP Q8 [facility] Last Admin: 07/15/18 14:26 Dose: 2 ea Ondansetron HCl (Zofran Inj) 4 mg IVP ONCE PRN PRN Reason: Nausea/Vomiting Pantoprazole Sodium (Protonix Ec Tab) 40 mg PO 0600 [facility] Last Admin: 07/15/18 05:46 Dose: 40 mg - Labs Labs: 07/14/18 21:42 07/14/18 06:30 APTT 54.4 Seconds (26.9-38.3) H 07/15/18 07:00 - Additional Findings Additional findings: - Constitutional Appears: Well, Non-toxic, No Acute Distress - Head Exam Head Exam: ATRAUMATIC, NORMAL INSPECTION, NORMOCEPHALIC - Eye Exam Eye Exam: EOMI - ENT Exam ENT Exam: Mucous Membranes Dry - Respiratory Exam Respiratory Exam: NORMAL BREATHING PATTERN. absent: Wheezes, Respiratory Distress - Cardiovascular Exam Cardiovascular Exam: REGULAR RHYTHM, +S1, +S2. absent: Murmur - GI/Abdominal Exam GI & Abdominal Exam: Soft, Normal Bowel Sounds. absent: Tenderness - Extremities Exam Additional comments: Left 1st and 2nd toe dry gangrene, cool to touch Rest of left LE warm, less tender to palpation Right LE cool to touch, minimal tenderness, nonpalpable DP/PT pulses - Neurological Exam Neurological Exam: Alert, Awake - Psychiatric Exam Psychiatric exam: Normal Affect, Normal Mood - Skin Skin Exam: Dry, Intact, Normal Color, Warm Additional comments: Right 1st toe superficial ulceration Assessment and Plan - Assessment and Plan (Free Text) Plan: 73 year old female with PMH of diabetes,HTN,PVD, and noncompliance with medication was admitted with altered mental status and hyperglycemia. Clinical course complicated by ichemic rest pain of the left LE. Revascularization of LLE w/ IR POD#3. Plan: PAD - S/p IR revascularization of LLE POD#3 - ECHO: Borderline concentric LVH, EF normal; Moderate AR, mild MR, severe TR, mild VA, Severe pulm HTN - Continue Asa and Plavix - Continue Lipitor - Arterial US: Severely abnormal L ALYSE @ rest ALYSE is .46. R ALYSE is at .77 and is moderately abnormal - Venous duplex US of LE: No evidence of DVT - Normal radiographs of the ankle and foot - CT angiogram 07/06: severe stenosis in the distal superficial femoral arteries bilaterally. Single vessel runoff to both ankles via the posterior tibial. The anterior tibials are thin and narrow with multi focal stenosis - Peripheral vascular procedure report: successful left SFA and pop artery jet stream arthrectomy and balloon angioplasty; successful left ant tib angioplasty with focal drug-eluting stent placement; successful left tibperoneal trunk and prox left PT artery angioplasty Left Lower Extremity Gangrene - F/u MRI of left foot - concern for gangrene and osteo - Started heparin drip evening of 07/12 - per IR, discontinue heparin drip tomorrow morning - Recent drop in Hgb, 7.7, repeat H/H improved, no overt signs of bleeding noted at this time - Transfuse as needed - Podiatry following, pending further recommendations; possible amputation cand idate - Will continue to monitor Hypertension - Patient on Metoprolol 25mg PO BID - Per cardio, started on Clonidine 0.1mg BID - Cardiology following - Will continue to monitor vitals Altered mental status, resolved - Pt is now AOx3 - Likely 2/2 elevated blood glucose levels upon admission in the 700s, now resolved - CT head: age appropriate changes, no acute pathology - UDS negative - Low grade temperature of 99.9 overnight - UA (-) for nitrates, LE or WBC - Ucx (-) - BCx (-) - CXR negative for active disease Hyperglycemia w/o elevated AG - ISS - Accuchecks - Hgba1c 15.5 - Levemir 12u Q12 - Diabetic education 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 Rockwell <Omari Rockwell - Last Filed: 07/15/18 15:35> Objective - Vital Signs/Intake and Output Vital Signs (last 24 hours): Temp Pulse Resp BP Pulse Ox 98.8 F 76 18 147/70 97 07/15/18 06:00 07/15/18 10:19 07/15/18 06:00 07/15/18 10:19 07/15/18 06:00 Intake and Output: 07/15/18 07/15/18 06:59 18:59 Intake Total 250 Balance 250 - Medications Medications: Current Medications Acetaminophen (Tylenol 325mg Tab) 650 mg PO Q4 PRN PRN Reason: Fever >100.4 F Last Admin: 07/06/18 20:35 Dose: 650 mg Aspirin (Ecotrin) 81 mg PO DAILY [facility] Last Admin: 07/15/18 10:18 Dose: 81 mg Atorvastatin Calcium (Lipitor) 20 mg PO DIN [facility] Last Admin: 07/14/18 17:28 Dose: 20 mg Cephalexin Monohydrate (Keflex) 500 mg PO BID [facility]; Protocol Stop: 07/19/18 10:01 Last Admin: 07/15/18 10:19 Dose: 500 mg Clonidine HCl (Catapres) 0.1 mg PO BID [facility] Last Admin: 07/15/18 10:18 Dose: 0.1 mg Clopidogrel Bisulfate (Plavix) 75 mg PO DAILY [facility] Last Admin: 07/15/18 10:21 Dose: 75 mg Dextrose (Dextrose 50% Inj) 0 ml IV STAT PRN; Protocol PRN Reason: Hypoglycemia Protocol Gabapentin (Neurontin) 300 mg PO BID [facility]; Protocol Last Admin: 07/15/18 10:20 Dose: 300 mg Dextrose (Dextrose 5% In Water 1000 Ml) 1,000 mls @ 0 mls/hr IV .Q0M PRN; Garth col PRN Reason: Hypoglycemia Protocol Insulin Detemir (Levemir) 12 unit SC Q12H [facility] Last Admin: 07/15/18 10:19 Dose: 12 units Insulin Human Regular (Humulin R Med) 0 units SC ACHS [facility]; Protocol Last Admin: 07/15/18 14:25 Dose: Not Given Metoprolol Tartrate (Lopressor) 25 mg PO 0800,1800 [facility] Last Admin: 07/15/18 10:19 Dose: 25 mg Nitroglycerin (Nitro-Bid 2% Oint) 2 ea TOP Q8 [facility] Last Admin: 07/15/18 14:26 Dose: 2 ea Ondansetron HCl (Zofran Inj) 4 mg IVP ONCE PRN PRN Reason: Nausea/Vomiting Pantoprazole Sodium (Protonix Ec Tab) 40 mg PO 0600 [facility] Last Admin: 07/15/18 05:46 Dose: 40 mg - Labs Labs: 07/14/18 21:42 07/14/18 06:30 APTT 54.4 Seconds (26.9-38.3) H 07/15/18 07:00 Attending/Attestation - Attestation I have personally seen and examined this patient.: Yes I have fully participated in the care of the patient.: Yes I have reviewed all pertinent clinical information, including history, physical exam and plan: Yes Notes (Text): 07/15/18 15:33 73 year old female with past medical history of diabetes, hypertension, PVD and history of medication noncompliance who initially presented with altered mental status and significantly elevated blood sugars (>700) which improved with iv fluids and insulin. AMS resolved. A1c is 15.5 and patient was started on levemir. Patient was also found to have right big toe ulcer and severe PAD/PVD. Arterial doppler showed severely abnormal L ALYSE 0.46 and moderately abnormal R ALYSE 0.77. CT angiogram showed severe stenosis in the distal superficial femoral arteries bilaterally; single vessel runoff to both ankles via the posterior tibial; anterior tibials are thin and narrow with multifocal stenosis. Continue with aspirin, plavix and lipitor. Patient is s/p IR procedure POD #4 with successful left SFA and popliteal artherectomy and drug eluting balloon angioplasty, successful left anterior tibial artery angioplasty and focal drug eluting drug placement, and successful left tibioperoneal trunk and proximal left posterior tibial artery angioplasty. Was started on heparin drip by IR. Monitor H/H closely. Continue with antibiotics as per ID. Podiatry is following and patient is still pending MRI foot. Patient is on metoprolol and clonidine for hypertension. PT is following; currently recommending SAR. Omari Rockwell MD Hospitalist.
--- NOTE | 2018-07-15 16:41 | CP.PCM.PN ---
Subjective - Date & Time of Evaluation Date of Evaluation: 07/15/18 Time of Evaluation: 15:00 - Subjective Subjective: Infectious Disease Follow Up: July 15, 2018 73 yo female with history of Type II DM. The patient was found to be altered in a laundromat. Patient herself gives little information. Patient's PMD is apparently in [place], [place], his name is Dr. Akbar. The patient name is Jessica Brizuela. Patient had fever of 101.0 F. No leukocytosis. Limited information provided by the patient. Patient is hyperglycemic on admission and still has elevated glucose levels. Was under isolation for bedbugs. No further fever episodes today. Afebrile for the last few days now. Duplex showing disease of the vessels of the left leg. Abdominal CT Angiography showing severe stenosis in the distal superficial femoral arteries bilaterally. Single vessel runoff to both ankles via the posterior tibials. The anterior tibials are thin and narrow with multi focal stenosis. Significant peripheral vascular disease bilaterally. Had angioplasty with Dr. Ray in morning of 07/11/2018. Podiatry concerned with left forefoot impending gangrene. On oral antibiotics. Awaiting MRI. Objective - Vital Signs/Intake and Output Vital Signs (last 24 hours): Temp Pulse Resp BP Pulse Ox 98.8 F 76 18 147/70 97 07/15/18 06:00 07/15/18 10:19 07/15/18 06:00 07/15/18 10:19 07/15/18 06:00 Intake and Output: 07/15/18 07/15/18 06:59 18:59 Intake Total 250 Balance 250 - Medications Medications: Current Medications Acetaminophen (Tylenol 325mg Tab) 650 mg PO Q4 PRN PRN Reason: Fever >100.4 F Last Admin: 07/06/18 20:35 Dose: 650 mg Aspirin (Ecotrin) 81 mg PO DAILY [facility] Last Admin: 07/15/18 10:18 Dose: 81 mg Atorvastatin Calcium (Lipitor) 20 mg PO DIN [facility] Last Admin: 07/14/18 17:28 Dose: 20 mg Cephalexin Monohydrate (Keflex) 500 mg PO BID [facility]; Protocol Stop: 07/19/18 10:01 Last Admin: 07/15/18 10:19 Dose: 500 mg Clonidine HCl (Catapres) 0.1 mg PO BID [facility] Last Admin: 07/15/18 10:18 Dose: 0.1 mg Clopidogrel Bisulfate (Plavix) 75 mg PO DAILY [facility] Last Admin: 07/15/18 10:21 Dose: 75 mg Dextrose (Dextrose 50% Inj) 0 ml IV STAT PRN; Protocol PRN Reason: Hypoglycemia Protocol Gabapentin (Neurontin) 300 mg PO BID [facility]; Protocol Last Admin: 07/15/18 10:20 Dose: 300 mg Dextrose (Dextrose 5% In Water 1000 Ml) 1,000 mls @ 0 mls/hr IV .Q0M PRN; Protocol PRN Reason: Hypoglycemia Protocol Insulin Detemir (Levemir) 12 unit SC Q12H [facility] Last Admin: 07/15/18 10:19 Dose: 12 units Insulin Human Regular (Humulin R Med) 0 units SC ACHS [facility]; Protocol Last Admin: 07/15/18 14:25 Dose: Not Given Metoprolol Tartrate (Lopressor) 25 mg PO 0800,1800 [facility] Last Admin: 07/15/18 10:19 Dose: 25 mg Nitroglycerin (Nitro-Bid 2% Oint) 2 ea TOP Q8 [facility] Last Admin: 07/15/18 14:26 Dose: 2 ea Ondansetron HCl (Zofran Inj) 4 mg IVP ONCE PRN PRN Reason: Nausea/Vomiting Pantoprazole Sodium (Protonix Ec Tab) 40 mg PO 0600 [facility] Last Admin: 07/15/18 05:46 Dose: 40 mg - Labs Labs: 07/14/18 21:42 07/14/18 06:30 APTT 54.4 Seconds (26.9-38.3) H 07/15/18 07:00 - Constitutional Appears: Non-toxic, No Acute Distress, Chronically Ill - Head Exam Head Exam: ATRAUMATIC, NORMOCEPHALIC - Eye Exam Eye Exam: EOMI, PERRL Pupil Exam: NORMAL ACCOMODATION, PERRL - ENT Exam ENT Exam: Mucous Membranes Moist, Normal External Ear Exam, TM's Normal Yohan aterally - Neck Exam Neck Exam: Full ROM, Normal Inspection - Respiratory Exam Respiratory Exam: Clear to Ausculation Bilateral, NORMAL BREATHING PATTERN. absent: Rales, Rhonchi, Wheezes - Cardiovascular Exam Cardiovascular Exam: REGULAR RHYTHM, RRR, +S1, +S2 - GI/Abdominal Exam GI & Abdominal Exam: Soft, Normal Bowel Sounds. absent: Distended, Tenderness - Extremities Exam Additional comments: RLE big toe ulcer/eschar. Mild edema of the left lower leg. Duskiness of the left forefoot. - Neurological Exam Neurological Exam: Alert, Awake, CN II-XII Intact, Oriented x3 - Psychiatric Exam Psychiatric exam: Flat Affect Additional comments: Distant. Often answers questions with "I don't know", "I don't remember", or "I forgot". - Skin Additional comments: As above. Assessment and Plan - Assessment and Plan (Free Text) Assessment: 73 yo female presenting for altered mental status, fevers up to 101.0 F, and hyperglycemia. Negative Chest X-ray. X-ray right big toe showing swelling of the soft tissues only. Head CT negative. Patient was hyponatremic. Unclear how the patient's DM control is normally. Likely with some degree of dehydration in addition to the hyperglycemia. Check Hgb A1c... 15.5. Monitor glucose levels. Started on Vancomycin and Zosyn. Villagran cultures. Supportive care. Afebrile today. Found to have bedbugs and was isolated. Patient was washed and now off isolation. Duplex studies showing severe peripheral vascular disease bilaterally. Cultures negative. Left foot and ankle X-ray negative. Considering oral antibiotic care with Keflex. Patient with diabetes that is not under control. Borderline fevers. Angioplasty with Dr. Ray occurred on 07/11/2018. Impressions were: 1. Successful left SFA and popliteal arter jet stream atherectomy and drug- eluting stent balloon angioplasty. No stent was required. 2. Successful left anterior tibial artery angioplasty and focal drug-eluting stent placement 3. Successful left tibioperoneal trunk and proximal left posterior tibial artery angioplasty 4. 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 Critical right popliteal artery stenoses. No additional issues. Would consider total of 14 days of antibiotics both IV and orally administered. Now on oral Keflex for antibiotic treatment. Podiatry concerned with impending gangrene of the left forefoot. Noted echocardiogram report and severity of valve disease. Patient awaiting MRI. Thank you for allowing me to participate in the care of the patient, we will follow with you.
[2018-07-16] MEDS: Nitroglycerin 2% Ointment Foilpak UD TOP SCH ×3 (05:36→22:25)
[2018-07-16] MEDS: Pantoprazole 40 mg EC Tab PO SCH (05:37)
[2018-07-16 07:53] LABS: BASO # 0.03 K/mm3 (0.0-2.0); BASO % 0.3 % (0.0-3.0); EOS # 0.2 (0.0-0.7); EOS % 2.7 % (1.5-5.0); HEMOGLOBIN 8.3 g/dL (12.0-16.0); LYMPH # 1.5 (1.2-3.4); LYMPH % 17.3 % (22.0-35.0); MEAN CELL VOLUME 86.1 fl (80.0-105.0); MEAN CORPUSCULAR HEMOGLOBIN 28.1 pg (25.0-35.0); MEAN CORPUSCULAR HGB CONC 32.7 g/dl (31.0-37.0); MEAN PLATELET VOLUME 9.4 fl (7.0-11.0); MONO # 1.1 (0.1-0.6); MONO % 12.1 % (1.0-6.0); RBC 2.95 10^6/uL (3.5-6.1); RED CELL DISTRIBUTION WIDTH 12.5 % (11.5-14.5); WHITE BLOOD COUNT 8.8 10^3/uL (4.5-11.0)
[2018-07-16] MEDS: Insulin Reg-MEDIUM-Coverage SC SCH ×4 (08:20→22:23)
[2018-07-16 08:30] LABS: BLOOD UREA NITROGEN 16 mg/dL (7-21); CALCIUM 8.6 mg/dL (8.4-10.5); GFR NON-AFRICAN AMERICAN > 60
[2018-07-16] MEDS ORDERED: Insulin Detemir 100 units/ml Vial (Levemir) SC SCH (08:44)
[2018-07-16] MEDS: Insulin Detemir 100 units/ml Vial (Levemir) SC SCH ×2 (09:04→22:24)
--- NOTE | 2018-07-16 12:21 | CP.PCM.PN ---
<Irwin Dhaliwaldallas - Last Filed: 07/16/18 12:15> Subjective - Date & Time of Evaluation Date of Evaluation: 07/16/18 Time of Evaluation: 12:16 - Subjective Subjective: Podiatry progress note - Drs. Cobb/Izabella 73 y/o female seen and evaluated at bedside this AM for cotinued evaluation and management of gangranous changes of her left forefoot. THe patient is reporting pain, and is unable to ambulate due tot he severity of the pain. Objective - Vital Signs/Intake and Output Vital Signs (last 24 hours): Temp Pulse Resp BP Pulse Ox 97.8 F 81 20 138/67 98 07/16/18 06:00 07/16/18 09:04 07/16/18 06:00 07/16/18 09:04 07/16/18 06:00 Intake and Output: 07/16/18 07/16/18 06:59 18:59 Intake Total 1580 Output Total 1300 Balance 280 - Medications Medications: Current Medications Aspirin (Ecotrin) 81 mg PO DAILY [facility] Last Admin: 07/16/18 09:04 Dose: 81 mg Atorvastatin Calcium (Lipitor) 20 mg PO DIN [facility] Last Admin: 07/15/18 17:16 Dose: 20 mg Cephalexin Monohydrate (Keflex) 500 mg PO Q6 [facility]; Protocol Last Admin: 07/16/18 11:50 Dose: 500 mg Clonidine HCl (Catapres) 0.1 mg PO BID [facility] Last Admin: 07/16/18 09:04 Dose: 0.1 mg Clopidogrel Bisulfate (Plavix) 75 mg PO DAILY [facility] Last Admin: 07/16/18 09:04 Dose: 75 mg Gabapentin (Neurontin) 300 mg PO BID [facility]; Protocol Last Admin: 07/16/18 09:04 Dose: 300 mg Insulin Detemir (Levemir) 12 unit SC Q12H [facility] Last Admin: 07/16/18 09:04 Dose: 12 unit Insulin Human Regular (Humulin R Med) 0 units SC ACHS [facility]; Protocol Last Admin: 07/16/18 11:51 Dose: 1 units Metoprolol Tartrate (Lopressor) 25 mg PO 0800,1800 [facility] Last Admin: 07/16/18 08:21 Dose: 25 mg Nitroglycerin (Nitro-Bid 2% Oint) 2 ea TOP Q8 [facility] Last Admin: 07/16/18 05:36 Dose: 2 ea Ondansetron HCl (Zofran Inj) 4 mg IVP ONCE PRN PRN Reason: Nausea/Vomiting Pantoprazole Sodium (Protonix Ec Tab) 40 mg PO 0600 [facility] Last Admin: 07/16/18 05:37 Dose: 40 mg - Labs Labs: 07/16/18 07:00 07/16/18 07:00 APTT 54.4 Seconds (26.9-38.3) H 07/15/18 07:00 - Constitutional Appears: Well, Non-toxic, No Acute Distress - Head Exam Head Exam: ATRAUMATIC, NORMOCEPHALIC - Extremities Exam Additional comments: B/l LE focused VASC: non-palpable pulses bilaterally, CFT >3 seconds to all digits. Temperature gradient warm to warm RLE, warm to cold LLE. +1 pitting edema noted to LLE. NEURO: Epicritic and protective sensation grossly intact b/l DERM: Dry eschar measuring approximately 2 x 2 cm noted to distal tuft of right hallux - hyperkeratotic rim present; absent drainage; absent purulence; absent flucutance; absent malodor; no periwound erythema present. No clinical signs of infection appreciated; left foot digits all appear gangrenous, impending forefoot gangrene appreciated; ischemic changes have not yet demarcated, however no open lesions noted. there is no drainage, no underlying abscess noted ORTHO: No pain on palpation noted to right hallux eschar. Pain on palpation not ed to entire left foot, with pain on ROM 1st MPJ, MTJ, STJ, ankle joint. - Neurological Exam Neurological Exam: Alert, Awake - Psychiatric Exam Psychiatric exam: Normal Affect, Normal Mood Assessment and Plan - Assessment and Plan (Free Text) Assessment: 73F with 1) b/l foot pain secondary to PAD 2) gangrene of left forefoot Plan: Patient seen and evaluated Discussed with Dr. Cobb Bilateral arterial duplex ordered - significant PVD noted b/l, more severe on left Peripheral vascular procedure report - successful left SFA and pop artery jet stream arthrectomy and balloon angioplasty; successful left ant tib angioplasty with focal drug-eluting stent placement; successful left tibperoneal trunk and prox left PT artery angioplasty Left foot and ankle XR ordered - no acute fractures or dislocations Left foot MRI ordered - pending Impending gangrene of left forefoot appreciated, not yet demarcated- pending plan based on demarcation Continue abx per ID Will wait for demarcation of foot to consider podiatric surgical intervention Upon discharge will follow with Dr. Cobb/Izabella in wound center as outpatient Podiatry will continue to follow <Meek Cobb - Last Filed: 07/18/18 08:05> Objective - Vital Signs/Intake and Output Vital Signs (last 24 hours): Temp Pulse Resp BP Pulse Ox 97.2 F L 92 H 20 159/77 H 98 07/17/18 17:02 07/17/18 17:27 07/17/18 17:02 07/17/18 17:27 07/17/18 17:02 Intake and Output: 07/18/18 07/18/18 06:59 18:59 Intake Total 1080 Output Total 200 Balance 880 - Medications Medications: Current Medications Atorvastatin Calcium (Lipitor) 20 mg PO DIN [facility] Last Admin: 07/17/18 17:26 Dose: 20 mg Cephalexin Monohydrate (Keflex) 500 mg PO Q6 [facility]; Protocol Stop: 07/18/18 22:00 Last Admin: 07/18/18 05:34 Dose: 500 mg Clonidine HCl (Catapres) 0.1 mg PO BID [facility] Last Admin: 07/17/18 17:24 Dose: 0.1 mg Clopidogrel Bisulfate (Plavix) 75 mg PO DAILY [facility] Last Admin: 07/17/18 14:35 Dose: Not Given Gabapentin (Neurontin) 300 mg PO BID [facility]; Protocol Last Admin: 07/17/18 17:27 Dose: 300 mg Insulin Detemir (Levemir) 12 unit SC Q12H [facility] Last Admin: 07/17/18 21:50 Dose: 12 unit Insulin Human Regular (Humulin R Med) 0 units SC ACHS [facility]; Protocol Last Admin: 07/17/18 21:47 Dose: Not Given Metoprolol Tartrate (Lopressor) 25 mg PO 0800,1800 [facility] Last Admin: 07/17/18 17:27 Dose: 25 mg Nitroglycerin (Nitro-Bid 2% Oint) 2 ea TOP Q8 [facility] Last Admin: 07/18/18 05:34 Dose: 2 ea Ondansetron HCl (Zofran Inj) 4 mg IVP ONCE PRN PRN Reason: Nausea/Vomiting - Labs Labs: 07/18/18 07:00 07/18/18 07:00 APTT 54.4 Seconds (26.9-38.3) H 07/15/18 07:00 Attending/Attestation - Attestation I have personally seen and examined this patient.: Yes I have fully participated in the care of the patient.: Yes I have reviewed all pertinent clinical information, including history, physical exam and plan: Yes
--- NOTE | 2018-07-16 13:34 | CP.PCM.PN ---
<Bernardino Francois - Last Filed: 07/16/18 13:46> Subjective - Date & Time of Evaluation Date of Evaluation: 07/16/18 Time of Evaluation: 08:00 - Subjective Subjective: Bernardino Francois PGY1 Medicine Progress Note for Dr. Rockwell Patient seen at bedside. No adverse overnight events. She says left foot pain is improving. Denies headache, fever, chills, n/v/d, cp, sob. A full 12 point ROS was conducted and unremarkable except as stated above. Objective - Vital Signs/Intake and Output Vital Signs (last 24 hours): Temp Pulse Resp BP Pulse Ox 97.8 F 81 20 138/67 98 07/16/18 06:00 07/16/18 09:04 07/16/18 06:00 07/16/18 09:04 07/16/18 06:00 Intake and Output: 07/16/18 07/16/18 06:59 18:59 Intake Total 1580 Output Total 1300 Balance 280 - Medications Medications: Current Medications Aspirin (Ecotrin) 81 mg PO DAILY [facility] Last Admin: 07/16/18 09:04 Dose: 81 mg Atorvastatin Calcium (Lipitor) 20 mg PO DIN [facility] Last Admin: 07/15/18 17:16 Dose: 20 mg Cephalexin Monohydrate (Keflex) 500 mg PO Q6 [facility]; Protocol Last Admin: 07/16/18 11:50 Dose: 500 mg Clonidine HCl (Catapres) 0.1 mg PO BID [facility] Last Admin: 07/16/18 09:04 Dose: 0.1 mg Clopidogrel Bisulfate (Plavix) 75 mg PO DAILY [facility] Last Admin: 07/16/18 09:04 Dose: 75 mg Gabapentin (Neurontin) 300 mg PO BID [facility]; Protocol Last Admin: 07/16/18 09:04 Dose: 300 mg Insulin Detemir (Levemir) 12 unit SC Q12H [facility] Last Admin: 07/16/18 09:04 Dose: 12 unit Insulin Human Regular (Humulin R Med) 0 units SC ACHS [facility]; Protocol Last Admin: 07/16/18 11:51 Dose: 1 units Metoprolol Tartrate (Lopressor) 25 mg PO 0800,1800 [facility] Last Admin: 07/16/18 08:21 Dose: 25 mg Nitroglycerin (Nitro-Bid 2% Oint) 2 ea TOP Q8 [facility] Last Admin: 07/16/18 13:16 Dose: 2 ea Ondansetron HCl (Zofran Inj) 4 mg IVP ONCE PRN PRN Reason: Nausea/Vomiting Pantoprazole Sodium (Protonix Ec Tab) 40 mg PO 0600 [facility] Last Admin: 07/16/18 05:37 Dose: 40 mg - Labs Labs: 07/16/18 07:00 07/16/18 07:00 APTT 54.4 Seconds (26.9-38.3) H 07/15/18 07:00 - Constitutional Appears: Well, Non-toxic, No Acute Distress - Head Exam Head Exam: ATRAUMATIC, NORMAL INSPECTION, NORMOCEPHALIC - Eye Exam Eye Exam: EOMI - ENT Exam ENT Exam: Mucous Membranes Moist - Respiratory Exam Respiratory Exam: NORMAL BREATHING PATTERN. absent: Wheezes, Respiratory Distress - Cardiovascular Exam Cardiovascular Exam: REGULAR RHYTHM, +S1, +S2. absent: Murmur - GI/Abdominal Exam GI & Abdominal Exam: Soft, Normal Bowel Sounds. absent: Tenderness - Extremities Exam Additional comments: Left 1st and 2nd toe dry gangrene, cool to touch Rest of left LE warm, less tender to palpation Right LE cool to touch, minimal tenderness, nonpalpable DP/PT pulses - Neurological Exam Neurological Exam: Alert, Awake - Psychiatric Exam Psychiatric exam: Normal Affect, Normal Mood - Skin Skin Exam: Dry, Intact, Normal Color, Warm Additional comments: Left 1st and 2nd toe gangrene/necrosis. Assessment and Plan - Assessment and Plan (Free Text) Assessment: Patient is a 73 year old female with PMH of diabetes, HTN, PVD, and noncompliance with medication was admitted with altered mental status and hyperglycemia. Clinical course complicated by ichemic rest pain of the left LE. Revascularization of LLE w/ IR on 07/11. Plan: PAD - s/p IR revascularization of LLE on 07/11 - c/w Asa, Plavix, Lipitor - ECHO: Borderline concentric LVH, EF normal; Moderate AR, mild MR, severe TR, mild OH, Severe pulm HTN - Arterial US: Severely abnormal L ALYSE @ rest ALYSE is .46. R ALYSE is at .77 and is moderately abnormal - Venous duplex US of LE: No evidence of DVT - Normal radiographs of the ankle and foot - CT angiogram 07/06: severe stenosis in the distal superficial femoral arteries bilaterally. Single vessel runoff to both ankles via the posterior tibial. The anterior tibials are thin and narrow with multi focal stenosis - Peripheral vascular procedure report: successful left SFA and pop artery jet stream arthrectomy and balloon angioplasty; successful left ant tib angioplasty with focal drug-eluting stent placement; successful left tibperoneal trunk and prox left PT artery angioplasty LLE Gangrene/Necrosis with RLE Ulcer - MRI of left foot pending, however since patient has stent placement in the LLE, this may be a contraindication to MRI; d/w podiatry - ID is on consult (Dr. Guidry). Recs appreciated. - Discussed with ID that patient needs to continue on PO keflex - Wound care - Podiatry. Recs appreciated. Patient may need possible amputation. - XR showed soft tissue swelling w/o acute articular or osseous abnormality HTN - c/w Metoprolol 25mg PO BID - c/w Clonidine 0.1mg BID - Cardiology following (Dr. Merritt). Recs appreciated. 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 Will f/u with Podiatry if MRI is necessary given LLE stent is in place and this may be a contraindication. Case was discussed and reviewed with Attending Physician, Dr. Rockwell <Omari Rockwell - Last Filed: 07/16/18 14:14> Objective - Vital Signs/Intake and Output Vital Signs (last 24 hours): Temp Pulse Resp BP Pulse Ox 97.8 F 81 20 138/67 98 07/16/18 06:00 07/16/18 09:04 07/16/18 06:00 07/16/18 09:04 07/16/18 06:00 Intake and Output: 07/16/18 07/16/18 06:59 18:59 Intake Total 1580 Output Total 1300 Balance 280 - Medications Medications: Current Medications Aspirin (Ecotrin) 81 mg PO DAILY [facility] Last Admin: 07/16/18 09:04 Dose: 81 mg Atorvastatin Calcium (Lipitor) 20 mg PO DIN [facility] Last Admin: 07/15/18 17:16 Dose: 20 mg Cephalexin Monohydrate (Keflex) 500 mg PO Q6 [facility]; Protocol Last Admin: 07/16/18 11:50 Dose: 500 mg Clonidine HCl (Catapres) 0.1 mg PO BID [facility] Last Admin: 07/16/18 09:04 Dose: 0.1 mg Clopidogrel Bisulfate (Plavix) 75 mg PO DAILY [facility] Last Admin: 07/16/18 09:04 Dose: 75 mg Gabapentin (Neurontin) 300 mg PO BID [facility]; Protocol Last Admin: 07/16/18 09:04 Dose: 300 mg Insulin Detemir (Levemir) 12 unit SC Q12H [facility] Last Admin: 07/16/18 09:04 Dose: 12 unit Insulin Human Regular (Humulin R Med) 0 units SC ACHS [facility]; Protocol Last Admin: 07/16/18 11:51 Dose: 1 units Metoprolol Tartrate (Lopressor) 25 mg PO 0800,1800 [facility] Last Admin: 07/16/18 08:21 Dose: 25 mg Nitroglycerin (Nitro-Bid 2% Oint) 2 ea TOP Q8 [facility] Last Admin: 07/16/18 13:16 Dose: 2 ea Ondansetron HCl (Zofran Inj) 4 mg IVP ONCE PRN PRN Reason: Nausea/Vomiting Pantoprazole Sodium (Protonix Ec Tab) 40 mg PO 0600 [facility] Last Admin: 07/16/18 05:37 Dose: 40 mg - Labs Labs: 07/16/18 07:00 07/16/18 07:00 APTT 54.4 Seconds (26.9-38.3) H 07/15/18 07:00 Attending/Attestation - Attestation I have personally seen and examined this patient.: Yes I have fully participated in the care of the patient.: Yes I have reviewed all pertinent clinical information, including history, physical exam and plan: Yes Notes (Text): 07/16/18 14:11 73 year old female with past medical history of diabetes, hypertension, PVD and history of medication noncompliance who initially presented with altered mental status and significantly elevated blood sugars (>700) which improved with iv fluids and insulin. AMS resolved. A1c is 15.5 and patient was started on levemir. Patient was also found to have right big toe ulcer and severe PAD/PVD. Arterial doppler showed severely abnormal L ALYSE 0.46 and moderately abnormal R ALYSE 0.77. CT angiogram showed severe stenosis in the distal superficial femoral arteries bilaterally; single vessel runoff to both ankles via the posterior tibial; anterior tibials are thin and narrow with multifocal stenosis. Continue with aspirin, plavix and lipitor. Patient is s/p IR procedure POD #5 with successful left SFA and popliteal artherectomy and drug eluting balloon angioplasty, successful left anterior tibial artery angioplasty and focal drug eluting stent placement, and successful left tibioperoneal trunk and proximal left posterior tibial artery angioplasty. Was started on heparin drip by IR. Monitor H/H closely. Continue with antibiotics as per ID. Podiatry is following and ordered MRI foot. However as above patient is s/p stent placement. Will check with podia try/radiology. Patient is on metoprolol and clonidine for hypertension. PT is following; currently recommending SAR. Omari Rockwell MD Hospitalist.
--- NOTE | 2018-07-16 15:41 | CP.PCM.PN ---
Subjective - Date & Time of Evaluation Date of Evaluation: 07/16/18 Time of Evaluation: 14:15 - Subjective Subjective: Infectious Disease Follow Up: July 16, 2018 73 yo female with history of Type II DM. The patient was found to be altered in a laundromat. Patient herself gives little information. Patient's PMD is apparently in [place], [place], his name is Dr. Akbar. The patient name is Jessica Brizuela. Patient had fever of 101.0 F. No leukocytosis. Limited information provided by the patient. Patient is hyperglycemic on admission and still has elevated glucose levels. Was under isolation for bedbugs. No further fever episodes today. Afebrile for the last few days now. Duplex showing disease of the vessels of the left leg. Abdominal CT Angiography showing severe stenosis in the distal superficial femoral arteries bilaterally. Single vessel runoff to both ankles via the posterior tibials. The anterior tibials are thin and narrow with multi focal stenosis. Significant peripheral vascular disease bilaterally. Had angioplasty with Dr. Ray in morning of 07/11/2018. Podiatry concerned with left forefoot impending gangrene. On oral antibiotics. Awaiting MRI. Objective - Vital Signs/Intake and Output Vital Signs (last 24 hours): Temp Pulse Resp BP Pulse Ox 97.8 F 81 20 138/67 98 07/16/18 06:00 07/16/18 09:04 07/16/18 06:00 07/16/18 09:04 07/16/18 06:00 Intake and Output: 07/16/18 07/16/18 06:59 18:59 Intake Total 1580 Output Total 1300 Balance 280 - Medications Medications: Current Medications Atorvastatin Calcium (Lipitor) 20 mg PO DIN [facility] Last Admin: 07/15/18 17:16 Dose: 20 mg Cephalexin Monohydrate (Keflex) 500 mg PO Q6 [facility]; Protocol Last Admin: 07/16/18 11:50 Dose: 500 mg Clonidine HCl (Catapres) 0.1 mg PO BID [facility] Last Admin: 07/16/18 09:04 Dose: 0.1 mg Clopidogrel Bisulfate (Plavix) 75 mg PO DAILY [facility] Last Admin: 07/16/18 09:04 Dose: 75 mg Gabapentin (Neurontin) 300 mg PO BID [facility]; Protocol Last Admin: 07/16/18 09:04 Dose: 300 mg Insulin Detemir (Levemir) 12 unit SC Q12H [facility] Last Admin: 07/16/18 09:04 Dose: 12 unit Insulin Human Regular (Humulin R Med) 0 units SC ACHS [facility]; Protocol Last Admin: 07/16/18 11:51 Dose: 1 units Metoprolol Tartrate (Lopressor) 25 mg PO 0800,1800 [facility] Last Admin: 07/16/18 08:21 Dose: 25 mg Nitroglycerin (Nitro-Bid 2% Oint) 2 ea TOP Q8 [facility] Last Admin: 07/16/18 13:16 Dose: 2 ea Ondansetron HCl (Zofran Inj) 4 mg IVP ONCE PRN PRN Reason: Nausea/Vomiting Pantoprazole Sodium (Protonix Ec Tab) 40 mg PO 0600 [facility] Last Admin: 07/16/18 05:37 Dose: 40 mg - Labs Labs: 07/16/18 07:00 07/16/18 07:00 APTT 54.4 Seconds (26.9-38.3) H 07/15/18 07:00 - Constitutional Appears: Non-toxic, No Acute Distress, Chronically Ill - Head Exam Head Exam: ATRAUMATIC, NORMOCEPHALIC - Eye Exam Eye Exam: EOMI, PERRL Pupil Exam: NORMAL ACCOMODATION, PERRL - ENT Exam ENT Exam: Mucous Membranes Moist, Normal External Ear Exam, TM's Normal Bilaterally - Neck Exam Neck Exam: Full ROM, Normal Inspection - Respiratory Exam Respiratory Exam: Clear to Ausculation Bilateral, NORMAL BREATHING PATTERN. absent: Rales, Rhonchi, Wheezes - Cardiovascular Exam Cardiovascular Exam: REGULAR RHYTHM, RRR, +S1, +S2 - GI/Abdominal Exam GI & Abdominal Exam: Soft, Normal Bowel Sounds. absent: Distended, Tenderness - Extremities Exam Additional comments: RLE big toe ulcer/eschar. Mild edema of the left lower leg. Duskiness of the left forefoot progressing... impending gangrene. Toes of the left foot are all gangrenous. - Neurological Exam Neurological Exam: Alert, Awake, CN II-XII Intact, Oriented x3 - Psychiatric Exam Psychiatric exam: Flat Affect Additional comments: Distant. Often answers questions with "I don't know", "I don't remember", or "I forgot". - Skin Additional comments: As above. Assessment and Plan - Assessment and Plan (Free Text) Assessment: 73 yo female presenting for altered mental status, fevers up to 101.0 F, and hyperglycemia. Negative Chest X-ray. X-ray right big toe showing swelling of the soft tissues only. Head CT negative. Patient was hyponatremic. Unclear how the patient's DM control is normally. Likely with some degree of dehydration in addition to the hyperglycemia. Check Hgb A1c... 15.5. Monitor glucose levels. Started on Vancomycin and Zosyn. Villagran cultures. Supportive care. Afebrile today. Found to have bedbugs and was isolated. Patient was washed and now off isolation. Duplex studies showing severe peripheral vascular disease bilaterally. Cultures negative. Left foot and ankle X-ray negative. Considering oral antibiotic care with Keflex. Patient with diabetes that is not under control. Borderline fevers. Angioplasty with Dr. Ray occurred on 07/11/2018. Impressions were: 1. Successful left SFA and popliteal arter jet stream atherectomy and drug- eluting stent balloon angioplasty. No stent was required. 2. Successful left anterior tibial artery angioplasty and focal drug-eluting stent placement 3. Successful left tibioperoneal trunk and proximal left posterior tibial artery angioplasty 4. 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 Critical right popliteal artery stenoses. No additional issues. Would consider total of 14 days of antibiotics both IV an d orally administered. Now on oral Keflex for antibiotic treatment. Podiatry concerned with impending gangrene of the left forefoot. Toes of the left foot are already gangrenous. This has progressed during this hospitalization despite interventions. Noted echocardiogram report and severity of valve disease. Patient awaiting MRI. Thank you for allowing me to participate in the care of the patient, we will follow with you.
[2018-07-17] MEDS: Nitroglycerin 2% Ointment Foilpak UD TOP SCH ×3 (06:02→21:50)
[2018-07-17] MEDS: Pantoprazole 40 mg EC Tab PO SCH (06:03)
--- NOTE | 2018-07-17 08:47 | CP.PCM.PN ---
<Bernardino Francois - Last Filed: 07/17/18 15:06> Subjective - Date & Time of Evaluation Date of Evaluation: 07/17/18 Time of Evaluation: 08:00 - Subjective Subjective: Bernardino Francois PGY1 Medicine Progress Note for Dr. Orozco Patient seen at bedside this morning. No overnight events. Denies f/c, cp, sob, abd pain, n/v/d. LLE pain has improved since admission. A full 12 point ROS was conducted and unremarkable except as stated above. Objective - Vital Signs/Intake and Output Vital Signs (last 24 hours): Temp Pulse Resp BP Pulse Ox 97.7 F 88 20 148/69 97 07/17/18 08:42 07/17/18 08:42 07/17/18 08:42 07/17/18 08:42 07/17/18 08:42 - Medications Medications: Current Medications Atorvastatin Calcium (Lipitor) 20 mg PO DIN [facility] Last Admin: 07/16/18 17:13 Dose: 20 mg Cephalexin Monohydrate (Keflex) 500 mg PO Q6 [facility]; Protocol Last Admin: 07/17/18 06:01 Dose: 500 mg Clonidine HCl (Catapres) 0.1 mg PO BID [facility] Last Admin: 07/16/18 17:14 Dose: Not Given Clopidogrel Bisulfate (Plavix) 75 mg PO DAILY [facility] Last Admin: 07/16/18 09:04 Dose: 75 mg Gabapentin (Neurontin) 300 mg PO BID [facility]; Protocol Last Admin: 07/16/18 17:12 Dose: 300 mg Insulin Detemir (Levemir) 12 unit SC Q12H [facility] Last Admin: 07/16/18 22:24 Dose: 12 unit Insulin Human Regular (Humulin R Med) 0 units SC ACHS [facility]; Protocol Last Admin: 07/16/18 22:23 Dose: Not Given Metoprolol Tartrate (Lopressor) 25 mg PO 0800,1800 [facility] Last Admin: 07/16/18 17:14 Dose: 25 mg Nitroglycerin (Nitro-Bid 2% Oint) 2 ea TOP Q8 [facility] Last Admin: 07/17/18 06:02 Dose: 2 ea Ondansetron HCl (Zofran Inj) 4 mg IVP ONCE PRN PRN Reason: Nausea/Vomiting Pantoprazole Sodium (Protonix Ec Tab) 40 mg PO 0600 [facility] Last Admin: 07/17/18 06:03 Dose: 40 mg - Labs Labs: 07/16/18 07:00 07/16/18 07:00 APTT 54.4 Seconds (26.9-38.3) H 07/15/18 07:00 - Constitutional Appears: Well, Non-toxic, No Acute Distress - Head Exam Head Exam: ATRAUMATIC, NORMAL INSPECTION, NORMOCEPHALIC - Eye Exam Eye Exam: EOMI - ENT Exam ENT Exam: Mucous Membranes Moist - Respiratory Exam Respiratory Exam: NORMAL BREATHING PATTERN. absent: Wheezes, Respiratory Distress - Cardiovascular Exam Cardiovascular Exam: REGULAR RHYTHM, +S1, +S2. absent: Murmur - GI/Abdominal Exam GI & Abdominal Exam: Soft, Normal Bowel Sounds. absent: Tenderness - Extremities Exam Additional comments: Left 1st and 2nd toe dry gangrene, cool to touch Rest of left LE warm, less tender to palpation Right LE cool to touch, minimal tenderness, nonpalpable DP/PT pulses - Neurological Exam Neurological Exam: Alert, Awake - Psychiatric Exam Psychiatric exam: Normal Affect, Normal Mood - Skin Skin Exam: Dry, Intact, Normal Color, Warm Additional comments: Left 1st and 2nd toe gangrene/necrosis. Assessment and Plan - Assessment and Plan (Free Text) Assessment: Patient is a 73 year old female with PMH of diabetes, HTN, PVD, and noncompl iance with medication was admitted with altered mental status and hyperglycemia. Clinical course complicated by ichemic rest pain of the left LE. Revascularization of LLE w/ IR on 07/11. Plan: Severe PAD - s/p IR revascularization of LLE on 07/11 - Scheduled for Left Transmetatarsal Amputation (L-TMA) for Tuesday, 07/24 at 7:30 am - As per podiatry, hold Plavix for 7 days until Left-TMA - c/w Lipitor - Arterial US: Severely abnormal L ALYSE @ rest ALYSE is .46. R ALYSE is at .77 and is moderately abnormal - CT angiogram 07/06: severe stenosis in the distal superficial femoral arteries bilaterally. Single vessel runoff to both ankles via the posterior tibial. The anterior tibials are thin and narrow with multi focal stenosis - Peripheral vascular procedure report: successful left SFA and pop artery jet stream arthrectomy and balloon angioplasty; successful left ant tib angioplasty with focal drug-eluting stent placement; successful left tibperoneal trunk and prox left PT artery angioplasty LLE Gangrene/Necrosis with RLE Ulcer 2/2 DM - As per ID, c/w PO keflex for a total of 14 days - ID is on consult (Dr. Guidry). Recs appreciated. - Wound care - Podiatry. Recs appreciated. Left-TMA amputation planned for Tuesday, 07/24. HTN - c/w Metoprolol 25mg PO BID - c/w Clonidine 0.1mg BID - Cardiology following (Dr. Merritt). Recs appreciated. AMS 2/2 Hyperglycemia - resolved - Likely 2/2 elevated blood glucose levels upon admission in the 700s, now resolved - AAOx3 at baseline mental status - CT head: age appropriate changes, no acute pathology - UA, Ucx, BCx, CXR negative DM II with Neuropathy - ISS - Accuchecks - Hgba1c 15.5 - Levemir 12u Q12 - Diabetic education - c/w Gabapentin 300mg BID Stage II sacral ulcer - wound care on board - frequent turns, air mattress, conservative management PPX DVT: anticoag (held at this time) GI: Protonix Diet: HHD PT: recommends GABBY Dispo: Monitor patient on remote telemetry. Spoke with podiatry, patient will be going for Left-TMA on Tuesday, 07/24. Anticoagulation held until procedure. Case was discussed and reviewed with Attending Physician, Dr. Orozco <Lorena Orozco - Last Filed: 07/18/18 07:52> Objective - Vital Signs/Intake and Output Vital Signs (last 24 hours): Temp Pulse Resp BP Pulse Ox 97.2 F L 92 H 20 159/77 H 98 07/17/18 17:02 07/17/18 17:27 07/17/18 17:02 07/17/18 17:27 07/17/18 17:02 Intake and Output: 07/18/18 07/18/18 06:59 18:59 Intake Total 1080 Output Total 200 Balance 880 - Medications Medications: Current Medications Atorvastatin Calcium (Lipitor) 20 mg PO DIN [facility] Last Admin: 07/17/18 17:26 Dose: 20 mg Cephalexin Monohydrate (Keflex) 500 mg PO Q6 [facility]; Protocol Stop: 07/18/18 22:00 Last Admin: 07/18/18 05:34 Dose: 500 mg Clonidine HCl (Catapres) 0.1 mg PO BID [facility] Last Admin: 07/17/18 17:24 Dose: 0.1 mg Clopidogrel Bisulfate (Plavix) 75 mg PO DAILY [facility] Last Admin: 07/17/18 14:35 Dose: Not Given Gabapentin (Neurontin) 300 mg PO BID [facility]; Protocol Last Admin: 07/17/18 17:27 Dose: 300 mg Insulin Detemir (Levemir) 12 unit SC Q12H [facility] Last Admin: 07/17/18 21:50 Dose: 12 unit Insulin Human Regular (Humulin R Med) 0 units SC ACHS [facility]; Protocol Last Admin: 07/17/18 21:47 Dose: Not Given Metoprolol Tartrate (Lopressor) 25 mg PO 0800,1800 [facility] Last Admin: 07/17/18 17:27 Dose: 25 mg Nitroglycerin (Nitro-Bid 2% Oint) 2 ea TOP Q8 [facility] Last Admin: 07/18/18 05:34 Dose: 2 ea Ondansetron HCl (Zofran Inj) 4 mg IVP ONCE PRN PRN Reason: Nausea/Vomiting - Labs Labs: 07/18/18 07:00 07/16/18 07:00 APTT 54.4 Seconds (26.9-38.3) H 07/15/18 07:00 Attending/Attestation - Attestation I have personally seen and examined this patient.: Yes I have fully participated in the care of the patient.: Yes I have reviewed all pertinent clinical information, including history, physical exam and plan: Yes Notes (Text): 07/18/18 07:43 Medical record note made by the resident after discussion with my direction and input after the patient was personally seen and examined by me. I have reviewed the chart and agree that the record accurately reflects by personal performance of the history, physical exam, data review, and medical decision-making, in the course for the patient. I have also personally directed the plan of care. 73 year old female with past medical history of diabetes, hypertension, PVD and noncompliance was admitted with altered mental status and significantly elevated blood sugars (>700) which improved with iv fluids and insulin. Mental status is back to normal. A1c is 15.5 and patient was started on levemir. Patient was also found to have right big toe ulcer and severe PAD/PVD. Arterial doppler showed severely abnormal L ALYSE 0.46 and moderately abnormal R ALYSE 0.77. CT angiogram showed severe stenosis in the distal superficial femoral arteries bilaterally; single vessel runoff to both ankles via the posterior tibial; anterior tibials are thin and narrow with multifocal stenosis.Patient is SP left SFA and popliteal artherectomy and drug eluting balloon angioplasty, successful left anterior tibial artery angioplasty and focal drug eluting stent placement, and successful left tibioperoneal trunk and proximal left posterior tibial artery angioplasty. Patient has dry gangrene of left foot, plan for left TMA by Podiatry.Patient was on plavix, need to be off Plavix for 5 days prior to procedure.
[2018-07-17] MEDS: Insulin Reg-MEDIUM-Coverage SC SCH ×4 (10:25→21:47)
[2018-07-17] MEDS: Insulin Detemir 100 units/ml Vial (Levemir) SC SCH ×2 (10:26→21:50)
--- NOTE | 2018-07-17 12:52 | CP.PCM.PN ---
Subjective - Date & Time of Evaluation Date of Evaluation: 07/17/18 Time of Evaluation: 12:43 - Subjective Subjective: Podiatry progress note - Drs. Cobb/Izabella 73 y/o female seen and evaluated at bedside this AM for gangranous changes of her left forefoot with right hallux preulcerative lesion. Patient is reporting sever pain, and is unable to ambulate due to the pain. Patient denies any other pedal complaint at this time. She denies any overnight F/N/V/C/CP or SOB. Objective - Vital Signs/Intake and Output Vital Signs (last 24 hours): Temp Pulse Resp BP Pulse Ox 97.7 F 88 20 148/69 97 07/17/18 08:42 07/17/18 10:26 07/17/18 08:42 07/17/18 10:26 07/17/18 08:42 - Medications Medications: Current Medications Atorvastatin Calcium (Lipitor) 20 mg PO DIN [facility] Last Admin: 07/16/18 17:13 Dose: 20 mg Cephalexin Monohydrate (Keflex) 500 mg PO Q6 [facility]; Protocol Last Admin: 07/17/18 06:01 Dose: 500 mg Clonidine HCl (Catapres) 0.1 mg PO BID [facility] Last Admin: 07/17/18 10:25 Dose: 0.1 mg Clopidogrel Bisulfate (Plavix) 75 mg PO DAILY [facility] Last Admin: 07/17/18 10:27 Dose: 75 mg Gabapentin (Neurontin) 300 mg PO BID [facility]; Protocol Last Admin: 07/17/18 10:27 Dose: 300 mg Insulin Detemir (Levemir) 12 unit SC Q12H [facility] Last Admin: 07/17/18 10:26 Dose: 12 unit Insulin Human Regular (Humulin R Med) 0 units SC ACHS [facility]; Protocol Last Admin: 07/17/18 10:25 Dose: Not Given Metoprolol Tartrate (Lopressor) 25 mg PO 0800,1800 [facility] Last Admin: 07/17/18 10:26 Dose: 25 mg Nitroglycerin (Nitro-Bid 2% Oint) 2 ea TOP Q8 [facility] Last Admin: 07/17/18 06:02 Dose: 2 ea Ondansetron HCl (Zofran Inj) 4 mg IVP ONCE PRN PRN Reason: Nausea/Vomiting Pantoprazole Sodium (Protonix Ec Tab) 40 mg PO 0600 [facility] Last Admin: 07/17/18 06:03 Dose: 40 mg - Labs Labs: 07/16/18 07:00 07/16/18 07:00 APTT 54.4 Seconds (26.9-38.3) H 07/15/18 07:00 - Head Exam Head Exam: ATRAUMATIC, NORMOCEPHALIC - Extremities Exam Additional comments: B/l LE focused VASC: non-palpable pulses bilaterally, CFT >3 seconds to all digits. Temperature gradient warm to warm RLE, warm to cold LLE. +1 pitting edema noted to LLE. NEURO: Epicritic and protective sensation grossly intact b/l DERM: Right foot: Dry eschar measuring approximately 1.5 x 1.5 cm noted to distal tuft of right hallux - hyperkeratotic rim present; absent drainage; absent purulence; absent flucutance; absent malodor; no periwound erythema present. No clinical signs of infection appreciated; left foot: All digits appear gangrenous, impending forefoot gangrene appreciated; ischemic changes have demarcated almost to the distal shaft of the metatarsal bones, collapsed blisters noted to the forefoot draining serous fluid. there is no drainage. Lidoderm patch was applied to the left foot. MSK: No pain on palpation noted to right hallux eschar. Pain on palpation noted to entire left foot, with pain on ROM 1st MPJ, MTJ, STJ, ankle joint. 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 Plan: Patient seen and evaluated at the bedside with Dr. Parekh Discussed plan with Dr. Parekh Charts, labs and vitals reviewed; Afebrile, No leukocytosis Bilateral arterial duplex ordered - significant PVD noted b/l, more severe on left. Peripheral vascular procedure report - successful left SFA and pop artery jet stream arthrectomy and balloon angioplasty; successful left ant tib angioplasty with focal drug-eluting stent placement; successful left tibperoneal trunk and prox left PT artery angioplasty Left foot and ankle XR ordered - no acute fractures or dislocations Left foot MRI ordered - pending Discussed surgical plan with Dr. Ray. Discussed with the patient that she needs transmetatarsal amputation of her left forefoot. Patient expressed verbal understanding. Patient scheduled for left TMA on Tuesday07/19/2018 at 7:30 AM. - NPO midnight of the surgery. - Hold anticoagulant before the surgery. - Medical clearance by the patient primary team. Continue abx per ID Upon discharge will follow with Dr. Cobb/Izabella in wound center as outpatient Podiatry will continue to follow up the patient while in house.
--- NOTE | 2018-07-17 18:26 | CP.PCM.PN ---
Subjective - Date & Time of Evaluation Date of Evaluation: 07/17/18 Time of Evaluation: 16:30 - Subjective Subjective: Infectious Disease Follow Up: July 17, 2018 73 yo female with history of Type II DM. The patient was found to be altered in a laundromat. Patient herself gives little information. Patient's PMD is apparently in [place], [place], his name is Dr. Akbar. The patient name is Jessica Brizuela. Patient had fever of 101.0 F. No leukocytosis. Limited information provided by the patient. Patient is hyperglycemic on admission and still has elevated glucose levels. Was under isolation for bedbugs. No further fever episodes today. Afebrile for the last few days now. Duplex showing disease of the vessels of the left leg. Abdominal CT Angiography showing severe stenosis in the distal superficial femoral arteries bilaterally. Single vessel runoff to both ankles via the posterior tibials. The anterior tibials are thin and narrow with multi focal stenosis. Significant peripheral vascular disease bilaterally. Had angioplasty with Dr. Ray in morning of 07/11/2018. Podiatry planning for TMA of the left foot due to gangrene of toes of the left foot. On oral antibiotics. Awaiting MRI. Objective - Vital Signs/Intake and Output Vital Signs (last 24 hours): Temp Pulse Resp BP Pulse Ox 97.2 F L 92 H 20 159/77 H 98 07/17/18 17:02 07/17/18 17:27 07/17/18 17:02 07/17/18 17:27 07/17/18 17:02 - Medications Medications: Current Medications Atorvastatin Calcium (Lipitor) 20 mg PO DIN [facility] Last Admin: 07/17/18 17:26 Dose: 20 mg Cephalexin Monohydrate (Keflex) 500 mg PO Q6 [facility]; Protocol Last Admin: 07/17/18 17:25 Dose: 500 mg Clonidine HCl (Catapres) 0.1 mg PO BID [facility] Last Admin: 07/17/18 17:24 Dose: 0.1 mg Clopidogrel Bisulfate (Plavix) 75 mg PO DAILY [facility] Last Admin: 07/17/18 14:35 Dose: Not Given Gabapentin (Neurontin) 300 mg PO BID [facility]; Protocol Last Admin: 07/17/18 17:27 Dose: 300 mg Insulin Detemir (Levemir) 12 unit SC Q12H [facility] Last Admin: 07/17/18 10:26 Dose: 12 unit Insulin Human Regular (Humulin R Med) 0 units SC ACHS [facility]; Protocol Last Admin: 07/17/18 17:25 Dose: 1 units Metoprolol Tartrate (Lopressor) 25 mg PO 0800,1800 [facility] Last Admin: 07/17/18 17:27 Dose: 25 mg Nitroglycerin (Nitro-Bid 2% Oint) 2 ea TOP Q8 [facility] Last Admin: 07/17/18 14:06 Dose: 2 ea Ondansetron HCl (Zofran Inj) 4 mg IVP ONCE PRN PRN Reason: Nausea/Vomiting Pantoprazole Sodium (Protonix Ec Tab) 40 mg PO 0600 [facility] Last Admin: 07/17/18 06:03 Dose: 40 mg - Labs Labs: 07/16/18 07:00 07/16/18 07:00 APTT 54.4 Seconds (26.9-38.3) H 07/15/18 07:00 - Constitutional Appears: Non-toxic, No Acute Distress, Chronically Ill - Head Exam Head Exam: ATRAUMATIC, NORMOCEPHALIC - Eye Exam Eye Exam: EOMI, PERRL Pupil Exam: NORMAL ACCOMODATION, PERRL - ENT Exam ENT Exam: Mucous Membranes Moist, Normal External Ear Exam, TM's Normal Bilaterally - Neck Exam Neck Exam: Full ROM, Normal Inspection - Respiratory Exam Respiratory Exam: Clear to Ausculation Bilateral, NORMAL BREATHING PATTERN. absent: Rales, Rhonchi, Wheezes - Cardiovascular Exam Cardiovascular Exam: REGULAR RHYTHM, RRR, +S1, +S2 - GI/Abdominal Exam GI & Abdominal Exam: Soft, Normal Bowel Sounds. absent: Distended, Tenderness - Extremities Exam Additional comments: RLE big toe ulcer/eschar. Mild edema of the left lower leg. Duskiness of the left forefoot progressing... impending gangrene. Toes of the left foot are all gangrenous. - Neurological Exam Neurological Exam: Alert, Awake, CN II-XII Intact, Oriented x3 - Psychiatric Exam Psychiatric exam: Flat Affect Additional comments: Distant. Often answers questions with "I don't know", "I don't remember", or "I forgot". - Skin Additional comments: As Above. Assessment and Plan - Assessment and Plan (Free Text) Assessment: 73 yo female presenting for altered mental status, fevers up to 101.0 F, and hyperglycemia. Negative Chest X-ray. X-ray right big toe showing swelling of the soft tissues only. Head CT negative. Patient was hyponatremic. Unclear how the patient's DM control is normally. Likely with some degree of dehydration in addition to the hyperglycemia. Check Hgb A1c... 15.5. Monitor glucose levels. Started on Vancomycin and Zosyn. Villagran cultures. Supportive care. Afebrile today. Found to have bedbugs and was isolated. Patient was washed and now off isolation. Duplex studies showing severe pe ripheral vascular disease bilaterally. Cultures negative. Left foot and ankle X-ray negative. Considering oral antibiotic care with Keflex. Patient with diabetes that is not under control. Borderline fevers. Angioplasty with Dr. Ray occurred on 07/11/2018. Impressions were: 1. Successful left SFA and popliteal arter jet stream atherectomy and drug- eluting stent balloon angioplasty. No stent was required. 2. Successful left anterior tibial artery angioplasty and focal drug-eluting stent placement 3. Successful left tibioperoneal trunk and proximal left posterior tibial artery angioplasty 4. 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 Critical right popliteal artery stenoses. No additional issues. Would consider total of 14 days of antibiotics both IV and orally administered. Now on oral Keflex for antibiotic treatment. Podiatry concerned with impending gangrene of the left forefoot. Toes of the left foot are already gangrenous. This has progressed during this hospitalization despite interventions. Podiatry is now planning TMA of the left foot on 07/24/2018. Obtain ESR. Noted echocardiogram report and severity of valve disease. Patient awaiting MRI. Thank you for allowing me to participate in the care of the patient, we will follow with you.
--- NOTE | 2018-07-17 22:07 | PN ---
DATE: 07/17/2018 SUBJECTIVE: The patient denies any chest pain or leg pain. PHYSICAL EXAMINATION VITAL SIGNS: Blood pressure 148/69, heart rate 88, temperature 97.7, respirations 20. HEENT: Pale conjunctivae. CHEST: Clear. HEART: S1 and S2 regular. LABORATORY DATA: Today's blood sugars are 118, 192, and 160 respectively. Yesterday's SMA-7 is within normal limits except for creatinine 0.6 and glucose of 145. Yesterday's hemoglobin and hematocrit 8.3 and 25.4, white count 8.8, platelet count 546,000. ASSESSMENT: 1. Status post left lower extremity multiple peripheral vascular interventions. 2. Hypertension. 3. Uncontrolled diabetes mellitus. RECOMMENDATIONS: Continue clonidine 0.1 mg twice a day, Lipitor 20 mg once a day, Lopressor 25 mg twice a day, Plavix 75 mg once a day, Neurontin 300 mg twice a day. Carlton Merritt MD
[2018-07-18] MEDS: Pantoprazole 40 mg EC Tab PO SCH (05:34)
[2018-07-18] MEDS: Nitroglycerin 2% Ointment Foilpak UD TOP SCH ×2 (05:34→14:31)
[2018-07-18 07:37] LABS: BASO # 0.02 K/mm3 (0.0-2.0); BASO % 0.2 % (0.0-3.0); EOS # 0.3 (0.0-0.7); EOS % 3.3 % (1.5-5.0); HEMOGLOBIN 8.2 g/dL (12.0-16.0); LYMPH % 20.5 % (22.0-35.0); MEAN CELL VOLUME 87.4 fl (80.0-105.0); MEAN CORPUSCULAR HEMOGLOBIN 27.9 pg (25.0-35.0); MEAN CORPUSCULAR HGB CONC 31.9 g/dl (31.0-37.0); MONO # 0.9 (0.1-0.6); MONO % 8.9 % (1.0-6.0); RBC 2.94 10^6/uL (3.5-6.1); RED CELL DISTRIBUTION WIDTH 12.6 % (11.5-14.5); WHITE BLOOD COUNT 9.7 10^3/uL (4.5-11.0)
[2018-07-18 07:57] LABS: BLOOD UREA NITROGEN 21 mg/dL (7-21); CALCIUM 8.6 mg/dL (8.4-10.5); GFR NON-AFRICAN AMERICAN > 60
[2018-07-18] MEDS: Insulin Reg-MEDIUM-Coverage SC SCH ×2 (08:14→12:16)
[2018-07-18 08:15] VITALS: PULSE 76
[2018-07-18 08:47] VITALS: RESP 18; TEMP 97.3; O2SAT 97
[2018-07-18 09:28] VITALS: BP 116/68
[2018-07-18] MEDS: Insulin Detemir 100 units/ml Vial (Levemir) SC SCH (10:46)
--- NOTE | 2018-07-18 12:42 | CP.PCM.PN ---
Subjective - Date & Time of Evaluation Date of Evaluation: 07/18/18 Time of Evaluation: 12:39 - Subjective Subjective: Podiatry progress note - Drs. Cobb/Izabella 73 y/o female seen and evaluated at bedside this AM for gangranous changes of her left forefoot with right hallux preulcerative lesion. Patient is reporting sever pain, and is unable to ambulate due to the pain. Patient denies any other pedal complaint at this time. She denies any overnight F/N/V/C/CP or SOB. Objective - Vital Signs/Intake and Output Vital Signs (last 24 hours): Temp Pulse Resp BP Pulse Ox 97.3 F L 76 18 116/68 97 07/18/18 08:46 07/18/18 09:25 07/18/18 08:46 07/18/18 09:25 07/18/18 08:46 Intake and Output: 07/18/18 07/18/18 06:59 18:59 Intake Total 1080 Output Total 200 Balance 880 - Medications Medications: Current Medications Atorvastatin Calcium (Lipitor) 20 mg PO DIN [facility] Last Admin: 07/17/18 17:26 Dose: 20 mg Cephalexin Monohydrate (Keflex) 500 mg PO Q6 [facility]; Protocol Stop: 07/18/18 22:00 Last Admin: 07/18/18 12:16 Dose: 500 mg Clonidine HCl (Catapres) 0.1 mg PO BID [facility] Last Admin: 07/18/18 09:25 Dose: 0.1 mg Clopidogrel Bisulfate (Plavix) 75 mg PO DAILY [facility] Last Admin: 07/17/18 14:35 Dose: Not Given Gabapentin (Neurontin) 300 mg PO BID [facility]; Protocol Last Admin: 07/18/18 09:25 Dose: 300 mg Insulin Detemir (Levemir) 12 unit SC Q12H [facility] Last Admin: 07/18/18 10:46 Dose: 12 unit Insulin Human Regular (Humulin R Med) 0 units SC ACHS [facility]; Protocol Last Admin: 07/18/18 12:16 Dose: 3 units Metoprolol Tartrate (Lopressor) 25 mg PO 0800,1800 [facility] Last Admin: 07/18/18 08:15 Dose: 25 mg Nitroglycerin (Nitro-Bid 2% Oint) 2 ea TOP Q8 [facility] Last Admin: 07/18/18 05:34 Dose: 2 ea Ondansetron HCl (Zofran Inj) 4 mg IVP ONCE PRN PRN Reason: Nausea/Vomiting - Labs Labs: 07/18/18 07:00 07/18/18 07:00 APTT 54.4 Seconds (26.9-38.3) H 07/15/18 07:00 - Constitutional Appears: No Acute Distress - Head Exam Head Exam: ATRAUMATIC, NORMOCEPHALIC - Extremities Exam Additional comments: B/l LE focused VASC: non-palpable pulses bilaterally, CFT >3 seconds to all digits. Temperature gradient warm to warm RLE, warm to cold LLE. +1 pitting edema noted to LLE. NEURO: Epicritic and protective sensation grossly intact b/l DERM: Right foot: Dry eschar measuring approximately 1.5 x 1.5 cm noted to distal tuft of right hallux - hyperkeratotic rim present; absent drainage; absent purulence; absent flucutance; absent malodor; no periwound erythema present. No clinical signs of infection appreciated; left foot: All digits appear gangrenous, impending forefoot gangrene appreciated; ischemic changes have demarcated almost to the distal shaft of the metatarsal bones, collapsed blisters noted to the forefoot draining serous fluid. there is no drainage. Lidoderm patch was applied to the left foot. MSK: No pain on palpation noted to right hallux eschar. Pain on palpation noted to entire left foot, with pain on ROM 1st MPJ, MTJ, STJ, ankle joint. - Neurological Exam Neurological Exam: Alert, Awake Assessment and Plan - Assessment and Plan (Free Text) Assessment: 73 y/o female seen and evaluated at bedside this AM for gangranous changes of her left forefoot with right hallux preulcerative lesion. Plan: Patient seen and evaluated at the bedside with Dr. Parekh Discussed plan with Dr. Parekh Charts, labs and vitals reviewed; Afebrile, No leukocytosis Bilateral arterial duplex ordered - significant PVD noted b/l, more severe on l eft. Peripheral vascular procedure report - successful left SFA and pop artery jet stream arthrectomy and balloon angioplasty; successful left ant tib angioplasty with focal drug-eluting stent placement; successful left tibperoneal trunk and prox left PT artery angioplasty Left foot and ankle XR ordered - no acute fractures or dislocations Left foot MRI ordered - pending Discussed surgical plan with Dr. Ray. Discussed with the patient that she needs transmetatarsal amputation of her left forefoot. Patient expressed verbal understanding. Patient scheduled for left TMA on Tuesday11/18/2018 at 7:30 AM. Continue abx per ID Ordered TRCU evaluation. Upon discharge will follow with Dr. Cobb/Izabella in wound center as outpatient Podiatry will continue to follow up the patient while in house.
--- NOTE | 2018-07-18 13:57 | CP.PCM.DIS ---
<Jose Salvador R - Last Filed: 07/18/18 13:52> Provider - Provider Date of Admission: 07/01/18 05:37 Attending physician: Omari Rockwell MD Primary care physician: PMD: Dr Akbar Consults: 07/01/18 05:28 Social Work Referral Routine Comment: homeless Physician Instructions: Reason For Exam: homeless Wound Care [Nursing Referral for Wound Care] Routine Comment: Physician Instructions: Reason For Exam: RLE toe ulcer 07/01/18 05:31 Diabetic Education Referral Routine Comment: Physician Instructions: Reason For Exam: uncontrolled DM 07/01/18 10:47 Podiatry Consult Routine Comment: Consulting Provider: Meek Cobb Consulting Physician: Meek Cobb Reason for Consult: right hallux ulcer 07/01/18 12:05 Infectious Disease Consult Routine Comment: Consulting Provider: Jericho Guidry Consulting Physician: Jericho Guidry Reason for Consult: ? cellulitis of R hallux 07/01/18 14:32 Case Management Referral Routine Comment: A ESTRELLA WOODSON-PT IS CONFUSED,CALLED PMD FD ON [facility] Physician Instructions: Reason For Exam: EVALUATION Reason for Referral: Multiple Drum Sander Eval 07/01/18 14:49 Nursing Referral for Wound Care Routine Comment: RIGHT SHOULDER WOUND,DTI? BRUISED AREA FR FALL? Physician Instructions: Reason For Exam: EVALUATION-PT CONFUSED 07/02/18 11:26 Diabetic Education Referral Routine Comment: Physician Instructions: Reason For Exam: uncontrolled dm; new to insulin 07/03/18 10:17 TCU [Evaluation for TRCU] Routine Comment: Physician Instructions: Reason For Exam: weakness 07/03/18 10:50 Physician Consult Routine Comment: Consulting Provider: Maged Ray Consulting Physician: Maged Ray Reason for Consult: b/l pvd, left foot cold to touch, no cap refill noted 07/10/18 09:31 Cardiology Consult Routine Comment: Consulting Provider: Carlton Merritt Consulting Physician: Carlton Merritt Reason for Consult: pre-op clearance, angio for severe PAD 07/17/18 01:59 Nursing Referral for Wound Care Routine Comment: Physician Instructions: Reason For Exam: sacrum, necrotic L foot, R 1st toe 07/18/18 12:38 Evaluation for TRCU Routine Comment: Physician Instructions: Reason For Exam: Left foot gangrene Time Spent in preparation of Discharge (in minutes): 31 Diagnosis - Discharge Diagnosis (1) PAD (peripheral artery disease) Status: Chronic Priority: High (2) Lower extremity ulceration Status: Chronic Priority: High (3) HTN (hypertension) Status: Chronic Priority: Medium (4) Diabetic neuropathy Status: Chronic Priority: Medium (5) Hyperglycemia Status: Chronic Priority: High Hospital Course - Lab Results Lab Results: Micro Results 07/01/18 08:10 Blood-Venous Blood Culture - Final NO GROWTH AFTER 5 DAYS 07/01/18 08:10 Blood-Venous Gram Stain - Final TEST NOT PERFORMED 07/01/18 07:30 Blood-Venous Blood Culture - Final NO GROWTH AFTER 5 DAYS 07/01/18 07:30 Blood-Venous Gram Stain - Final TEST NOT PERFORMED 07/01/18 08:15 Urine,Catheterized Urine Culture - Final No Growth (<1,000 CFU/ML) Most Recent Lab Values WBC 9.7 10^3/uL (4.5-11.0) 07/18/18 07:00 RBC 2.94 10^6/uL (3.5-6.1) L 07/18/18 07:00 Hgb 8.2 g/dL (12.0-16.0) L 07/18/18 07:00 Hct 25.7 % (36.0-48.0) L 07/18/18 07:00 MCV 87.4 fl (80.0-105.0) 07/18/18 07:00 MCH 27.9 pg (25.0-35.0) 07/18/18 07:00 MCHC 31.9 g/dl (31.0-37.0) 07/18/18 07:00 RDW 12.6 % (11.5-14.5) 07/18/18 07:00 Plt Count 588 10^3/uL (120.0-450.0) H 07/18/18 07:00 MPV 9.0 fl (7.0-11.0) 07/18/18 07:00 Neut % (Auto) 67.1 % (50.0-68.0) 07/18/18 07:00 Lymph % (Auto) 20.5 % (22.0-35.0) L 07/18/18 07:00 [place] % (Auto) 8.9 % (1.0-6.0) H 07/18/18 07:00 Eos % (Auto) 3.3 % (1.5-5.0) 07/18/18 07:00 Baso % (Auto) 0.2 % (0.0-3.0) 07/18/18 07:00 Lymph # (Auto) 2.0 (1.2-3.4) 07/18/18 07:00 [place] # (Auto) 0.9 (0.1-0.6) H 07/18/18 07:00 Eos # (Auto) 0.3 (0.0-0.7) 07/18/18 07:00 Baso # (Auto) 0.02 K/mm3 (0.0-2.0) 07/18/18 07:00 Absolute Neuts (auto) 6.49 (1.4-6.5) 07/18/18 07:00 ESR 143 mm/hr (0.0-20.0) H 07/18/18 07:00 APTT 54.4 Seconds (26.9-38.3) H 07/15/18 07:00 pCO2 29 mm/Hg (35-45) L 07/01/18 06:25 pO2 105.0 mm/Hg (80-100) H 07/01/18 06:25 HCO3 22.6 mmol/L (21-28) 07/01/18 06:25 ABG pH 7.50 (7.35-7.45) H 07/01/18 06:25 ABG Total CO2 23.5 mmol.L (22-28) 07/01/18 06:25 ABG O2 Saturation 99.5 % (95-98) H 07/01/18 06:25 ABG O2 Content 15.3 ML/dl (15-23) 07/01/18 06:25 ABG Base Excess 0.1 mmol/L (-2.0-3.0) 07/01/18 06:25 ABG Hemoglobin 11.1 g/dL (11.7-17.4) L 07/01/18 06:25 ABG Carboxyhemoglobin 1.8 % (0.5-1.5) H 07/01/18 06:25 POC ABG HHb (Measured) 0.5 % (0-5) 07/01/18 06:25 ABG Methemoglobin 0.9 % (0.0-3.0) 07/01/18 06:25 ABG O2 Capacity 15.4 mL/dl (16-24) L 07/01/18 06:25 VBG pH 7.33 (7.32-7.43) 06/30/18 23:50 VBG pCO2 51.0 (40-60) 06/30/18 23:50 VBG HCO3 26.9 mmol/l (21-28) 06/30/18 23:50 VBG Total CO2 28.5 mmol.L (22-28) H 06/30/18 23:50 VBG O2 Sat (Calc) 49.7 % (40-65) 06/30/18 23:50 VBG Base Excess 0.2 mmol/L (0.0-2.0) 06/30/18 23:50 VBG Potassium 4.5 mmol/L (3.6-5.2) 06/30/18 23:50 Hgb O2 Saturation 96.8 % (95.0-98.0) 07/01/18 06:25 Sodium 128.0 mmol/L (132-148) L 06/30/18 23:50 Chloride 86.0 mmol/L (98-107) L 06/30/18 23:50 Glucose > 750 mg/dl (65-105) H* 06/30/18 23:50 Lactate 1.6 mmol/L (0.7-2.1) 06/30/18 23:50 FiO2 21.0 % 07/01/18 06:25 Crit Value Called To Sandra king 06/30/18 23:50 Crit Value Called By 06/30/18 23:50 Blood Gas Notified Time 3 06/30/18 23:50 Sodium 138 mmol/L (132-148) 07/18/18 07:00 Potassium 4.8 mmol/L (3.6-5.0) 07/18/18 07:00 Chloride 102 mmol/L (98-107) 07/18/18 07:00 Carbon Dioxide 30 mmol/L (21-33) 07/18/18 07:00 Anion Gap 11 (10-20) 07/18/18 07:00 BUN 21 mg/dL (7-21) 07/18/18 07:00 Creatinine 0.7 mg/dl (0.7-1.2) 07/18/18 07:00 Est GFR ( Amer) > 60 07/18/18 07:00 Est GFR (Non-Af Amer) > 60 07/18/18 07:00 POC Glucose (mg/dL) 232 mg/dL (65-110) H 07/18/18 11:50 Random Glucose 178 mg/dL (70-110) H 07/18/18 07:00 Hemoglobin A1c 15.5 % (4.2-6.5) H 07/01/18 08:10 Calcium 8.6 mg/dL (8.4-10.5) 07/18/18 07:00 Phosphorus 3.6 mg/dL (2.5-4.5) 07/06/18 08:00 Magnesium 2.0 mg/dL (1.7-2.2) 07/12/18 06:30 Total Bilirubin 0.1 mg/dL (0.2-1.3) L 07/08/18 06:30 AST 45 U/L (14-36) H 07/08/18 06:30 ALT 38 U/L (7-56) 07/08/18 06:30 Alkaline Phosphatase 111 U/L (38-126) 07/08/18 06:30 Total Protein 6.8 g/dL (5.8-8.3) 07/08/18 06:30 Albumin 3.1 g/dL (3.0-4.8) 07/08/18 06:30 Globulin 3.7 gm/dL 07/08/18 06:30 Albumin/Globulin Ratio 0.8 (1.1-1.8) L 07/08/18 06:30 Triglycerides 70 mg/dL (35-160) 07/01/18 08:10 Cholesterol 161 mg/dL (130-200) 07/01/18 08:10 LDL Cholesterol Direct 76 mg/dL (0-129) 07/01/18 08:10 HDL Cholesterol 50 mg/dL (29-60) 07/01/18 08:10 TSH 3rd Generation 0.82 mIU/mL (0.46-4.68) 07/01/18 08:10 Venous Blood Potassium 4.5 mmol/L (3.6-5.2) 06/30/18 23:50 Urine Color Light yellow (YELLOW) 07/01/18 04:20 Urine Appearance Sl cloudy (CLEAR) 07/01/18 04:20 Urine pH 7.0 (4.7-8.0) 07/01/18 04:20 Ur Specific [place] 1.015 (1.005-1.035) 07/01/18 04:20 Urine Protein Trace mg/dL (<30 mg/dL) H 07/01/18 04:20 Urine Glucose (UA) >=1000 mg/dL (NEGATIVE) 07/01/18 04:20 Urine Ketones 15 mg/dL (NEGATIVE) H 07/01/18 04:20 Urine Blood Trace-intact (NEGATIVE) H 07/01/18 04:20 Urine Nitrate Negative (NEGATIVE) 07/01/18 04:20 Urine Bilirubin Negative (NEGATIVE) 07/01/18 04:20 Urine Urobilinogen 0.2 E.U./dL (<1 E.U./dL) 07/01/18 04:20 Ur Leukocyte Esterase Negative Shauna/uL (NEGATIVE) 07/01/18 04:20 Urine RBC 0 - 2 /hpf (0-2) 07/01/18 04:20 Urine WBC 0 - 2 /hpf (0-6) 07/01/18 04:20 Ur Epithelial Cells 0 - 2 /hpf (0-5) 07/01/18 04:20 Urine Opiates Screen Negative (NEGATIVE) 07/01/18 04:20 Urine Methadone Screen Negative (NEGATIVE) 07/01/18 04:20 Ur Barbiturates Screen Negative (NEGATIVE) 07/01/18 04:20 Ur Phencyclidine Scrn Negative (NEGATIVE) 07/01/18 04:20 Ur Amphetamines Screen Negative (NEGATIVE) 07/01/18 04:20 U Benzodiazepines Scrn Negative (NEGATIVE) 07/01/18 04:20 U Oth Cocaine Metabols Negative (NEGATIVE) 07/01/18 04:20 U Cannabinoids Screen Negative (NEGATIVE) 07/01/18 04:20 Alcohol, Quantitative < 10 mg/dL (0-10) 07/01/18 08:10 B-Hydroxybutyrate 0.94 mM (0.02-0.27) H 06/30/18 23:50 Influenza Typ A,B (EIA) Negative for flu a/b (NEGATIVE) 07/05/18 08:20 - Hospital Course Hospital Course: Patient is a 73 year old female with past medical history of T2DM presenting with altered mental status. History is limited and mostly obtained from ED and prior records as patient is hypersomnolent and responds to verbal questioning selectively. Patient was found at a laundromat and noted to be altered by the laundromat global product manager and so EMS was called. Currently patient denies pain, offers no other symptomatic complaints. PMH: T2DM PSH: unknown SHx: denies alcohol, tobacco, illicit drug use FHx: unknown Allergies: NKDA PMD: unknown HOSPITAL COURSE: Mrs Brizuela will be temporarily be transferred to TCU for rehab and return to the acute side prior to her planned transmetatarsal amputation on 07/24/18 at 7:30AM. Please see the assessments and plan below for specifics on current medical management: Patient is a 73 year old female with PMH of diabetes, HTN, PVD, and noncompliance with medication was admitted with altered mental status and hyperglycemia. Clinical course complicated by ichemic rest pain of the left LE. Revascularization of LLE w/ IR on 07/11. Plan: Severe PAD - s/p IR revascularization of LLE on 07/11 - Scheduled for Left Transmetatarsal Amputation (L-TMA) for 07/24 at 7:30 am - As per podiatry, hold Plavix for 7 days until Left-TMA - c/w Lipitor - Arterial US: Severely abnormal L ALYSE @ rest ALYSE is .46. R ALYSE is at .77 and is moderately abnormal - CT angiogram 07/06: severe stenosis in the distal superficial femoral arteries bilaterally. Single vessel runoff to both ankles via the posterior tibial. The anterior tibials are thin and narrow with multi focal stenosis - Peripheral vascular procedure report: successful left SFA and pop artery jet stream arthrectomy and balloon angioplasty; successful left ant tib angioplasty with focal drug-eluting stent placement; successful left tibperoneal trunk and prox left PT artery angioplasty LLE Gangrene/Necrosis with RLE Ulcer 2/2 DM - As per ID, c/w PO keflex for a total of 14 days - ID is on consult (Dr. Guidry). Recs appreciated. - Wound care - Podiatry. Recs appreciated. Left-TMA amputation planned for 07/24. HTN - c/w Metoprolol 25mg PO BID - c/w Clonidine 0.1mg BID - Cardiology following (Dr. Merritt). Recs appreciated. AMS 2/2 Hyperglycemia - resolved - Likely 2/2 elevated blood glucose levels upon admission in the 700s, now resolved - AAOx3 at baseline mental status - CT head: age appropriate changes, no acute pathology - UA, Ucx, BCx, CXR negative DM II with Neuropathy - ISS - Accuchecks - Hgba1c 15.5 - Levemir 12u Q12 - Diabetic education - c/w Gabapentin 300mg BID Stage II sacral ulcer - wound care on board - frequent turns, air mattress, conservative management PPX DVT: anticoag (held at this time) GI: Protonix Diet: HHD PT: recommends GABBY Dispo: Monitor patient on remote telemetry. Spoke with podiatry, patient will be going for Left-TMA on Tuesday, 07/24. Anticoagulation held until procedure. Discharge Exam - Head Exam Head Exam: ATRAUMATIC, NORMOCEPHALIC - Additional Findings Additional findings: - Constitutional Appears: Well, Non-toxic, No Acute Distress - Head Exam Head Exam: ATRAUMATIC, NORMAL INSPECTION, NORMOCEPHALIC - Eye Exam Eye Exam: EOMI - ENT Exam ENT Exam: Mucous Membranes Moist - Respiratory Exam Respiratory Exam: NORMAL BREATHING PATTERN. absent: Wheezes, Respiratory Distress - Cardiovascular Exam Cardiovascular Exam: REGULAR RHYTHM, +S1, +S2. absent: Murmur - GI/Abdominal Exam GI & Abdominal Exam: Soft, Normal Bowel Sounds. absent: Tenderness - Extremities Exam Additional comments: Left 1st and 2nd toe dry gangrene, cool to touch Rest of left LE warm, less tender to palpation Right LE cool to touch, minimal tenderness, nonpalpable DP/PT pulses - Neurological Exam Neurological Exam: Alert, Awake - Psychiatric Exam Psychiatric exam: Normal Affect, Normal Mood - Skin Skin Exam: Dry, Intact, Normal Color, Warm Additional comments: Left 1st and 2nd toe gangrene/necrosis. Discharge Plan - Follow Up Plan Condition: FAIR Disposition: TRANSF TO SNF Instructions: Diabetes Type 2 (DC), Diabetic Neuropathy (DC) Additional Instructions: - Patient has been discharged to TCU for rehab. Please continue all current active medications. - Please follow up with your Primary Care Doctor, Dr. Akbar, in [facility] within 1 week of discharge from the hospital/rehab. - It was noted that your HbgA1c (a diabetes marker) was high at 15.5. Please follow this up with your primary care doctor as adjustments in your diabetes medications are needed. You will likely need to self-administer insulin upon discharge from rehab. - Please eat a diet that is low in sugar and starches as this will worsen your diabetic condition. Please exercise a total of 150 minutes per week to help better control your diabetes and sugar levels. - The pain in your legs is likely neuropathy which is worsened by your high sugar levels, please maintain a healthy diet with exercise to help with the pain and help prevent further diabetic complications. - Please follow up with a reporting lead (green building design specialist), Dr Parekh, who can continue to monitor the cuts that are present on the bottom of your feet. - Please follow up with an interior horticulturist (eyelet cutter) to help prevent any eye related diabetic complications. - If you have any new or returning symptoms please go the nearest emergency department. Referrals: Radha Parekh DPM [Staff Provider] - <Lorena Orozco - Last Filed: 07/19/18 13:38> Provider - Provider Date of Admission: 07/01/18 05:37 Attending physician: Omari Rockwell MD Consults: 07/01/18 05:28 Social Work Referral Routine Comment: homeless Physician Instructions: Reason For Exam: homeless Wound Care [Nursing Referral for Wound Care] Routine Comment: Physician Instructions: Reason For Exam: RLE toe ulcer 07/01/18 05:31 Diabetic Education Referral Routine Comment: Physician Instructions: Reason For Exam: uncontrolled DM 07/01/18 10:47 Podiatry Consult Routine Comment: Consulting Provider: Meek Cobb Consulting Physician: Meek Cobb Reason for Consult: right hallux ulcer 07/01/18 12:05 Infectious Disease Consult Routine Comment: Consulting Provider: Jericho Guidry Consulting Physician: Jericho Guidry Reason for Consult: ? cellulitis of R hallux 07/01/18 14:32 Case Management Referral Routine Comment: Gilda WOODSON-PT IS CONFUSED,[facility] Physician Instructions: Reason For Exam: EVALUATION Reason for Referral: Multiple Drum Sander Eval 07/01/18 14:49 Nursing Referral for Wound Care Routine Comment: RIGHT SHOULDER WOUND,DTI? BRUISED AREA FR FALL? Physician Instructions: Reason For Exam: EVALUATION-PT CONFUSED 07/02/18 11:26 Diabetic Education Referral Routine Comment: Physician Instructions: Reason For Exam: uncontrolled dm; new to insulin 07/03/18 10:17 TCU [Evaluation for TRCU] Routine Comment: Physician Instructions: Reason For Exam: weakness 07/03/18 10:50 Physician Consult Routine Comment: Consulting Provider: Maged Ray Consulting Physician: Maged Ray Reason for Consult: b/l pvd, left foot cold to touch, no cap refill noted 07/10/18 09:31 Cardiology Consult Routine Comment: Consulting Provider: Carlton Merritt Consulting Physician: Carlton Merritt Reason for Consult: pre-op clearance, angio for severe PAD 07/17/18 01:59 Nursing Referral for Wound Care Routine Comment: Physician Instructions: Reason For Exam: sacrum, necrotic L foot, R 1st toe 07/18/18 12:38 Evaluation for TRCU Routine Comment: Physician Instructions: Reason For Exam: Left foot gangrene Hospital Course - Lab Results Lab Results: Micro Results 07/01/18 08:10 Blood-Venous Blood Culture - Final NO GROWTH AFTER 5 DAYS 07/01/18 08:10 Blood-Venous Gram Stain - Final TEST NOT PERFORMED 07/01/18 07:30 Blood-Venous Blood Culture - Final NO GROWTH AFTER 5 DAYS 07/01/18 07:30 Blood-Venous Gram Stain - Final TEST NOT PERFORMED 07/01/18 08:15 Urine,Catheterized Urine Culture - Final No Growth (<1,000 CFU/ML) Most Recent Lab Values WBC 9.7 10^3/uL (4.5-11.0) 07/18/18 07:00 RBC 2.94 10^6/uL (3.5-6.1) L 07/18/18 07:00 Hgb 8.2 g/dL (12.0-16.0) L 07/18/18 07:00 Hct 25.7 % (36.0-48.0) L 07/18/18 07:00 MCV 87.4 fl (80.0-105.0) 07/18/18 07:00 MCH 27.9 pg (25.0-35.0) 07/18/18 07:00 MCHC 31.9 g/dl (31.0-37.0) 07/18/18 07:00 RDW 12.6 % (11.5-14.5) 07/18/18 07:00 Plt Count 588 10^3/uL (120.0-450.0) H 07/18/18 07:00 MPV 9.0 fl (7.0-11.0) 07/18/18 07:00 Neut % (Auto) 67.1 % (50.0-68.0) 07/18/18 07:00 Lymph % (Auto) 20.5 % (22.0-35.0) L 07/18/18 07:00 [place] % (Auto) 8.9 % (1.0-6.0) H 07/18/18 07:00 Eos % (Auto) 3.3 % (1.5-5.0) 07/18/18 07:00 Baso % (Auto) 0.2 % (0.0-3.0) 07/18/18 07:00 Lymph # (Auto) 2.0 (1.2-3.4) 07/18/18 07:00 [place] # (Auto) 0.9 (0.1-0.6) H 07/18/18 07:00 Eos # (Auto) 0.3 (0.0-0.7) 07/18/18 07:00 Baso # (Auto) 0.02 K/mm3 (0.0-2.0) 07/18/18 07:00 Absolute Neuts (auto) 6.49 (1.4-6.5) 07/18/18 07:00 ESR 143 mm/hr (0.0-20.0) H 07/18/18 07:00 APTT 54.4 Seconds (26.9-38.3) H 07/15/18 07:00 pCO2 29 mm/Hg (35-45) L 07/01/18 06:25 pO2 105.0 mm/Hg (80-100) H 07/01/18 06:25 HCO3 22.6 mmol/L (21-28) 07/01/18 06:25 ABG pH 7.50 (7.35-7.45) H 07/01/18 06:25 ABG Total CO2 23.5 mmol.L (22-28) 07/01/18 06:25 ABG O2 Saturation 99.5 % (95-98) H 07/01/18 06:25 ABG O2 Content 15.3 ML/dl (15-23) 07/01/18 06:25 ABG Base Excess 0.1 mmol/L (-2.0-3.0) 07/01/18 06:25 ABG Hemoglobin 11.1 g/dL (11.7-17.4) L 07/01/18 06:25 ABG Carboxyhemoglobin 1.8 % (0.5-1.5) H 07/01/18 06:25 POC ABG HHb (Measured) 0.5 % (0-5) 07/01/18 06:25 ABG Methemoglobin 0.9 % (0.0-3.0) 07/01/18 06:25 ABG O2 Capacity 15.4 mL/dl (16-24) L 07/01/18 06:25 VBG pH 7.33 (7.32-7.43) 06/30/18 23:50 VBG pCO2 51.0 (40-60) 06/30/18 23:50 VBG HCO3 26.9 mmol/l (21-28) 06/30/18 23:50 VBG Total CO2 28.5 mmol.L (22-28) H 06/30/18 23:50 VBG O2 Sat (Calc) 49.7 % (40-65) 06/30/18 23:50 VBG Base Excess 0.2 mmol/L (0.0-2.0) 06/30/18 23:50 VBG Potassium 4.5 mmol/L (3.6-5.2) 06/30/18 23:50 Hgb O2 Saturation 96.8 % (95.0-98.0) 07/01/18 06:25 Sodium 128.0 mmol/L (132-148) L 06/30/18 23:50 Chloride 86.0 mmol/L (98-107) L 06/30/18 23:50 Glucose > 750 mg/dl (65-105) H* 06/30/18 23:50 Lactate 1.6 mmol/L (0.7-2.1) 06/30/18 23:50 FiO2 21.0 % 07/01/18 06:25 Crit Value Called To Sandra king 06/30/18 23:50 Crit Value Called By 06/30/18 23:50 Blood Gas Notified Time 3 06/30/18 23:50 Sodium 138 mmol/L (132-148) 07/18/18 07:00 Potassium 4.8 mmol/L (3.6-5.0) 07/18/18 07:00 Chloride 102 mmol/L (98-107) 07/18/18 07:00 Carbon Dioxide 30 mmol/L (21-33) 07/18/18 07:00 Anion Gap 11 (10-20) 07/18/18 07:00 BUN 21 mg/dL (7-21) 07/18/18 07:00 Creatinine 0.7 mg/dl (0.7-1.2) 07/18/18 07:00 Est GFR ( Amer) > 60 07/18/18 07:00 Est GFR (Non-Af Amer) > 60 07/18/18 07:00 POC Glucose (mg/dL) 215 mg/dL (65-110) H 07/18/18 16:32 Random Glucose 178 mg/dL (70-110) H 07/18/18 07:00 Hemoglobin A1c 15.5 % (4.2-6.5) H 07/01/18 08:10 Calcium 8.6 mg/dL (8.4-10.5) 07/18/18 07:00 Phosphorus 3.6 mg/dL (2.5-4.5) 07/06/18 08:00 Magnesium 2.0 mg/dL (1.7-2.2) 07/12/18 06:30 Total Bilirubin 0.1 mg/dL (0.2-1.3) L 07/08/18 06:30 AST 45 U/L (14-36) H 07/08/18 06:30 ALT 38 U/L (7-56) 07/08/18 06:30 Alkaline Phosphatase 111 U/L (38-126) 07/08/18 06:30 Total Protein 6.8 g/dL (5.8-8.3) 07/08/18 06:30 Albumin 3.1 g/dL (3.0-4.8) 07/08/18 06:30 Globulin 3.7 gm/dL 07/08/18 06:30 Albumin/Globulin Ratio 0.8 (1.1-1.8) L 07/08/18 06:30 Triglycerides 70 mg/dL (35-160) 07/01/18 08:10 Cholesterol 161 mg/dL (130-200) 07/01/18 08:10 LDL Cholesterol Direct 76 mg/dL (0-129) 07/01/18 08:10 HDL Cholesterol 50 mg/dL (29-60) 07/01/18 08:10 TSH 3rd Generation 0.82 mIU/mL (0.46-4.68) 07/01/18 08:10 Venous Blood Potassium 4.5 mmol/L (3.6-5.2) 06/30/18 23:50 Urine Color Light yellow (YELLOW) 07/01/18 04:20 Urine Appearance Sl cloudy (CLEAR) 07/01/18 04:20 Urine pH 7.0 (4.7-8.0) 07/01/18 04:20 Ur Specific [place] 1.015 (1.005-1.035) 07/01/18 04:20 Urine Protein Trace mg/dL (<30 mg/dL) H 07/01/18 04:20 Urine Glucose (UA) >=1000 mg/dL (NEGATIVE) 07/01/18 04:20 Urine Ketones 15 mg/dL (NEGATIVE) H 07/01/18 04:20 Urine Blood Trace-intact (NEGATIVE) H 07/01/18 04:20 Urine Nitrate Negative (NEGATIVE) 07/01/18 04:20 Urine Bilirubin Negative (NEGATIVE) 07/01/18 04:20 Urine Urobilinogen 0.2 E.U./dL (<1 E.U./dL) 07/01/18 04:20 Ur Leukocyte Esterase Negative Shauna/uL (NEGATIVE) 07/01/18 04:20 Urine RBC 0 - 2 /hpf (0-2) 07/01/18 04:20 Urine WBC 0 - 2 /hpf (0-6) 07/01/18 04:20 Ur Epithelial Cells 0 - 2 /hpf (0-5) 07/01/18 04:20 Urine Opiates Screen Negative (NEGATIVE) 07/01/18 04:20 Urine Methadone Screen Negative (NEGATIVE) 07/01/18 04:20 Ur Barbiturates Screen Negative (NEGATIVE) 07/01/18 04:20 Ur Phencyclidine Scrn Negative (NEGATIVE) 07/01/18 04:20 Ur Amphetamines Screen Negative (NEGATIVE) 07/01/18 04:20 U Benzodiazepines Scrn Negative (NEGATIVE) 07/01/18 04:20 U Oth Cocaine Metabols Negative (NEGATIVE) 07/01/18 04:20 U Cannabinoids Screen Negative (NEGATIVE) 07/01/18 04:20 Alcohol, Quantitative < 10 mg/dL (0-10) 07/01/18 08:10 B-Hydroxybutyrate 0.94 mM (0.02-0.27) H 06/30/18 23:50 Influenza Typ A,B (EIA) Negative for flu a/b (NEGATIVE) 07/05/18 08:20 Attending/Attestation - Attestation I have personally seen and examined this patient.: Yes I have fully participated in the care of the patient.: Yes I have reviewed all pertinent clinical information, including history, physical exam and plan: Yes Notes (Text): 07/19/18 13:37 Medical record note made by the resident after discussion with my direction and input after the patient was personally seen and examined by me. I have reviewed the chart and agree that the record accurately reflects by personal performance of the history, physical exam, data review, and medical decision-making, in the course for the patient. I have also personally directed the plan of care. 73 year old female with past medical history of diabetes, hypertension, PVD and noncompliance was admitted with altered mental status and significantly elevated blood sugars (>700) which improved with iv fluids and insulin. Mental status is back to normal. A1c is 15.5 and patient was started on levemir. Patient was also found to have right big toe ulcer and severe PAD/PVD. Arterial doppler showed severely abnormal L ALYSE 0.46 and moderately abnormal R ALYSE 0.77. CT angiogram showed severe stenosis in the distal superficial femoral arteries bilaterally; single vessel runoff to both ankles via the posterior tibial; anterior tibials are thin and narrow with multifocal stenosis.Patient is SP left SFA and popliteal artherectomy and drug eluting balloon angioplasty, successful left anterior tibial artery angioplasty and focal drug eluting stent placement, and successful left tibioperoneal trunk and proximal left posterior tibial artery angioplasty. Patient has dry gangrene of left foot, she is scheduled for left TMA by Podiatry on July. Patient was on plavix, need to be off Plavix for 5 days prior to procedure. She will be discharged to TCU for Physical therapy and rehabilitation.She will be admitted again on 07/23/18.
--- NOTE | 2018-07-18 15:12 | PN ---
DATE: 07/18/2018 SUBJECTIVE: The patient denies any chest pain. PHYSICAL EXAMINATION VITAL SIGNS: Blood pressure 116/68, heart rate 76, temperature 97.3 and respirations 18. HEENT: Pale conjunctivae. CHEST: Clear. HEART: S1 and S2 regular. EXTREMITIES: Gangrenous changes involving the left forefoot. LABORATORY DATA: Today's hemoglobin and hematocrit 8.2 and 25.7, white count 9.7 and platelet count . Today's SMA-7 is within normal limits except for glucose 178. ASSESSMENT: 1. Gangrenous changes involving the left forefoot. 2. Status post recent interventional radiology revascularization including atherectomy, a stent, and balloon angioplasty. 3. Diabetes mellitus. 4. Moderate aortic insufficiency and mild mitral insufficiency. RECOMMENDATIONS: Continue current clonidine 0.1 mg once a day, Lipitor 20 mg once a day, Lopressor 25 mg twice a day and Plavix is on hold on anticipation of partial amputation on Tuesday. Carlton Merritt MD
--- NOTE | 2018-07-18 18:33 | CP.PCM.PN ---
Subjective - Date & Time of Evaluation Date of Evaluation: 07/18/18 Time of Evaluation: 12:30 - Subjective Subjective: Infectious Disease Follow Up: July 18, 2018 73 yo female with history of Type II DM. The patient was found to be altered in a laundromat. Patient herself gives little information. Patient's PMD is apparently in [place], [place], his name is Dr. Akbar. The patient name is Jessica Brizuela. Patient had fever of 101.0 F. No leukocytosis. Limited information provided by the patient. Patient is hyperglycemic on admission and still has elevated glucose levels. Was under isolation for bedbugs. No further fever episodes today. Afebrile for the last few days now. Duplex showing disease of the vessels of the left leg. Abdominal CT Angiography showing severe stenosis in the distal superficial femoral arteries bilaterally. Single vessel runoff to both ankles via the posterior tibials. The anterior tibials are thin and narrow with multi focal stenosis. Significant peripheral vascular disease bilaterally. Had angioplasty with Dr. Ray in morning of 07/11/2018. Podiatry planning for TMA of the left foot due to gangrene of toes of the left foot. On oral antibiotics. Objective - Vital Signs/Intake and Output Vital Signs (last 24 hours): Temp Pulse Resp BP Pulse Ox 97.3 F L 76 18 116/68 97 07/18/18 08:46 07/18/18 09:25 07/18/18 08:46 07/18/18 09:25 07/18/18 08:46 Intake and Output: 07/18/18 07/18/18 06:59 18:59 Intake Total 1080 Output Total 200 Balance 880 - Labs Labs: 07/18/18 07:00 07/18/18 07:00 APTT 54.4 Seconds (26.9-38.3) H 07/15/18 07:00 - Constitutional Appears: Non-toxic, No Acute Distress, Chronically Ill - Head Exam Head Exam: ATRAUMATIC, NORMOCEPHALIC - Eye Exam Eye Exam: EOMI, PERRL Pupil Exam: NORMAL ACCOMODATION, PERRL - ENT Exam ENT Exam: Mucous Membranes Moist, Normal External Ear Exam, TM's Normal Bilaterally - Neck Exam Neck Exam: Full ROM, Normal Inspection - Respiratory Exam Respiratory Exam: Clear to Ausculation Bilateral, NORMAL BREATHING PATTERN. absent: Rales, Rhonchi, Wheezes - Cardiovascular Exam Cardiovascular Exam: REGULAR RHYTHM, RRR, +S1, +S2 - GI/Abdominal Exam GI & Abdominal Exam: Soft, Normal Bowel Sounds. absent: Distended, Tenderness - Extremities Exam Additional comments: RLE big toe ulcer/eschar. Mild edema of the left lower leg. Duskiness of the left forefoot progressing... impending gangrene. Toes of the left foot are all gangrenous. Gangrene is reaching midfoot of the left foot on the medial side. - Neurological Exam Neurological Exam: Alert, Awake, CN II-XII Intact, Oriented x3 - Psychiatric Exam Psychiatric exam: Flat Affect Additional comments: Distant. Often answers questions with "I don't know", "I don't remember", or "I forgot". - Skin Additional comments: As above. Assessment and Plan - Assessment and Plan (Free Text) Assessment: 73 yo female presenting for altered mental status, fevers up to 101.0 F, and hyperglycemia. Negative Chest X-ray. X-ray right big toe showing swelling of the soft tissues only. Head CT negative. Patient was hyponatremic. Unclear how the patient's DM control is normally. Likely with some degree of dehydration in addition to the hyperglycemia. Check Hgb A1c... 15.5. Monitor glucose levels. Started on Vancomycin and Zosyn. Villagran cultures. Supportive care. Afebrile today. Found to have bedbugs and was isolated. Patient was washed and now off isolation. Duplex studies showing severe peripheral vascular disease bilaterally. Cultures negative. Left foot and ankle X-ray negative. Considering oral antibiotic care with Keflex. Patient with diabetes that is not under control. Borderline fevers. Angioplasty with Dr. Ray occurred on 07/11/2018. Impressions were: 1. Successful left SFA and popliteal arter jet stream atherectomy and drug- eluting stent balloon angioplasty. No stent was required. 2. Successful left anterior tibial artery angioplasty and focal drug-eluting stent placement 3. Successful left tibioperoneal trunk and proximal left posterior tibial artery angioplasty 4. 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 Critical right popliteal artery stenoses. No additional issues. Would consider total of 14 days of antibiotics both IV and orally administered. Now on oral Keflex for antibiotic treatment. Podiatry concerned with impending gangrene of the left forefoot. Toes of the left foot are already gangrenous. This has progressed during this hospitalization despite interventions. Podiatry is now planning TMA of the left foot on 07/24/2018. Obtain ESR. Noted echocardiogram report and severity of valve disease. Thank you for allowing me to participate in the care of the patient, we will follow with you.
== END 2018-07-18 15:06 | DRG 629 ==
LOC: ED 23:14 → ERH 07-01 05:37 → EDBD 07-01 05:37 → ERH 07-01 07:55 → 2RSO 07-01 08:55 → 5RSO 07-04 13:27 → 2RSO 07-11 12:32 → 3RSO 07-14 15:27
PROVIDERS: ADMIT Hospitalist; ATTEND Internal Medicine
PROC: 047L3Z1 Dilation of Left Femoral Artery using Drug-Coated Balloon, Percutaneous Approach (ICD-10-PCS; principal; 2018-07-11)
PROC: 047N3Z1 Dilation of Left Popliteal Artery using Drug-Coated Balloon, Percutaneous Approach (ICD-10-PCS; 2018-07-11)
PROC: 047Q34Z Dilation of Left Anterior Tibial Artery with Drug-eluting Intraluminal Device, Percutaneous Approach (ICD-10-PCS; 2018-07-11)
PROC: 047S3ZZ Dilation of Left Posterior Tibial Artery, Percutaneous Approach (ICD-10-PCS; 2018-07-11)
PROC: 047U3ZZ Dilation of Left Peroneal Artery, Percutaneous Approach (ICD-10-PCS; 2018-07-11)
PROC: 04CL3ZZ Extirpation of Matter from Left Femoral Artery, Percutaneous Approach (ICD-10-PCS; 2018-07-11)
PROC: 04CN3ZZ Extirpation of Matter from Left Popliteal Artery, Percutaneous Approach (ICD-10-PCS; 2018-07-11)
PROC: B41D1ZZ Fluoroscopy of Aorta and Bilateral Lower Extremity Arteries using Low Osmolar Contrast (ICD-10-PCS; 2018-07-11)
DX: E11.65 Type 2 diabetes mellitus with hyperglycemia (principal); E11.52 Type 2 diabetes mellitus with diabetic peripheral angiopathy with gangrene; I70.262 Atherosclerosis of native arteries of extremities with gangrene, left leg; E87.1 Hypo-osmolality and hyponatremia; E11.42 Type 2 diabetes mellitus with diabetic polyneuropathy; E11.621 Type 2 diabetes mellitus with foot ulcer; L97.519 Non-pressure chronic ulcer of other part of right foot with unspecified severity; E86.0 Dehydration; I10 Essential (primary) hypertension; I27.20 Pulmonary hypertension, unspecified; R50.9 Fever, unspecified; E78.00 Pure hypercholesterolemia, unspecified; I35.1 Nonrheumatic aortic (valve) insufficiency; Z91.14 Patient's other noncompliance with medication regimen

== ENCOUNTER 2018-07-18 15:10 | Inpatient (IN) | payer OTHER ==
[2018-07-18 15:24] VITALS: BMI 20.8
[2018-07-18] MEDS ORDERED: Nitroglycerin 2% Ointment Foilpak UD TOP SCH (16:00)
[2018-07-18] MEDS ORDERED: Dextrose 50% SYRINGE Inj (50 ml) IV PRN (16:07)
[2018-07-18] MEDS: Insulin Reg-MEDIUM-Coverage SC SCH ×2 (17:35→21:33)
[2018-07-18] MEDS ORDERED: Influenza Vaccine 60 mcg/0.5 mL SYR (4YR UP) IM ONE (20:44)
[2018-07-18] MEDS ORDERED: Pneumococcal 23-Valent Vaccine IM ONE (20:44)
[2018-07-18] MEDS: Insulin Detemir 100 units/ml Vial (Levemir) SC SCH (21:33)
[2018-07-19] MEDS: Nitroglycerin 2% Ointment Foilpak UD TOP SCH ×3 (06:05→21:29)
[2018-07-19] MEDS: Insulin Detemir 100 units/ml Vial (Levemir) SC SCH ×2 (06:54→21:28)
[2018-07-19] MEDS: Insulin Reg-MEDIUM-Coverage SC SCH ×4 (06:54→21:23)
--- NOTE | 2018-07-19 12:39 | CP.PCM.HP ---
<Bernardino Francois - Last Filed: 07/19/18 12:36> History of Present Illness - History of Present Illness History of Present Illness: Bernardino Francois, PGY1 H&P for Dr. Orozco cc: altered mental status Patient is a 73 year old female with past medical history of T2DM presenting with altered mental status. History was limited and mostly obtained from ED and prior records as patient was hypersomnolent and responded to verbal questioning selectively. Patient was found at a laundromat and noted to be altered by the laundromat criminalist technician and so EMS was called. Mental status improved during admission. The cause of AMS was hypergylcemia - uncontrolled with A1c 15. Hospital course was complicated by ischemic rest pain fo the left lower extremity. She had revascularization of LLE with IR on 07/11. Podiatry, IR, ID, and Cardiology followed the case. The recommendation as per podiatry is for left transmeta-tars al amputation given she has necrosis and gangrene. Patient was transferred to TCU for rehab and return to the acute side prior to her planned transmetatarsal amputation on 07/24/18 at 7:30AM. Please see the assessments and plan from prior notes for further information. Currently, patient denies n/v/d, fever, chills, cp, sob, lower extremity pain. A full 12 point ROS was conducted and unremarkable except as stated above. 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 IS SWOLLEN AND PAINFUL SURROUNDING SKIN IS DARKENED BLACK TO WHITE SKIN DISCOLORATION. RIGHT SHOULDER BRUISED AREA WITH AN OPEN SCRAPED WOUND MEASURES 1 X 1 CM DRY - MUSCULOSKELETAL/RHEUMATOLOGICAL Hx Falls: No - GASTROINTESTINAL Hx Gastrointestinal Disorders: Yes (INCONTINENT) - GENITOURINARY/GYNECOLOGICAL Hx Reproductive Disorders: No - PSYCHIATRIC Hx Psychophysiologic Disorder: Yes Hx Depression: Yes Hx Substance Use: No (UNKNOWN) - SURGICAL HISTORY Hx Surgeries: Yes (SX DEBRIDEMENT OF INFECTED FOOT ULCER,WAS ON VANCO) - ANESTHESIA Hx Anesthesia: No Hx Anesthesia Reactions: No Hx Malignant Hyperthermia: No Meds Allergies/Adverse Reactions: Allergies Allergy/AdvReac Type Severity Reaction Status Date / Time ibuprofen Allergy RASH Verified 07/01/18 15:40 Physical Exam - Constitutional Appears: No Acute Distress - Head Exam Head Exam: ATRAUMATIC, NORMAL INSPECTION, NORMOCEPHALIC - Eye Exam Eye Exam: EOMI, Normal appearance - ENT Exam ENT Exam: Mucous Membranes Moist - Neck Exam Neck exam: Positive for: Normal Inspection - Respiratory Exam Respiratory Exam: NORMAL BREATHING PATTERN. absent: Accessory Muscle Use, Chest Wall Tenderness, Rales, Rhonchi, Wheezes - Cardiovascular Exam Cardiovascular Exam: REGULAR RHYTHM, +S1, +S2 - GI/Abdominal Exam GI & Abdominal Exam: Normal Bowel Sounds, Soft. absent: Guarding, Rebound, Rigid, Tenderness - Extremities Exam Additional comments: Left 1st and 2nd toe dry gangrene, cool to touch Rest of left LE warm, less tender to palpation Right LE cool to touch, minimal tenderness, nonpalpable DP/PT pulses - Back Exam Back exam: NORMAL INSPECTION - Neurological Exam Neurological exam: Alert, Oriented x3 - Psychiatric Exam Psychiatric exam: Normal Affect, Normal Mood - Skin Skin Exam: Dry, Intact, Warm Additional comments: Left 1st and 2nd toe gangrene/necrosis. Results - Vital Signs Recent Vital Signs: Last Vital Signs Temp 98 F 07/19/18 10:00 Pulse 75 07/19/18 10:01 Resp 18 07/19/18 10:00 BP 108/60 07/19/18 10:01 Pulse Ox 97 07/19/18 10:00 - Labs Labs: Laboratory Results - last 24 hr 07/18/18 07/19/18 07/19/18 21:27 05:38 11:23 POC Glucose (mg/dL) 174 H 228 H 234 H Assessment & Plan - Assessment and Plan (Free Text) Assessment: Patient is a 73 year old female with PMH of diabetes, HTN, PVD, and noncompliance with medication was admitted with altered mental status and hyperglycemia. Clinical course complicated by ichemic rest pain of the left LE. Revascularization of LLE w/ IR on 07/11. She is now receiving PT in the TCU. Plan: Severe PAD - s/p IR revascularization of LLE on 07/11 - As per podiatry - non-weight bearing to the left lower extremity - continue with TCU for rehabilitation - Scheduled for Left Transmetatarsal Amputation (L-TMA) for 07/24 at 7:30 am - As per podiatry, hold Plavix for 7 days until Left-TMA - c/w Lipitor - Arterial US: Severely abnormal L ALYSE @ rest ALYSE is .46. R ALYSE is at .77 and is moderately abnormal - CT angiogram 07/06: severe stenosis in the distal superficial femoral arteries bilaterally. Single vessel runoff to both ankles via the posterior tibial. The anterior tibials are thin and narrow with multi focal stenosis - Peripheral vascular procedure report: successful left SFA and pop artery jet stream arthrectomy and balloon angioplasty; successful left ant tib angioplasty with focal drug-eluting stent placement; successful left tibperoneal trunk and prox left PT artery angioplasty LLE Gangrene/Necrosis with RLE Ulcer 2/2 DM - As per ID, c/w PO keflex for a total of 14 days - ID is on consult (Dr. Guidry). Recs appreciated. - Wound care - Podiatry. Recs appreciated. Left-TMA amputation planned for 07/24. HTN - c/w Metoprolol 25mg PO BID - c/w Clonidine 0.1mg BID - Cardiology following (Dr. Merritt). Recs appreciated. AMS 2/2 Hyperglycemia - resolved - Likely 2/2 elevated blood glucose levels upon admission in the 700s, now resolved - AAOx3 at baseline mental status - CT head: age appropriate changes, no acute pathology - UA, Ucx, BCx, CXR negative DM II with Neuropathy - ISS - Accuchecks - Hgba1c 15.5 - Levemir 12u Q12 - Diabetic education - c/w Gabapentin 300mg BID Stage II sacral ulcer - wound care on board - frequent turns, air mattress, conservative management PPX DVT: anticoag (held at this time) GI: Protonix Diet: HHD Dispo: Continue with rehabilitation in TCU. Patient will be going for Left-TMA on Tuesday, 07/24. Anticoagulation held until procedure. Case was discussed and reviewed with Attending Physician, Dr. Orozco <Lorena Orozco - Last Filed: 07/19/18 13:41> Results - Vital Signs Recent Vital Signs: Last Vital Signs Temp 98 F 07/19/18 10:00 Pulse 75 07/19/18 10:01 Resp 18 07/19/18 10:00 BP 108/60 07/19/18 10:01 Pulse Ox 97 07/19/18 10:00 - Labs Labs: Laboratory Results - last 24 hr 07/18/18 07/19/18 07/19/18 21:27 05:38 11:23 POC Glucose (mg/dL) 174 H 228 H 234 H Attending/Attestation - Attestation I have personally seen and examined this patient.: Yes I have fully participated in the care of the patient.: Yes I have reviewed all pertinent clinical information: Yes Notes (Text): 07/19/18 13:39 Medical record note made by the resident after discussion with my direction and input after the patient was personally seen and examined by me. I have reviewed the chart and agree that the record accurately reflects by personal performance of the history, physical exam, data review, and medical decision-making, in the course for the patient. I have also personally directed the plan of care. 73 year old female with past medical history of diabetes, hypertension, PVD and noncompliance was initially admitted to [facility] [place] inpatient with altered mental status ,found to have yelevated blood sugars (>700) which improved with iv fluids and insulin. Mental status is back to normal. A1c was 15.5 and patient was started on levemir. Patient was also found to have right big toe ulcer and severe PAD/PVD. Arterial doppler showed severely abnormal L ALYSE 0.46 and moderately abnormal R ALYSE 0.77. CT angiogram showed severe stenosis in the distal superficial femoral arteries bilaterally; single vessel runoff to both ankles via the posterior tibial; anterior tibials are thin and narrow with multifocal stenosis.Patient is SP left SFA and popliteal artherectomy and drug eluting balloon angioplasty, successful left anterior tibial artery angioplasty and focal drug eluting stent placement, and successful left tibioperoneal trunk and proximal left posterior tibial artery angioplasty. Patient has dry gangrene of left foot, she is scheduled for left TMA by Podiatry on July. Patient was on plavix, need to be off Plavix for 5 days prior to procedure. She will be admitted to TCU for Physical therapy and rehabilitation.She will be admitted to [facility] [place] inpatient again on 07/23/18. Management plan was discussed in detail with patient. Education was provided.
--- NOTE | 2018-07-19 14:13 | CP.PCM.CON ---
History of Present Illness - History of Present Illness History of Present Illness: Infectious Disease Consultation: July 19, 2018 73 yo female with history of Type II DM. The patient was found to be altered in a laundromat. Patient herself gives little information. Patient's PMD is [facility] in [place], [place], his name is Dr. Akbar. The patient name is Jessica Brizuela. Patient had fever of 101.0 F. No leukocytosis. Limited information provided by the patient. Patient is hyperglycemic on admission and still has elevated glucose levels. Was under isolation for bedbugs. No further fever episodes today. Afebrile for the last few days now. Duplex showing disease of the vessels of the left leg. Abdominal CT Angiography showing severe stenosis in the distal superficial femoral arteries bilaterally. Single vessel runoff to both ankles via the posterior tibials. The anterior tibials are thin and narrow with multi focal stenosis. Significant peripheral vascular disease bilaterally. Had angioplasty with Dr. Ray in morning of 07/11/2018. Podiatry planning for TMA of the left foot due to gangrene of toes of the left foot. On oral antibiotics of Keflex right now. Unclear if the patient is poor historian or unwilling to divulge information on herself. For example, when asking the patient how she wound up in [place] when she states that she lives in [place], the patient states she was visiting a freind but then refuses to to give a name or number for the patient. She would simply state that she doesn't know what her friend's name is, where she lives, or her phone number. She will even say she doesn't know what she looks like but that she is her friend. PMHx: DM Type 2, unable to obtain further information. PSHx: none given but noted midline abdominal scar. Allergies: Ibuprofen Social Hx: No given Tobacco, EtOH, or illicit drug use Active Medications Atorvastatin Calcium (Lipitor) 20 mg PO DIN [facility]; Protocol Last Admin: 07/18/18 17:37 Dose: 20 mg Cephalexin Monohydrate (Keflex) 500 mg PO Q6 [facility]; Protocol Last Admin: 07/19/18 12:19 Dose: 500 mg Clonidine HCl (Catapres) 0.1 mg PO BID [facility]; Protocol Last Admin: 07/19/18 10:01 Dose: 0.1 mg Clopidogrel Bisulfate (Plavix) 75 mg PO DAILY [facility]; Protocol Dextrose (Dextrose 50% Inj) 0 ml IV STAT PRN; Protocol PRN Reason: Hypoglycemia Protocol Gabapentin (Neurontin) 300 mg PO BID [facility]; Protocol Last Admin: 07/19/18 10:01 Dose: 300 mg Dextrose (Dextrose 5% In Water 1000 Ml) 1,000 mls @ 0 mls/hr IV .Q0M PRN; Protocol PRN Reason: Hypoglycemia Protocol Insulin Detemir (Levemir) 12 unit SC [facility]; Protocol Last Admin: 07/19/18 06:54 Dose: 12 units Insulin Human Regular (Humulin R Med) 0 units SC [facility]; Protocol Last Admin: 07/19/18 12:18 Dose: 3 units Metoprolol Tartrate (Lopressor) 25 mg PO 0800,1800 [facility]; Protocol Last Admin: 07/19/18 07:43 Dose: 25 mg Nitroglycerin (Nitro-Bid 2% Oint) 1 ea [facility] 0600,1400,2200 [facility]; Protocol Last Admin: 07/19/18 13:54 Dose: 1 ea Family Hx: unknown ROS: not giving any information Past Patient History - Past Social History Smoking Status: Unknown If Ever Smoked - CARDIAC Hx Hypertension: Yes - PULMONARY Hx Respiratory Disorders: No - NEUROLOGICAL Hx Neurological Disorder: Yes (POLYNEUROPATHY) - HEENT Hx HEENT Problems: Yes (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 IS SWOLLEN AND PAINFUL SURROUNDING SKIN IS DARKENED BLACK TO WHITE SKIN DISCOLORATION. RIGHT SHOULDER BRUISED AREA WITH AN OPEN SCRAPED WOUND MEASURES 1 X 1 CM DRY - MUSCULOSKELETAL/RHEUMATOLOGICAL Hx Falls: No - GASTROINTESTINAL Hx Gastrointestinal Disorders: Yes (INCONTINENT) - GENITOURINARY/GYNECOLOGICAL Hx Reproductive Disorders: No - PSYCHIATRIC Hx Psychophysiologic Disorder: Yes Hx Depression: Yes Hx Substance Use: No (UNKNOWN) - SURGICAL HISTORY Hx Surgeries: Yes (SX DEBRIDEMENT OF INFECTED FOOT ULCER,WAS ON VANCO) - ANESTHESIA Hx Anesthesia: No Hx Anesthesia Reactions: No Hx Malignant Hyperthermia: No Meds Allergies/Adverse Reactions: Allergies Allergy/AdvReac Type Severity Reaction Status Date / Time ibuprofen Allergy RASH Verified 07/01/18 15:40 - Medications Medications: Current Medications Atorvastatin Calcium (Lipitor) 20 mg PO DIN [facility]; Protocol Last Admin: 07/18/18 17:37 Dose: 20 mg Cephalexin Monohydrate (Keflex) 500 mg PO Q6 [facility]; Protocol Last Admin: 07/19/18 12:19 Dose: 500 mg Clonidine HCl (Catapres) 0.1 mg PO BID [facility]; Protocol Last Admin: 07/19/18 10:01 Dose: 0.1 mg Clopidogrel Bisulfate (Plavix) 75 mg PO DAILY [facility]; Protocol Dextrose (Dextrose 50% Inj) 0 ml IV STAT PRN; Protocol PRN Reason: Hypoglycemia Protocol Gabapentin (Neurontin) 300 mg PO BID [facility]; Protocol Last Admin: 07/19/18 10:01 Dose: 300 mg Dextrose (Dextrose 5% In Water 1000 Ml) 1,000 mls @ 0 mls/hr IV .Q0M PRN; Protocol PRN Reason: Hypoglycemia Protocol Insulin Detemir (Levemir) 12 unit SC [facility]; Protocol Last Admin: 07/19/18 06:54 Dose: 12 units Insulin Human Regular (Humulin R Med) 0 units SC [facility]; Protocol Last Admin: 07/19/18 12:18 Dose: 3 units Metoprolol Tartrate (Lopressor) 25 mg PO 0800,1800 [facility]; Protocol Last Admin: 07/19/18 07:43 Dose: 25 mg Nitroglycerin (Nitro-Bid 2% Oint) 1 ea TOP 0600,1400,2200 [facility]; Protocol Last Admin: 07/19/18 13:54 Dose: 1 ea Physical Exam - Constitutional Appears: Non-toxic, No Acute Distress - Head Exam Head Exam: ATRAUMATIC, NORMOCEPHALIC - Eye Exam Eye Exam: EOMI, PERRL Pupil Exam: NORMAL ACCOMODATION, PERRL - ENT Exam ENT Exam: Mucous Membranes Moist, Normal External Ear Exam, TM's Normal Bilaterally - Neck Exam Neck exam: Positive for: Full Rom, Normal Inspection - Respiratory Exam Respiratory Exam: Clear to Auscultation Bilateral, NORMAL BREATHING PATTERN. absent: Rales, Rhonchi, Wheezes - Cardiovascular Exam Cardiovascular Exam: REGULAR RHYTHM, RRR, +S1, +S2 - GI/Abdominal Exam GI & Abdominal Exam: Normal Bowel Sounds, Soft. absent: Distended, Tenderness Additional comments: midline surgical scar. - Extremities Exam Additional comments: RLE big toe ulcer/eschar. Mild edema of the left lower leg. Duskiness of the left forefoot progressing... gangrene to the midfoot especially on the medial side. Toes of the left foot are all gangrenous. Gangrene is reaching midfoot of the left foot on the medial side directly extending from the big toe. - Neurological Exam Neurological exam: Alert, CN II-XII Intact, Oriented x3 - Psychiatric Exam Psychiatric exam: Flat Affect Additional comments: Distant at time. Jovial for things that she perceives as beneficial to her. - Skin Additional comments: As above. Results - Vital Signs Recent Vital Signs: Last Vital Signs Temp 98 F 07/19/18 10:00 Pulse 75 07/19/18 10:01 Resp 18 07/19/18 10:00 BP 108/60 07/19/18 10:01 Pulse Ox 97 07/19/18 10:00 - Labs Labs: Laboratory Results - last 24 hr 07/18/18 07/19/18 07/19/18 21:27 05:38 11:23 POC Glucose (mg/dL) 174 H 228 H 234 H Assessment & Plan - Assessment and Plan (Free Text) Assessment: 73 yo female presenting for altered mental status, fevers up to 101.0 F, and hyperglycemia. Negative Chest X-ray. X-ray right big toe showing swelling of the soft tissues only. Head CT negative. Patient was hyponatremic. Unclear how the patient's DM control is normally. Likely with some degree of dehydration in addition to the hyperglycemia. Check Hgb A1c... 15.5. Monitor glucose levels. Started on Vancomycin and Zosyn. Villagran cultures. Supportive care. Afebrile today. Found to have bedbugs and was isolated. Patient was washed and now off isolation. Duplex studies showing severe peripheral vascular disease bilaterally. Cultures negative. Left foot and ankle X-ray negative. Considering oral antibiotic care with Keflex. Patient with diabetes that is not under control. Borderline fevers. Angioplasty with Dr. Ray occurred on 07/11/2018. Impressions were: 1. Successful left SFA and popliteal arter jet stream atherectomy and drug- eluting stent balloon angioplasty. No stent was required. 2. Successful left anterior tibial artery angioplasty and focal drug-eluting stent placement 3. Successful left tibioperoneal trunk and proximal left posterior tibial artery angioplasty 4. 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 Critical right popliteal artery stenoses. No additional issues. Would consider total of 14 days of antibiotics both IV and orally administered. Now on oral Keflex for antibiotic treatment. Toes of the left foot are already gangrenous. This has progressed during this hospitalization despite interventions. Podiatry is now planning TMA of the left foot on 07/24/2018. Gangrene continues to progress up to the midfoot especially on the medial side of the left foot. Obtain ESR. Noted echocardiogram report and severity of valve disease. Thank you for allowing me to participate in the care of the patient, we will follow with you.
--- NOTE | 2018-07-19 19:11 | CP.PCM.PN ---
<Shadi Covarrubias - Last Filed: 07/19/18 19:09> Subjective - Date & Time of Evaluation Date of Evaluation: 07/19/18 Time of Evaluation: 08:15 - Subjective Subjective: Podiatry progress note - Drs. 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 Patient is reporting pain but less sever today, and is unable to ambulate due to the pain. Patient denies any other pedal complaint at this time. She denies any overnight F/N/V/C/CP or SOB. Objective - Vital Signs/Intake and Output Vital Signs (last 24 hours): Temp Pulse Resp BP Pulse Ox 98.8 F 86 18 106/48 L 97 07/19/18 16:00 07/19/18 17:30 07/19/18 16:00 07/19/18 17:30 07/19/18 16:00 - Medications Medications: Current Medications Atorvastatin Calcium (Lipitor) 20 mg PO DIN [facility]; Protocol Last Admin: 07/19/18 17:33 Dose: 20 mg Cephalexin Monohydrate (Keflex) 500 mg PO Q6 [facility]; Protocol Last Admin: 07/19/18 17:33 Dose: 500 mg Clonidine HCl (Catapres) 0.1 mg PO BID [facility]; Protocol Last Admin: 07/19/18 17:30 Dose: Not Given Clopidogrel Bisulfate (Plavix) 75 mg PO DAILY [facility]; Protocol Dextrose (Dextrose 50% Inj) 0 ml IV STAT PRN; Protocol PRN Reason: Hypoglycemia Protocol Gabapentin (Neurontin) 300 mg PO BID [facility]; Protocol Last Admin: 07/19/18 17:34 Dose: 300 mg Dextrose (Dextrose 5% In Water 1000 Ml) 1,000 mls @ 0 mls/hr IV .Q0M PRN; Protocol PRN Reason: Hypoglycemia Protocol Insulin Detemir (Levemir) 12 unit SC [facility]; Protocol Last Admin: 07/19/18 06:54 Dose: 12 units Insulin Human Regular (Humulin R Med) 0 units SC [facility]; Protocol Last Admin: 07/19/18 17:31 Dose: 5 units Metoprolol Tartrate (Lopressor) 25 mg PO 0800,1800 [facility]; Protocol Last Admin: 07/19/18 17:33 Dose: Not Given Nitroglycerin (Nitro-Bid 2% Oint) 1 ea TOP 0600,1400,2200 [facility]; Protocol Last Admin: 07/19/18 13:54 Dose: 1 ea - Head Exam Head Exam: ATRAUMATIC, NORMOCEPHALIC - Extremities Exam Additional comments: B/l LE focused VASC: non-palpable pulses bilaterally, CFT >3 seconds to all digits. Temperature gradient warm to warm RLE, warm to cold LLE. +1 pitting edema noted to LLE. NEURO: Epicritic and protective sensation grossly intact b/l DERM: Right foot: Dry eschar measuring approximately 1.5 x 1.5 cm noted to distal tuft of right hallux - hyperkeratotic rim present; absent drainage; absent purulence; absent flucutance; absent malodor; no periwound erythema present. No clinical signs of infection appreciated; left foot: All digits appear gangrenous,forefoot gangrene appreciated with line of demarcation become clearer; ischemic changes have demarcated almost to the distal shaft of the metatarsal bones, collapsed blisters noted to the forefoot draining serous fluid. there is no drainage. Lidoderm patch was applied to the left foot. MSK: No pain on palpation noted to right hallux eschar. Pain on palpation noted to entire left foot, with pain on ROM 1st MPJ, MTJ, STJ, ankle joint. 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 Plan: Patient seen and evaluated at the bedside. Discussed plan with Dr. Cobb Charts, labs and vitals reviewed; Afebrile, No leukocytosis Bilateral arterial duplex ordered - significant PVD noted b/l, more severe on left. Peripheral vascular procedure report - successful left SFA and pop artery jet stream arthrectomy and balloon angioplasty; successful left ant tib angioplasty with focal drug-eluting stent placement; successful left tibperoneal trunk and prox left PT artery angioplasty Left foot and ankle XR ordered - no acute fractures or dislocations Left foot MRI ordered - pending Discussed surgical plan with Dr. Ray. Discussed with the patient that she needs transmetatarsal amputation of her left forefoot. Patient expressed verbal understanding. Patient scheduled for left TMA on Tuesday07/24/2018 at 7:30 AM. Continue abx per ID Upon discharge will follow with Dr. oCbb/Izabella in wound center as outpatient Podiatry will continue to follow up the patient while in house. <Meek Cobb - Last Filed: 07/21/18 07:10> Objective - Vital Signs/Intake and Output Vital Signs (last 24 hours): Temp Pulse Resp BP Pulse Ox 98.5 F 82 18 116/61 99 07/20/18 17:00 07/20/18 17:10 07/20/18 17:00 07/20/18 17:10 07/20/18 17:00 - Medications Medications: Current Medications Atorvastatin Calcium (Lipitor) 20 mg PO DIN [facility]; Protocol Last Admin: 07/20/18 17:09 Dose: 20 mg Clonidine HCl (Catapres) 0.1 mg PO BID [facility]; Protocol Last Admin: 07/20/18 17:09 Dose: 0.1 mg Clopidogrel Bisulfate (Plavix) 75 mg PO DAILY [facility]; Protocol Dextrose (Dextrose 50% Inj) 0 ml IV STAT PRN; Protocol PRN Reason: Hypoglycemia Protocol Gabapentin (Neurontin) 300 mg PO BID [facility]; Protocol Last Admin: 07/20/18 17:11 Dose: 300 mg Dextrose (Dextrose 5% In Water 1000 Ml) 1,000 mls @ 0 mls/hr IV .Q0M PRN; Protocol PRN Reason: Hypoglycemia Protocol Insulin Detemir (Levemir) 12 unit SC [facility]; Protocol Last Admin: 07/21/18 06:52 Dose: 12 units Insulin Human Regular (Humulin R Med) 0 units SC [facility]; Protocol Last Admin: 07/21/18 06:51 Dose: 1 units Metoprolol Tartrate (Lopressor) 25 mg PO 0800,1800 [facility]; Protocol Last Admin: 07/20/18 17:10 Dose: 25 mg Nitroglycerin (Nitro-Bid 2% Oint) 1 ea TOP 0600,1400,2200 [facility]; Protocol Last Admin: 07/21/18 05:39 Dose: 1 ea Attending/Attestation - Attestation I have personally seen and examined this patient.: Yes I have fully participated in the care of the patient.: Yes I have reviewed all pertinent clinical information, including history, physical exam and plan: Yes
[2018-07-20] MEDS: Nitroglycerin 2% Ointment Foilpak UD TOP SCH ×3 (06:46→22:36)
[2018-07-20] MEDS: Insulin Reg-MEDIUM-Coverage SC SCH ×4 (06:47→21:53)
[2018-07-20] MEDS: Insulin Detemir 100 units/ml Vial (Levemir) SC SCH ×2 (06:47→22:36)
--- NOTE | 2018-07-20 11:46 | CP.PCM.PN ---
Subjective - Date & Time of Evaluation Date of Evaluation: 07/20/18 Time of Evaluation: 11:44 - Subjective Subjective: Podiatry progress note for Drs. Cobb/Izabella 73 y/o female seen and evaluated at bedside this AM in TCU for gangrenous changes of her left forefoot with right hallux preulcerative lesion. Patient reports pain has decreased, and patient is able to ambulate better. Patient denies any other pedal complaints at this time. She denies any overnight F/N/V/C/CP or SOB. Objective - Vital Signs/Intake and Output Vital Signs (last 24 hours): Temp Pulse Resp BP Pulse Ox 98.2 F 87 16 129/66 98 07/20/18 08:34 07/20/18 08:34 07/20/18 08:34 07/20/18 08:34 07/20/18 08:34 - Medications Medications: Current Medications Atorvastatin Calcium (Lipitor) 20 mg PO DIN [facility]; Protocol Last Admin: 07/19/18 17:33 Dose: 20 mg Cephalexin Monohydrate (Keflex) 500 mg PO Q6 [facility]; Protocol Last Admin: 07/20/18 11:24 Dose: 500 mg Clonidine HCl (Catapres) 0.1 mg PO BID [facility]; Protocol Last Admin: 07/19/18 17:30 Dose: Not Given Clopidogrel Bisulfate (Plavix) 75 mg PO DAILY [facility]; Protocol Dextrose (Dextrose 50% Inj) 0 ml IV STAT PRN; Protocol PRN Reason: Hypoglycemia Protocol Gabapentin (Neurontin) 300 mg PO BID [facility]; Protocol Last Admin: 07/20/18 09:21 Dose: 300 mg Dextrose (Dextrose 5% In Water 1000 Ml) 1,000 mls @ 0 mls/hr IV .Q0M PRN; Protocol PRN Reason: Hypoglycemia Protocol Insulin Detemir (Levemir) 12 unit SC [facility]; Protocol Last Admin: 07/20/18 06:47 Dose: 12 units Insulin Human Regular (Humulin R Med) 0 units SC [facility]; Protocol Last Admin: 07/20/18 11:25 Dose: 3 units Metoprolol Tartrate (Lopressor) 25 mg PO 0800,1800 [facility]; Protocol Last Admin: 07/19/18 17:33 Dose: Not Given Nitroglycerin (Nitro-Bid 2% Oint) 1 ea TOP 0600,1400,2200 [facility]; Protocol Last Admin: 07/20/18 06:46 Dose: 1 ea - Constitutional Appears: Well, Non-toxic, No Acute Distress - Head Exam Head Exam: ATRAUMATIC, NORMOCEPHALIC - Extremities Exam Additional comments: B/l LE focused VASC: non-palpable pulses bilaterally, CFT >3 seconds to all digits. Temperature gradient warm to warm RLE, warm to cold LLE. +1 pitting edema noted to LLE. NEURO: Epicritic and protective sensation grossly intact b/l DERM: Right foot: Dry eschar measuring approximately 1.5 x 1.5 cm noted to distal tuft of right hallux - hyperkeratotic rim present; absent drainage; absent purulence; absent flucutance; absent malodor; no periwound erythema present. No clinical signs of infection appreciated; left foot: All digits appear gangrenous,forefoot gangrene appreciated with line of demarcation noted; ischemic changes have demarcated almost to the distal shaft of the metatarsal bones, collapsed blisters noted to the forefoot draining serous fluid. there is no drainage. Lidoderm patch was applied to the left foot. MSK: No pain on palpation noted to right hallux eschar. Pain on palpation noted to entire left foot, with pain on ROM 1st MPJ, MTJ, STJ, ankle joint. - Neurological Exam Neurological Exam: Alert, Awake, Oriented x3 - Psychiatric Exam Psychiatric exam: Normal Affect, Normal Mood Assessment and Plan - Assessment and Plan (Free Text) Assessment: 73 y/o female seen and evaluated at bedside this AM for gangrenous changes of her left forefoot with right hallux preulcerative lesion. Plan: Patient seen and evaluated at the bedside with Dr. Parekh Discussed plan with Dr. Parekh Charts, labs and vitals reviewed- Afebrile, No leukocytosis Bilateral arterial duplex ordered - significant PVD noted b/l, more severe on left. Peripheral vascular procedure report - successful left SFA and pop artery jet stream arthrectomy and balloon angioplasty; successful left ant tib angioplasty with focal drug-eluting stent placement; successful left tibperoneal trunk and prox left PT artery angioplasty Left foot and ankle XR ordered - no acute fractures or dislocations Left foot MRI ordered - pending Discussed surgical plan with Dr. Ray Discussed with the patient that she needs transmetatarsal amputation of her left forefoot, all risk and benefits were discussed Patient amenable to procedure at this time Patient expressed verbal understanding Patient scheduled for left TMA on Tuesday07/24/2018 at 7:30 AM Continue abx per ID Podiatry will continue to follow up the patient while in house
[2018-07-20 17:40] VITALS: RESP 18
--- NOTE | 2018-07-20 19:17 | CP.PCM.PN ---
Subjective - Date & Time of Evaluation Date of Evaluation: 07/20/18 Time of Evaluation: 17:00 - Subjective Subjective: Infectious Disease Follow Up: July 20, 2018 73 yo female with history of Type II DM. The patient was found to be altered in a laundromat. Patient herself gives little information. Patient's PMD is apparently in [place], [place], his name is Dr. Akbar. The patient name is Jessica Brizuela. Patient had fever of 101.0 F. No leukocytosis. Limited information provided by the patient. Patient is hyperglycemic on admission and still has elevated glucose levels. Was under isolation for bedbugs. No further fever episodes today. Afebrile for the last few days now. Duplex showing disease of the vessels of the left leg. Abdominal CT Angiography showing severe stenosis in the distal superficial femoral arteries bilaterally. Single vessel runoff to both ankles via the posterior tibials. The anterior tibials are thin and narrow with multi focal stenosis. Significant peripheral vascular disease bilaterally. Had angioplasty with Dr. Ray in morning of 07/11/2018. Podiatry planning for TMA of the left foot due to gangrene of toes of the left foot. On oral antibiotics of Keflex right now. Unclear if the patient is poor historian or unwilling to divulge information on herself. For example, when asking the patient how she wound up in [place] when she states that she lives in [place], the patient states she was visiting a freind but then refuses to to give a name or number for the patient. She would simply state that she doesn't know what her friend's name is, where she lives, or her phone number. She will even say she doesn't know what she looks like but that she is her friend. Objective - Vital Signs/Intake and Output Vital Signs (last 24 hours): Temp Pulse Resp BP Pulse Ox 98.5 F 82 18 116/61 99 07/20/18 17:00 07/20/18 17:10 07/20/18 17:00 07/20/18 17:10 07/20/18 17:00 - Medications Medications: Current Medications Atorvastatin Calcium (Lipitor) 20 mg PO DIN [facility]; Protocol Last Admin: 07/20/18 17:09 Dose: 20 mg Cephalexin Monohydrate (Keflex) 500 mg PO Q6 [facility]; Protocol Last Admin: 07/20/18 17:10 Dose: 500 mg Clonidine HCl (Catapres) 0.1 mg PO BID [facility]; Protocol Last Admin: 07/20/18 17:09 Dose: 0.1 mg Clopidogrel Bisulfate (Plavix) 75 mg PO DAILY [facility]; Protocol Dextrose (Dextrose 50% Inj) 0 ml IV STAT PRN; Protocol PRN Reason: Hypoglycemia Protocol Gabapentin (Neurontin) 300 mg PO BID [facility]; Protocol Last Admin: 07/20/18 17:11 Dose: 300 mg Dextrose (Dextrose 5% In Water 1000 Ml) 1,000 mls @ 0 mls/hr IV .Q0M PRN; Protocol PRN Reason: Hypoglycemia Protocol Insulin Detemir (Levemir) 12 unit SC [facility]; Protocol Last Admin: 07/20/18 06:47 Dose: 12 units Insulin Human Regular (Humulin R Med) 0 units SC [facility]; Protocol Last Admin: 07/20/18 17:09 Dose: 1 units Metoprolol Tartrate (Lopressor) 25 mg PO 0800,1800 [facility]; Protocol Last Admin: 07/20/18 17:10 Dose: 25 mg Nitroglycerin (Nitro-Bid 2% Oint) 1 ea TOP 0600,1400,2200 [facility]; Protocol Last Admin: 07/20/18 13:28 Dose: 1 ea - Constitutional Appears: Non-toxic, No Acute Distress, Chronically Ill - Head Exam Head Exam: ATRAUMATIC, NORMOCEPHALIC - Eye Exam Eye Exam: EOMI, PERRL Pupil Exam: NORMAL ACCOMODATION, PERRL - ENT Exam ENT Exam: Mucous Membranes Moist, Normal External Ear Exam, TM's Normal Bilaterally - Neck Exam Neck Exam: Full ROM, Normal Inspection - Respiratory Exam Respiratory Exam: Clear to Ausculation Bilateral, NORMAL BREATHING PATTERN. absent: Rales, Rhonchi, Wheezes - Cardiovascular Exam Cardiovascular Exam: REGULAR RHYTHM, RRR, +S1, +S2 - GI/Abdominal Exam GI & Abdominal Exam: Soft, Normal Bowel Sounds. absent: Distended, Tenderness Additional comments: midline surgical scar. - Extremities Exam Additional comments: RLE big toe ulcer/eschar. Mild edema of the left lower leg. Duskiness of the left forefoot progressing... gangrene to the midfoot especially on the medial side. Toes of the left foot are all gangrenous. Gangrene is reaching midfoot of the left foot on the medial side directly extending from the big toe. - Neurological Exam Neurological Exam: Alert, Awake, CN II-XII Intact, Oriented x3 - Psychiatric Exam Psychiatric exam: Flat Affect Additional comments: Distant at time. Jovial for things that she perceives as beneficial to her. - Skin Additional comments: As above. Assessment and Plan - Assessment and Plan (Free Text) Assessment: 73 yo female presenting for altered mental status, fevers up to 101.0 F, and hyperglycemia. Negative Chest X-ray. X-ray right big toe showing swelling of the soft tissues only. Head CT negative. Patient was hyponatremic. Unclear how the patient's DM control is normally. Likely with some degree of dehydration in addition to the hyperglycemia. Check Hgb A1c... 15.5. Monitor glucose levels. Started on Vancomycin and Zosyn. Villagran cultures. Supportive care. Afebrile today. Found to have bedbugs and was isolated. Patient was washed and now off isolation. Duplex studies showing severe peripheral vascular disease bilaterally. Cultures negative. Left foot and ankle X-ray negative. Considering oral antibiotic care with Keflex. Patient with diabetes that is not under control. Borderline fevers. Angioplasty with Dr. Ray occurred on 07/11/2018. Impressions were: 1. Successful left SFA and popliteal arter jet stream atherectomy and drug- eluting stent balloon angioplasty. No stent was required. 2. Successful left anterior tibial artery angioplasty and focal drug-eluting stent placement 3. Successful left tibioperoneal trunk and proximal left posterior tibial artery angioplasty 4. 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 Critical right popliteal artery stenoses. No additional issues. Would consider total of 14 days of antibiotics both IV and orally administered. Now on oral Keflex for antibiotic treatment. Toes of the left foot are already gangrenous. This has progressed during this hospitalization despite interventions. Podiatry is now planning TMA of the left foot on 07/24/2018. Gangrene continues to progress up to the midfoot especially on the medial side of the left foot. No new issues. Obtain ESR. Noted echocardiogram report and severity of valve disease. Thank you for allowing me to participate in the care of the patient, we will follow with you.
--- NOTE | 2018-07-21 01:01 | CON ---
DATE: 07/20/2018 CARDIOLOGY CONSULTATION HISTORY OF PRESENT ILLNESS: The patient is a 73-year-old female, who has a history of diabetes mellitus and peripheral vascular disease, was initially admitted to [facility] on 07/01/2018 for altered mental status. The patient was found to have uncontrolled diabetes mellitus, and the patient was also experiencing lower extremity pain, worse on the left side. Abdominal angiography revealed severe stenosis in the distal superficial femoral arteries bilaterally and a single-vessel run off to both ankles via the posterior tibial. Anterior tibialis were thin and narrow with multifocal stenosis. The patient underwent on the of last month a successful left superficial femoral artery and popliteal artery jet stream atherectomy and drug-eluting balloon angioplasty. In the meantime, she underwent successful left anterior tibial artery angioplasty and focal drug-eluting stent placement as well as successful left tibioperoneal trunk and proximal left posterior tibial artery angioplasty. Subsequently, the patient developed acute ischemia on the left forefoot and was placed on intravenous heparin infusion. The patient was then evaluated by mate relief and is being considered for transmetatarsal amputation of the left foot. The patient denies any chest pain. Her echocardiographic study on 07/12/2018 revealed borderline concentric LVH with normal ejection fraction and grade 2 pseudonormal filling dynamics with moderate aortic regurgitation and mild mitral insufficiency. At this time, the patient denies any chest pain and her foot pain is mild. SOCIAL HISTORY: Socially, she is a nonsmoker. She lives with a friend in [place]. CURRENT MEDICATIONS: Clonidine 0.1 mg twice a day, Keflex 500 mg p.o. every 6 hours, Levemir 12 units subcutaneously twice a day, Lipitor 20 mg p.o. once a day, Lopressor 25 mg twice a day, gabapentin 300 mg twice a day, and Plavix 75 mg once a day. REVIEW OF SYSTEMS: No nausea or vomiting. No fever or chills. PHYSICAL EXAMINATION: GENERAL: The patient is an elderly female, who does not appear to be in acute distress. VITAL SIGNS: Blood pressure 120/61, heart rate 88, temperature 98.4, and respirations 16. HEENT: Pale conjunctivae. CHEST: Clear. HEART: S1 and S2 regular. EXTREMITIES: Black discoloration of the left forefoot including the left first and second toe with some necrosis of the skin over the dorsum of the foot. . LABORATORY DATA: On 05/20/2018; hemoglobin and hematocrit 8.1 and 25.7, white count 9.7, and platelet count 255,000. In the most recent SMA-7 of 07/18/2018 and was within normal limits except for glucose of 178. Admitting hemoglobin A1c was done on 07/01/2018, was 15.5. EKG on 07/11/2018 revealed a sinus rhythm at the rate of 81, was nonspecific Q wave abnormality. ASSESSMENT: 1. Hypertension. 2. Uncontrolled diabetes mellitus. 3. Peripheral vascular disease, status post multiple interventions to the left lower extremity; currently experiencing gangrenous changes of the left foot and is being considered for a left transmetatarsal amputation. RECOMMENDATIONS: Lipitor 20 mg once a day, Neurontin 300 mg once a day, Lopressor 25 mg twice a day, and Plavix 75 mg once a day. The patient can undergo heart surgery, planned for Tuesday from the cardiac point of view with postoperative telemetry monitoring. Carlton Merritt MD
[2018-07-21] MEDS: Nitroglycerin 2% Ointment Foilpak UD TOP SCH ×3 (05:39→22:07)
[2018-07-21] MEDS: Insulin Reg-MEDIUM-Coverage SC SCH ×4 (06:51→22:08)
[2018-07-21] MEDS: Insulin Detemir 100 units/ml Vial (Levemir) SC SCH ×2 (06:52→22:08)
--- NOTE | 2018-07-21 09:50 | CP.PCM.PN ---
<Irwin Dhaliwaldallas - Last Filed: 07/21/18 09:44> Subjective - Date & Time of Evaluation Date of Evaluation: 07/21/18 Time of Evaluation: 09:44 - Subjective Subjective: Podiatry progress note for Drs. Cobb/Izabella 73 y/o female seen and evaluated at bedside this AM in TCU for gangrenous changes of her left forefoot with right hallux preulcerative lesion. Patient reports pain has decreased, and patient is able to ambulate better. Patient denies any other pedal complaints at this time. She denies any overnight F/N/V/C/CP or SOB. Objective - Vital Signs/Intake and Output Vital Signs (last 24 hours): Temp Pulse Resp BP Pulse Ox 98.5 F 78 18 155/81 H 99 07/20/18 17:00 07/21/18 07:51 07/20/18 17:00 07/21/18 07:51 07/20/18 17:00 - Medications Medications: Current Medications Atorvastatin Calcium (Lipitor) 20 mg PO DIN [facility]; Protocol Last Admin: 07/20/18 17:09 Dose: 20 mg Clonidine HCl (Catapres) 0.1 mg PO BID [facility]; Protocol Last Admin: 07/20/18 17:09 Dose: 0.1 mg Clopidogrel Bisulfate (Plavix) 75 mg PO DAILY [facility]; Protocol Dextrose (Dextrose 50% Inj) 0 ml IV STAT PRN; Protocol PRN Reason: Hypoglycemia Protocol Gabapentin (Neurontin) 300 mg PO BID [facility]; Protocol Last Admin: 07/20/18 17:11 Dose: 300 mg Dextrose (Dextrose 5% In Water 1000 Ml) 1,000 mls @ 0 mls/hr IV .Q0M PRN; Protocol PRN Reason: Hypoglycemia Protocol Insulin Detemir (Levemir) 12 unit SC [facility]; Protocol Last Admin: 07/21/18 06:52 Dose: 12 units Insulin Human Regular (Humulin R Med) [address] [facility]; Protocol Last Admin: 07/21/18 06:51 Dose: 1 units Metoprolol Tartrate (Lopressor) 25 mg PO 0800,1800 [facility]; Protocol Last Admin: 07/21/18 07:51 Dose: 25 mg Nitroglycerin (Nitro-Bid 2% Oint) 1 ea TOP 0600,1400,2200 [facility]; Protocol Last Admin: 07/21/18 05:39 Dose: 1 ea - Constitutional Appears: Well, Non-toxic, No Acute Distress - Head Exam Head Exam: ATRAUMATIC, NORMOCEPHALIC - Extremities Exam Additional comments: B/l LE focused VASC: non-palpable pulses bilaterally, CFT >3 seconds to all digits. Temperature gradient warm to warm RLE, warm to cold LLE. +1 pitting edema noted to LLE. NEURO: Epicritic and protective sensation grossly intact b/l DERM: Right foot: Dry eschar measuring approximately 1.5 x 1.5 cm noted to distal tuft of right hallux - hyperkeratotic rim present; absent drainage; absent purulence; absent flucutance; absent malodor; no periwound erythema present. No clinical signs of infection appreciated; left foot: All digits appear gangrenous,forefoot gangrene appreciated with line of demarcation noted; ischemic changes have demarcated almost to the distal shaft of the metatarsal bones, collapsed blisters noted to the forefoot draining serous fluid. there is no drainage. Lidoderm patch was applied to the left foot. MSK: No pain on palpation noted to right hallux eschar. Pain on palpation noted to entire left foot, with pain on ROM 1st MPJ, MTJ, STJ, ankle joint. - Neurological Exam Neurological Exam: Alert, Awake, Oriented x3 - Psychiatric Exam Psychiatric exam: Normal Affect, Normal Mood Assessment and Plan - Assessment and Plan (Free Text) Assessment: 73 y/o female seen and evaluated at bedside this AM for gangrenous changes of her left forefoot with right hallux preulcerative lesion. Plan: Patient seen and evaluated at the bedside with Dr. Cobb Discussed plan with Dr. Cobb Charts, labs and vitals reviewed- Afebrile, No leukocytosis Bilateral arterial duplex ordered - significant PVD noted b/l, more severe on left. Peripheral vascular procedure report - successful left SFA and pop artery jet stream arthrectomy and balloon angioplasty; successful left ant tib angioplasty with focal drug-eluting stent placement; successful left tibperoneal trunk and prox left PT artery angioplasty Left foot and ankle XR ordered - no acute fractures or dislocations Left foot MRI ordered - pending Discussed surgical plan with Dr. Ray Discussed with the patient that she needs transmetatarsal amputation of her left forefoot, all risk and benefits were discussed Patient amenable to procedure at this time Patient expressed verbal understanding Patient scheduled for left TMA on Tuesday07/24/2018 at 7:30 AM Continue abx per ID Podiatry will continue to follow up the patient while in house <SoloridgeMeek borrero - Last Filed: 07/22/18 07:30> Objective - Vital Signs/Intake and Output Vital Signs (last 24 hours): Temp Pulse Resp BP Pulse Ox 99.4 F 82 18 109/66 97 07/21/18 16:00 07/21/18 17:22 07/21/18 16:00 07/21/18 17:22 07/21/18 16:24 - Medications Medications: Current Medications Atorvastatin Calcium (Lipitor) 20 mg PO DIN [facility]; Protocol Last Admin: 07/21/18 17:25 Dose: 20 mg Clonidine HCl (Catapres) 0.1 mg PO BID [facility]; Protocol Last Admin: 07/21/18 17:22 Dose: 0.1 mg Clopidogrel Bisulfate (Plavix) 75 mg PO DAILY [facility]; Protocol Dextrose (Dextrose 50% Inj) 0 ml IV STAT PRN; Protocol PRN Reason: Hypoglycemia Protocol Gabapentin (Neurontin) 300 mg PO BID [facility]; Protocol Last Admin: 07/21/18 17:25 Dose: 300 mg Dextrose (Dextrose 5% In Water 1000 Ml) 1,000 mls @ 0 mls/hr IV .Q0M PRN; Protocol PRN Reason: Hypoglycemia Protocol Insulin Detemir (Levemir) 12 unit SC [facility]; Protocol Last Admin: 07/21/18 22:08 Dose: 12 units Insulin Human Regular (Humulin R Med) 0 units SC [facility]; Protocol Last Admin: 07/22/18 06:55 Dose: 1 units Metoprolol Tartrate (Lopressor) 25 mg PO 0800,1800 [facility]; Protocol Last Admin: 07/21/18 17:25 Dose: 25 mg Nitroglycerin (Nitro-Bid 2% Oint) 1 ea TOP 0600,1400,2200 [facility]; Protocol Last Admin: 07/22/18 05:50 Dose: 1 ea - Labs Labs: 07/22/18 05:45 07/22/18 05:45 PT 14.1 SECONDS (9.4-12.5) H 07/22/18 05:45 INR 1.25 07/22/18 05:45 APTT 29.5 Seconds (26.9-38.3) 07/22/18 05:45 Attending/Attestation - Attestation I have personally seen and examined this patient.: Yes I have fully participated in the care of the patient.: Yes I have reviewed all pertinent clinical information, including history, physical exam and plan: Yes
--- NOTE | 2018-07-21 13:06 | CP.PCM.PN ---
<Jose Salvador - Last Filed: 07/21/18 13:02> Subjective - Date & Time of Evaluation Date of Evaluation: 07/21/18 Time of Evaluation: 10:00 - Subjective Subjective: PGY-2 medicine progress note for Dr Orozco No acute events overnight. Patient seen and physical therapy unit working with physical therapist. Patient stated she's doing well - tolerating physical therapy well. Complained of left foot pain but stated it is improved. Stated sugars in 100s. Understands surgery this tuesday. Objective - Vital Signs/Intake and Output Vital Signs (last 24 hours): Temp Pulse Resp BP Pulse Ox 98.5 F 78 18 123/67 99 07/20/18 17:00 07/21/18 10:00 07/20/18 17:00 07/21/18 10:00 07/20/18 17:00 - Medications Medications: Current Medications Atorvastatin Calcium (Lipitor) 20 mg PO DIN [facility]; Protocol Last Admin: 07/20/18 17:09 Dose: 20 mg Clonidine HCl (Catapres) 0.1 mg PO BID [facility]; Protocol Last Admin: 07/21/18 10:00 Dose: 0.1 mg Clopidogrel Bisulfate (Plavix) 75 mg PO DAILY [facility]; Protocol Dextrose (Dextrose 50% Inj) 0 ml IV STAT PRN; Protocol PRN Reason: Hypoglycemia Protocol Gabapentin (Neurontin) 300 mg PO BID [facility]; Protocol Last Admin: 07/21/18 10:01 Dose: 300 mg Dextrose (Dextrose 5% In Water 1000 Ml) 1,000 mls @ 0 mls/hr IV .Q0M PRN; Protocol PRN Reason: Hypoglycemia Protocol Insulin Detemir (Levemir) 12 unit SC [facility]; Protocol Last Admin: 07/21/18 06:52 Dose: 12 units Insulin Human Regular (Humulin R Med) 0 units SC [facility]; Protocol Last Admin: 07/21/18 11:43 Dose: 5 units Metoprolol Tartrate (Lopressor) 25 mg PO 0800,1800 [facility]; Protocol Last Admin: 07/21/18 07:51 Dose: 25 mg Nitroglycerin (Nitro-Bid 2% Oint) 1 ea TOP 0600,1400,2200 [facility]; Protocol Last Admin: 07/21/18 05:39 Dose: 1 ea - Additional Findings Additional findings: - Constitutional Appears: No Acute Distress - Head Exam Head Exam: ATRAUMATIC, NORMAL INSPECTION, NORMOCEPHALIC - Eye Exam Eye Exam: EOMI, Normal appearance - ENT Exam ENT Exam: Mucous Membranes Moist - Neck Exam Neck exam: Positive for: Normal Inspection - Respiratory Exam Respiratory Exam: NORMAL BREATHING PATTERN. absent: Accessory Muscle Use, Chest Wall Tenderness, Rales, Rhonchi, Wheezes - Cardiovascular Exam Cardiovascular Exam: REGULAR RHYTHM, +S1, +S2 - GI/Abdominal Exam GI & Abdominal Exam: Normal Bowel Sounds, Soft. absent: Guarding, Rebound, Rigid, Tenderness - Extremities Exam Additional comments: Left 1st and 2nd toe dry gangrene, cool to touch Rest of left LE warm, less tender to palpation Right LE cool to touch, minimal tenderness, nonpalpable DP/PT pulses - Back Exam Back exam: NORMAL INSPECTION - Neurological Exam Neurological exam: Alert, Oriented x3 - Psychiatric Exam Psychiatric exam: Normal Affect, Normal Mood - Skin Skin Exam: Dry, Intact, Warm Additional comments: Left 1st and 2nd toe gangrene/necrosis. Assessment and Plan - Assessment and Plan (Free Text) Plan: Patient is a 73 year old female with PMH of diabetes, HTN, PVD, and noncompliance with medication was admitted with altered mental status and hyperglycemia. Clinical course complicated by ichemic rest pain of the left LE. Revascularization of LLE w/ IR on 07/11. She is now receiving PT in the TCU. Plan: Severe PAD - s/p IR revascularization of LLE on 07/11 - As per podiatry - non-weight bearing to the left lower extremity - continue with TCU for rehabilitation - Scheduled for Left Transmetatarsal Amputation (L-TMA) for Tuesday, 07/24 at 7:30 am - As per podiatry, hold Plavix for 7 days until Left-TMA - c/w Lipitor - Arterial US: Severely abnormal L ALYSE @ rest ALYSE is .46. R ALYSE is at .77 and is moderately abnormal - CT angiogram 07/06: severe stenosis in the distal superficial femoral arteries bilaterally. Single vessel runoff to both ankles via the posterior tibial. The anterior tibials are thin and narrow with multi focal stenosis - Peripheral vascular procedure report: successful left SFA and pop artery jet stream arthrectomy and balloon angioplasty; successful left ant tib angioplasty with focal drug-eluting stent placement; successful left tibperoneal trunk and prox left PT artery angioplasty LLE Gangrene/Necrosis with RLE Ulcer 2/2 DM - As per ID, c/w PO keflex for a total of 14 days - course completed - ID is on consult (Dr. Guidry). Recs appreciated. - Wound care - Podiatry. Recs appreciated. Left-TMA amputation planned for 07/24. HTN - c/w Metoprolol 25mg PO BID - c/w Clonidine 0.1mg BID - Cardiology following (Dr. Merritt). Recs appreciated. AMS 2/2 Hyperglycemia - resolved - Likely 2/2 elevated blood glucose levels upon admission in the 700s, now resolved - AAOx3 at baseline mental status - CT head: age appropriate changes, no acute pathology - UA, Ucx, BCx, CXR negative DM II with Neuropathy - ISS - Accuchecks - Hgba1c 15.5 - Levemir 12u Q12 - Diabetic education - c/w Gabapentin 300mg BID Stage II sacral ulcer - wound care on board - frequent turns, air mattress, conservative management PPX DVT: anticoag (held at this time) GI: Protonix Diet: HHD Dispo: Continue with rehabilitation in TCU. Patient will be going for Left-TMA on Tuesday, 07/24. Anticoagulation held until procedure. Case was discussed and reviewed with Attending Physician, Dr. Orozco <Lorena Orozco - Last Filed: 07/22/18 10:48> Objective - Vital Signs/Intake and Output Vital Signs (last 24 hours): Temp Pulse Resp BP Pulse Ox 99.4 F 98 H 18 110/59 L 97 07/21/18 16:00 07/22/18 10:37 07/21/18 16:00 07/22/18 10:37 07/21/18 16:24 - Medications Medications: Current Medications Atorvastatin Calcium (Lipitor) 20 mg PO DIN [facility]; Protocol Last Admin: 07/21/18 17:25 Dose: 20 mg Clonidine HCl (Catapres) 0.1 mg PO BID [facility]; Protocol Last Admin: 07/22/18 10:37 Dose: 0.1 mg Clopidogrel Bisulfate (Plavix) 75 mg PO DAILY [facility]; Protocol Dextrose (Dextrose 50% Inj) 0 ml IV STAT PRN; Protocol PRN Reason: Hypoglycemia Protocol Gabapentin (Neurontin) 300 mg PO BID [facility]; Protocol Last Admin: 07/22/18 10:37 Dose: 300 mg Dextrose (Dextrose 5% In Water 1000 Ml) 1,000 mls @ 0 mls/hr IV .Q0M PRN; Protocol PRN Reason: Hypoglycemia Protocol Insulin Detemir (Levemir) 12 unit SC [facility]; Protocol Last Admin: 07/21/18 22:08 Dose: 12 units Insulin Human Regular (Humulin R Med) 0 units SC [facility]; Protocol Last Admin: 07/22/18 06:55 Dose: 1 units Metoprolol Tartrate (Lopressor) 25 mg PO 0800,1800 [facility]; Protocol Last Admin: 07/22/18 08:33 Dose: Not Given Nitroglycerin (Nitro-Bid 2% Oint) 1 ea TOP 0600,1400,2200 [facility]; Protocol Last Admin: 07/22/18 05:50 Dose: 1 ea - Labs Labs: 07/22/18 05:45 07/22/18 05:45 PT 14.1 SECONDS (9.4-12.5) H 07/22/18 05:45 INR 1.25 07/22/18 05:45 APTT 29.5 Seconds (26.9-38.3) 07/22/18 05:45 Attending/Attestation - Attestation I have personally seen and examined this patient.: Yes I have fully participated in the care of the patient.: Yes I have reviewed all pertinent clinical information, including history, physical exam and plan: Yes Notes (Text): 07/22/18 10:46 Medical record note made by the resident after discussion with my direction and input after the patient was personally seen and examined by me. I have reviewed the chart and agree that the record accurately reflects by personal performance of the history, physical exam, data review, and medical decision-making, in the course for the patient. I have also personally directed the plan of care. 73 year old female with past medical history of diabetes, hypertension, PVD and noncompliance was initially admitted to [facility] inpatient with altered mental status ,found to have elevated blood sugars (>700) which improved with iv fluids and insulin. Mental status is back to normal. A1c was 15.5 and patient was started on levemir. Patient was also found to have right big toe ulcer and severe PAD/PVD. Arterial Doppler showed severely abnormal L ALYSE 0.46 and moderately abnormal R ALYSE 0.77. CT angiogram showed severe stenosis in the distal superficial femoral arteries bilaterally; single vessel runoff to both ankles via the posterior tibial; anterior tibials are thin and narrow with multifocal stenosis.Patient is SP left SFA and popliteal artherectomy and drug eluting balloon angioplasty, successful left anterior tibial artery angioplasty and focal drug eluting stent placement, and successful left tibioperoneal trunk and proximal left posterior tibial artery angioplasty. Patient has dry gangrene of left foot, she is scheduled for left TMA by Podiatry on July. Plavix is on hold due to anticipation of surgery. Patient is participation in PT in TCU. Management plan was discussed in detail with patient. Education was provided.
--- NOTE | 2018-07-21 14:09 | CP.PCM.PN ---
Subjective - Date & Time of Evaluation Date of Evaluation: 07/21/18 Time of Evaluation: 13:00 - Subjective Subjective: Infectious Disease Follow Up: July 21, 2018 73 yo female with history of Type II DM. The patient was found to be altered in a laundromat. Patient herself gives little information. Patient's PMD is apparently in [place], [place], his name is Dr. Akbar. The patient name is Jessica Brizuela. Patient had fever of 101.0 F. No leukocytosis. Limited information provided by the patient. Patient is hyperglycemic on admission and still has elevated glucose levels. Was under isolation for bedbugs. No further fever episodes today. Afebrile for the last few days now. Duplex showing disease of the vessels of the left leg. Abdominal CT Angiography showing severe stenosis in the distal superficial femoral arteries bilaterally. Single vessel runoff to both ankles via the posterior tibials. The anterior tibials are thin and narrow with multi focal stenosis. Significant peripheral vascular disease bilaterally. Had angioplasty with Dr. Ray in morning of 07/11/2018. Podiatry planning for TMA of the left foot due to gangrene of toes of the left foot. On oral antibiotics of Keflex right now. Unclear if the patient is poor historian or unwilling to divulge information on herself. For example, when asking the patient how she wound up in [place] when she states that she lives in [place], the patient states she was visiting a freind but then refuses to to give a name or number for the patient. She would simply state that she doesn't know what her friend's name is, where she lives, or her phone number. She will even say she doesn't know what she looks like but that she is her friend. Objective - Vital Signs/Intake and Output Vital Signs (last 24 hours): Temp Pulse Resp BP Pulse Ox 98.5 F 78 18 123/67 99 07/20/18 17:00 07/21/18 10:00 07/20/18 17:00 07/21/18 10:00 07/20/18 17:00 - Medications Medications: Current Medications Atorvastatin Calcium (Lipitor) 20 mg PO DIN [facility]; Protocol Last Admin: 07/20/18 17:09 Dose: 20 mg Clonidine HCl (Catapres) 0.1 mg PO BID [facility]; Protocol Last Admin: 07/21/18 10:00 Dose: 0.1 mg Clopidogrel Bisulfate (Plavix) 75 mg PO DAILY [facility]; Protocol Dextrose (Dextrose 50% Inj) 0 ml IV STAT PRN; Protocol PRN Reason: Hypoglycemia Protocol Gabapentin (Neurontin) 300 mg PO BID [facility]; Protocol Last Admin: 07/21/18 10:01 Dose: 300 mg Dextrose (Dextrose 5% In Water 1000 Ml) 1,000 mls @ 0 mls/hr IV .Q0M PRN; Protocol PRN Reason: Hypoglycemia Protocol Insulin Detemir (Levemir) 12 unit SC [facility]; Protocol Last Admin: 07/21/18 06:52 Dose: 12 units Insulin Human Regular (Humulin R Med) 0 units SC [facility]; Protocol Last Admin: 07/21/18 11:43 Dose: 5 units Metoprolol Tartrate (Lopressor) 25 mg PO 0800,1800 [facility]; Protocol Last Admin: 07/21/18 07:51 Dose: 25 mg Nitroglycerin (Nitro-Bid 2% Oint) 1 ea TOP 0600,1400,2200 [facility]; Protocol Last Admin: 07/21/18 13:43 Dose: 1 ea - Constitutional Appears: Non-toxic, No Acute Distress, Chronically Ill - Head Exam Head Exam: ATRAUMATIC, NORMOCEPHALIC - Eye Exam Eye Exam: EOMI, PERRL Pupil Exam: NORMAL ACCOMODATION, PERRL - ENT Exam ENT Exam: Mucous Membranes Moist, Normal External Ear Exam, TM's Normal Bilaterally - Neck Exam Neck Exam: Full ROM, Normal Inspection - Respiratory Exam Respiratory Exam: Clear to Ausculation Bilateral, NORMAL BREATHING PATTERN. absent: Decreased Breath Sounds, Rhonchi, Wheezes - Cardiovascular Exam Cardiovascular Exam: REGULAR RHYTHM, RRR, +S1, +S2 - GI/Abdominal Exam GI & Abdominal Exam: Soft, Normal Bowel Sounds. absent: Distended, Tenderness Additional comments: midline surgical scar. - Extremities Exam Additional comments: RLE big toe ulcer/eschar. Mild edema of the left lower leg. Duskiness of the left forefoot progressing... gangrene to the midfoot especially on the medial side. Toes of the left foot are all gangrenous. Gangrene is reaching midfoot of the left foot on the medial side directly extending from the big toe. - Neurological Exam Neurological Exam: Alert, Awake, CN II-XII Intact, Oriented x3 - Psychiatric Exam Psychiatric exam: Flat Affect Additional comments: Distant at time. Jovial for things that she perceives as beneficial to her. - Skin Additional comments: As above Assessment and Plan - Assessment and Plan (Free Text) Assessment: 73 yo female presenting for altered mental status, fevers up to 101.0 F, and hyperglycemia. Negative Chest X-ray. X-ray right big toe showing swelling of the soft tissues only. Head CT negative. Patient was hyponatremic. Unclear how the patient's DM control is normally. Likely with some degree of dehydration in addition to the hyperglycemia. Check Hgb A1c... 15.5. Monitor glucose levels. Started on Vancomycin and Zosyn. Villagran cultures. Supportive care. Afebrile today. Found to have bedbugs and was isolated. Patient was washed and now off isolation. Duplex studies showing severe peripheral vascular disease bilaterally. Cultures negative. Left foot and ankle X-ray negative. Considering oral antibiotic care with Keflex. Patient with diabetes that is not under control. Borderline fevers. Angioplasty with Dr. Ray occurred on 07/11/2018. Impressions were: 1. Successful left SFA and popliteal arter jet stream atherectomy and drug- eluting stent balloon angioplasty. No stent was required. 2. Successful left anterior tibial artery angioplasty and focal drug-eluting stent placement 3. Successful left tibioperoneal trunk and proximal left posterior tibial artery angioplasty 4. 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 Critical right popliteal artery stenoses. No additional issues. Would consider total of 14 days of antibiotics both IV and orally administered. Now on oral Keflex for antibiotic treatment. Toes of the left foot are already gangrenous. This has progressed during this hospitalization despite interventions. Podiatry is now planning TMA of the left foot on 07/24/2018. Gangrene continues to progress up to the midfoot especially on the medial side of the left foot. No new issues. Periodically check ESR. Noted echocardiogram report and severity of valve disease. Thank you for allowing me to participate in the care of the patient, we will follow with you.
[2018-07-22] MEDS: Nitroglycerin 2% Ointment Foilpak UD TOP SCH ×3 (05:50→21:42)
[2018-07-22 06:22] LABS: INR 1.25; PARTIAL THROMBOPLASTIN TIME 29.5 Seconds (26.9-38.3); PROTHROMBIN TIME 14.1 SECONDS (9.4-12.5)
[2018-07-22 06:23] LABS: BASO # 0.04 K/mm3 (0.0-2.0); BASO % 0.4 % (0.0-3.0); EOS # 0.5 (0.0-0.7); LYMPH # 2.2 (1.2-3.4); LYMPH % 24.4 % (22.0-35.0); MEAN CELL VOLUME 88.5 fl (80.0-105.0); MEAN CORPUSCULAR HEMOGLOBIN 27.8 pg (25.0-35.0); MEAN CORPUSCULAR HGB CONC 31.4 g/dl (31.0-37.0); MEAN PLATELET VOLUME 8.8 fl (7.0-11.0); MONO # 0.6 (0.1-0.6); MONO % 7.1 % (1.0-6.0); RBC 2.88 10^6/uL (3.5-6.1); RED CELL DISTRIBUTION WIDTH 13.2 % (11.5-14.5)
[2018-07-22 06:24] LABS: ALB/GLOB RATIO 0.8 (1.1-1.8); ALBUMIN 2.9 g/dL (3.0-4.8); ALT/SGPT 33 U/L (7-56); AST/SGOT 29 U/L (14-36); BLOOD UREA NITROGEN 24 mg/dL (7-21); CALCIUM 8.8 mg/dL (8.4-10.5); GFR NON-AFRICAN AMERICAN > 60
[2018-07-22] MEDS: Insulin Reg-MEDIUM-Coverage SC SCH ×4 (06:55→21:40)
--- NOTE | 2018-07-22 09:45 | CP.PCM.PN ---
<Daysi Pritchett - Last Filed: 07/22/18 09:42> Subjective - Date & Time of Evaluation Date of Evaluation: 07/22/18 Time of Evaluation: 09:42 - Subjective Subjective: Podiatry progress note: for Dr. Cobb 73 year old female patient seen and examined in TCU with Dr. Cobb. Patient resting comfortably and in NAD. Patient is aware of plan for surgery, TMA, on Tuesday with Dr. Parekh. She denies nausea/vomiting/fever/shortness of breath/chest pain. Objective - Vital Signs/Intake and Output Vital Signs (last 24 hours): Temp Pulse Resp BP Pulse Ox 99.4 F 82 18 109/66 97 07/21/18 16:00 07/21/18 17:22 07/21/18 16:00 07/21/18 17:22 07/21/18 16:24 - Medications Medications: Current Medications Atorvastatin Calcium (Lipitor) 20 mg PO DIN [facility]; Protocol Last Admin: 07/21/18 17:25 Dose: 20 mg Clonidine HCl (Catapres) 0.1 mg PO BID [facility]; Protocol Last Admin: 07/21/18 17:22 Dose: 0.1 mg Clopidogrel Bisulfate (Plavix) 75 mg PO DAILY [facility]; Protocol Dextrose (Dextrose 50% Inj) 0 ml IV STAT PRN; Protocol PRN Reason: Hypoglycemia Protocol Gabapentin (Neurontin) 300 mg PO BID [facility]; Protocol Last Admin: 07/21/18 17:25 Dose: 300 mg Dextrose (Dextrose 5% In Water 1000 Ml) 1,000 mls @ 0 mls/hr IV .Q0M PRN; Protocol PRN Reason: Hypoglycemia Protocol Insulin Detemir (Levemir) 12 unit SC [facility]; Protocol Last Admin: 07/21/18 22:08 Dose: 12 units Insulin Human Regular (Humulin R Med) 0 units SC [facility]; Protocol Last Admin: 07/22/18 06:55 Dose: 1 units Metoprolol Tartrate (Lopressor) 25 mg PO 0800,1800 [facility]; Protocol Last Admin: 07/22/18 08:33 Dose: Not Given Nitroglycerin (Nitro-Bid 2% Oint) 1 ea TOP 0600,1400,2200 [facility]; Protocol Last Admin: 07/22/18 05:50 Dose: 1 ea - Labs Labs: 07/22/18 05:45 07/22/18 05:45 PT 14.1 SECONDS (9.4-12.5) H 07/22/18 05:45 INR 1.25 07/22/18 05:45 APTT 29.5 Seconds (26.9-38.3) 07/22/18 05:45 - Constitutional Appears: Non-toxic, No Acute Distress - Head Exam Head Exam: ATRAUMATIC, NORMOCEPHALIC - Extremities Exam Additional comments: B/l LE focused VASC: non-palpable pulses bilaterally, CFT >3 seconds to all digits. Temperature gradient warm to warm RLE, warm to cold LLE. +1 pitting edema noted to LLE. NEURO: Epicritic and protective sensation grossly intact b/l DERM: Right foot: Dry eschar measuring approximately 1.5 x 1.5 cm noted to distal tuft of right hallux - hyperkeratotic rim present; absent drainage; absent purulence; absent flucutance; absent malodor; no periwound erythema present. No clinical signs of infection appreciated; left foot: All digits appear gangrenous,forefoot gangrene appreciated with line of demarcation noted; ischemic changes have demarcated almost to the distal shaft of the metatarsal bones, collapsed blisters noted to the forefoot draining serous fluid. there is no drainage. Lidoderm patch was applied to the left foot. MSK: No pain on palpation noted to right hallux eschar. Pain on palpation noted to entire left foot, with pain on ROM 1st MPJ, MTJ, STJ, ankle joint. - Neurological Exam Neurological Exam: Alert, Awake, Oriented x3 - Psychiatric Exam Psychiatric exam: Normal Affect, Normal Mood Assessment and Plan - Assessment and Plan (Free Text) Assessment: 73 year old female with gangrenous changes of her left forefoot with right hallux preulcerative lesion, plan for left TMA on Tuesday with Dr. Parekh Plan: Patient seen and evaluated at the bedside with Dr. Cobb Afebrile, WBC 9.0 Bilateral arterial duplex ordered - significant PVD noted b/l, more severe on left. Peripheral vascular procedure report - successful left SFA and pop artery jet stream arthrectomy and balloon angioplasty; successful left ant tib angioplasty with focal drug-eluting stent placement; successful left tibperoneal trunk and prox left PT artery angioplasty Left foot and ankle XR ordered - no acute fractures or dislocations Left foot MRI ordered - pending Discussed surgical plan with Dr. Ray C/w IV abx Patient expressed verbal understanding Patient scheduled for left TMA on Tuesday07/24/2018 at 7:30 AM Please medically optimize patient Please provide cardiac risk assessment Discussed with the patient that she needs transmetatarsal amputation of her left forefoot, all risk and benefits were discussed Podiatry will continue to follow up the patient while in house <Meek Cobb - Last Filed: 07/25/18 07:54> Objective - Vital Signs/Intake and Output Vital Signs (last 24 hours): Temp Pulse Resp BP Pulse Ox 98.6 F 67 18 123/69 99 07/24/18 07:42 07/24/18 07:42 07/24/18 07:42 07/24/18 07:42 07/24/18 07:42 - Labs Labs: 07/24/18 08:00 07/24/18 11:00 PT 14.0 SECONDS (9.4-12.5) H 07/24/18 08:00 INR 1.24 07/24/18 08:00 APTT 26.3 Seconds (26.9-38.3) L 07/24/18 08:00 Attending/Attestation - Attestation I have personally seen and examined this patient.: Yes I have fully participated in the care of the patient.: Yes I have reviewed all pertinent clinical information, including history, physical exam and plan: Yes
--- NOTE | 2018-07-22 16:33 | CP.PCM.PN ---
Subjective - Date & Time of Evaluation Date of Evaluation: 07/22/18 Time of Evaluation: 15:00 - Subjective Subjective: Infectious Disease Follow Up: July 22, 2018 73 yo female with history of Type II DM. The patient was found to be altered in a laundromat. Patient herself gives little information. Patient's PMD is apparently in [place], [place], his name is Dr. Akbar. The patient name is Jessica Brizuela. Patient had fever of 101.0 F. No leukocytosis. Limited information provided by the patient. Patient is hyperglycemic on admission and still has elevated glucose levels. Was under isolation for bedbugs. No further fever episodes today. Afebrile for the last few days now. Duplex showing disease of the vessels of the left leg. Abdominal CT Angiography showing severe stenosis in the distal superficial femoral arteries bilaterally. Single vessel runoff to both ankles via the posterior tibial. The anterior tibials are thin and narrow with multi focal stenosis. Significant peripheral vascular disease bilaterally. Had angioplasty with Dr. Ray in morning of 07/11/2018. Podiatry planning for TMA of the left foot due to gangrene of toes of the left foot. Remains on oral antibiotics of Keflex right now. Unclear if the patient is poor historian or unwilling to divulge information on herself. For example, when asking the patient how she wound up in [place] when she states that she lives in [place], the patient states she was visiting a friend but then refuses to to give a name or number for the patient. She would simply state that she doesn't know what her friend's name is, where she lives, or her phone number. She will even say she doesn't know what she looks like but that she is her friend. Podiatry planning for TMA on 07/24/2018. Objective - Vital Signs/Intake and Output Vital Signs (last 24 hours): Temp Pulse Resp BP Pulse Ox 99.4 F 98 H 18 110/59 L 97 07/21/18 16:00 07/22/18 10:37 07/21/18 16:00 07/22/18 10:37 07/21/18 16:24 - Medications Medications: Current Medications Atorvastatin Calcium (Lipitor) 20 mg PO DIN [facility]; Protocol Last Admin: 07/21/18 17:25 Dose: 20 mg Clonidine HCl (Catapres) 0.1 mg PO BID [facility]; Protocol Last Admin: 07/22/18 10:37 Dose: 0.1 mg Clopidogrel Bisulfate (Plavix) 75 mg PO DAILY [facility]; Protocol Dextrose (Dextrose 50% Inj) 0 ml IV STAT PRN; Protocol PRN Reason: Hypoglycemia Protocol Gabapentin (Neurontin) 300 mg PO BID [facility]; Protocol Last Admin: 07/22/18 10:37 Dose: 300 mg Dextrose (Dextrose 5% In Water 1000 Ml) 1,000 mls @ 0 mls/hr IV .Q0M PRN; Protocol PRN Reason: Hypoglycemia Protocol Insulin Detemir (Levemir) 12 unit SC [facility]; Protocol Last Admin: 07/21/18 22:08 Dose: 12 units Insulin Human Regular (Humulin R Med) 0 units SC [facility]; Protocol Last Admin: 07/22/18 12:28 Dose: 5 units Metoprolol Tartrate (Lopressor) 25 mg PO 0800,1800 [facility]; Protocol Last Admin: 07/22/18 08:33 Dose: Not Given Nitroglycerin (Nitro-Bid 2% Oint) 1 ea TOP 0600,1400,2200 [facility]; Protocol Last Admin: 07/22/18 14:41 Dose: Not Given - Labs Labs: 07/22/18 05:45 07/22/18 05:45 PT 14.1 SECONDS (9.4-12.5) H 07/22/18 05:45 INR 1.25 07/22/18 05:45 APTT 29.5 Seconds (26.9-38.3) 07/22/18 05:45 - Constitutional Appears: Non-toxic, No Acute Distress, Chronically Ill - Head Exam Head Exam: ATRAUMATIC, NORMOCEPHALIC - Eye Exam Eye Exam: EOMI, PERRL Pupil Exam: NORMAL ACCOMODATION, PERRL - ENT Exam ENT Exam: Mucous Membranes Moist, Normal External Ear Exam, TM's Normal Bilaterally - Neck Exam Neck Exam: Full ROM, Normal Inspection - Respiratory Exam Respiratory Exam: Clear to Ausculation Bilateral, NORMAL BREATHING PATTERN. absent: Rales, Rhonchi, Wheezes - Cardiovascular Exam Cardiovascular Exam: REGULAR RHYTHM, RRR, +S1, +S2 - GI/Abdominal Exam GI & Abdominal Exam: Soft, Normal Bowel Sounds. absent: Distended, Tenderness Additional comments: midline surgical scar - Extremities Exam Additional comments: RLE big toe ulcer/eschar. Mild edema of the left lower leg. Duskiness of the left forefoot progressing... gangrene to the midfoot especially on the medial side. Toes of the left foot are all gangrenous. Gangrene is reaching midfoot of the left foot on the medial side directly extending from the big toe. - Neurological Exam Neurological Exam: Alert, Awake, CN II-XII Intact, Oriented x3 - Psychiatric Exam Psychiatric exam: Flat Affect Additional comments: Distant at time. Jovial for things that she perceives as beneficial to her. - Skin Additional comments: As above. Assessment and Plan - Assessment and Plan (Free Text) Assessment: 73 yo female presenting for altered mental status, fevers up to 101.0 F, and hyperglycemia. Negative Chest X-ray. X-ray right big toe showing swelling of the soft tissues only. Head CT negative. Patient was hyponatremic. Unclear how the patient's DM control is normally. Likely with some degree of dehydration in addition to the hyperglycemia. Check Hgb A1c... 15.5. Monitor glucose levels. Started on Vancomycin and Zosyn. Villagran cultures. Supportive care. Afebrile today. Found to have bedbugs and was isolated. Patient was washed and now off isolation. Duplex studies showing severe peripheral vascular disease bilaterally. Cultures negative. Left foot and ankle X-ray negative. Considering oral antibiotic care with Keflex. Patient with diabetes that is not under control. Borderline fevers. Angioplasty with Dr. Ray occurred on 07/11/2018. Impressions were: 1. Successful left SFA and popliteal arter jet stream atherectomy and drug- eluting stent balloon angioplasty. No stent was required. 2. Successful left anterior tibial artery angioplasty and focal drug-eluting desmond nt placement 3. Successful left tibioperoneal trunk and proximal left posterior tibial artery angioplasty 4. 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 Critical right popliteal artery stenoses. No additional issues. Would consider a minimum of 14 days of antibiotics both IV and orally administered. Now on oral Keflex for antibiotic treatment. Toes of the left foot are already gangrenous. This has progressed during this hospitalization despite interventions. Podiatry is now planning TMA of the left foot on 07/24/[address] Parekh. Gangrene continues to progress up to the midfoot especially on the medial side of the left foot. No new issues. Periodically check ESR. Last check was 07/18/2018 with ESR of 143. Noted echocardiogram report and severity of valve disease. Thank you for allowing me to participate in the care of the patient, we will follow with you.
--- NOTE | 2018-07-22 18:58 | PN ---
DATE: 07/22/2018 SUBJECTIVE: The patient underwent physical therapy at the bedside. She denies any chest pain. She complains of left foot pain. PHYSICAL EXAMINATION: VITAL SIGNS: Blood pressure 110/59, heart rate 98, temperature 99.4 and respirations 18. HEENT: Pale conjunctivae. CHEST: Clear. HEART: S1 and S2. Regular. EXTREMITIES: Dressings applied to the gangrenous changes in the left foot. LABORATORY DATA: Today's SMA-7: Sodium 139, potassium 4.4, chloride 105, CO2 of 30, glucose 172, BUN 24 creatinine 0.6. Today's hemoglobin and hematocrit 8 and 25.5. White count and platelet count are within normal limits. ASSESSMENT: 1. Peripheral vascular disease, status post multiple interventions on the left lower extremity, currently with gangrenous changes of the left forefoot. 2. Uncontrolled diabetes mellitus. 3. Hypertension. RECOMMENDATIONS: Continue current clonidine 0.1 mg twice a day, Lipitor 20 mg once a day, Lopressor 25 mg once a day, Plavix 75 mg once a day, and the patient can undergo left transmetatarsal amputation from the cardiac point on Tuesday. Carlton Merritt MD
[2018-07-22] MEDS: Insulin Detemir 100 units/ml Vial (Levemir) SC SCH (21:42)
[2018-07-23] MEDS: Nitroglycerin 2% Ointment Foilpak UD TOP SCH ×3 (06:02→21:30)
[2018-07-23] MEDS: Insulin Detemir 100 units/ml Vial (Levemir) SC SCH (06:34)
[2018-07-23] MEDS: Insulin Reg-MEDIUM-Coverage SC SCH ×4 (06:37→21:31)
--- NOTE | 2018-07-23 10:26 | CP.PCM.PN ---
<Daysi Pritchett - Last Filed: 07/23/18 10:26> Subjective - Date & Time of Evaluation Date of Evaluation: 07/23/18 Time of Evaluation: 10:26 - Subjective Subjective: Podiatry progress note: for Dr. Cobb/Izabella Patient seen and evaluated at bedside this am in TCU. Patient resting comfortably and in NAD. No acute events overnight. Patient aware of procedure tomorrow and does not have any questions at this time. Denies nause a/vomiting/fever/shortness of breath. Objective - Vital Signs/Intake and Output Vital Signs (last 24 hours): Temp Pulse Resp BP Pulse Ox 98.9 F 74 18 152/73 H 99 07/22/18 16:00 07/23/18 07:57 07/22/18 16:00 07/23/18 07:57 07/22/18 16:00 - Medications Medications: Current Medications Atorvastatin Calcium (Lipitor) 20 mg PO DIN [facility]; Protocol Last Admin: 07/22/18 17:52 Dose: 20 mg Clonidine HCl (Catapres) 0.1 mg PO BID [facility]; Protocol Last Admin: 07/22/18 17:49 Dose: Not Given Clopidogrel Bisulfate (Plavix) 75 mg PO DAILY [facility]; Protocol Dextrose (Dextrose 50% Inj) 0 ml IV STAT PRN; Protocol PRN Reason: Hypoglycemia Protocol Gabapentin (Neurontin) 300 mg PO BID [facility]; Protocol Last Admin: 07/22/18 17:53 Dose: 300 mg Dextrose (Dextrose 5% In Water 1000 Ml) 1,000 mls @ 0 mls/hr IV .Q0M PRN; Protocol PRN Reason: Hypoglycemia Protocol Insulin Detemir (Levemir) 12 unit SC [facility]; Protocol Last Admin: 07/23/18 06:34 Dose: 12 units Insulin Human Regular (Humulin R Med) 0 units SC [facility]; Protocol Last Admin: 07/23/18 06:37 Dose: Not Given Metoprolol Tartrate (Lopressor) 25 mg PO 0800,1800 [facility]; Protocol Last Admin: 07/23/18 07:57 Dose: 25 mg Nitroglycerin (Nitro-Bid 2% Oint) 1 ea TOP 0600,1400,2200 [facility]; Protocol Last Admin: 07/23/18 06:02 Dose: 1 ea - Labs Labs: 07/22/18 05:45 07/22/18 05:45 PT 14.1 SECONDS (9.4-12.5) H 07/22/18 05:45 INR 1.25 07/22/18 05:45 APTT 29.5 Seconds (26.9-38.3) 07/22/18 05:45 - Constitutional Appears: Non-toxic, No Acute Distress - Head Exam Head Exam: ATRAUMATIC, NORMOCEPHALIC - Extremities Exam Additional comments: B/l LE focused VASC: non-palpable pulses bilaterally, CFT >3 seconds to all digits. Temperature gradient warm to warm RLE, warm to cold LLE. +1 pitting edema noted to LLE. NEURO: Epicritic and protective sensation grossly intact b/l DERM: Right foot: Dry eschar measuring approximately 1.5 x 1.5 cm noted to distal tuft of right hallux - hyperkeratotic rim present; absent drainage; absent purulence; absent flucutance; absent malodor; no periwound erythema present. No clinical signs of infection appreciated; left foot: All digits appear gangrenous,forefoot gangrene appreciated with line of demarcation noted; ischemic changes have demarcated almost to the distal shaft of the metatarsal bones, collapsed blisters noted to the forefoot draining serous fluid. there is no drainage. MSK: No pain on palpation noted to right hallux eschar. Pain on palpation noted to entire left foot, with pain on ROM 1st MPJ, MTJ, STJ, ankle joint. - Neurological Exam Neurological Exam: Alert, Awake, Oriented x3 - Psychiatric Exam Psychiatric exam: Normal Affect, Normal Mood Assessment and Plan - Assessment and Plan (Free Text) Assessment: 73 year old female with gangrenous changes of her left forefoot, plan for left TMA on Tuesday with Dr. Parekh = Plan: Patient seen and evaluated at the bedside with Dr. Cobb Bilateral arterial duplex ordered - significant PVD noted b/l, more severe on left. Peripheral vascular procedure report - successful left SFA and pop artery jet stream arthrectomy and balloon angioplasty; successful left ant tib angioplasty with focal drug-eluting stent placement; successful left tibperoneal trunk and prox left PT artery angioplasty Left foot and ankle XR ordered - no acute fractures or dislocations Left foot MRI ordered - pending Discussed surgical plan with Dr. Ray C/w IV abx Patient expressed verbal understanding Patient scheduled for left TMA on Tuesday07/24/2018 at 7:30 AM NPO order placed Plavix held Please medically optimize patient Please provide cardiac risk assessment Discussed with the patient that she needs transmetatarsal amputation of her left forefoot, all risk and benefits were discussed <Meek Cobb - Last Filed: 07/25/18 07:53> Objective - Vital Signs/Intake and Output Vital Signs (last 24 hours): Temp Pulse Resp BP Pulse Ox 98.6 F 67 18 123/69 99 07/24/18 07:42 07/24/18 07:42 07/24/18 07:42 07/24/18 07:42 07/24/18 07:42 - Labs Labs: 07/24/18 08:00 07/24/18 11:00 PT 14.0 SECONDS (9.4-12.5) H 07/24/18 08:00 INR 1.24 07/24/18 08:00 APTT 26.3 Seconds (26.9-38.3) L 07/24/18 08:00 Attending/Attestation - Attestation I have personally seen and examined this patient.: Yes I have fully participated in the care of the patient.: Yes I have reviewed all pertinent clinical information, including history, physical exam and plan: Yes
--- NOTE | 2018-07-23 11:53 | CP.PCM.PN ---
<Jose Salvador - Last Filed: 07/23/18 11:45> Subjective - Date & Time of Evaluation Date of Evaluation: 07/23/18 Time of Evaluation: 09:30 - Subjective Subjective: PGY-2 medicine progress note for Dr Orozco No acute events overnight. Patient seen, continues to work with physical therapy. Patient stated she's doing well - tolerating physical therapy well. Complained of left foot pain but stated it is improved. Stated sugars in 100s. Understands surgery this tuesday. Still incontinent of urine - ongoing since admission - likely 2/2 to DM2. Objective - Vital Signs/Intake and Output Vital Signs (last 24 hours): Temp Pulse Resp BP Pulse Ox 98.9 F 76 18 126/66 99 07/22/18 16:00 07/23/18 10:33 07/22/18 16:00 07/23/18 10:33 07/22/18 16:00 - Medications Medications: Current Medications Atorvastatin Calcium (Lipitor) 20 mg PO DIN [facility]; Protocol Last Admin: 07/22/18 17:52 Dose: 20 mg Clonidine HCl (Catapres) 0.1 mg PO BID [facility]; Protocol Last Admin: 07/23/18 10:33 Dose: 0.1 mg Dextrose (Dextrose 50% Inj) 0 ml IV STAT PRN; Protocol PRN Reason: Hypoglycemia Protocol Gabapentin (Neurontin) 300 mg PO BID [facility]; Protocol Last Admin: 07/23/18 10:34 Dose: 300 mg Dextrose (Dextrose 5% In Water 1000 Ml) 1,000 mls @ 0 mls/hr IV .Q0M PRN; Protocol PRN Reason: Hypoglycemia Protocol Insulin Detemir (Levemir) 12 unit SC [facility]; Protocol Last Admin: 07/23/18 06:34 Dose: 12 units Insulin Human Regular (Humulin R Med) 0 units SC [facility]; Protocol Last Admin: 07/23/18 06:37 Dose: Not Given Metoprolol Tartrate (Lopressor) 25 mg PO 0800,1800 [facility]; Protocol Last Admin: 07/23/18 07:57 Dose: 25 mg Nitroglycerin (Nitro-Bid 2% Oint) 1 ea TOP 0600,1400,2200 [facility]; Protocol Last Admin: 07/23/18 06:02 Dose: 1 ea - Labs Labs: 07/22/18 05:45 07/22/18 05:45 PT 14.1 SECONDS (9.4-12.5) H 07/22/18 05:45 INR 1.25 07/22/18 05:45 APTT 29.5 Seconds (26.9-38.3) 07/22/18 05:45 - Additional Findings Additional findings: - Constitutional Appears: No Acute Distress - Head Exam Head Exam: ATRAUMATIC, NORMAL INSPECTION, NORMOCEPHALIC - Eye Exam Eye Exam: EOMI, Normal appearance - ENT Exam ENT Exam: Mucous Membranes Moist - Neck Exam Neck exam: Positive for: Normal Inspection - Respiratory Exam Respiratory Exam: NORMAL BREATHING PATTERN. absent: Accessory Muscle Use, Chest Wall Tenderness, Rales, Rhonchi, Wheezes - Cardiovascular Exam Cardiovascular Exam: REGULAR RHYTHM, +S1, +S2 - GI/Abdominal Exam GI & Abdominal Exam: Normal Bowel Sounds, Soft. absent: Guarding, Rebound, Rigid, Tenderness - Extremities Exam Additional comments: Left 1st and 2nd toe dry gangrene, mildly cool to touch Rest of left LE warm, less tender to palpation Right LE warm to touch, minimal tenderness, nonpalpable DP/PT pulses - Back Exam Back exam: NORMAL INSPECTION - Neurological Exam Neurological exam: Alert, Oriented x3 - Psychiatric Exam Psychiatric exam: Normal Affect, Normal Mood - Skin Skin Exam: Dry, Intact, Warm Additional comments: Left 1st and 2nd toe gangrene/necrosis. Assessment and Plan - Assessment and Plan (Free Text) Plan: Patient is a 73 year old female with PMH of diabetes, HTN, PVD, and noncompliance with medication was admitted with altered mental status and hyperglycemia. Clinical course complicated by ichemic rest pain of the left LE. Revascularization of LLE w/ IR on 07/11. She is now receiving PT in the TCU. Plan: Severe PAD - s/p IR revascularization of LLE on 07/11 - As per podiatry - non-weight bearing to the left lower extremity - continue with TCU for rehabilitation - Scheduled for Left Transmetatarsal Amputation (L-TMA) for Tuesday, 07/24 at 7:30 am * npo after midnight - As per podiatry, hold Plavix for 7 days until Left-TMA - c/w Lipitor - Arterial US: Severely abnormal L ALYSE @ rest ALYSE is .46. R ALYSE is at .77 and is moderately abnormal - CT angiogram 07/06: severe stenosis in the distal superficial femoral arteries bilaterally. Single vessel runoff to both ankles via the posterior tibial. The anterior tibials are thin and narrow with multi focal stenosis - Peripheral vascular procedure report: successful left SFA and pop artery jet stream arthrectomy and balloon angioplasty; successful left ant tib angioplasty with focal drug-eluting stent placement; successful left tibperoneal trunk and prox left PT artery angioplasty LLE Gangrene/Necrosis with RLE Ulcer 2/2 DM - As per ID, c/w PO keflex for a total of 14 days - course completed - ID is on consult (Dr. Guidry). Recs appreciated. - Wound care - Podiatry. Recs appreciated. Left-TMA amputation planned for Tuesday, 07/24. HTN - c/w Metoprolol 25mg PO BID - c/w Clonidine 0.1mg BID - Cardiology following (Dr. Merritt). Recs appreciated. AMS 2/2 Hyperglycemia - resolved - Likely 2/2 elevated blood glucose levels upon admission in the 700s, now resolved - AAOx3 at baseline mental status - CT head: age appropriate changes, no acute pathology - UA, Ucx, BCx, CXR negative DM II with Neuropathy - ISS - Accuchecks - Hgba1c 15.5 - Levemir 12u Q12 - Diabetic education - c/w Gabapentin 300mg BID Stage II sacral ulcer - wound care on board - frequent turns, air mattress, conservative management Urinary Incontinence - likely urge incontinence 2/2 to DM2 - can consider starting medication after surgery, options include oxybutynin, tolterodine, dicyclomine PPX DVT: anticoag (held at this time) GI: Protonix Diet: HHD Dispo: Continue with rehabilitation in TCU. Patient will be going for Left-TMA on Tuesday, 07/24. Anticoagulation held until procedure. Case was discussed and reviewed with Attending Physician, Dr. Rockwell <Omari Rockwell - Last Filed: 07/23/18 12:02> Objective - Vital Signs/Intake and Output Vital Signs (last 24 hours): Temp Pulse Resp BP Pulse Ox 98.9 F 76 18 126/66 99 07/22/18 16:00 07/23/18 10:33 07/22/18 16:00 07/23/18 10:33 07/22/18 16:00 - Medications Medications: Current Medications Atorvastatin Calcium (Lipitor) 20 mg PO DIN [facility]; Protocol Last Admin: 07/22/18 17:52 Dose: 20 mg Clonidine HCl (Catapres) 0.1 mg PO BID [facility]; Protocol Last Admin: 07/23/18 10:33 Dose: 0.1 mg Dextrose (Dextrose 50% Inj) 0 ml IV STAT PRN; Protocol PRN Reason: Hypoglycemia Protocol Gabapentin (Neurontin) 300 mg PO BID [facility]; Protocol Last Admin: 07/23/18 10:34 Dose: 300 mg Dextrose (Dextrose 5% In Water 1000 Ml) 1,000 mls @ 0 mls/hr IV .Q0M PRN; Protocol PRN Reason: Hypoglycemia Protocol Insulin Detemir (Levemir) 12 unit SC [facility]; Protocol Last Admin: 07/23/18 06:34 Dose: 12 units Insulin Human Regular (Humulin R Med) 0 units SC [facility]; Protocol Last Admin: 07/23/18 06:37 Dose: Not Given Metoprolol Tartrate (Lopressor) 25 mg PO 0800,1800 [facility]; Protocol Last Admin: 07/23/18 07:57 Dose: 25 mg Nitroglycerin (Nitro-Bid 2% Oint) 1 ea TOP 0600,1400,2200 [facility]; Protocol Last Admin: 07/23/18 06:02 Dose: 1 ea - Labs Labs: 07/22/18 05:45 07/22/18 05:45 PT 14.1 SECONDS (9.4-12.5) H 07/22/18 05:45 INR 1.25 07/22/18 05:45 APTT 29.5 Seconds (26.9-38.3) 07/22/18 05:45 Attending/Attestation - Attestation I have personally seen and examined this patient.: Yes I have fully participated in the care of the patient.: Yes I have reviewed all pertinent clinical information, including history, physical exam and plan: Yes Notes (Text): 07/23/18 11:57 73 year old female with past medical history of diabetes, hypertension, PVD and noncompliance was initially admitted with altered mental status; found to have elevated blood sugars (>700) which improved with iv fluids and insulin. Mental status is back to normal. A1c was 15.5 and patient was started on levemir. Patient was also found to have right big toe ulcer and severe PAD/PVD. Arterial Doppler showed severely abnormal L ALYSE 0.46 and moderately abnormal R ALYSE 0.77. CT angiogram showed severe stenosis in the distal superficial femoral arteries bilaterally; single vessel runoff to both ankles via the posterior tibial; anterior tibials were thin and narrow with multifocal stenosis. Patient is s/p left SFA and popliteal artherectomy and drug eluting balloon angioplasty, successful left anterior tibial artery angioplasty and focal drug eluting stent placement, and successful left tibioperoneal trunk and proximal left posterior tibial artery angioplasty. Patient was noted to have dry gangrene of left foot. She is being followed by podiatry and plan is for left TMA tomorrow morning. Plavix is on hold due to anticipated surgery. Continue with physical therapy while in TCU. Plan to transfer to medicine tomorrow morning for anticipated surgery. Omari Rockwell MD Hospitalist.
--- NOTE | 2018-07-23 16:18 | CP.PCM.PN ---
Subjective - Date & Time of Evaluation Date of Evaluation: 07/23/18 Time of Evaluation: 15:30 - Subjective Subjective: Infectious Disease Follow Up: July 23, 2018 73 yo female with history of Type II DM. The patient was found to be altered in a laundromat. Patient herself gives little information. Patient's PMD is apparently in [place], [place], his name is Dr. Akbar. The patient name is Jessica Brizuela. Patient had fever of 101.0 F. No leukocytosis. Limited information provided by the patient. Patient is hyperglycemic on admission and still has elevated glucose levels. Was under isolation for bedbugs. No further fever episodes today. Afebrile for the last few days now. Duplex showing disease of the vessels of the left leg. Abdominal CT Angiography showing severe stenosis in the distal superficial femoral arteries bilaterally. Single vessel runoff to both ankles via the posterior tibial. The anterior tibials are thin and narrow with multi focal stenosis. Significant peripheral vascular disease bilaterally. Had angioplasty with Dr. Ray in morning of 07/11/2018. Podiatry planning for TMA of the left foot due to gangrene of toes of the left foot. Remains on oral antibiotics of Keflex right now. Unclear if the patient is poor historian or unwilling to divulge information on herself. For example, when asking the patient how she wound up in [place] when she states that she lives in [place], the patient states she was visiting a friend but then refuses to to give a name or number for the patient. She would simply state that she doesn't know what her friend's name is, where she lives, or her phone number. She will even say she doesn't know what she looks like but that she is her friend. Podiatry planning for TMA on 07/24/2018 (tomorrow). Objective - Vital Signs/Intake and Output Vital Signs (last 24 hours): Temp Pulse Resp BP Pulse Ox 98.9 F 76 18 126/66 99 07/22/18 16:00 07/23/18 10:33 07/22/18 16:00 07/23/18 10:33 07/22/18 16:00 - Medications Medications: Current Medications Atorvastatin Calcium (Lipitor) 20 mg PO DIN [facility]; Protocol Last Admin: 07/22/18 17:52 Dose: 20 mg Clonidine HCl (Catapres) 0.1 mg PO BID [facility]; Protocol Last Admin: 07/23/18 10:33 Dose: 0.1 mg Dextrose (Dextrose 50% Inj) 0 ml IV STAT PRN; Protocol PRN Reason: Hypoglycemia Protocol Gabapentin (Neurontin) 300 mg PO BID [facility]; Protocol Last Admin: 07/23/18 10:34 Dose: 300 mg Dextrose (Dextrose 5% In Water 1000 Ml) 1,000 mls @ 0 mls/hr IV .Q0M PRN; Protocol PRN Reason: Hypoglycemia Protocol Insulin Detemir (Levemir) 12 unit SC [facility]; Protocol Last Admin: 07/23/18 06:34 Dose: 12 units Insulin Detemir (Levemir) 6 unit SC HS ONE Stop: 07/23/18 22:01 Insulin Human Regular (Humulin R Med) 0 units SC [facility]; Protocol Last Admin: 07/23/18 12:30 Dose: 1 units Metoprolol Tartrate (Lopressor) 25 mg PO 0800,1800 [facility]; Protocol Last Admin: 07/23/18 07:57 Dose: 25 mg Nitroglycerin (Nitro-Bid 2% Oint) 1 ea TOP 0600,1400,2200 [facility]; Protocol Last Admin: 07/23/18 14:36 Dose: 1 ea - Labs Labs: 07/22/18 05:45 07/22/18 05:45 PT 14.1 SECONDS (9.4-12.5) H 07/22/18 05:45 INR 1.25 07/22/18 05:45 APTT 29.5 Seconds (26.9-38.3) 07/22/18 05:45 - Constitutional Appears: Non-toxic, No Acute Distress, Chronically Ill - Head Exam Head Exam: ATRAUMATIC, NORMOCEPHALIC - Eye Exam Eye Exam: EOMI, PERRL Pupil Exam: NORMAL ACCOMODATION, PERRL - ENT Exam ENT Exam: Mucous Membranes Moist, Normal External Ear Exam, TM's Normal Bilaterally - Neck Exam Neck Exam: Full ROM, Normal Inspection - Respiratory Exam Respiratory Exam: Clear to Ausculation Bilateral, NORMAL BREATHING PATTERN. absent: Rales, Rhonchi, Wheezes - Cardiovascular Exam Cardiovascular Exam: REGULAR RHYTHM, RRR, +S1, +S2 - GI/Abdominal Exam GI & Abdominal Exam: Soft, Normal Bowel Sounds. absent: Distended, Tenderness Additional comments: midline surgical scar - Extremities Exam Additional comments: RLE big toe ulcer/eschar. Mild edema of the left lower leg. Duskiness of the left forefoot progressing... gangrene to the midfoot especially on the medial side. Toes of the left foot are all gangrenous. Gangrene is reaching midfoot of the left foot on the medial side directly extending from the big toe. - Neurological Exam Neurological Exam: Alert, Awake, CN II-XII Intact, Oriented x3 - Psychiatric Exam Psychiatric exam: Flat Affect Additional comments: Distant at time. Jovial for things that she perceives as beneficial to her. - Skin Additional comments: As above. Assessment and Plan - Assessment and Plan (Free Text) Assessment: 73 yo female presenting for altered mental status, fevers up to 101.0 F, and hyperglycemia. Negative Chest X-ray. X-ray right big toe showing swelling of the soft tissues only. Head CT negative. Patient was hyponatremic. Unclear how the patient's DM control is normally. Likely with some degree of dehydration in addition to the hyperglycemia. Check Hgb A1c... 15.5. Monitor glucose levels. Started on Vancomycin and Zosyn. Villagran cultures. Supportive care. Afebrile today. Found to have bedbugs and was isolated. Patient was washed and now off isolation. Duplex studies showing severe peripheral vascular disease bilaterally. Cultures negative. Left foot and ankle X-ray negative. Considering oral antibiotic care with Keflex. Patient with diabetes that is not under control. Borderline fevers. Angioplasty with Dr. Ray occurred on 07/11/2018. Impressions were: 1. Successful left SFA and popliteal arter jet stream atherectomy and drug- eluting stent balloon angioplasty. No stent was required. 2. Successful left anterior tibial artery angioplasty and focal drug-eluting stent placement 3. Successful left tibioperoneal trunk and proximal left posterior tibial artery angioplasty 4. 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 Critical right popliteal artery stenoses. No additional issues. Would consider a minimum of 14 days of antibiotics both IV and orally administered. Now on oral Keflex for antibiotic treatment. Toes of the left foot are already gangrenous. This has progressed during this hospitalization despite interventions. Podiatry is now planning TMA of the left foot on 07/24/2018 (tomorrow) by Dr. Parekh. Gangrene continues to progress up to the midfoot especially on the medial side of the left foot. No new issues. Periodically check ESR. Last check was 07/18/2018 with ESR of 143. Noted echocardiogram report and severity of valve disease. She has been working with PT. Thank you for allowing me to participate in the care of the patient, we will follow with you.
[2018-07-23] MEDS ORDERED: Insulin Detemir 100 units/ml Vial (Levemir) SC ONE (22:00)
[2018-07-24] MEDS: Nitroglycerin 2% Ointment Foilpak UD TOP SCH (05:21)
--- NOTE | 2018-07-24 05:55 | CP.PCM.DIS ---
<Jose Salvador R - Last Filed: 07/24/18 05:52> Provider - Provider Date of Admission: 07/18/18 15:10 Attending physician: Omari Rockwell MD Primary care physician: PMD: Dr Akbar Consults: 07/18/18 16:02 Social Work Referral Routine Comment: Bethany > 12 Physician Instructions: Reason For Exam: discharge planning 07/18/18 16:09 Cardiology Consult Routine Comment: Consulting Provider: Carlton Merritt Consulting Physician: Carlton Merritt Reason for Consult: pre-op clearance Diabetic Education Referral Routine Comment: Physician Instructions: Reason For Exam: uncontrolled DM, new to insulin Infectious Disease Consult Routine Comment: Consulting Provider: Jericho Guidry Consulting Physician: Jericho Guidry Reason for Consult: PRATIBHA Hernandez diabetic ulcer Physician Consult Routine Comment: Consulting Provider: Maged Ray Consulting Physician: Maged Ray Reason for Consult: b/l PVD Podiatry Consult Routine Comment: Consulting Provider: Meek Cobb Consulting Physician: Meek Cobb Reason for Consult: right hallux ulcer 07/18/18 18:54 Nursing Referral for Wound Care Routine Comment: Physician Instructions: Reason For Exam: pressure area cleft Time Spent in preparation of Discharge (in minutes): 33 Diagnosis - Discharge Diagnosis (1) Diabetic neuropathy Status: Chronic Priority: Medium (2) HTN (hypertension) Status: Chronic Priority: Medium (3) Hyperglycemia Status: Chronic Priority: High (4) Lower extremity ulceration Status: Chronic Priority: High (5) PAD (peripheral artery disease) Status: Chronic Priority: High Hospital Course - Lab Results Lab Results: Most Recent Lab Values WBC 9.0 10^3/uL (4.5-11.0) 07/22/18 05:45 RBC 2.88 10^6/uL (3.5-6.1) L 07/22/18 05:45 Hgb 8.0 g/dL (12.0-16.0) L 07/22/18 05:45 Hct 25.5 % (36.0-48.0) L 07/22/18 05:45 MCV 88.5 fl (80.0-105.0) 07/22/18 05:45 MCH 27.8 pg (25.0-35.0) 07/22/18 05:45 MCHC 31.4 g/dl (31.0-37.0) 07/22/18 05:45 RDW 13.2 % (11.5-14.5) 07/22/18 05:45 Plt Count 552 10^3/uL (120.0-450.0) H 07/22/18 05:45 MPV 8.8 fl (7.0-11.0) 07/22/18 05:45 Neut % (Auto) 63.1 % (50.0-68.0) 07/22/18 05:45 Lymph % (Auto) 24.4 % (22.0-35.0) 07/22/18 05:45 [place] % (Auto) 7.1 % (1.0-6.0) H 07/22/18 05:45 Eos % (Auto) 5.0 % (1.5-5.0) 07/22/18 05:45 Baso % (Auto) 0.4 % (0.0-3.0) 07/22/18 05:45 Lymph # (Auto) 2.2 (1.2-3.4) 07/22/18 05:45 [place] # (Auto) 0.6 (0.1-0.6) 07/22/18 05:45 Eos # (Auto) 0.5 (0.0-0.7) 07/22/18 05:45 Baso # (Auto) 0.04 K/mm3 (0.0-2.0) 07/22/18 05:45 Absolute Neuts (auto) 5.67 (1.4-6.5) 07/22/18 05:45 PT 14.1 SECONDS (9.4-12.5) H 07/22/18 05:45 INR 1.25 07/22/18 05:45 APTT 29.5 Seconds (26.9-38.3) 07/22/18 05:45 Sodium 139 mmol/L (132-148) 07/22/18 05:45 Potassium 4.4 mmol/L (3.6-5.0) 07/22/18 05:45 Chloride 105 mmol/L (98-107) 07/22/18 05:45 Carbon Dioxide 30 mmol/L (21-33) 07/22/18 05:45 Anion Gap 9 (10-20) L 07/22/18 05:45 BUN 24 mg/dL (7-21) H 07/22/18 05:45 Creatinine 0.6 mg/dl (0.7-1.2) L 07/22/18 05:45 Est GFR ( Amer) > 60 07/22/18 05:45 Est GFR (Non-Af Amer) > 60 07/22/18 05:45 POC Glucose (mg/dL) 213 mg/dL (65-110) H 07/24/18 05:20 Random Glucose 172 mg/dL (70-110) H 07/22/18 05:45 Calcium 8.8 mg/dL (8.4-10.5) 07/22/18 05:45 Total Bilirubin 0.1 mg/dL (0.2-1.3) L 07/22/18 05:45 AST 29 U/L (14-36) 07/22/18 05:45 ALT 33 U/L (7-56) 07/22/18 05:45 Alkaline Phosphatase 132 U/L (38-126) H 07/22/18 05:45 Total Protein 6.4 g/dL (5.8-8.3) 07/22/18 05:45 Albumin 2.9 g/dL (3.0-4.8) L 07/22/18 05:45 Globulin 3.6 gm/dL 07/22/18 05:45 Albumin/Globulin Ratio 0.8 (1.1-1.8) L 07/22/18 05:45 - Hospital Course Hospital Course: Patient is a 73 year old female with past medical history of T2DM presenting with altered mental status. History was limited and mostly obtained from ED and prior records as patient was hypersomnolent and responded to verbal questioning selectively. [facility] and so EMS was called. Mental status improved during admission. The cause of AMS was hypergylcemia - uncontrolled with A1c 15. Hospital course was complicated by ischemic rest pain fo the left lower extremity. She had revascularization of LLE with IR on 07/11. Podiatry, IR, ID, and Cardiology followed the case. The recommendation as per podiatry is for left transmeta- tarsal amputation given she has necrosis and gangrene. Patient was transferred to TCU for rehab and return to the acute side prior to her planned transmetatarsal amputation on 07/24/18 at 7:30AM. Please see the assessments and plan from prior notes for further information. Currently, patient denies n/v/d, fever, chills, cp, sob, lower extremity pain. A full 12 point ROS was conducted and unremarkable except as stated above. PMH: T2DM PSH: unknown SHx: denies alcohol, tobacco, illicit drug use FHx: unknown Allergies: NKDA PMD: unknown HOSPITAL COURSE: Patient was admitted to TCU for rehab and is now being discharged as she is having a left TMA with podiatry Dr Parekh 07/24/18 at 7:30AM. She will be accepted to the acute-side after her surgery for further monitoring. She did well in rehab participating daily with exercises with the physical therapist. Her sugars were monitored daily and labs were ordered - both were stable. Plavix has been held for 7 days as was requested by podiatry. She has not received any anticoagulation either in antipation for the surgery. While in TCU her keflex was discontinued as she completed her 14 day couse as recommened by ID, Dr Guidry. She was seen by cardio, Dr Merritt, who cleared her for her TMA surgery. Discharge Exam - Head Exam Head Exam: ATRAUMATIC, NORMOCEPHALIC - Additional Findings Additional findings: - Constitutional Appears: No Acute Distress - Head Exam Head Exam: ATRAUMATIC, NORMAL INSPECTION, NORMOCEPHALIC - Eye Exam Eye Exam: EOMI, Normal appearance - ENT Exam ENT Exam: Mucous Membranes Moist - Neck Exam Neck exam: Positive for: Normal Inspection - Respiratory Exam Respiratory Exam: NORMAL BREATHING PATTERN. absent: Accessory Muscle Use, Chest Wall Tenderness, Rales, Rhonchi, Wheezes - Cardiovascular Exam Cardiovascular Exam: REGULAR RHYTHM, +S1, +S2 - GI/Abdominal Exam GI & Abdominal Exam: Normal Bowel Sounds, Soft. absent: Guarding, Rebound, Rigid, Tenderness - Extremities Exam Additional comments: Left 1st and 2nd toe dry gangrene, mildly cool to touch Rest of left LE warm, less tender to palpation Right LE warm to touch, minimal tenderness, nonpalpable DP/PT pulses - Back Exam Back exam: NORMAL INSPECTION - Neurological Exam Neurological exam: Alert, Oriented x3 - Psychiatric Exam Psychiatric exam: Normal Affect, Normal Mood - Skin Skin Exam: Dry, Intact, Warm Additional comments: Left 1st and 2nd toe gangrene/necrosis. Discharge Plan - Follow Up Plan Condition: GOOD Disposition: OTHER INSTITUTION Instructions: Amputation of the Foot or Toe, Hyperglycemia, Adult (DC), Altered Mental Status (DC) Additional Instructions: -Patient to be transferred to acute inpatient side after surgery -Continue all active meds <Omari Rockwell - Last Filed: 07/24/18 06:43> Provider - Provider Date of Admission: 07/18/18 15:10 Attending physician: Omari Rockwell MD Consults: 07/18/18 16:02 Social Work Referral Routine Comment: Bethany > 12 Physician Instructions: Reason For Exam: discharge planning 07/18/18 16:09 Cardiology Consult Routine Comment: Consulting Provider: Carlton Merritt Consulting Physician: Carlton Merritt Reason for Consult: pre-op clearance Diabetic Education Referral Routine Comment: Physician Instructions: Reason For Exam: uncontrolled DM, new to insulin Infectious Disease Consult Routine Comment: Consulting Provider: Jericho Guidry Consulting Physician: Jericho Guidry Reason for Consult: PRATIBHA Hernandez diabetic ulcer Physician Consult Routine Comment: Consulting Provider: Maged Ray Consulting Physician: Maged Ray Reason for Consult: b/l PVD Podiatry Consult Routine Comment: Consulting Provider: Meek Cobb Consulting Physician: Meek Cobb Reason for Consult: right hallux ulcer 07/18/18 18:54 Nursing Referral for Wound Care Routine Comment: Physician Instructions: Reason For Exam: pressure area cleft Time Spent in preparation of Discharge (in minutes): 35 Hospital Course - Lab Results Lab Results: Most Recent Lab Values WBC 9.0 10^3/uL (4.5-11.0) 07/22/18 05:45 RBC 2.88 10^6/uL (3.5-6.1) L 07/22/18 05:45 Hgb 8.0 g/dL (12.0-16.0) L 07/22/18 05:45 Hct 25.5 % (36.0-48.0) L 07/22/18 05:45 MCV 88.5 fl (80.0-105.0) 07/22/18 05:45 MCH 27.8 pg (25.0-35.0) 07/22/18 05:45 MCHC 31.4 g/dl (31.0-37.0) 07/22/18 05:45 RDW 13.2 % (11.5-14.5) 07/22/18 05:45 Plt Count 552 10^3/uL (120.0-450.0) H 07/22/18 05:45 MPV 8.8 fl (7.0-11.0) 07/22/18 05:45 Neut % (Auto) 63.1 % (50.0-68.0) 07/22/18 05:45 Lymph % (Auto) 24.4 % (22.0-35.0) 07/22/18 05:45 [place] % (Auto) 7.1 % (1.0-6.0) H 07/22/18 05:45 Eos % (Auto) 5.0 % (1.5-5.0) 07/22/18 05:45 Baso % (Auto) 0.4 % (0.0-3.0) 07/22/18 05:45 Lymph # (Auto) 2.2 (1.2-3.4) 07/22/18 05:45 [place] # (Auto) 0.6 (0.1-0.6) 07/22/18 05:45 Eos # (Auto) 0.5 (0.0-0.7) 07/22/18 05:45 Baso # (Auto) 0.04 K/mm3 (0.0-2.0) 07/22/18 05:45 Absolute Neuts (auto) 5.67 (1.4-6.5) 07/22/18 05:45 PT 14.1 SECONDS (9.4-12.5) H 07/22/18 05:45 INR 1.25 07/22/18 05:45 APTT 29.5 Seconds (26.9-38.3) 07/22/18 05:45 Sodium 139 mmol/L (132-148) 07/22/18 05:45 Potassium 4.4 mmol/L (3.6-5.0) 07/22/18 05:45 Chloride 105 mmol/L (98-107) 07/22/18 05:45 Carbon Dioxide 30 mmol/L (21-33) 07/22/18 05:45 Anion Gap 9 (10-20) L 07/22/18 05:45 BUN 24 mg/dL (7-21) H 07/22/18 05:45 Creatinine 0.6 mg/dl (0.7-1.2) L 07/22/18 05:45 Est GFR ( Amer) > 60 07/22/18 05:45 Est GFR (Non-Af Amer) > 60 07/22/18 05:45 POC Glucose (mg/dL) 213 mg/dL (65-110) H 07/24/18 05:20 Random Glucose 172 mg/dL (70-110) H 07/22/18 05:45 Calcium 8.8 mg/dL (8.4-10.5) 07/22/18 05:45 Total Bilirubin 0.1 mg/dL (0.2-1.3) L 07/22/18 05:45 AST 29 U/L (14-36) 07/22/18 05:45 ALT 33 U/L (7-56) 07/22/18 05:45 Alkaline Phosphatase 132 U/L (38-126) H 07/22/18 05:45 Total Protein 6.4 g/dL (5.8-8.3) 07/22/18 05:45 Albumin 2.9 g/dL (3.0-4.8) L 07/22/18 05:45 Globulin 3.6 gm/dL 07/22/18 05:45 Albumin/Globulin Ratio 0.8 (1.1-1.8) L 07/22/18 05:45 Attending/Attestation - Attestation I have reviewed all pertinent clinical information, including history, physical exam and plan: Yes Notes (Text): 07/24/18 06:42 73 year old female with past medical history of diabetes, hypertension, PVD and noncompliance was initially admitted with altered mental status; found to have elevated blood sugars (>700) which improved with iv fluids and insulin. Mental status is back to normal. A1c was 15.5 and patient was started on levemir. Patient was also found to have right big toe ulcer and severe PAD/PVD. Arterial Doppler showed severely abnormal L ALYSE 0.46 and moderately abnormal R ALYSE 0.77. CT angiogram showed severe stenosis in the distal superficial femoral arteries bilaterally; single vessel runoff to both ankles via the posterior tibial; anterior tibials were thin and narrow with multifocal stenosis. Patient is s/p left SFA and popliteal artherectomy and drug eluting balloon angioplasty, successful left anterior tibial artery angioplasty and focal drug eluting stent placement, and successful left tibioperoneal trunk and proximal left posterior tibial artery angioplasty. Patient was noted to have dry gangrene of left foot. She is being followed by podiatry and plan is for left TMA this morning. Plavix has been held due to an ticipated surgery. Plan to transfer to medicine after surgery. Omari Rockwell MD Hospitalist.
[2018-07-24 06:29] VITALS: BP 123/69; PULSE 67
[2018-07-24] MEDS: Insulin Reg-MEDIUM-Coverage SC SCH (06:30)
[2018-07-24] MEDS ORDERED: Sevoflurane - Inhalation Anesthetic Liq (250 ml) ONE (07:37)
[2018-07-24] MEDS ORDERED: Phenylephrine 10 mg/ml Inj ONE (07:39)
[2018-07-24 07:43] VITALS: TEMP 98.6; O2SAT 99
[2018-07-24] MEDS ORDERED: Succinylcholine 200 mg/10 ml Inj IV ONE (08:31)
[2018-07-24] MEDS ORDERED: Etomidate 20 mg/10ml Inj IV ONE (08:31)
[2018-07-24 08:38] LABS: BASO # 0.03 K/mm3 (0.0-2.0); BASO % 0.4 % (0.0-3.0); EOS # 0.3 (0.0-0.7); EOS % 3.4 % (1.5-5.0); HEMOGLOBIN 8.2 g/dL (12.0-16.0); LYMPH # 2.1 (1.2-3.4); MEAN CELL VOLUME 88.5 fl (80.0-105.0); MEAN CORPUSCULAR HEMOGLOBIN 27.7 pg (25.0-35.0); MEAN CORPUSCULAR HGB CONC 31.3 g/dl (31.0-37.0); MEAN PLATELET VOLUME 9.2 fl (7.0-11.0); MONO # 0.5 (0.1-0.6); MONO % 5.8 % (1.0-6.0); RBC 2.96 10^6/uL (3.5-6.1); RED CELL DISTRIBUTION WIDTH 13.5 % (11.5-14.5); WHITE BLOOD COUNT 8.2 10^3/uL (4.5-11.0)
[2018-07-24 08:46] LABS: INR 1.24; PARTIAL THROMBOPLASTIN TIME 26.3 Seconds (26.9-38.3)
[2018-07-24 11:51] LABS: ALB/GLOB RATIO 0.7 (1.1-1.8); ALBUMIN 2.8 g/dL (3.0-4.8); ALT/SGPT 73 U/L (7-56); AST/SGOT 85 U/L (14-36); BLOOD UREA NITROGEN 29 mg/dL (7-21); CALCIUM 8.4 mg/dL (8.4-10.5); GFR NON-AFRICAN AMERICAN > 60
== END 2018-07-24 07:52 | disposition short-term general hospital (02) | DRG 300 ==
LOC: TRCU 15:10
PROVIDERS: ADMIT Internal Medicine; ATTEND Internal Medicine
PROC: F07Z9FZ Gait Training/Functional Ambulation Treatment using Assistive, Adaptive, Supportive or Protective Equipment (ICD-10-PCS; principal; 2018-07-19)
PROC: F07M6ZZ Therapeutic Exercise Treatment of Musculoskeletal System - Whole Body (ICD-10-PCS; 2018-07-19)
PROC: F08Z0ZZ Bathing/Showering Techniques Treatment (ICD-10-PCS; 2018-07-19)
PROC: F08Z1ZZ Dressing Techniques Treatment (ICD-10-PCS; 2018-07-19)
PROC: F08Z2ZZ Grooming/Personal Hygiene Treatment (ICD-10-PCS; 2018-07-19)
PROC: F08Z4ZZ Home Management Treatment (ICD-10-PCS; 2018-07-19)
DX: E11.52 Type 2 diabetes mellitus with diabetic peripheral angiopathy with gangrene (principal); E87.1 Hypo-osmolality and hyponatremia; E11.40 Type 2 diabetes mellitus with diabetic neuropathy, unspecified; I10 Essential (primary) hypertension; E11.65 Type 2 diabetes mellitus with hyperglycemia; E11.621 Type 2 diabetes mellitus with foot ulcer; E86.0 Dehydration; I08.0 Rheumatic disorders of both mitral and aortic valves; L89.152 Pressure ulcer of sacral region, stage 2; L97.519 Non-pressure chronic ulcer of other part of right foot with unspecified severity; R32 Unspecified urinary incontinence; Z91.14 Patient's other noncompliance with medication regimen; Z91.19 Patient's noncompliance with other medical treatment and regimen; R41.82 Altered mental status, unspecified

== ENCOUNTER 2018-07-24 07:52 | Inpatient (IN) | payer MEDICARE, OTHER ==
[2018-07-24] MEDS ORDERED: CeFAZolin 1 gm in NS 100ml IVPB ONE (08:30)
[2018-07-24] MEDS ORDERED: Bupivacaine 0.25% Inj(30mL) IJ ONE (08:30)
[2018-07-24] MEDS ORDERED: Bupivacaine 0.5% 50 ML IJ ONE (08:38)
[2018-07-24] MEDS ORDERED: Bupivacaine 0.25% 50 ML INJ IJ ONE (08:59)
--- NOTE | 2018-07-24 09:39 | CP.PCM.HP ---
<Azeem Agosto - Last Filed: 07/24/18 13:27> History of Present Illness - History of Present Illness History of Present Illness: PGY-1 Medicine H&P for Dr. Rockwell Patient is a 73 year old female with past medical history of T2DM presenting with altered mental status. History was limited and mostly obtained from ED and prior records as patient was hypersomnolent and responded to verbal questioning selectively. 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 Mental status improved during admission. The cause of AMS was hypergylcemia - uncontrolled with A1c 15. Hospital course was complicated by ischemic rest pain fo the left lower extremity. She had revascularization of LLE with IR on 07/11. Podiatry, IR, ID, and Cardiology fol lowed the case. The recommendation as per podiatry is for left transmeta-tarsal amputation given she has necrosis and gangrene. Patient was transferred to TCU for rehab and return to the acute side prior to her planned transmetatarsal amputation on 07/24/18 at 7:30AM. Please see the assessments and plan from prior notes for further information. Currently, patient denies n/v/d, fever, chills, cp, sob, lower extremity pain. A full 12 point ROS was conducted and unremarkable except as stated above. PMH: T2DM PSH: unknown SHx: denies alcohol, tobacco, illicit drug use FHx: unknown Allergies: NKDA PMD: unknown Present on Admission - Present on Admission Any Indicators Present on Admission: Yes History of DVT/PE: No History of Uncontrolled Diabetes: Yes Urinary Catheter: No Decubitus Ulcer Present: No Review of Systems - Review of Systems All systems: reviewed and no additional remarkable complaints except Past Patient History - Past Social History Smoking Status: Unknown If Ever Smoked - CARDIAC Hx Pacemaker: No - PULMONARY Hx Respiratory Disorders: No - NEUROLOGICAL Hx Paralysis: No - HEENT Hx HEENT Problems: Yes (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 IS SWOLLEN AND PAINFUL SURROUNDING SKIN IS DARKENED BLACK TO WHITE SKIN DISCOLORATION. RIGHT SHOULDER BRUISED AREA WITH AN OPEN SCRAPED WOUND MEASURES 1 X 1 CM DRY - MUSCULOSKELETAL/RHEUMATOLOGICAL Hx Musculoskeletal Disorders: No - GASTROINTESTINAL Hx Gastrointestinal Disorders: Yes (INCONTINENT) - GENITOURINARY/GYNECOLOGICAL Hx Reproductive Disorders: No - PSYCHIATRIC Hx Emotional Abuse: No Hx Physical Abuse: No Hx Substance Use: No - SURGICAL HISTORY Hx Surgeries: Yes - ANESTHESIA Hx Anesthesia Reactions: No Hx Malignant Hyperthermia: No Meds Allergies/Adverse Reactions: Allergies Allergy/AdvReac Type Severity Reaction Status Date / Time ibuprofen Allergy RASH Verified 07/01/18 15:40 Physical Exam - Constitutional Appears: Well, Non-toxic, No Acute Distress - Head Exam Head Exam: ATRAUMATIC, NORMAL INSPECTION - Eye Exam Eye Exam: EOMI, Normal appearance - ENT Exam ENT Exam: Mucous Membranes Moist - Respiratory Exam Respiratory Exam: Clear to Auscultation Bilateral. absent: Rales, Rhonchi, Wheezes, Respiratory Distress - Cardiovascular Exam Cardiovascular Exam: REGULAR RHYTHM, +S1, +S2. absent: Gallop, Rubs, Systolic Murmur - GI/Abdominal Exam GI & Abdominal Exam: Normal Bowel Sounds, Soft. absent: Distended, Tenderness - Extremities Exam Additional comments: Left toes dressing C/D/I. Left leg warmer than the right leg, non-tender to palpation. - Neurological Exam Neurological exam: Alert, CN II-XII Intact, Oriented x3 - Psychiatric Exam Psychiatric exam: Flat Affect - Skin Skin Exam: Dry, Normal Color, Warm Results - Vital Signs Recent Vital Signs: Last Vital Signs Temp 99.4 F 07/24/18 08:00 Pulse 66 07/24/18 08:00 Resp 18 07/24/18 08:00 BP 137/71 07/24/18 08:00 Pulse Ox 96 07/24/18 08:00 - Labs Result Diagrams: 07/24/18 11:30 Assessment & Plan - Assessment and Plan (Free Text) Assessment: Patient is a 73 year old female with PMH of diabetes, HTN, PVD, and noncompliance with medication was admitted with altered mental status and hy perglycemia. Clinical course complicated by ichemic rest pain of the left LE. Revascularization of LLE w/ IR on 07/11. Patient is s/p left transmetatarsal amputation on 07/24. Plan: LLE Gangrene/Necrosis- s/p left transmetatarsal amputation on 07/24 - Podiatry consulted, Dr. Parekh - Oxycodone and Morphine PRN for pain - Patient completed 14 days course of Keflex - Wound care Severe PAD - s/p IR revascularization of LLE on 07/11 - As per podiatry, hold Plavix until 07/25 - Lipitor held - Arterial US: Severely abnormal L ALYSE @ rest ALYSE is .46. R ALYSE is at .77 and is moderately abnormal - CT angiogram 07/06: severe stenosis in the distal superficial femoral arteries bilaterally. Single vessel runoff to both ankles via the posterior tibial. The anterior tibials are thin and narrow with multi focal stenosis - Peripheral vascular procedure report: successful left SFA and pop artery jet stream arthrectomy and balloon angioplasty; successful left ant tib angioplasty with focal drug-eluting stent placement; successful left tibperoneal trunk and prox left PT artery angioplasty Transaminitis - Hold Lipitor - Avoid hepatotoxic agents - Continue to monitor HTN - c/w Metoprolol 25mg PO BID - c/w Clonidine 0.1mg BID DM II with Neuropathy - ISS - Accuchecks - Hgba1c: 15.5 - Levemir 12u Q12 - Diabetic education - c/w Gabapentin 300mg BID Stage II sacral ulcer - wound care on board - frequent turns, air mattress, conservative management Urinary Incontinence - likely urge incontinence 2/2 to DM2 - can consider starting medication after surgery, options include oxybutynin, tolterodine, dicyclomine PPX DVT: Plavix (held at this time) Diet: HHD Disposition: Plan to discharge to TCU on 07/25 Patient seen and case discussed with Attending Physician, Dr. Luli Agosto, PGY-1 <Omari Rockwell - Last Filed: 07/24/18 13:35> Results - Vital Signs Recent Vital Signs: Last Vital Signs Temp 97.9 F 07/24/18 12:14 Pulse 71 07/24/18 12:14 Resp 12 07/24/18 12:14 BP 157/79 H 07/24/18 12:14 Pulse Ox 97 07/24/18 12:14 - Labs Result Diagrams: 07/24/18 11:30 Labs: Laboratory Results - last 24 hr 07/24/18 11:30 WBC 10.4 D RBC 2.79 L Hgb 7.8 L Hct 24.8 L MCV 88.9 MCH 28.0 MCHC 31.5 RDW 13.6 Plt Count 535 H MPV 9.0 Neut % (Auto) 65.6 Lymph % (Auto) 25.1 [place] % (Auto) 6.7 H Eos % (Auto) 2.2 Baso % (Auto) 0.4 Lymph # (Auto) 2.6 [place] # (Auto) 0.7 H Eos # (Auto) 0.2 Baso # (Auto) 0.04 Absolute Neuts (auto) 6.85 H Attending/Attestation - Attestation I have personally seen and examined this patient.: Yes I have fully participated in the care of the patient.: Yes I have reviewed all pertinent clinical information: Yes Notes (Text): 07/24/18 13:33 73 year old female with past medical history of diabetes, hypertension, PVD and noncompliance was initially admitted with altered mental status; found to have elevated blood sugars (>700) which improved with iv fluids and insulin. Mental status improved back to normal. A1c was 15.5 and patient was started on levemir. Patient was also found to have right big toe ulcer and severe PAD/PVD. Arterial Doppler showed severely abnormal L ALYSE 0.46 and moderately abnormal R ALYSE 0.77. CT angiogram showed severe stenosis in the distal superficial femoral arteries bilaterally; single vessel runoff to both ankles via the posterior tibial; anterior tibials were thin and narrow with multifocal stenosis. Patient is s/p left SFA and popliteal artherectomy and drug eluting balloon angioplasty, successful left anterior tibial artery angioplasty and focal drug eluting stent placement, and successful left tibioperoneal trunk and proximal left posterior tibial artery angioplasty. Patient was noted to have dry gangrene of left foot. She is being followed by podiatry and is now s/p TMA this morning. Resume plavix once okay with podiatry. Mild transaminitis noted. Will hold statin for now and change percocet to oxyco done. Continue to monitor closely. Continue with metoprolol and clonidine for hypertension. Omari Rockwell MD Hospitalist.
[2018-07-24] MEDS ORDERED: Oxycodone/Acetaminophen 5/325 mg Tab PO PRN ×2 (10:15)
[2018-07-24] MEDS ORDERED: Morphine 2 mg/ml ISec IVP PRN (10:18)
--- NOTE | 2018-07-24 10:21 | PCM.SURG1 ---
Surgeon's Initial Post Op Note - Surgeon's Notes Surgeon: Dr. Radha Parekh. DPM Department Store General Manager: Dr. Shadi Covarrubias. DPM/PGY1 Type of Anesthesia: General Endo Anesthesia Administered By: Dr. Rafer. SALAS Pre-Operative Diagnosis: Left forefoot gangrene. Operative Findings: See Dictation. Materials: 3-0 Vicryl, 3-0 Nylon, Lorenzo Martinez. Injectables: 10cc of 0.5% marcaine plain for postoperative analgesia. Post-Operative Diagnosis: Left forefoot gangrene. Operation Performed: Left transmetatarsal amputation. Specimen/Specimens Removed: left amputated forefoot. Deep wound cultures. Estimated Blood Loss: EBL {In ML}: 20 Blood Products Given: N/A Drains Used: Lorenzo Martinez Post-Op Condition: Good Date of Surgery/Procedure: 07/24/18 Time of Surgery/Procedure: 10:21
[2018-07-24] MEDS ORDERED: Lactated Ringer's 1,000 ML IV SCH (10:30)
--- NOTE | 2018-07-24 10:53 | RAD ---
Date of service: 07/24/2018 PROCEDURE: Left Foot Radiographs. HISTORY: S/P left TMA COMPARISON: None. TECHNIQUE: 3 views obtained. FINDINGS: BONES: Status post transmetatarsal amputation. No acute osseous fracture. Surgical drain noted. Surgical tamika are seen over the dorsal aspect of the amputation site. There is no lytic or blastic osseous lesion appreciated. JOINTS: Normal. SOFT TISSUES: Normal. OTHER FINDINGS: None. IMPRESSION: Status post transmetatarsal amputation.
[2018-07-24 12:00] LABS: BASO # 0.04 K/mm3 (0.0-2.0); BASO % 0.4 % (0.0-3.0); EOS # 0.2 (0.0-0.7); EOS % 2.2 % (1.5-5.0); HEMOGLOBIN 7.8 g/dL (12.0-16.0); LYMPH # 2.6 (1.2-3.4); LYMPH % 25.1 % (22.0-35.0); MEAN CELL VOLUME 88.9 fl (80.0-105.0); MEAN CORPUSCULAR HGB CONC 31.5 g/dl (31.0-37.0); MONO # 0.7 (0.1-0.6); MONO % 6.7 % (1.0-6.0); RBC 2.79 10^6/uL (3.5-6.1); RED CELL DISTRIBUTION WIDTH 13.6 % (11.5-14.5); WHITE BLOOD COUNT 10.4 10^3/uL (4.5-11.0)
[2018-07-24] MEDS: oxyCODONE 10 mg Immediate Release Tab PO PRN (15:16)
[2018-07-24] MEDS: Insulin Reg-MEDIUM-Coverage SC SCH ×2 (17:35→22:04)
[2018-07-24] MEDS: Ammonium Lactate 12% Lotion (225 g) EXT SCH (17:37)
--- NOTE | 2018-07-24 18:27 | CP.PCM.CON ---
History of Present Illness - History of Present Illness History of Present Illness: Infectious Disease Consultation: July 24, 2018 73 yo female with history of Type II DM. The patient was found to be altered in a laundromat. Patient herself gives little information. Patient's PMD is [facility] in [place], [place], his name is Dr. Akbar. The patient name is Jessica Brizuela. Patient had fever of 101.0 F. No leukocytosis. Limited information provided by the patient. Patient is hyperglycemic on admission and still has elevated glucose levels. Was under isolation for bedbugs. No further fever episodes today. Afebrile for the last few days now. Duplex showing disease of the vessels of the left leg. Abdominal CT Angiography showing severe stenosis in the distal superficial femoral arteries bilaterally. Single vessel runoff to both ankles via the posterior tibial. The anterior tibials are thin and narrow with multi focal stenosis. Significant peripheral vascular disease bilaterally. Had angioplasty with Dr. Ray in morning of 07/11/2018. Podiatry planning for TMA of the left foot due to gangrene of toes of the left foot. Remains on oral antibiotics of Keflex right now. Unclear if the patient is poor historian or unwilling to divulge information on herself. For example, when asking the patient how she wound up in [place] when she states that she lives in [place], the patient states she was visiting a friend but then refuses to to give a name or number for the patient. She would simply state that she doesn't know what her friend's name is, where she lives, o r her phone number. She will even say she doesn't know what she looks like but that she is her friend. Podiatry performed TMA on 07/24/2018. PMHx: DM Type 2, unable to obtain further information. PSHx: none given but noted midline abdominal scar. Allergies: Ibuprofen Social Hx: No given Tobacco, EtOH, or illicit drug use Active Medications Clonidine HCl (Catapres) 0.1 mg PO BID DARREL Last Admin: 07/24/18 17:36 Dose: 0.1 mg Insulin Detemir (Levemir) 12 unit SC [facility] Insulin Human Regular (Humulin R Med) 0 units SC ACHS [facility]; Protocol Last Admin: 07/24/18 17:35 Dose: 3 units Lactic Acid (Lac-Hydrin 12% Lotion (225 G)) 0 gm EXT BID [facility] Last Admin: 07/24/18 17:37 Dose: 1 applic Metoprolol Tartrate (Lopressor) 25 mg PO 0800,1800 [facility] Last Admin: 07/24/18 17:36 Dose: 25 mg Morphine Sulfate (Morphine) 1 mg IVP Q15M PRN PRN Reason: Pain, moderate (4-7) Ondansetron HCl (Zofran Inj) 4 mg IVP ONCE PRN PRN Reason: Nausea/Vomiting Oxycodone HCl (Oxycodone Immediate Release Tab) 5 mg PO Q4H PRN PRN Reason: Pain, moderate (4-7) Oxycodone HCl (Oxycodone Immediate Release Tab) 10 mg PO Q4H PRN PRN Reason: Pain, severe (8-10) Last Admin: 07/24/18 15:16 Dose: 10 mg Family Hx: unknown ROS: not giving any information Past Patient History - Past Social History Smoking Status: Unknown If Ever Smoked - CARDIAC Hx Pacemaker: No - PULMONARY Hx Respiratory Disorders: No - NEUROLOGICAL Hx Paralysis: No - HEENT Hx HEENT Problems: Yes (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 IS SWOLLEN AND PAINFUL SURROUNDING SKIN IS DARKENED BLACK TO WHITE SKIN DISCOLORATION. RIGHT SHOULDER BRUISED AREA WITH AN OPEN SCRAPED WOUND MEASURES 1 X 1 CM DRY - MUSCULOSKELETAL/RHEUMATOLOGICAL Hx Musculoskeletal Disorders: No - GASTROINTESTINAL Hx Gastrointestinal Disorders: Yes (INCONTINENT) - GENITOURINARY/GYNECOLOGICAL Hx Reproductive Disorders: No - PSYCHIATRIC Hx Emotional Abuse: No Hx Physical Abuse: No Hx Substance Use: No - SURGICAL HISTORY Hx Surgeries: Yes - ANESTHESIA Hx Anesthesia Reactions: No Hx Malignant Hyperthermia: No Meds Allergies/Adverse Reactions: Allergies Allergy/AdvReac Type Severity Reaction Status Date / Time ibuprofen Allergy RASH Verified 07/01/18 15:40 - Medications Medications: Current Medications Clonidine HCl (Catapres) 0.1 mg PO BID [facility] Last Admin: 07/24/18 17:36 Dose: 0.1 mg Insulin Detemir (Levemir) 12 unit SC [facility] Insulin Human Regular (Humulin R Med) 0 units SC [facility]; Protocol Last Admin: 07/24/18 17:35 Dose: 3 units Lactic Acid (Lac-Hydrin 12% Lotion (225 G)) 0 gm EXT BID [facility] Last Admin: 07/24/18 17:37 Dose: 1 applic Metoprolol Tartrate (Lopressor) 25 mg PO 0800,1800 [facility] Last Admin: 07/24/18 17:36 Dose: 25 mg Morphine Sulfate (Morphine) 1 mg IVP Q15M PRN PRN Reason: Pain, moderate (4-7) Ondansetron HCl (Zofran Inj) 4 mg IVP ONCE PRN PRN Reason: Nausea/Vomiting Oxycodone HCl (Oxycodone Immediate Release Tab) 5 mg PO Q4H PRN PRN Reason: Pain, moderate (4-7) Oxycodone HCl (Oxycodone Immediate Release Tab) 10 mg PO Q4H PRN PRN Reason: Pain, severe (8-10) Last Admin: 07/24/18 15:16 Dose: 10 mg Physical Exam - Constitutional Appears: Non-toxic, No Acute Distress - Head Exam Head Exam: ATRAUMATIC, NORMOCEPHALIC - Eye Exam Eye Exam: EOMI, PERRL Pupil Exam: NORMAL ACCOMODATION, PERRL - ENT Exam ENT Exam: Mucous Membranes Moist, Normal External Ear Exam, TM's Normal Bilaterally - Neck Exam Neck exam: Positive for: Full Rom, Normal Inspection - Respiratory Exam Respiratory Exam: Clear to Auscultation Bilateral, NORMAL BREATHING PATTERN. ab sent: Rales, Rhonchi, Wheezes - Cardiovascular Exam Cardiovascular Exam: REGULAR RHYTHM, RRR, +S1, +S2 - GI/Abdominal Exam GI & Abdominal Exam: Normal Bowel Sounds, Soft. absent: Distended, Tenderness Additional comments: midline abdominal surgical scar. - Extremities Exam Additional comments: S/P Left TMA. RLE big toe ulcer/eschar. - Neurological Exam Neurological exam: Alert, CN II-XII Intact, Oriented x3 - Psychiatric Exam Additional comments: Distant at time. Jovial for things that she perceives as beneficial to her. - Skin Additional comments: As above. Results - Vital Signs Recent Vital Signs: Last Vital Signs Temp 98.5 F 07/24/18 14:00 Pulse 72 07/24/18 14:00 Resp 18 07/24/18 14:00 BP 145/81 07/24/18 14:00 Pulse Ox 98 07/24/18 14:00 - Labs Result Diagrams: 07/24/18 11:30 Labs: Laboratory Results - last 24 hr 07/24/18 07/24/18 11:30 16:10 WBC 10.4 D RBC 2.79 L Hgb 7.8 L Hct 24.8 L MCV 88.9 MCH 28.0 MCHC 31.5 RDW 13.6 Plt Count 535 H MPV 9.0 Neut % (Auto) 65.6 Lymph % (Auto) 25.1 [place] % (Auto) 6.7 H Eos % (Auto) 2.2 Baso % (Auto) 0.4 Lymph # (Auto) 2.6 [place] # (Auto) 0.7 H Eos # (Auto) 0.2 Baso # (Auto) 0.04 Absolute Neuts (auto) 6.85 H POC Glucose (mg/dL) 242 H Assessment & Plan - Assessment and Plan (Free Text) Assessment: 73 yo female presenting for altered mental status, fevers up to 101.0 F, and hyperglycemia. Negative Chest X-ray. X-ray right big toe showing swelling of the soft tissues only. Head CT negative. Patient was hyponatremic. Unclear how the patient's DM control is normally. Likely with some degree of dehydration in addition to the hyperglycemia. Check Hgb A1c... 15.5. Monitor glucose levels. Started on Vancomycin and Zosyn. Villagran cultures. Supportive care. Afebrile today. Found to have bedbugs and was isolated. Patient was washed and now off isolation. Duplex studies showing severe peripheral vascular disease bilaterally. Cultures negative. Left foot and ankle X-ray negative. Considering oral antibiotic care with Keflex. Patient with diabetes that is not under control. Borderline fevers. Angioplasty with Dr. Ray occurred on 07/11/2018. Impressions were: 1. Successful left SFA and popliteal arter jet stream atherectomy and drug- eluting stent balloon angioplasty. No stent was required. 2. Successful left anterior tibial artery angioplasty and focal drug-eluting stent placement 3. Successful left tibioperoneal trunk and proximal left posterior tibial artery angioplasty 4. 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 Critical right popliteal artery stenoses. No additional issues. Continue on oral Keflex for antibiotic treatment for up to a week s/p TMA. Toes of the left foot are already gangrenous. This has progressed during this hospitalization despite interventions. Podiatry is now planning TMA of the left foot on 07/24/[address] Parekh. Gangrene continues to progress up to the midfoot especially on the medial side of the left foot. No new issues. Periodically check ESR. Last check was 07/18/2018 with ESR of 143. The Left TMA was done. Noted echocardiogram report and severity of valve disease. She has been working with PT. Thank you for allowing me to participate in the care of the patient, we will follow with you.
[2018-07-24] MEDS: Insulin Detemir 100 units/ml Vial (Levemir) SC SCH (22:07)
--- NOTE | 2018-07-24 22:29 | OP ---
PROCEDURE DATE: 07/24/2018 PREOPERATIVE DIAGNOSIS: Left forefoot gangrenous changes. POSTOPERATIVE DIAGNOSIS: Left forefoot gangrenous changes. PROCEDURE: Left foot transmetatarsal amputation. SURGEON: Radha Parekh DPM. DEMI CHEF: Shadi Covarrubias DPM, PGY-1. TYPE OF ANESTHESIA: General anesthesia. ANESTHESIA ADMINISTERED BY: Andre Malik MD INDICATION: The patient is a 73-year-old female with the above diagnosis. The patient has exhausted all conservative treatments at this time and now requires surgical intervention. The patient signed the consent after careful explanation of risks, benefits, complications and alternatives for surgical procedure. No guarantees were given nor implied. N.p.o. status was confirmed prior taking the patient to the OR. PREPARATION: The patient was brought into the operating room and placed on the operating table in the supine position. Time-out was performed for identification of the correct patient and procedure. After induction of GA, the left lower extremity was then prepped and draped in a normal sterile manner and procedure began. No tourniquet was used during the procedure. DESCRIPTION OF PROCEDURE: Left foot transmetatarsal amputation. Attention was then directed to the distal aspect of the left foot in which with the use of a #15 blade, a fishmouth incision was created circumferentially around the midfoot with the plantar incision made distally to create longest plantar flap at this time, all the soft tissues were freed from the distal aspect of the head and neck of the metatarsals one to five using periosteum and the periosteum was freed using Sanches elevator. A sagittal saw was then used to resect the first metatarsal bone at the level of the neck and the blade was angled from dorsal distal to plantar proximally and this step was repeated for metatarsal two to five where the blade angled from dorsal distal to plantar proximal. All devitalized bone and tissue were then passed off the field and sent for pathology. The remaining sharp bone edges were then debrided down to smoothness using a Sanford bone rasp. The site was then irrigated with copious amount of saline solution with pulse lavage. Deep wound culture was obtained and sent to pathology. The plantar tissue was then brought dorsally to cover the distal aspect of the metatarsal head.. Lorenzo Martinez drain was inserted and left into the wound. The skin was then reapproximated using 3-0 Vicryl in a subcutaneous suture manner and 3-0 nylon in a simple suture manner to the skin and skin tamika. A total of 10 cc of plain Marcaine 0.5% injected in a left ankle block fashion to achieve postoperative analgesia The left foot was then dressed with non-adherent dressing, 4x4 gauze, ABD pad, Kerlix, and stockinet. POSTOPERATIVE CONDITION: The patient tolerated the anesthesia and the procedure well and was escorted to the recovery room with vital signs stable and neurovascular status intact to the left lower extremity. The patient to be partially weightbearing to the left lower extremity in a Darco wedge shoe, forefoot wedge shoe. Podiatry will continue to follow up the patient while in-house. The patient will follow up with Dr. Parekh at her office upon discharge home. SHADI COVARRUBIAS DPM/RAHELY1 Radha Parekh DPM MTDD
[2018-07-24] MEDS: oxyCODONE 5 mg Immediate Release Tab PO PRN (23:12)
[2018-07-25 07:49] LABS: BASO # 0.03 K/mm3 (0.0-2.0); BASO % 0.3 % (0.0-3.0); EOS # 0.1 (0.0-0.7); HEMOGLOBIN 8.3 g/dL (12.0-16.0); LYMPH # 1.8 (1.2-3.4); MEAN CELL VOLUME 87.5 fl (80.0-105.0); MEAN CORPUSCULAR HEMOGLOBIN 27.4 pg (25.0-35.0); MEAN CORPUSCULAR HGB CONC 31.3 g/dl (31.0-37.0); MONO # 0.9 (0.1-0.6); MONO % 8.7 % (1.0-6.0); RBC 3.03 10^6/uL (3.5-6.1); RED CELL DISTRIBUTION WIDTH 13.4 % (11.5-14.5); WHITE BLOOD COUNT 10.6 10^3/uL (4.5-11.0)
[2018-07-25 08:04] LABS: ALB/GLOB RATIO 0.8 (1.1-1.8); ALBUMIN 3.3 g/dL (3.0-4.8); ALT/SGPT 62 U/L (7-56); AST/SGOT 49 U/L (14-36); BLOOD UREA NITROGEN 18 mg/dL (7-21); CALCIUM 8.7 mg/dL (8.4-10.5); GFR NON-AFRICAN AMERICAN > 60
[2018-07-25] MEDS: Insulin Reg-MEDIUM-Coverage SC SCH ×4 (08:38→21:51)
[2018-07-25] MEDS: Insulin Detemir 100 units/ml Vial (Levemir) SC SCH ×2 (08:40→22:01)
[2018-07-25] MEDS: oxyCODONE 10 mg Immediate Release Tab PO PRN (08:42)
--- NOTE | 2018-07-25 09:15 | CP.PCM.PN ---
<Azeem Agosto - Last Filed: 07/25/18 11:35> Subjective - Date & Time of Evaluation Date of Evaluation: 07/25/18 Time of Evaluation: 09:12 - Subjective Subjective: PGY-1 Medicine progress note for Dr. Rockwell Patient seen and examined at bedside. No acute events overnight. Patient has no complaints at this time. Left foot YULIYA draining 5cc of serosanguinous fluid. She denies fevers, chills, shortness of breath, chest pain, abdominal pain, nausea, vomiting, diarrhea or dysuria. Objective - Vital Signs/Intake and Output Vital Signs (last 24 hours): Temp Pulse Resp BP Pulse Ox 97.9 F 86 16 144/70 96 07/25/18 06:00 07/25/18 08:41 07/25/18 06:00 07/25/18 08:41 07/25/18 06:00 Intake and Output: 07/25/18 07/25/18 06:59 18:59 Intake Total 660 Output Total 30 Balance 630 - Medications Medications: Current Medications Cephalexin Monohydrate (Keflex) 500 mg PO Q6 [facility]; Protocol Last Admin: 07/25/18 05:29 Dose: 500 mg Clonidine HCl (Catapres) 0.1 mg PO BID [facility] Last Admin: 07/24/18 17:36 Dose: 0.1 mg Insulin Detemir (Levemir) 12 unit SC [facility] Last Admin: 07/25/18 08:40 Dose: 12 u Insulin Human Regular (Humulin R Med) 0 units SC [facility]; Protocol Last Admin: 07/25/18 08:38 Dose: Not Given Lactic Acid (Lac-Hydrin 12% Lotion (225 G)) 0 gm EXT BID [facility] Last Admin: 07/24/18 17:37 Dose: 1 applic Metoprolol Tartrate (Lopressor) 25 mg PO 0800,1800 [facility] Last Admin: 07/25/18 08:41 Dose: 25 mg Morphine Sulfate (Morphine) 1 mg IVP Q15M PRN PRN Reason: Pain, moderate (4-7) Ondansetron HCl (Zofran Inj) 4 mg IVP ONCE PRN PRN Reason: Nausea/Vomiting Oxycodone HCl (Oxycodone Immediate Release Tab) 5 mg PO Q4H PRN PRN Reason: Pain, moderate (4-7) Last Admin: 07/24/18 23:12 Dose: 5 mg Oxycodone HCl (Oxycodone Immediate Release Tab) 10 mg PO Q4H PRN PRN Reason: Pain, severe (8-10) Last Admin: 07/25/18 08:42 Dose: 10 mg - Labs Labs: 07/25/18 07:30 07/25/18 07:30 - Additional Findings Additional findings: - Constitutional Appears: Well, Non-toxic, No Acute Distress - Head Exam Head Exam: ATRAUMATIC, NORMAL INSPECTION - Eye Exam Eye Exam: EOMI, Normal appearance - ENT Exam ENT Exam: Mucous Membranes Moist - Respiratory Exam Respiratory Exam: Clear to Auscultation Bilateral. absent: Rales, Rhonchi, Wheezes, Respiratory Distress - Cardiovascular Exam Cardiovascular Exam: REGULAR RHYTHM, +S1, +S2. absent: Gallop, Rubs, Systolic Murmur - GI/Abdominal Exam GI & Abdominal Exam: Normal Bowel Sounds, Soft. absent: Distended, Tenderness - Extremities Exam Additional comments: Left toes dressing C/D/I. Left foot YULIYA draining 5cc of serosanguinous fluid. Lower extremities with normal temperature and non-tender to palpation. - Neurological Exam Neurological exam: Alert, CN II-XII Intact, Oriented x3 - Psychiatric Exam Psychiatric exam: Flat Affect - Skin Skin Exam: Dry, Normal Color, Warm Assessment and Plan - Assessment and Plan (Free Text) Assessment: Patient is a 73 year old female with PMH of diabetes, HTN, PVD, and noncompliance with medication was admitted with altered mental status and hyperglycemia. Clinical course complicated by ichemic rest pain of the left LE. Revascularization of LLE w/ IR on 07/11. Patient is s/p left transmetatarsal amputation on 07/24. Plan: LLE Gangrene/Necrosis- s/p left transmetatarsal amputation on 07/24 - Podiatry consulted, Dr. Parekh - Oxycodone and Morphine PRN for pain - Keflex 500mg PO Q6 for 7 days (Started on 07/25) - ID consulted, Dr. Guidry - Wound culture: no growth to date - Wound pathology: pending - Lac-hydrin cream for wound care - PT evaluation Severe PAD - s/p IR revascularization of LLE on 07/11 - As per podiatry, hold Plavix until 07/25 - Lipitor held - Arterial US: Severely abnormal L ALYSE @ rest ALYSE is .46. R ALYSE is at .77 and is moderately abnormal - CT angiogram 07/06: severe stenosis in the distal superficial femoral arteries bilaterally. Single vessel runoff to both ankles via the posterior tibial. The anterior tibials are thin and narrow with multi focal stenosis - Peripheral vascular procedure report: successful left SFA and pop artery jet stream arthrectomy and balloon angioplasty; successful left ant tib angioplasty with focal drug-eluting stent placement; successful left tibperoneal trunk and prox left PT artery angioplasty Transaminitis, downtrending - Hold Lipitor - Avoid hepatotoxic agents - Continue to monitor Hypertension - Metoprolol 25mg PO BID - Clonidine 0.1mg BID DM II with Neuropathy - ISS - Accuchecks - Hgba1c: 15.5 - Levemir 12u Q12 - Diabetic education - Gabapentin 300mg BID Stage II sacral ulcer - Wound care - Turn Q2, air mattress, conservative management Urinary Incontinence - Likely urge incontinence 2/2 to DM2 - Can consider starting medication after surgery, options include oxybutynin, tolterodine, dicyclomine PPX DVT: Plavix (held at this time) Diet: HHD Disposition: Plan to discharge to [facility] when patient is medically cleared. Patient seen and case discussed with Attending Physician, Dr. Luli Agosto, PGY-1 <Omari Rockwell - Last Filed: 07/25/18 12:14> Objective - Vital Signs/Intake and Output Vital Signs (last 24 hours): Temp Pulse Resp BP Pulse Ox 97.9 F 76 16 121/61 96 07/25/18 06:00 07/25/18 11:10 07/25/18 06:00 07/25/18 11:10 07/25/18 06:00 Intake and Output: 07/25/18 07/25/18 06:59 18:59 Intake Total 660 Output Total 30 Balance 630 - Medications Medications: Current Medications Cephalexin Monohydrate (Keflex) 500 mg PO Q6 [facility]; Protocol Last Admin: 07/25/18 05:29 Dose: 500 mg Clonidine HCl (Catapres) 0.1 mg PO BID [facility] Last Admin: 07/25/18 11:10 Dose: 0.1 mg Insulin Detemir (Levemir) 12 unit SC [facility] Last Admin: 07/25/18 08:40 Dose: 12 u Insulin Human Regular (Humulin R Med) 0 units SC [facility]; Protocol Last Admin: 07/25/18 11:56 Dose: Not Given Lactic Acid (Lac-Hydrin 12% Lotion (225 G)) 0 gm EXT BID [facility] Last Admin: 07/25/18 11:09 Dose: 1 applic Metoprolol Tartrate (Lopressor) 25 mg PO 0800,1800 [facility] Last Admin: 07/25/18 08:41 Dose: 25 mg Morphine Sulfate (Morphine) 1 mg IVP Q15M PRN PRN Reason: Pain, moderate (4-7) Ondansetron HCl (Zofran Inj) 4 mg IVP ONCE PRN PRN Reason: Nausea/Vomiting Oxycodone HCl (Oxycodone Immediate Release Tab) 5 mg PO Q4H PRN PRN Reason: Pain, moderate (4-7) Last Admin: 07/24/18 23:12 Dose: 5 mg Oxycodone HCl (Oxycodone Immediate Release Tab) 10 mg PO Q8H PRN PRN Reason: Pain, severe (8-10) - Labs Labs: 07/25/18 07:30 07/25/18 07:30 Attending/Attestation - Attestation I have personally seen and examined this patient.: Yes I have fully participated in the care of the patient.: Yes I have reviewed all pertinent clinical information, including history, physical exam and plan: Yes Notes (Text): 07/25/18 12:12 73 year old female with past medical history of diabetes, hypertension, PVD and noncompliance was initially admitted with altered mental status; found to have elevated blood sugars (>700) which improved with iv fluids and insulin. Mental status improved back to normal. A1c was 15.5 and patient was started on levemir. Patient was also found to have right big toe ulcer and severe PAD/PVD. Arterial Doppler showed severely abnormal L ALYSE 0.46 and moderately abnormal R ALYSE 0.77. CT angiogram showed severe stenosis in the distal superficial femoral arteries bilaterally; single vessel runoff to both ankles via the posterior tibial; anterior tibials were thin and narrow with multifocal stenosis. Patient is s/p left SFA and popliteal artherectomy and drug eluting balloon angioplasty, successful left anterior tibial artery angioplasty and focal drug eluting stent placement, and successful left tibioperoneal trunk and proximal left posterior tibial artery angioplasty. Patient was noted to have dry gangrene of left foot. She is being followed by podiatry and is now s/p TMA POD #1. Case was discussed with podiatry; okay to resume plavix today. PT follow up is requested. ID recommended to continue with po keflex for now. Awaiting cultures. Mild transaminitis is improving. Continue to hold statin for now and monitor closely. Continue with metoprolol and clonidine for hypertension. Omari Rockwell MD Hospitalist.
[2018-07-25] MEDS: Ammonium Lactate 12% Lotion (225 g) EXT SCH ×2 (11:09→18:55)
--- NOTE | 2018-07-25 11:58 | CP.PCM.PN ---
<Shadi Covarrubias - Last Filed: 07/25/18 11:49> Subjective - Date & Time of Evaluation Date of Evaluation: 07/25/18 Time of Evaluation: 11:49 - Subjective Subjective: Podiatry progress note: for Dr. Cobb/Izabella 73 year old female seen and evaluated at the bedside with Dr. Parekh 1 day S/P left TMA. Patient resting comfortably and in NAD. No acute events overnight. Patient states that she had mild pain at the surgical site in her left foot.. Denies nausea/vomiting/fever/shortness of breath. Objective - Vital Signs/Intake and Output Vital Signs (last 24 hours): Temp Pulse Resp BP Pulse Ox 97.9 F 76 16 121/61 96 07/25/18 06:00 07/25/18 11:10 07/25/18 06:00 07/25/18 11:10 07/25/18 06:00 Intake and Output: 07/25/18 07/25/18 06:59 18:59 Intake Total 660 Output Total 30 Balance 630 - Medications Medications: Current Medications Cephalexin Monohydrate (Keflex) 500 mg PO Q6 [facility]; Protocol Last Admin: 07/25/18 05:29 Dose: 500 mg Clonidine HCl (Catapres) 0.1 mg PO BID [facility] Last Admin: 07/25/18 11:10 Dose: 0.1 mg Insulin Detemir (Levemir) 12 unit SC [facility] Last Admin: 07/25/18 08:40 Dose: 12 u Insulin Human Regular (Humulin R Med) 0 units SC [facility]; Protocol Last Admin: 07/25/18 08:38 Dose: Not Given Lactic Acid (Lac-Hydrin 12% Lotion (225 G)) 0 gm EXT BID [facility] Last Admin: 07/25/18 11:09 Dose: 1 applic Metoprolol Tartrate (Lopressor) 25 mg PO 0800,1800 [facility] Last Admin: 07/25/18 08:41 Dose: 25 mg Morphine Sulfate (Morphine) 1 mg IVP Q15M PRN PRN Reason: Pain, moderate (4-7) Ondansetron HCl (Zofran Inj) 4 mg IVP ONCE PRN PRN Reason: Nausea/Vomiting Oxycodone HCl (Oxycodone Immediate Release Tab) 5 mg PO Q4H PRN PRN Reason: Pain, moderate (4-7) Last Admin: 07/24/18 23:12 Dose: 5 mg Oxycodone HCl (Oxycodone Immediate Release Tab) 10 mg PO Q8H PRN PRN Reason: Pain, severe (8-10) - Labs Labs: 07/25/18 07:30 07/25/18 07:30 - Constitutional Appears: Well, Non-toxic, No Acute Distress - Head Exam Head Exam: ATRAUMATIC, NORMOCEPHALIC - Extremities Exam Additional comments: B/l LE focused VASC: non-palpable pulses bilaterally, Cap refill >3 seconds to all digits. Temperature gradient warm to cool b/l. NEURO: Epicritic and protective sensation grossly intact b/l DERM: Right foot: Dry eschar measuring approximately 1.5 x 1.5 cm noted to distal tuft of right hallux - hyperkeratotic rim present; absent drainage; absent purulence; absent flucutance; absent malodor; no periwound erythema present. No clinical signs of infection appreciated; left foot: Surgical site looks C/D/I with stables and sutures intact and in place. No drainage, No erythema, No malodor, No clinical signs of active infection. MSK: No pain on palpation noted to right hallux eschar. Moderate pain on palpation of the surgical site. - Neurological Exam Neurological Exam: Alert, Awake, Oriented x3 Assessment and Plan - Assessment and Plan (Free Text) Assessment: 73 year old female seen and evaluated at the bedside 1 day S/P left TMA. Plan: Patient seen and evaluated at the bedside with Dr. Parekh Plan discussed with Dr. Parekh. Bilateral arterial duplex ordered - significant PVD noted b/l, more severe on left. Peripheral vascular procedure report - successful left SFA and pop artery jet stream arthrectomy and balloon angioplasty; successful left ant tib angioplasty with focal drug-eluting stent placement; successful left tibperoneal trunk and prox left PT artery angioplasty Left foot X-ray postoperative- S/P left TMA. Continue with IV abx as per ID. Surgical wound dressed using adaptic, DSD, ABD and jaxon bandage. Patient to bear weight as tolerated to the left heel. Ordered PT. Podiatry will continue to follow up the patient while in house. <Radha Parekh - Last Filed: 08/05/18 20:41> Objective - Vital Signs/Intake and Output Vital Signs (last 24 hours): Temp Pulse Resp BP Pulse Ox 98.7 F 67 18 108/61 100 07/31/18 14:00 07/31/18 14:00 07/31/18 14:00 07/31/18 14:00 07/31/18 14:00 - Labs Labs: 07/29/18 07:00 07/29/18 07:00 Attending/Attestation - Attestation I have personally seen and examined this patient.: Yes I have fully participated in the care of the patient.: Yes I have reviewed all pertinent clinical information, including history, physical exam and plan: Yes
--- NOTE | 2018-07-25 14:52 | CP.PCM.PN ---
Subjective - Date & Time of Evaluation Date of Evaluation: 07/25/18 Time of Evaluation: 14:15 - Subjective Subjective: Infectious Disease Follow Up: July 25, 2018 73 yo female with history of Type II DM. The patient was found to be altered in a laundromat. Patient herself gives little information. Patient's PMD is apparently in [place], [place], his name is Dr. Akbar. The patient name is Jessica Brizuela. Patient had fever of 101.0 F. No leukocytosis. Limited information provided by the patient. Patient is hyperglycemic on admission and still has elevated glucose levels. Was under isolation for bedbugs. No further fever episodes today. Afebrile for the last few days now. Duplex showing disease of the vessels of the left leg. Abdominal CT Angiography showing severe stenosis in the distal superficial femoral arteries bilaterally. Single vessel runoff to both ankles via the posterior tibial. The anterior tibials are thin and narrow with multi focal stenosis. Significant peripheral vascular disease bilaterally. Had angioplasty with Dr. Ray in morning of 07/11/2018. Podiatry planning for TMA of the left foot due to gangrene of toes of the left foot. Remains on oral antibiotics of Keflex right now. Unclear if the patient is poor historian or unwilling to divulge information on herself. For example, when asking the patient how she wound up in [place] when she states that she lives in [place], the patient states she was visiting a friend but then refuses to to give a name or number for the patient. She would simply state that she doesn't know what her friend's name is, where she lives, or her phone number. She will even say she doesn't know what she looks like but that she is her friend. Podiatry performed TMA on 07/24/2018. Patient states mild pain at TMA site. Objective - Vital Signs/Intake and Output Vital Signs (last 24 hours): Temp Pulse Resp BP Pulse Ox 97.9 F 76 16 121/61 96 07/25/18 06:00 07/25/18 11:10 07/25/18 06:00 07/25/18 11:10 07/25/18 06:00 Intake and Output: 07/25/18 07/25/18 06:59 18:59 Intake Total 660 480 Output Total 30 Balance 630 480 - Medications Medications: Current Medications Cephalexin Monohydrate (Keflex) 500 mg PO Q6 [facility]; Protocol Last Admin: 07/25/18 05:29 Dose: 500 mg Clonidine HCl (Catapres) 0.1 mg PO BID [facility] Last Admin: 07/25/18 11:10 Dose: 0.1 mg Clopidogrel Bisulfate (Plavix) 75 mg PO DAILY [facility] Insulin Detemir (Levemir) 12 unit SC [facility] Last Admin: 07/25/18 08:40 Dose: 12 u Insulin Human Regular (Humulin R Med) 0 units SC [facility]; Protocol Last Admin: 07/25/18 11:56 Dose: Not Given Lactic Acid (Lac-Hydrin 12% Lotion (225 G)) 0 gm EXT BID [facility] Last Admin: 07/25/18 11:09 Dose: 1 applic Metoprolol Tartrate (Lopressor) 25 mg PO 0800,1800 [facility] Last Admin: 07/25/18 08:41 Dose: 25 mg Morphine Sulfate (Morphine) 1 mg IVP Q15M PRN PRN Reason: Pain, moderate (4-7) Ondansetron HCl (Zofran Inj) 4 mg IVP ONCE PRN PRN Reason: Nausea/Vomiting Oxycodone HCl (Oxycodone Immediate Release Tab) 5 mg PO Q4H PRN PRN Reason: Pain, moderate (4-7) Last Admin: 07/24/18 23:12 Dose: 5 mg Oxycodone HCl (Oxycodone Immediate Release Tab) 10 mg PO Q8H PRN PRN Reason: Pain, severe (8-10) - Labs Labs: 07/25/18 07:30 07/25/18 07:30 - Constitutional Appears: Non-toxic, No Acute Distress - Head Exam Head Exam: ATRAUMATIC, NORMOCEPHALIC - Eye Exam Eye Exam: EOMI, PERRL Pupil Exam: NORMAL ACCOMODATION, PERRL - ENT Exam ENT Exam: Mucous Membranes Moist, Normal External Ear Exam, TM's Normal Bilaterally - Neck Exam Neck Exam: Full ROM, Normal Inspection - Respiratory Exam Respiratory Exam: Clear to Ausculation Bilateral, NORMAL BREATHING PATTERN. absent: Rales, Rhonchi, Wheezes - GI/Abdominal Exam GI & Abdominal Exam: Soft, Normal Bowel Sounds. absent: Distended, Tenderness Additional comments: midline abdominal surgical scar. - Extremities Exam Additional comments: S/P Left TMA. RLE big toe ulcer/eschar. - Neurological Exam Neurological Exam: Alert, Awake, Oriented x3 - Psychiatric Exam Additional comments: Distant at time. Jovial for things that she perceives as beneficial to her. - Skin Additional comments: As above. Assessment and Plan - Assessment and Plan (Free Text) Assessment: 73 yo female presenting for altered mental status, fevers up to 101.0 F, and hyperglycemia. Negative Chest X-ray. X-ray right big toe showing swelling of the soft tissues only. Head CT negative. Patient was hyponatremic. Unclear how the patient's DM control is normally. Likely with some degree of dehydration in addition to the hyperglycemia. Check Hgb A1c... 15.5. Monitor glucose levels. Started on Vancomycin and Zosyn. Villagran cultures. Supportive care. Afebrile today. Found to have bedbugs and was isolated. Patient was washed and now off isolation. Duplex studies showing severe peripheral vascular disease bilaterally. Cultures negative. Left foot and ankle X-ray negative. Considering oral antibiotic care with Keflex. Patient with diabetes that is not under control. Borderline fevers. Angioplasty with Dr. Ray occurred on 07/11/2018. Impressions were: 1. Successful left SFA and popliteal arter jet stream atherectomy and drug- eluting stent balloon angioplasty. No stent was required. 2. Successful left anterior tibial artery angioplasty and focal drug-eluting stent placement 3. Successful left tibioperoneal trunk and proximal left posterior tibial artery angioplasty 4. 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 Critical right popliteal artery stenoses. No additional issues. Continue on oral Keflex for antibiotic treatment for up to a week s/p TMA although this may be extended depending on condition of the left foot stump. Toes of the left foot are already gangrenous. This has progressed during this hospitalization despite interventions. Podiatry is now planning TMA of the left foot on 07/24/[address] Parekh. Gangrene continues to progress up to the midfoot especially on the medial side of the left foot. No new issues. Periodically check ESR. Last check was 07/18/2018 with ESR of 143. The Left TMA was done on 07/24/2018. She complains of only mild pain of the left foot. Noted echocardiogram report and severity of valve disease. She has been working with PT. Thank you for allowing me to participate in the care of the patient, we will follow with you.
[2018-07-25] MEDS: oxyCODONE 5 mg Immediate Release Tab PO PRN (14:56)
[2018-07-25] MEDS ORDERED: Pneumococcal 23-Valent Vaccine IM ONE (23:22)
[2018-07-25] MEDS ORDERED: Influenza Vaccine 60 mcg/0.5 mL SYR (4YR UP) IM ONE (23:22)
[2018-07-26] MEDS: Insulin Reg-MEDIUM-Coverage SC SCH ×4 (07:39→22:54)
[2018-07-26 07:45] LABS: BASO # 0.03 K/mm3 (0.0-2.0); BASO % 0.4 % (0.0-3.0); EOS # 0.2 (0.0-0.7); EOS % 1.8 % (1.5-5.0); HEMOGLOBIN 8.3 g/dL (12.0-16.0); LYMPH # 1.5 (1.2-3.4); LYMPH % 18.2 % (22.0-35.0); MEAN CELL VOLUME 88.1 fl (80.0-105.0); MEAN CORPUSCULAR HEMOGLOBIN 27.4 pg (25.0-35.0); MEAN CORPUSCULAR HGB CONC 31.1 g/dl (31.0-37.0); MEAN PLATELET VOLUME 9.1 fl (7.0-11.0); MONO # 0.7 (0.1-0.6); MONO % 8.1 % (1.0-6.0); RBC 3.03 10^6/uL (3.5-6.1); RED CELL DISTRIBUTION WIDTH 13.7 % (11.5-14.5); WHITE BLOOD COUNT 8.5 10^3/uL (4.5-11.0)
[2018-07-26 07:55] LABS: ALB/GLOB RATIO 0.8 (1.1-1.8); ALBUMIN 3.1 g/dL (3.0-4.8); ALT/SGPT 47 U/L (7-56); AST/SGOT 33 U/L (14-36); BLOOD UREA NITROGEN 17 mg/dL (7-21); CALCIUM 8.6 mg/dL (8.4-10.5); GFR NON-AFRICAN AMERICAN > 60
[2018-07-26] MEDS: Insulin Detemir 100 units/ml Vial (Levemir) SC SCH ×2 (08:00→22:54)
[2018-07-26] MEDS: oxyCODONE 10 mg Immediate Release Tab PO PRN (08:11)
[2018-07-26] MEDS ORDERED: Potassium Chloride 20 mEq ER Tab PO STA (08:48)
--- NOTE | 2018-07-26 08:53 | CP.PCM.PN ---
<Azeem Agosto - Last Filed: 07/26/18 12:23> Subjective - Date & Time of Evaluation Date of Evaluation: 07/26/18 Time of Evaluation: 08:52 - Subjective Subjective: PGY-1 Medicine progress note for Dr. Rockwell Patient seen and examined at bedside. No acute events overnight. Patient is complaining of 6/10 pain at the surgical site, patient has not been asking for pain medication. Left foot YULIYA draining <5cc of serosanguinous fluid. She denies fevers, chills, shortness of breath, chest pain, abdominal pain, nausea, vomiting, diarrhea or dysuria. Objective - Vital Signs/Intake and Output Vital Signs (last 24 hours): Temp Pulse Resp BP Pulse Ox 98.6 F 72 20 150/81 100 07/26/18 06:00 07/26/18 06:00 07/26/18 06:00 07/26/18 06:00 07/26/18 06:00 Intake and Output: 07/26/18 07/26/18 06:59 18:59 Intake Total 500 Output Total 5 Balance 495 - Medications Medications: Current Medications Cephalexin Monohydrate (Keflex) 500 mg PO Q6 [facility]; Protocol Last Admin: 07/26/18 06:17 Dose: 500 mg Clonidine HCl (Catapres) 0.1 mg PO BID [facility] Last Admin: 07/25/18 18:54 Dose: 0.1 mg Clopidogrel Bisulfate (Plavix) 75 mg PO DAILY [facility] Last Admin: 07/25/18 14:56 Dose: 75 mg Insulin Detemir (Levemir) 12 unit SC [facility] Last Admin: 07/25/18 22:01 Dose: 12 u Insulin Human Regular (Humulin R Med) 0 units SC [facility]; Protocol Last Admin: 07/26/18 07:39 Dose: Not Given Lactic Acid (Lac-Hydrin 12% Lotion (225 G)) 0 gm EXT BID [facility] Last Admin: 07/25/18 18:55 Dose: 1 applic Metoprolol Tartrate (Lopressor) 25 mg PO 0800,1800 [facility] Last Admin: 07/25/18 18:54 Dose: 25 mg Morphine Sulfate (Morphine) 1 mg IVP Q15M PRN PRN Reason: Pain, moderate (4-7) Ondansetron HCl (Zofran Inj) 4 mg IVP ONCE PRN PRN Reason: Nausea/Vomiting Oxycodone HCl (Oxycodone Immediate Release Tab) 5 mg PO Q4H PRN PRN Reason: Pain, moderate (4-7) Last Admin: 07/25/18 14:56 Dose: 5 mg Oxycodone HCl (Oxycodone Immediate Release Tab) 10 mg PO Q8H PRN PRN Reason: Pain, severe (8-10) Last Admin: 07/26/18 08:11 Dose: 10 mg - Labs Labs: 07/26/18 07:20 07/26/18 07:20 - Additional Findings Additional findings: - Constitutional Appears: Well, Non-toxic, No Acute Distress - Head Exam Head Exam: ATRAUMATIC, NORMAL INSPECTION - Eye Exam Eye Exam: EOMI, Normal appearance - ENT Exam ENT Exam: Mucous Membranes Moist - Respiratory Exam Respiratory Exam: Clear to Auscultation Bilateral. absent: Rales, Rhonchi, Wheezes, Respiratory Distress - Cardiovascular Exam Cardiovascular Exam: REGULAR RHYTHM, +S1, +S2. absent: Gallop, Rubs, Systolic Murmur - GI/Abdominal Exam GI & Abdominal Exam: Normal Bowel Sounds, Soft. absent: Distended, Tenderness - Extremities Exam Additional comments: Left toes dressing C/D/I. Left foot YULIYA draining <5cc of serosanguinous fluid. Lower extremities with normal temperature and non-tender to palpation. - Neurological Exam Neurological exam: Alert, CN II-XII Intact, Oriented x3 - Psychiatric Exam Psychiatric exam: Flat Affect - Skin Skin Exam: Dry, Normal Color, Warm Assessment and Plan - Assessment and Plan (Free Text) Assessment: Patient is a 73 year old female with PMH of diabetes, HTN, PVD, and noncompliance with medication was admitted with altered mental status and hyperglycemia. Clinical course complicated by ichemic rest pain of the left LE. Revascularization of LLE w/ IR on 07/11. Patient is s/p left transmetatarsal amputation on 07/24. Plan: LLE Gangrene/Necrosis- s/p left transmetatarsal amputation on 07/24 - Podiatry consulted, Dr. Parekh - Oxycodone and Morphine PRN for pain - Keflex 500mg PO Q6 for 7 days (Started on 07/25) - ID consulted, Dr. Guidry - Wound culture: no growth to date - Wound pathology: pending - Lac-hydrin cream for wound care - PT evaluation- awaiting boots for patient to ambulate Severe PAD - s/p IR revascularization of LLE on 07/11 - Lipitor held - Arterial US: Severely abnormal L ALYSE @ rest ALYSE is .46. R ALYSE is at .77 and is moderately abnormal - CT angiogram 07/06: severe stenosis in the distal superficial femoral arteries bilaterally. Single vessel runoff to both ankles via the posterior tibial. The anterior tibials are thin and narrow with multi focal stenosis - Peripheral vascular procedure report: successful left SFA and pop artery jet stream arthrectomy and balloon angioplasty; successful left ant tib angioplasty with focal drug-eluting stent placement; successful left tibperoneal trunk and prox left PT artery angioplasty Transaminitis, resolved - Hold Lipitor - Avoid hepatotoxic agents Hypertension - Metoprolol 25mg PO BID - Clonidine 0.1mg BID DM II with Neuropathy - ISS - Accuchecks - Hgba1c: 15.5 - Levemir 12u Q12 - Diabetic education - Gabapentin 300mg BID Stage II sacral ulcer - Wound care - Turn Q2, air mattress, conservative management PPX DVT: Plavix Diet: HHD Patient seen and case discussed with Attending Physician, Dr. Luli Agosto, PGY-1 <Omari Rockwell - Last Filed: 07/26/18 13:22> Objective - Vital Signs/Intake and Output Vital Signs (last 24 hours): Temp Pulse Resp BP Pulse Ox 98.6 F 72 20 150/81 100 07/26/18 06:00 07/26/18 06:00 07/26/18 06:00 07/26/18 06:00 07/26/18 06:00 Intake and Output: 07/26/18 07/26/18 06:59 18:59 Intake Total 500 Output Total 5 Balance 495 - Medications Medications: Current Medications Cephalexin Monohydrate (Keflex) 500 mg PO Q6 [facility]; Protocol Last Admin: 07/26/18 11:00 Dose: 500 mg Clonidine HCl (Catapres) 0.1 mg PO BID [facility] Last Admin: 07/26/18 10:57 Dose: 0.1 mg Clopidogrel Bisulfate (Plavix) 75 mg PO DAILY [facility] Last Admin: 07/26/18 10:57 Dose: 75 mg Insulin Detemir (Levemir) 12 unit SC [facility] Last Admin: 07/26/18 08:00 Dose: Not Given Insulin Human Regular (Humulin R Med) 0 units SC [facility]; Protocol Last Admin: 07/26/18 12:52 Dose: 1 units Lactic Acid (Lac-Hydrin 12% Lotion (225 G)) 0 gm EXT BID [facility] Last Admin: 07/26/18 10:57 Dose: 1 applic Metoprolol Tartrate (Lopressor) 25 mg PO 0800,1800 [facility] Last Admin: 07/26/18 10:57 Dose: 25 mg Ondansetron HCl (Zofran Inj) 4 mg IVP ONCE PRN PRN Reason: Nausea/Vomiting Oxycodone HCl (Oxycodone Immediate Release Tab) 5 mg PO Q4H PRN PRN Reason: Pain, moderate (4-7) Last Admin: 07/25/18 14:56 Dose: 5 mg Oxycodone HCl (Oxycodone Immediate Release Tab) 10 mg PO Q8H PRN PRN Reason: Pain, severe (8-10) Last Admin: 07/26/18 08:11 Dose: 10 mg - Labs Labs: 07/26/18 07:20 07/26/18 07:20 Attending/Attestation - Attestation I have personally seen and examined this patient.: Yes I have fully participated in the care of the patient.: Yes I have reviewed all pertinent clinical information, including history, physical exam and plan: Yes Notes (Text): 07/26/18 13:20 73 year old female with past medical history of diabetes, hypertension, PVD and noncompliance was initially admitted with altered mental status; found to have elevated blood sugars (>700) which improved with iv fluids and insulin. Mental status improved back to normal. A1c was 15.5 and patient was started on levemir . Patient was also found to have right big toe ulcer and severe PAD/PVD. Arterial Doppler showed severely abnormal L ALYSE 0.46 and moderately abnormal R ALYSE 0.77. CT angiogram showed severe stenosis in the distal superficial femoral arteries bilaterally; single vessel runoff to both ankles via the posterior tibial; anterior tibials were thin and narrow with multifocal stenosis. Patient is s/p left SFA and popliteal artherectomy and drug eluting balloon angioplasty, successful left anterior tibial artery angioplasty and focal drug eluting stent placement, and successful left tibioperoneal trunk and proximal left posterior tibial artery angioplasty. She is on plavix. Patient was also noted to have dry gangrene of left foot. She is being followed by podiatry and is now s/p TMA POD #2. PT follow up is requested; she is awaiting special boot. ID recommended to continue with po keflex post-op for now while awaiting wound culture / pathology. Mild transaminitis has improved. Continue to monitor closely. Consider slowly resuming statin if LFTs remain stable. Continue with metoprolol and clonidine for hypertension. Omari Rockwell MD Hospitalist.
[2018-07-26] MEDS: Ammonium Lactate 12% Lotion (225 g) EXT SCH ×2 (10:57→18:34)
--- NOTE | 2018-07-26 11:52 | CP.PCM.PN ---
<Shadi Covarrubias - Last Filed: 07/26/18 11:48> Subjective - Date & Time of Evaluation Date of Evaluation: 07/26/18 Time of Evaluation: 11:48 - Subjective Subjective: Podiatry progress note: for Dr. Cobb/Izabella 73 year old female seen and evaluated at the bedside 2 days S/P left TMA. Patient resting comfortably and in NAD. No acute events overnight. Patient states that she Her left foot pain improved alot since yesterday. Denies nausea/vomiting/fever/shortness of breath. Objective - Vital Signs/Intake and Output Vital Signs (last 24 hours): Temp Pulse Resp BP Pulse Ox 98.6 F 72 20 150/81 100 07/26/18 06:00 07/26/18 06:00 07/26/18 06:00 07/26/18 06:00 07/26/18 06:00 Intake and Output: 07/26/18 07/26/18 06:59 18:59 Intake Total 500 Output Total 5 Balance 495 - Medications Medications: Current Medications Cephalexin Monohydrate (Keflex) 500 mg PO Q6 [facility]; Protocol Last Admin: 07/26/18 11:00 Dose: 500 mg Clonidine HCl (Catapres) 0.1 mg PO BID [facility] Last Admin: 07/26/18 10:57 Dose: 0.1 mg Clopidogrel Bisulfate (Plavix) 75 mg PO DAILY [facility] Last Admin: 07/26/18 10:57 Dose: 75 mg Insulin Detemir (Levemir) 12 unit SC [facility] Last Admin: 07/26/18 08:00 Dose: Not Given Insulin Human Regular (Humulin R Med) 0 units SC [facility]; Protocol Last Admin: 07/26/18 07:39 Dose: Not Given Lactic Acid (Lac-Hydrin 12% Lotion (225 G)) 0 gm EXT BID [facility] Last Admin: 07/26/18 10:57 Dose: 1 applic Metoprolol Tartrate (Lopressor) 25 mg PO 0800,1800 [facility] Last Admin: 07/26/18 10:57 Dose: 25 mg Morphine Sulfate (Morphine) 1 mg IVP Q15M PRN PRN Reason: Pain, moderate (4-7) Ondansetron HCl (Zofran Inj) 4 mg IVP ONCE PRN PRN Reason: Nausea/Vomiting Oxycodone HCl (Oxycodone Immediate Release Tab) 5 mg PO Q4H PRN PRN Reason: Pain, moderate (4-7) Last Admin: 07/25/18 14:56 Dose: 5 mg Oxycodone HCl (Oxycodone Immediate Release Tab) 10 mg PO Q8H PRN PRN Reason: Pain, severe (8-10) Last Admin: 07/26/18 08:11 Dose: 10 mg - Labs Labs: 07/26/18 07:20 07/26/18 07:20 - Constitutional Appears: Well, Non-toxic, No Acute Distress - Head Exam Head Exam: ATRAUMATIC, NORMOCEPHALIC - Extremities Exam Additional comments: B/l LE focused Left foot dressing was C/D/I with no strike through, Left intact R LE focused exam: VASC: non-palpable pulses, Cap refill >3 seconds to all digits. Temperature gr adient warm to cool. NEURO: Epicritic and protective sensation grossly intact. DERM: Right foot: Dry eschar measuring approximately 1.5 x 1.5 cm noted to distal tuft of right hallux - hyperkeratotic rim present; absent drainage; absent purulence; absent flucutance; absent malodor; no periwound erythema present. No clinical signs of infection appreciated; MSK: No pain on palpation noted to right hallux eschar. - Neurological Exam Neurological Exam: Alert, Awake, Oriented x3 Assessment and Plan - Assessment and Plan (Free Text) Assessment: 73 year old female seen and evaluated at the bedside 2 days S/P left TMA. Plan: Patient seen and evaluated at the bedside. Plan discussed with Dr. Cobb. Bilateral arterial duplex ordered - significant PVD noted b/l, more severe on left. Peripheral vascular procedure report - successful left SFA and pop artery jet stream arthrectomy and balloon angioplasty; successful left ant tib angioplasty with focal drug-eluting stent placement; successful left tibperoneal trunk and prox left PT artery angioplasty Left foot X-ray postoperative- S/P left TMA. Continue with IV abx as per ID. Dressing left C/D/I Patient to bear weight as tolerated to the left heel. Ordered PT. Podiatry will continue to follow up the patient while in house. <Radha Parekh - Last Filed: 08/05/18 20:39> Objective - Vital Signs/Intake and Output Vital Signs (last 24 hours): Temp Pulse Resp BP Pulse Ox 98.7 F 67 18 108/61 100 07/31/18 14:00 07/31/18 14:00 07/31/18 14:00 07/31/18 14:00 07/31/18 14:00 - Labs Labs: 07/29/18 07:00 07/29/18 07:00 Attending/Attestation - Attestation I have personally seen and examined this patient.: Yes I have fully participated in the care of the patient.: Yes I have reviewed all pertinent clinical information, including history, physical exam and plan: Yes
--- NOTE | 2018-07-26 14:09 | CP.PCM.PCO ---
Additional Comments - Additional Comments Additional Comments: POD #2 PT eval with wedge shoe pending.
--- NOTE | 2018-07-26 17:03 | CP.PCM.PN ---
Subjective - Date & Time of Evaluation Date of Evaluation: 07/26/18 Time of Evaluation: 16:00 - Subjective Subjective: Infectious Disease Follow Up: July 26, 2018 73 yo female with history of Type II DM. The patient was found to be altered in a laundromat. Patient herself gives little information. Patient's PMD is apparently in [place], [place], his name is Dr. Akbar. The patient name is Jessica Brizuela. Patient had fever of 101.0 F. No leukocytosis. Limited information provided by the patient. Patient is hyperglycemic on admission and still has elevated glucose levels. Was under isolation for bedbugs. No further fever episodes today. Afebrile for the last few days now. Duplex showing disease of the vessels of the left leg. Abdominal CT Angiography showing severe stenosis in the distal superficial femoral arteries bilaterally. Single vessel runoff to both ankles via the posterior tibial. The anterior tibials are thin and narrow with multi focal stenosis. Significant peripheral vascular disease bilaterally. Had angioplasty with Dr. Ray in morning of 07/11/2018. Podiatry planning for TMA of the left foot due to gangrene of toes of the left foot. Remains on oral antibiotics of Keflex right now. Unclear if the patient is poor historian or unwilling to divulge information on herself. For example, when asking the patient how she wound up in [place] when she states that she lives in [place], the patient states she was visiting a friend but then refuses to to give a name or number for the patient. She would simply state that she doesn't know what her friend's name is, where she lives, or her phone number. She will even say she doesn't know what she looks like but that she is her friend. Podiatry performed TMA on 07/24/2018. Patient states mild to moderate pain at TMA site (6 out 10). Objective - Vital Signs/Intake and Output Vital Signs (last 24 hours): Temp Pulse Resp BP Pulse Ox 97.4 F L 70 20 146/79 98 07/26/18 14:00 07/26/18 14:00 07/26/18 14:00 07/26/18 14:00 07/26/18 14:00 Intake and Output: 07/26/18 07/26/18 06:59 18:59 Intake Total 500 480 Output Total 5 Balance 495 480 - Medications Medications: Current Medications Cephalexin Monohydrate (Keflex) 500 mg PO Q6 [facility]; Protocol Last Admin: 07/26/18 11:00 Dose: 500 mg Clonidine HCl (Catapres) 0.1 mg PO BID [facility] Last Admin: 07/26/18 10:57 Dose: 0.1 mg Clopidogrel Bisulfate (Plavix) 75 mg PO DAILY [facility] Last Admin: 07/26/18 10:57 Dose: 75 mg Insulin Detemir (Levemir) 12 unit SC [facility] Last Admin: 07/26/18 08:00 Dose: Not Given Insulin Human Regular (Humulin R Med) 0 units SC [facility]; Protocol Last Admin: 07/26/18 12:52 Dose: 1 units Lactic Acid (Lac-Hydrin 12% Lotion (225 G)) 0 gm EXT BID [facility] Last Admin: 07/26/18 10:57 Dose: 1 applic Metoprolol Tartrate (Lopressor) 25 mg PO 0800,1800 [facility] Last Admin: 07/26/18 10:57 Dose: 25 mg Ondansetron HCl (Zofran Inj) 4 mg IVP ONCE PRN PRN Reason: Nausea/Vomiting Oxycodone HCl (Oxycodone Immediate Release Tab) 5 mg PO Q4H PRN PRN Reason: Pain, moderate (4-7) Last Admin: 07/25/18 14:56 Dose: 5 mg Oxycodone HCl (Oxycodone Immediate Release Tab) 10 mg PO Q8H PRN PRN Reason: Pain, severe (8-10) Last Admin: 07/26/18 08:11 Dose: 10 mg - Labs Labs: 07/26/18 07:20 07/26/18 07:20 - Constitutional Appears: Non-toxic, No Acute Distress - Head Exam Head Exam: ATRAUMATIC, NORMOCEPHALIC - Eye Exam Eye Exam: EOMI, PERRL Pupil Exam: NORMAL ACCOMODATION, PERRL - ENT Exam ENT Exam: Mucous Membranes Moist, Normal External Ear Exam, TM's Normal Bilaterally - Neck Exam Neck Exam: Full ROM, Normal Inspection - Respiratory Exam Respiratory Exam: Clear to Ausculation Bilateral, NORMAL BREATHING PATTERN. abs ent: Rales, Rhonchi, Wheezes - Cardiovascular Exam Cardiovascular Exam: REGULAR RHYTHM, RRR, +S1, +S2 - GI/Abdominal Exam GI & Abdominal Exam: Soft, Normal Bowel Sounds. absent: Distended, Tenderness Additional comments: midline abdominal scar - Extremities Exam Additional comments: S/P Left TMA. RLE big toe ulcer/eschar. - Neurological Exam Neurological Exam: Alert, Awake, CN II-XII Intact, Oriented x3 - Psychiatric Exam Additional comments: Distant at time. Jovial for things that she perceives as beneficial to her. - Skin Additional comments: As above. Assessment and Plan - Assessment and Plan (Free Text) Assessment: 73 yo female presenting for altered mental status, fevers up to 101.0 F, and hyperglycemia. Negative Chest X-ray. X-ray right big toe showing swelling of the soft tissues only. Head CT negative. Patient was hyponatremic. Unclear how the patient's DM control is normally. Likely with some degree of dehydration in addition to the hyperglycemia. Check Hgb A1c... 15.5. Monitor glucose levels. Started on Vancomycin and Zosyn. Villagran cultures. Supportive care. Afebrile today. Found to have bedbugs and was isolated. Patient was washed and now off isolation. Duplex studies showing severe peripheral vascular disease bilaterally. Cultures negative. Left foot and ankle X-ray negative. Considering oral antibiotic care with Keflex. Patient with diabetes that is not under control. Borderline fevers. Angioplasty with Dr. Ray occurred on 07/11/2018. Impressions were: 1. Successful left SFA and popliteal arter jet stream atherectomy and drug- eluting stent balloon angioplasty. No stent was required. 2. Successful left anterior tibial artery angioplasty and focal drug-eluting stent placement 3. Successful left tibioperoneal trunk and proximal left posterior tibial artery angioplasty 4. 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 Critical right popliteal artery stenoses. No additional issues. Continue on oral Keflex for antibiotic treatment for up to a week s/p TMA although this may be extended depending on condition of the left foot stump. Toes of the left foot are already gangrenous. This has progressed during this hospitalization despite interventions. Podiatry is now planning TMA of the left foot on 07/24/[address] Parekh. Gangrene continues to progress up to the midfoot especially on the medial side of the left foot. No new issues. Periodically check ESR. Last check was 07/18/2018 with ESR of 143. The Left TMA was done on 07/24/2018. She complains of only mild to moderate pain of the left foot. Drains removed today by Podiatry. Noted echocardiogram report and severity of valve disease. She has been working with PT. Thank you for allowing me to participate in the care of the patient, we will follow with you.
[2018-07-27 07:18] LABS: BASO # 0.02 K/mm3 (0.0-2.0); BASO % 0.3 % (0.0-3.0); EOS # 0.2 (0.0-0.7); EOS % 2.8 % (1.5-5.0); HEMOGLOBIN 7.8 g/dL (12.0-16.0); LYMPH # 1.5 (1.2-3.4); LYMPH % 20.9 % (22.0-35.0); MEAN CELL VOLUME 87.8 fl (80.0-105.0); MEAN CORPUSCULAR HEMOGLOBIN 27.3 pg (25.0-35.0); MEAN CORPUSCULAR HGB CONC 31.1 g/dl (31.0-37.0); MEAN PLATELET VOLUME 9.3 fl (7.0-11.0); MONO # 0.7 (0.1-0.6); MONO % 9.8 % (1.0-6.0); RBC 2.86 10^6/uL (3.5-6.1); RED CELL DISTRIBUTION WIDTH 13.7 % (11.5-14.5); WHITE BLOOD COUNT 7.1 10^3/uL (4.5-11.0)
[2018-07-27 07:42] LABS: ALB/GLOB RATIO 0.8 (1.1-1.8); ALT/SGPT 39 U/L (7-56); AST/SGOT 28 U/L (14-36); BLOOD UREA NITROGEN 22 mg/dL (7-21); CALCIUM 8.6 mg/dL (8.4-10.5); GFR NON-AFRICAN AMERICAN > 60
[2018-07-27] MEDS: Insulin Reg-MEDIUM-Coverage SC SCH ×4 (08:36→22:45)
[2018-07-27] MEDS: Insulin Detemir 100 units/ml Vial (Levemir) SC SCH ×2 (08:36→22:48)
[2018-07-27] MEDS: Ammonium Lactate 12% Lotion (225 g) EXT SCH ×2 (10:01→17:26)
--- NOTE | 2018-07-27 13:29 | CP.PCM.PCO ---
Additional Comments - Additional Comments Additional Comments: D/W ID path results, recommends Keflex PO 5-7 more days.
[2018-07-27 13:41] LABS: IRON 23 ug/dL (45-180)
[2018-07-27 13:51] LABS: % IRON SATURATION 9 % (20-55); TOTAL IRON BINDING CAPACITY 249 ug/dL (265-497)
--- NOTE | 2018-07-27 13:58 | CP.PCM.PN ---
<Brian Velasco - Last Filed: 07/27/18 14:23> Subjective - Date & Time of Evaluation Date of Evaluation: 07/27/18 Time of Evaluation: 08:00 - Subjective Subjective: Brian Velasco PGY-1 Progress Note for Hospitalist Service Patient seen and evaluated at bedside. No acute events reported overnight. Patient reports improved pain at the surgical site but has not been asking for medication. She denies fevers, chills, shortness of breath, chest pain, abdominal pain, nausea, vomiting, diarrhea or dysuria. Objective - Vital Signs/Intake and Output Vital Signs (last 24 hours): Temp Pulse Resp BP Pulse Ox 98.5 F 66 17 143/70 99 07/27/18 07:30 07/27/18 07:30 07/27/18 07:30 07/27/18 07:30 07/27/18 07:30 - Medications Medications: Current Medications Cephalexin Monohydrate (Keflex) 500 mg PO Q6 [facility]; Protocol Last Admin: 07/27/18 13:08 Dose: 500 mg Clonidine HCl (Catapres) 0.1 mg PO BID [facility] Last Admin: 07/27/18 10:01 Dose: 0.1 mg Clopidogrel Bisulfate (Plavix) 75 mg PO DAILY [facility] Last Admin: 07/27/18 10:01 Dose: 75 mg Insulin Detemir (Levemir) 12 unit SC [facility] Last Admin: 07/27/18 08:36 Dose: 12 u Insulin Human Regular (Humulin R Med) 0 units SC [facility]; Protocol Last Admin: 07/27/18 13:08 Dose: 1 units Lactic Acid (Lac-Hydrin 12% Lotion (225 G)) 0 gm EXT BID [facility] Last Admin: 07/27/18 10:01 Dose: 1 applic Metoprolol Tartrate (Lopressor) 25 mg PO 0800,1800 [facility] Last Admin: 07/27/18 08:37 Dose: 25 mg Ondansetron HCl (Zofran Inj) 4 mg IVP ONCE PRN PRN Reason: Nausea/Vomiting Oxycodone HCl (Oxycodone Immediate Release Tab) 5 mg PO Q4H PRN PRN Reason: Pain, moderate (4-7) Last Admin: 07/25/18 14:56 Dose: 5 mg Oxycodone HCl (Oxycodone Immediate Release Tab) 10 mg PO Q8H PRN PRN Reason: Pain, severe (8-10) Last Admin: 07/26/18 08:11 Dose: 10 mg - Labs Labs: 07/27/18 07:00 07/27/18 07:00 - Additional Findings Additional findings: - Constitutional Appears: Well, Non-toxic, No Acute Distress - Head Exam Head Exam: ATRAUMATIC, NORMAL INSPECTION - Eye Exam Eye Exam: EOMI, Normal appearance - ENT Exam ENT Exam: Mucous Membranes Moist - Respiratory Exam Respiratory Exam: Clear to Auscultation Bilateral. absent: Rales, Rhonchi, Wheezes, Respiratory Distress - Cardiovascular Exam Cardiovascular Exam: REGULAR RHYTHM, +S1, +S2. absent: Gallop, Rubs, Systolic Murmur - GI/Abdominal Exam GI & Abdominal Exam: Normal Bowel Sounds, Soft. absent: Distended, Tenderness - Extremities Exam Additional comments: Left toes dressing C/D/I. Left foot YULIYA draining <5cc of serosanguinous fluid. Lower extremities with normal temperature and non-tender to palpation. - Neurological Exam Neurological exam: Alert, CN II-XII Intact, Oriented x3 - Psychiatric Exam Psychiatric exam: Flat Affect - Skin Skin Exam: Dry, Normal Color, Warm Assessment and Plan - Assessment and Plan (Free Text) Assessment: Patient is a 73 year old female with PMH of diabetes, HTN, PVD, and noncompliance with medication was admitted with altered mental status and hyperglycemia. Clinical course complicated by ichemic rest pain of the left LE. Revascularization of LLE w/ IR on 07/11. Patient is s/p left transmetatarsal amputation on 07/24. Plan: LLE Gangrene/Necrosis- s/p left transmetatarsal amputation on 07/24 - Podiatry consulted, Dr. Parekh - Oxycodone and Morphine PRN for pain - Keflex 500mg PO Q6 for 5 more days - ID consulted, Dr. Guidry - Wound culture: Yeast species on prelim - Wound pathology: pending - Lac-hydrin cream for wound care - Follow up Fe studies - PT evaluation- awaiting boots for patient to ambulate Severe PAD - s/p IR revascularization of LLE on 07/11 - Lipitor held - Arterial US: Severely abnormal L ALYSE @ rest ALYSE is .46. R ALYSE is at .77 and is moderately abnormal - CT angiogram 07/06: severe stenosis in the distal superficial femoral arteries bilaterally. Single vessel runoff to both ankles via the posterior tibial. The anterior tibials are thin and narrow with multi focal stenosis - Peripheral vascular procedure report: successful left SFA and pop artery jet stream arthrectomy and balloon angioplasty; successful left ant tib angioplasty with focal drug-eluting stent placement; successful left tibperoneal trunk and prox left PT artery angioplasty - F/U ESR tomorrow Transaminitis, resolved - Hold Lipitor - Avoid hepatotoxic agents Hypertension - Metoprolol 25mg PO BID - Clonidine 0.1mg BID DM II with Neuropathy - ISS - Accuchecks - Hgba1c: 15.5 - Levemir 12u Q12 - Diabetic education - Gabapentin 300mg BID Stage II sacral ulcer - Wound care - Turn Q2, air mattress, conservative management PPX DVT: Plavix Diet: HHD Patient seen, case reviewed and plan approved by Dr. Rockwell. Brian Velasco, PGY-1 <Omari Rockwell - Last Filed: 07/27/18 14:46> Objective - Vital Signs/Intake and Output Vital Signs (last 24 hours): Temp Pulse Resp BP Pulse Ox 98.5 F 66 17 143/70 99 07/27/18 07:30 07/27/18 07:30 07/27/18 07:30 07/27/18 07:30 07/27/18 07:30 Intake and Output: 07/27/18 07/27/18 06:59 18:59 Intake Total 360 Output Total 1 Balance 359 - Medications Medications: Current Medications Cephalexin Monohydrate (Keflex) 500 mg PO Q6 [facility]; Protocol Last Admin: 07/27/18 13:08 Dose: 500 mg Clonidine HCl (Catapres) 0.1 mg PO BID [facility] Last Admin: 07/27/18 10:01 Dose: 0.1 mg Clopidogrel Bisulfate (Plavix) 75 mg PO DAILY [facility] Last Admin: 07/27/18 10:01 Dose: 75 mg Insulin Detemir (Levemir) 12 unit SC [facility] Last Admin: 07/27/18 08:36 Dose: 12 u Insulin Human Regular (Humulin R Med) 0 units SC [facility]; Protocol Last Admin: 07/27/18 13:08 Dose: 1 units Lactic Acid (Lac-Hydrin 12% Lotion (225 G)) 0 gm EXT BID [facility] Last Admin: 07/27/18 10:01 Dose: 1 applic Metoprolol Tartrate (Lopressor) 25 mg PO 0800,1800 [facility] Last Admin: 07/27/18 08:37 Dose: 25 mg Ondansetron HCl (Zofran Inj) 4 mg IVP ONCE PRN PRN Reason: Nausea/Vomiting Oxycodone HCl (Oxycodone Immediate Release Tab) 5 mg PO Q4H PRN PRN Reason: Pain, moderate (4-7) Last Admin: 07/25/18 14:56 Dose: 5 mg Oxycodone HCl (Oxycodone Immediate Release Tab) 10 mg PO Q8H PRN PRN Reason: Pain, severe (8-10) Last Admin: 07/26/18 08:11 Dose: 10 mg - Labs Labs: 07/27/18 07:00 07/27/18 07:00 Attending/Attestation - Attestation I have personally seen and examined this patient.: Yes I have fully participated in the care of the patient.: Yes I have reviewed all pertinent clinical information, including history, physical exam and plan: Yes Notes (Text): 07/27/18 14:42 73 year old female with past medical history of diabetes, hypertension, PVD and noncompliance was initially admitted with altered mental status; found to have elevated blood sugars (>700) which improved with iv fluids and insulin. Mental status improved back to normal. A1c was 15.5 and patient was started on levemir. Patient was also found to have right big toe ulcer and severe PAD/PVD. Arterial Doppler showed severely abnormal L ALYSE 0.46 and moderately abnormal R ALYSE 0.77. CT angiogram showed severe stenosis in the distal superficial femoral arteries bilaterally; single vessel runoff to both ankles via the posterior tibial; anterior tibials were thin and narrow with multifocal stenosis. Patient is s/p left SFA and popliteal artherectomy and drug eluting balloon angioplasty, successful left anterior tibial artery angioplasty and focal drug eluting stent placement, and successful left tibioperoneal trunk and proximal left posterior tibial artery angioplasty. She is on plavix. Patient was also noted to have dry gangrene of left foot. She is being followed by podiatry and is now s/p TMA POD #3. Continue with PT as tolerated; she is a waiting special boot. ID recommended to continue with po keflex for now. Will repeat ESR tomorrow. Mild transaminitis has improved. Continue to monitor closely. Will resume statin and monitor LFTs closely. Continue with metoprolol and clonidine for hypertension. PT is currently recommending GABBY which patient is refusing. Will follow up with PT/CMx/Sw. Omari Rockwell MD Hospitalist.
--- NOTE | 2018-07-27 14:45 | PN ---
DATE: 07/27/2018 SUBJECTIVE: This is a 73-year-old female status post three days transmetatarsal amputation of the left foot. The patient is seen resting in bed comfortably. We are awaiting the Wedge shoe, so she may be ambulating. She has been out of bed, has been started to the chair with physical therapy. The patient's drain was pulled yesterday. Today, her dressing is clean, dry, and intact and there is no breakthrough on it. The patient is receiving subacute rehab. I then discussed with the patient that she needs to have visiting nurses and she is refusing visiting nurses. I spoke with the patient at length and in no uncertain terms that she needs to have either visiting nurses or subacute rehab or she is at a high risk of losing her leg. All the work what we have done was to save the leg and I believe at this point, she will retain that leg; however, if she is not monitored and she gets an infection, she will be at high risk of limb amputation. I think she is thinking about going to subacute rehab since she is living with someone else and I do not think that she wants to bring nurses into that home. I spoke to the social working team and case management and discussed this with them and they are going to approach it again with the patient. In the meantime, her dressing will stay clean, dry, and intact. She needs to be out of bed daily to a chair and as soon as her Wedge shoe comes, she can start ambulating on it and I spoke to physical therapy regarding the same. Radha Parekh DPM
[2018-07-27] MEDS: oxyCODONE 5 mg Immediate Release Tab PO PRN (17:31)
--- NOTE | 2018-07-27 17:43 | CP.PCM.PN ---
Subjective - Date & Time of Evaluation Date of Evaluation: 07/27/18 Time of Evaluation: 17:00 - Subjective Subjective: Infectious Disease Follow Up: July 27, 2018 73 yo female with history of Type II DM. The patient was found to be altered in a laundromat. Patient herself gives little information. Patient's PMD is apparently in [place], [place], his name is Dr. Akbar. The patient name is Jessica Brizuela. Patient had fever of 101.0 F. No leukocytosis. Limited information provided by the patient. Patient is hyperglycemic on admission and still has elevated glucose levels. Was under isolation for bedbugs. No further fever episodes today. Afebrile for the last few days now. Duplex showing disease of the vessels of the left leg. Abdominal CT Angiography showing severe stenosis in the distal superficial femoral arteries bilaterally. Single vessel runoff to both ankles via the posterior tibial. The anterior tibials are thin and narrow with multi focal stenosis. Significant peripheral vascular disease bilaterally. Had angioplasty with Dr. Ray in morning of 07/11/2018. Podiatry planning for TMA of the left foot due to gangrene of toes of the left foot. Remains on oral antibiotics of Keflex right now. Unclear if the patient is poor historian or unwilling to divulge information on herself. For example, when asking the patient how she wound up in [place] when she states that she lives in [place], the patient states she was visiting a friend but then refuses to to give a name or number for the patient. She would simply state that she doesn't know what her friend's name is, where she lives, or her phone number. She will even say she doesn't know what she looks like but that she is her friend. Podiatry performed TMA on 07/24/2018. Patient states mild to moderate pain at TMA site (6 out 10). Noted pathology results. Objective - Vital Signs/Intake and Output Vital Signs (last 24 hours): Temp Pulse Resp BP Pulse Ox 97.8 F 80 18 107/65 95 07/27/18 14:00 07/27/18 14:00 07/27/18 14:00 07/27/18 14:00 07/27/18 14:00 Intake and Output: 07/27/18 07/27/18 06:59 18:59 Intake Total 360 Output Total 1 Balance 359 - Medications Medications: Current Medications Atorvastatin Calcium (Lipitor) 20 mg PO HS [facility] Cephalexin Monohydrate (Keflex) 500 mg PO Q6 [facility]; Protocol Last Admin: 07/27/18 17:31 Dose: 500 mg Clonidine HCl (Catapres) 0.1 mg PO BID [facility] Last Admin: 07/27/18 17:31 Dose: 0.1 mg Clopidogrel Bisulfate (Plavix) 75 mg PO DAILY [facility] Last Admin: 07/27/18 10:01 Dose: 75 mg Insulin Detemir (Levemir) 15 unit SC [facility] Insulin Human Regular (Humulin R Med) 0 units SC [facility]; Protocol Last Admin: 07/27/18 17:31 Dose: 1 units Lactic Acid (Lac-Hydrin 12% Lotion (225 G)) 0 gm EXT BID [facility] Last Admin: 07/27/18 17:26 Dose: Not Given Metoprolol Tartrate (Lopressor) 25 mg PO 0800,1800 [facility] Last Admin: 07/27/18 17:31 Dose: 25 mg Ondansetron HCl (Zofran Inj) 4 mg IVP ONCE PRN PRN Reason: Nausea/Vomiting Oxycodone HCl (Oxycodone Immediate Release Tab) 5 mg PO Q4H PRN PRN Reason: Pain, moderate (4-7) Last Admin: 07/27/18 17:31 Dose: 5 mg Oxycodone HCl (Oxycodone Immediate Release Tab) 10 mg PO Q8H PRN PRN Reason: Pain, severe (8-10) Last Admin: 07/26/18 08:11 Dose: 10 mg - Labs Labs: 07/27/18 07:00 07/27/18 07:00 - Constitutional Appears: Non-toxic, No Acute Distress, Chronically Ill - Head Exam Head Exam: ATRAUMATIC, NORMOCEPHALIC - Eye Exam Eye Exam: EOMI, PERRL Pupil Exam: NORMAL ACCOMODATION, PERRL - ENT Exam ENT Exam: Mucous Membranes Moist, Normal External Ear Exam, TM's Normal Bilaterally - Neck Exam Neck Exam: Full ROM, Normal Inspection - Respiratory Exam Respiratory Exam: Clear to Ausculation Bilateral, NORMAL BREATHING PATTERN. absent: Rales, Rhonchi, Wheezes - Cardiovascular Exam Cardiovascular Exam: REGULAR RHYTHM, RRR, +S1, +S2 - GI/Abdominal Exam GI & Abdominal Exam: Soft, Normal Bowel Sounds. absent: Distended, Tenderness Additional comments: midline abdominal scar. - Extremities Exam Additional comments: S/P Left TMA. RLE big toe ulcer/eschar. - Neurological Exam Neurological Exam: Alert, Awake, CN II-XII Intact, Oriented x3 - Psychiatric Exam Additional comments: Distant at time. Jovial for things that she perceives as beneficial to her. - Skin Additional comments: As above. Assessment and Plan - Assessment and Plan (Free Text) Assessment: 73 yo female presenting for altered mental status, fevers up to 101.0 F, and hyperglycemia. Negative Chest X-ray. X-ray right big toe showing swelling of the soft tissues only. Head CT negative. Patient was hyponatremic. Unclear how the patient's DM control is normally. Likely with some degree of dehydration in addition to the hyperglycemia. Check Hgb A1c... 15.5. Monitor glucose levels. Started on Vancomycin and Zosyn. Villagran cultures. Supportive care. Afebrile today. Found to have bedbugs and was isolated. Patient was washed and now off isolation. Duplex studies showing severe peripheral vascular disease bilaterally. Cultures negative. Left foot and ankle X-ray negative. Considering oral antibiotic care with Keflex. Patient with diabetes that is not under control. Borderline fevers. Angioplasty with Dr. Ray occurred on 07/11/2018. Impressions were: 1. Successful left SFA and popliteal arter jet stream atherectomy and drug- eluting stent balloon angioplasty. No stent was required. 2. Successful left anterior tibial artery angioplasty and focal drug-eluting desmond nt placement 3. Successful left tibioperoneal trunk and proximal left posterior tibial artery angioplasty 4. 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 Critical right popliteal artery stenoses. No additional issues. Continue on oral Keflex for antibiotic treatment for up to a week s/p TMA although this may be extended depending on condition of the left foot stump. Toes of the left foot are already gangrenous. This has progressed during this hospitalization despite interventions. Podiatry is now planning TMA of the left foot on 07/24/[address] Parekh. Gangrene continues to progress up to the midfoot especially on the medial side of the left foot. No new issues. Per iodically check ESR. Last check was 07/18/2018 with ESR of 143. The Left TMA was done on 07/24/2018. She complains of only mild to moderate pain of the left foot. Drains removed today by Podiatry. Noted echocardiogram report and severity of valve disease. 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 She has been working with PT. Thank you for allowing me to participate in the care of the patient, we will follow with you.
[2018-07-28 07:50] LABS: BASO # 0.01 K/mm3 (0.0-2.0); BASO % 0.2 % (0.0-3.0); EOS # 0.2 (0.0-0.7); EOS % 2.6 % (1.5-5.0); HEMOGLOBIN 7.7 g/dL (12.0-16.0); LYMPH # 1.9 (1.2-3.4); MEAN CELL VOLUME 87.6 fl (80.0-105.0); MEAN CORPUSCULAR HEMOGLOBIN 27.3 pg (25.0-35.0); MEAN CORPUSCULAR HGB CONC 31.2 g/dl (31.0-37.0); MEAN PLATELET VOLUME 9.2 fl (7.0-11.0); MONO # 0.7 (0.1-0.6); MONO % 11.9 % (1.0-6.0); RBC 2.82 10^6/uL (3.5-6.1); RED CELL DISTRIBUTION WIDTH 13.6 % (11.5-14.5); WHITE BLOOD COUNT 5.9 10^3/uL (4.5-11.0)
[2018-07-28] MEDS: Insulin Reg-MEDIUM-Coverage SC SCH ×4 (07:58→22:42)
[2018-07-28 07:59] LABS: ALB/GLOB RATIO 0.8 (1.1-1.8); ALBUMIN 2.9 g/dL (3.0-4.8); ALT/SGPT 32 U/L (7-56); AST/SGOT 30 U/L (14-36); BLOOD UREA NITROGEN 21 mg/dL (7-21); CALCIUM 8.7 mg/dL (8.4-10.5); GFR NON-AFRICAN AMERICAN > 60
[2018-07-28] MEDS: Insulin Detemir 100 units/ml Vial (Levemir) SC SCH (08:04)
[2018-07-28] MEDS: oxyCODONE 10 mg Immediate Release Tab PO PRN (09:27)
[2018-07-28] MEDS: Ammonium Lactate 12% Lotion (225 g) EXT SCH ×2 (09:27→17:39)
--- NOTE | 2018-07-28 12:12 | CP.PCM.PN ---
<Shadi Covarrubias - Last Filed: 07/28/18 12:09> Subjective - Date & Time of Evaluation Date of Evaluation: 07/28/18 Time of Evaluation: 12:09 - Subjective Subjective: Podiatry progress note: for Dr. Cobb/Izabella 73 year old female seen and evaluated at the bedside 4 days S/P left TMA. Patient resting comfortably and in NAD. No acute events overnight. Patient states that she Her left foot pain improved now. Denies nausea/ vomiting/fever/shortness of breath. Objective - Vital Signs/Intake and Output Vital Signs (last 24 hours): Temp Pulse Resp BP Pulse Ox 98.3 F 71 16 139/71 97 07/28/18 06:00 07/28/18 06:00 07/28/18 06:00 07/28/18 06:00 07/28/18 06:00 Intake and Output: 07/28/18 07/28/18 06:59 18:59 Intake Total 120 240 Output Total 0 Balance 120 240 - Medications Medications: Current Medications Atorvastatin Calcium (Lipitor) 20 mg PO HS [facility] Last Admin: 07/27/18 22:48 Dose: 20 mg Cephalexin Monohydrate (Keflex) 500 mg PO Q6 [facility]; Protocol Last Admin: 07/28/18 05:13 Dose: 500 mg Clonidine HCl (Catapres) 0.1 mg PO BID [facility] Last Admin: 07/28/18 09:26 Dose: 0.1 mg Clopidogrel Bisulfate (Plavix) 75 mg PO DAILY [facility] Last Admin: 07/28/18 09:26 Dose: 75 mg Insulin Detemir (Levemir) 12 unit SC HS [facility] Insulin Detemir (Levemir) 15 unit SC [facility] Insulin Human Regular (Humulin R Med) 0 units SC [facility]; Protocol Last Admin: 07/28/18 07:58 Dose: Not Given Lactic Acid (Lac-Hydrin 12% Lotion (225 G)) 0 gm EXT BID [facility] Last Admin: 07/28/18 09:27 Dose: 1 applic Metoprolol Tartrate (Lopressor) 25 mg PO 0800,1800 [facility] Last Admin: 07/28/18 08:03 Dose: 25 mg Ondansetron HCl (Zofran Inj) 4 mg IVP ONCE PRN PRN Reason: Nausea/Vomiting Oxycodone HCl (Oxycodone Immediate Release Tab) 5 mg PO Q4H PRN PRN Reason: Pain, moderate (4-7) Last Admin: 07/27/18 17:31 Dose: 5 mg - Labs Labs: 07/28/18 07:15 07/28/18 07:15 - Constitutional Appears: Well, Non-toxic, No Acute Distress - Head Exam Head Exam: ATRAUMATIC, NORMOCEPHALIC - Extremities Exam Additional comments: B/l LE focused VASC: non-palpable pulses bilaterally, Cap refill >3 seconds to all digits. Temperature gradient warm to cool b/l. NEURO: Epicritic and protective sensation grossly intact b/l DERM: Right foot: Dry eschar measuring approximately 1.5 x 1.5 cm noted to distal tuft of right hallux - hyperkeratotic rim present; absent drainage; absent purulence; absent flucutance; absent malodor; no periwound erythema present. No clinical signs of infection appreciated; left foot: Surgical site looks C/D/I with stables and sutures intact and in place. No drainage, No erythema, No malodor, No clinical signs of active infection. A small wound noted at the site of Lorenzo Martinez drain before removal. Wound looks C/D/I with no signs of active infection. MSK: No pain on palpation noted to right hallux eschar. Moderate pain on palpation of the surgical site. - Neurological Exam Neurological Exam: Alert, Awake, Oriented x3 Assessment and Plan - Assessment and Plan (Free Text) Assessment: 73 year old female seen and evaluated at the bedside 4 days S/P left TMA. Plan: Patient seen and evaluated at the bedside. Plan discussed with Dr. Cobb. Bilateral arterial duplex ordered - significant PVD noted b/l, more severe on l eft. Peripheral vascular procedure report - successful left SFA and pop artery jet stream arthrectomy and balloon angioplasty; successful left ant tib angioplasty with focal drug-eluting stent placement; successful left tibperoneal trunk and prox left PT artery angioplasty Left foot X-ray postoperative- S/P left TMA. Continue with IV abx as per ID. Surgical wound dressed using xeroform, DSD and Caden bandage. Patient to bear weight as tolerated to the left heel in a left forefoot wedge shoe. Continue PT. Patient refused to go to [facility] and insists to go home despite having long discussion with her. Podiatry will continue to follow up the patient while in house. <Meek Cobb - Last Filed: 07/28/18 16:44> Objective - Vital Signs/Intake and Output Vital Signs (last 24 hours): Temp Pulse Resp BP Pulse Ox 98.6 F 70 16 119/68 99 07/28/18 14:00 07/28/18 14:00 07/28/18 14:00 07/28/18 14:00 07/28/18 14:00 Intake and Output: 07/28/18 07/28/18 06:59 18:59 Intake Total 120 240 Output Total 0 Balance 120 240 - Medications Medications: Current Medications Atorvastatin Calcium (Lipitor) 20 mg PO HS [facility] Last Admin: 07/27/18 22:48 Dose: 20 mg Cephalexin Monohydrate (Keflex) 500 mg PO Q6 [facility]; Protocol Last Admin: 07/28/18 13:37 Dose: 500 mg Clonidine HCl (Catapres) 0.1 mg PO BID [facility] Last Admin: 07/28/18 09:26 Dose: 0.1 mg Clopidogrel Bisulfate (Plavix) 75 mg PO DAILY [facility] Last Admin: 07/28/18 09:26 Dose: 75 mg Insulin Detemir (Levemir) 12 unit SC HS [facility] Insulin Detemir (Levemir) 12 unit SC ACB [facility] Insulin Human Regular (Humulin R Med) 0 units SC [facility]; Protocol Last Admin: 07/28/18 13:04 Dose: Not Given Lactic Acid (Lac-Hydrin 12% Lotion (225 G)) 0 gm EXT BID [facility] Last Admin: 07/28/18 09:27 Dose: 1 applic Metoprolol Tartrate (Lopressor) 25 mg PO 0800,1800 [facility] Last Admin: 07/28/18 08:03 Dose: 25 mg Ondansetron HCl (Zofran Inj) 4 mg IVP ONCE PRN PRN Reason: Nausea/Vomiting Oxycodone HCl (Oxycodone Immediate Release Tab) 5 mg PO Q4H PRN PRN Reason: Pain, moderate (4-7) Last Admin: 07/27/18 17:31 Dose: 5 mg - Labs Labs: 07/28/18 07:15 07/28/18 07:15 Attending/Attestation - Attestation I have personally seen and examined this patient.: Yes I have fully participated in the care of the patient.: Yes I have reviewed all pertinent clinical information, including history, physical exam and plan: Yes
--- NOTE | 2018-07-28 16:35 | CP.PCM.PN ---
Subjective - Date & Time of Evaluation Date of Evaluation: 07/28/18 Time of Evaluation: 15:45 - Subjective Subjective: Infectious Disease Follow Up: July 28, 2018 73 yo female with history of Type II DM. The patient was found to be altered in a laundromat. Patient herself gives little information. Patient's PMD is apparently in [place], [place], his name is Dr. Akbar. The patient name is Jessica Brizuela. Patient had fever of 101.0 F. No leukocytosis. Limited information provided by the patient. Patient is hyperglycemic on admission and still has elevated glucose levels. Was under isolation for bedbugs. No further fever episodes today. Afebrile for the last few days now. Duplex showing disease of the vessels of the left leg. Abdominal CT Angiography showing severe stenosis in the distal superficial femoral arteries bilaterally. Single vessel runoff to both ankles via the posterior tibial. The anterior tibials are thin and narrow with multi focal stenosis. Significant peripheral vascular disease bilaterally. Had angioplasty with Dr. Ray in morning of 07/11/2018. Podiatry planning for TMA of the left foot due to gangrene of toes of the left foot. Remains on oral antibiotics of Keflex right now. Unclear if the patient is poor historian or unwilling to divulge information on herself. For example, when asking the patient how she wound up in [place] when she states that she lives in [place], the patient states she was visiting a friend but then refuses to to give a name or number for the patient. She would simply state that she doesn't know what her friend's name is, where she lives, or her phone number. She will even say she doesn't know what she looks like but that she is her friend. Podiatry performed TMA on 07/24/2018. Patient states mild to moderate pain at TMA site (6 out 10). Noted pathology results. Patient refusing GABBY. Objective - Vital Signs/Intake and Output Vital Signs (last 24 hours): Temp Pulse Resp BP Pulse Ox 98.6 F 70 16 119/68 99 07/28/18 14:00 07/28/18 14:00 07/28/18 14:00 07/28/18 14:00 07/28/18 14:00 Intake and Output: 07/28/18 07/28/18 06:59 18:59 Intake Total 120 240 Output Total 0 Balance 120 240 - Medications Medications: Current Medications Atorvastatin Calcium (Lipitor) 20 mg PO HS [facility] Last Admin: 07/27/18 22:48 Dose: 20 mg Cephalexin Monohydrate (Keflex) 500 mg PO Q6 [facility]; Protocol Last Admin: 07/28/18 13:37 Dose: 500 mg Clonidine HCl (Catapres) 0.1 mg PO BID [facility] Last Admin: 07/28/18 09:26 Dose: 0.1 mg Clopidogrel Bisulfate (Plavix) 75 mg PO DAILY [facility] Last Admin: 07/28/18 09:26 Dose: 75 mg Insulin Detemir (Levemir) 12 unit SC HS [facility] Insulin Detemir (Levemir) 12 unit SC ACB [facility] Insulin Human Regular (Humulin R Med) 0 units SC [facility]; Protocol Last Admin: 07/28/18 13:04 Dose: Not Given Lactic Acid (Lac-Hydrin 12% Lotion (225 G)) 0 gm EXT BID [facility] Last Admin: 07/28/18 09:27 Dose: 1 applic Metoprolol Tartrate (Lopressor) 25 mg PO 0800,1800 [facility] Last Admin: 07/28/18 08:03 Dose: 25 mg Ondansetron HCl (Zofran Inj) 4 mg IVP ONCE PRN PRN Reason: Nausea/Vomiting Oxycodone HCl (Oxycodone Immediate Release Tab) 5 mg PO Q4H PRN PRN Reason: Pain, moderate (4-7) Last Admin: 07/27/18 17:31 Dose: 5 mg - Labs Labs: 07/28/18 07:15 07/28/18 07:15 - Constitutional Appears: Non-toxic, No Acute Distress, Chronically Ill - Head Exam Head Exam: ATRAUMATIC, NORMOCEPHALIC - Eye Exam Eye Exam: EOMI, PERRL Pupil Exam: NORMAL ACCOMODATION, PERRL - ENT Exam ENT Exam: Mucous Membranes Moist, Normal External Ear Exam, TM's Normal Bilaterally - Neck Exam Neck Exam: Full ROM, Normal Inspection - Respiratory Exam Respiratory Exam: Clear to Ausculation Bilateral, NORMAL BREATHING PATTERN. absent: Rales, Rhonchi, Wheezes - Cardiovascular Exam Cardiovascular Exam: REGULAR RHYTHM, RRR, +S1, +S2 - GI/Abdominal Exam GI & Abdominal Exam: Soft, Normal Bowel Sounds. absent: Distended, Tenderness Additional comments: midline abdominal scar - Extremities Exam Additional comments: S/P Left TMA. RLE big toe ulcer/eschar. - Neurological Exam Neurological Exam: Alert, Awake, CN II-XII Intact, Oriented x3 - Psychiatric Exam Additional comments: Distant at time. Jovial for things that she perceives as beneficial to her - Skin Additional comments: As above. Assessment and Plan - Assessment and Plan (Free Text) Assessment: 73 yo female presenting for altered mental status, fevers up to 101.0 F, and hyperglycemia. Negative Chest X-ray. X-ray right big toe showing swelling of the soft tissues only. Head CT negative. Patient was hyponatremic. Unclear how the patient's DM control is normally. Likely with some degree of dehydration in addition to the hyperglycemia. Check Hgb A1c... 15.5. Monitor glucose levels. Started on Vancomycin and Zosyn. Villagran cultures. Supportive care. Afebrile today. Found to have bedbugs and was isolated. Ted gary was washed and now off isolation. Duplex studies showing severe peripheral vascular disease bilaterally. Cultures negative. Left foot and ankle X-ray negative. Considering oral antibiotic care with Keflex. Patient with diabetes that is not under control. Borderline fevers. Angioplasty with Dr. Ray occurred on 07/11/2018. Impressions were: 1. Successful left SFA and popliteal arter jet stream atherectomy and drug- eluting stent balloon angioplasty. No stent was required. 2. Successful left anterior tibial artery angioplasty and focal drug-eluting stent placement 3. Successful left tibioperoneal trunk and proximal left posterior tibial artery angioplasty 4. 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 Critical right popliteal artery stenoses. No additional issues. Continue on oral Keflex for antibiotic treatment for up to a week s/p TMA although this may be extended depending on condition of the left foot stump. Toes of the left foot are already gangrenous. This has progressed during this hospitalization despite interventions. Podiatry is now planning TMA of the left foot on 07/24/[address] Parekh. Gangrene continues to progress up to the midfoot especially on the medial side of the left foot. No new issues. Periodically check ESR. Last check was 07/18/2018 with ESR of 143. The Left TMA was done on 07/24/2018. She complains of only mild to moderate pain of the left foot. Drains removed today by Podiatry. Noted echocardiogram report and severity of valve disease. 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 She has been working with PT. Unfortunately, the patient is refusing GABBY. Thank you for allowing me to participate in the care of the patient, we will follow with you.
--- NOTE | 2018-07-28 17:24 | CP.PCM.PN ---
<Azeem Agosto - Last Filed: 07/28/18 17:10> Subjective - Date & Time of Evaluation Date of Evaluation: 07/28/18 Time of Evaluation: 17:10 - Subjective Subjective: PGY-1 Medicine progress note for Dr. Rockwell Patient seen and evaluated at bedside. No acute events reported overnight. Patient reports improved pain at the surgical site. She denies fevers, chills, shortness of breath, chest pain, abdominal pain, nausea, vomiting, diarrhea or dysuria. Objective - Vital Signs/Intake and Output Vital Signs (last 24 hours): Temp Pulse Resp BP Pulse Ox 98.6 F 70 16 119/68 99 07/28/18 14:00 07/28/18 14:00 07/28/18 14:00 07/28/18 14:00 07/28/18 14:00 Intake and Output: 07/28/18 07/28/18 06:59 18:59 Intake Total 120 240 Output Total 0 Balance 120 240 - Medications Medications: Current Medications Atorvastatin Calcium (Lipitor) 20 mg PO HS [facility] Last Admin: 07/27/18 22:48 Dose: 20 mg Cephalexin Monohydrate (Keflex) 500 mg PO Q6 [facility]; Protocol Last Admin: 07/28/18 13:37 Dose: 500 mg Clonidine HCl (Catapres) 0.1 mg PO BID [facility] Last Admin: 07/28/18 09:26 Dose: 0.1 mg Clopidogrel Bisulfate (Plavix) 75 mg PO DAILY [facility] Last Admin: 07/28/18 09:26 Dose: 75 mg Insulin Detemir (Levemir) 12 unit SC HS [facility] Insulin Detemir (Levemir) 12 unit SC ACB [facility] Insulin Human Regular (Humulin R Med) 0 units SC [facility]; Protocol Last Admin: 07/28/18 13:04 Dose: Not Given Lactic Acid (Lac-Hydrin 12% Lotion (225 G)) 0 gm EXT BID [facility] Last Admin: 07/28/18 09:27 Dose: 1 applic Metoprolol Tartrate (Lopressor) 25 mg PO 0800,1800 [facility] Last Admin: 07/28/18 08:03 Dose: 25 mg Ondansetron HCl (Zofran Inj) 4 mg IVP ONCE PRN PRN Reason: Nausea/Vomiting Oxycodone HCl (Oxycodone Immediate Release Tab) 5 mg PO Q4H PRN PRN Reason: Pain, moderate (4-7) Last Admin: 07/27/18 17:31 Dose: 5 mg - Labs Labs: 07/28/18 07:15 07/28/18 07:15 - Additional Findings Additional findings: - Constitutional Appears: Well, Non-toxic, No Acute Distress - Head Exam Head Exam: ATRAUMATIC, NORMAL INSPECTION - Eye Exam Eye Exam: EOMI, Normal appearance - ENT Exam ENT Exam: Mucous Membranes Moist - Respiratory Exam Respiratory Exam: Clear to Auscultation Bilateral. absent: Rales, Rhonchi, Wheezes, Respiratory Distress - Cardiovascular Exam Cardiovascular Exam: REGULAR RHYTHM, +S1, +S2. absent: Gallop, Rubs, Systolic Murmur - GI/Abdominal Exam GI & Abdominal Exam: Normal Bowel Sounds, Soft. absent: Distended, Tenderness - Extremities Exam Additional comments: Left toes dressing C/D/I. Lower extremities with normal temperature and non- tender to palpation. - Neurological Exam Neurological exam: Alert, CN II-XII Intact, Oriented x3 - Psychiatric Exam Psychiatric exam: Flat Affect - Skin Skin Exam: Dry, Normal Color, Warm Assessment and Plan - Assessment and Plan (Free Text) Assessment: Patient is a 73 year old female with PMH of diabetes, HTN, PVD, and noncompliance with medication was admitted with altered mental status and hyperglycemia. Clinical course complicated by ichemic rest pain of the left LE. Revascularization of LLE w/ IR on 07/11. Patient is s/p left transmetatarsal amputation on 07/24. Plan: LLE Gangrene/Necrosis- s/p left transmetatarsal amputation on 07/24 - Podiatry consulted, Dr. Parekh - Oxycodone 5mg PO Q4 PRN for pain - Keflex 500mg PO Q6 on day#5 of 7 - ID consulted, Dr. Guidry - Wound culture: grew Juanita - Wound pathology: bone resection margins are negative for acute osteomyelitis. Bone of 3rd toe showing acute osteomyelitis. - Lac-hydrin cream for wound care - Continue to work with PT, patient recieved forefoot wedge shoe already Severe PAD - s/p IR revascularization of LLE on 07/11 - Arterial US: Severely abnormal L ALYSE @ rest ALYSE is .46. R ALYSE is at .77 and is moderately abnormal - CT angiogram 07/06: severe stenosis in the distal superficial femoral arteries bilaterally. Single vessel runoff to both ankles via the posterior tibial. The anterior tibials are thin and narrow with multi focal stenosis - Peripheral vascular procedure report: successful left SFA and pop artery jet stream arthrectomy and balloon angioplasty; successful left ant tib angioplasty with focal drug-eluting stent placement; successful left tibperoneal trunk and prox left PT artery angioplasty - ESR remains elevated but stable - Continue home Lipitor 20mg PO HS Iron deficiency - Fe, TIBC, % saturation are low - Iron sucrose 200mg IV given Normocytic anemia - H&H stable - Patients baseline Hb appears to be around 8 - Continue to monitor Hypertension - Metoprolol 25mg PO BID - Clonidine 0.1mg BID DM II with Neuropathy - ISS - Accuchecks - Hgba1c: 15.5 - Levemir 12u ACBHS - Diabetic education - Gabapentin 300mg BID - Lipitor 20mg PO HS Stage II sacral ulcer - Wound care - Turn Q2, air mattress, conservative management PPX DVT: Plavix Diet: HHD Patient seen and case discussed with attending, Dr. Rockwell. Azeem Agosto, PGY-1 <Omari Rockwell - Last Filed: 07/28/18 17:52> Objective - Vital Signs/Intake and Output Vital Signs (last 24 hours): Temp Pulse Resp BP Pulse Ox 98.6 F 70 16 119/68 99 07/28/18 14:00 07/28/18 14:00 07/28/18 14:00 07/28/18 14:00 07/28/18 14:00 Intake and Output: 07/28/18 07/28/18 06:59 18:59 Intake Total 120 240 Output Total 0 Balance 120 240 - Medications Medications: Current Medications Atorvastatin Calcium (Lipitor) 20 mg PO HS [facility] Last Admin: 07/27/18 22:48 Dose: 20 mg Cephalexin Monohydrate (Keflex) 500 mg PO Q6 [facility]; Protocol Last Admin: 07/28/18 17:41 Dose: 500 mg Clonidine HCl (Catapres) 0.1 mg PO BID [facility] Last Admin: 07/28/18 17:41 Dose: 0.1 mg Clopidogrel Bisulfate (Plavix) 75 mg PO DAILY [facility] Last Admin: 07/28/18 09:26 Dose: 75 mg Insulin Detemir (Levemir) 12 unit SC HS [facility] Insulin Detemir (Levemir) 12 unit SC ACB [facility] Insulin Human Regular (Humulin R Med) 0 units SC ACHS [facility]; Protocol Last Admin: 07/28/18 17:39 Dose: Not Given Lactic Acid (Lac-Hydrin 12% Lotion (225 G)) 0 gm EXT BID [facility] Last Admin: 07/28/18 17:39 Dose: Not Given Metoprolol Tartrate (Lopressor) 25 mg PO 0800,1800 [facility] Last Admin: 07/28/18 17:41 Dose: 25 mg Ondansetron HCl (Zofran Inj) 4 mg IVP ONCE PRN PRN Reason: Nausea/Vomiting Oxycodone HCl (Oxycodone Immediate Release Tab) 5 mg PO Q4H PRN PRN Reason: Pain, moderate (4-7) Last Admin: 07/27/18 17:31 Dose: 5 mg - Labs Labs: 07/28/18 07:15 07/28/18 07:15 Attending/Attestation - Attestation I have personally seen and examined this patient.: Yes I have fully participated in the care of the patient.: Yes I have reviewed all pertinent clinical information, including history, physical exam and plan: Yes Notes (Text): 07/28/18 17:50 73 year old female with past medical history of diabetes, hypertension, PVD and noncompliance was initially admitted with altered mental status; found to have elevated blood sugars (>700) which improved with iv fluids and insulin. Mental status improved back to normal. A1c was 15.5 and patient was started on levemir. Patient was also found to have right big toe ulcer and severe PAD/PVD. Arterial Doppler showed severely abnormal L ALYSE 0.46 and moderately abnormal R ALYSE 0.77. CT angiogram showed severe stenosis in the distal superficial femoral arteries bilaterally; single vessel runoff to both ankles via the posterior tibial; anterior tibials were thin and narrow with multifocal stenosis. Patient is s/p left SFA and popliteal artherectomy and drug eluting balloon angioplasty, successful left anterior tibial artery angioplasty and focal drug eluting stent placement, and successful left tibioperoneal trunk and proximal left posterior tibial artery angioplasty. She is on plavix. Patient was also noted to have dry gangrene of left foot. She is being followed by podiatry and is now s/p TMA POD #4. Pathology was reviewed. Continue with PO keflex as per ID. Special boot was delivered. Continue with PT as tolerated who is still recommending GABBY which patient is refusing. Mild transaminitis has improved. Continue to monitor closely. Continue with metoprolol and clonidine for hypertension. Omari Rockwell MD Hospitalist.
[2018-07-28] MEDS ORDERED: Insulin Detemir 100 units/ml Vial (Levemir) SC SCH (22:00)
[2018-07-29] MEDS ORDERED: Insulin Detemir 100 units/ml Vial (Levemir) SC SCH ×2 (07:30)
[2018-07-29] MEDS: Insulin Reg-MEDIUM-Coverage SC SCH ×4 (08:00→23:09)
[2018-07-29 08:15] LABS: BASO # 0.02 K/mm3 (0.0-2.0); BASO % 0.3 % (0.0-3.0); EOS # 0.1 (0.0-0.7); EOS % 0.8 % (1.5-5.0); HEMOGLOBIN 8.7 g/dL (12.0-16.0); LYMPH # 1.2 (1.2-3.4); LYMPH % 15.6 % (22.0-35.0); MEAN CELL VOLUME 86.9 fl (80.0-105.0); MEAN CORPUSCULAR HEMOGLOBIN 27.8 pg (25.0-35.0); MEAN PLATELET VOLUME 9.2 fl (7.0-11.0); MONO # 0.5 (0.1-0.6); MONO % 6.8 % (1.0-6.0); RBC 3.13 10^6/uL (3.5-6.1); RED CELL DISTRIBUTION WIDTH 13.7 % (11.5-14.5); WHITE BLOOD COUNT 7.4 10^3/uL (4.5-11.0)
[2018-07-29 08:52] LABS: ALB/GLOB RATIO 0.8 (1.1-1.8); ALBUMIN 3.1 g/dL (3.0-4.8); ALT/SGPT 33 U/L (7-56); AST/SGOT 36 U/L (14-36); BLOOD UREA NITROGEN 17 mg/dL (7-21); CALCIUM 8.8 mg/dL (8.4-10.5); GFR NON-AFRICAN AMERICAN > 60
[2018-07-29] MEDS: Ammonium Lactate 12% Lotion (225 g) EXT SCH ×2 (11:00→17:14)
--- NOTE | 2018-07-29 11:54 | CP.PCM.PN ---
<Shadi Covarrubias - Last Filed: 07/29/18 11:52> Subjective - Date & Time of Evaluation Date of Evaluation: 07/29/18 Time of Evaluation: 11:52 - Subjective Subjective: Podiatry progress note: for Dr. Cobb/Izabella 73 year old female seen and evaluated at the bedside 5 days S/P left TMA. Patient resting comfortably and in NAD. No acute events overnight. Patient states that she Her left foot pain improved. She denies any overnight nausea/vomiting/fever/shortness of breath. Objective - Vital Signs/Intake and Output Vital Signs (last 24 hours): Temp Pulse Resp BP Pulse Ox 97.9 F 82 16 145/74 100 07/29/18 06:00 07/29/18 06:00 07/29/18 06:00 07/29/18 10:06 07/29/18 06:00 Intake and Output: 07/29/18 07/29/18 06:59 18:59 Intake Total 720 Balance 720 - Medications Medications: Current Medications Atorvastatin Calcium (Lipitor) 20 mg PO HS [facility] Last Admin: 07/28/18 22:45 Dose: 20 mg Cephalexin Monohydrate (Keflex) 500 mg PO Q6 [facility]; Protocol Last Admin: 07/29/18 06:27 Dose: 500 mg Clonidine HCl (Catapres) 0.1 mg PO BID [facility] Last Admin: 07/29/18 10:06 Dose: 0.1 mg Clopidogrel Bisulfate (Plavix) 75 mg PO DAILY [facility] Last Admin: 07/29/18 10:06 Dose: 75 mg Insulin Human Regular (Humulin R Med) 0 units SC [facility]; Protocol Last Admin: 07/29/18 11:40 Dose: Not Given Lactic Acid (Lac-Hydrin 12% Lotion (225 G)) 0 gm EXT BID [facility] Last Admin: 07/28/18 17:39 Dose: Not Given Metoprolol Tartrate (Lopressor) 25 mg PO 0800,1800 [facility] Last Admin: 07/29/18 10:06 Dose: 25 mg Ondansetron HCl (Zofran Inj) 4 mg IVP ONCE PRN PRN Reason: Nausea/Vomiting Oxycodone HCl (Oxycodone Immediate Release Tab) 5 mg PO Q4H PRN PRN Reason: Pain, moderate (4-7) Last Admin: 07/27/18 17:31 Dose: 5 mg - Labs Labs: 07/29/18 07:00 07/29/18 07:00 - Constitutional Appears: Well, Non-toxic, No Acute Distress - Head Exam Head Exam: ATRAUMATIC, NORMOCEPHALIC - Extremities Exam Additional comments: B/l LE focused VASC: non-palpable pulses bilaterally, Cap refill >3 seconds to all digits. Temperature gradient warm to cool b/l. NEURO: Epicritic and protective sensation grossly intact b/l DERM: Right foot: Dry eschar measuring approximately 1.5 x 1.5 cm noted to distal tuft of right hallux - hyperkeratotic rim present; absent drainage; absent purulence; absent flucutance; absent malodor; no periwound erythema present. No clinical signs of infection appreciated; left foot: Surgical site looks C/D/I with stables and sutures intact and in place. No drainage, No erythema, No malodor, No clinical signs of active infection. A small wound noted at the site of Lorenzo Martinez drain before removal. Wound looks C/D/I with no signs of active infection. MSK: No pain on palpation noted to right hallux eschar. Moderate pain on palpation of the surgical site. - Neurological Exam Neurological Exam: Alert, Awake, Oriented x3 Assessment and Plan - Assessment and Plan (Free Text) Assessment: 73 year old female seen and evaluated at the bedside 5 days S/P left TMA. Plan: Patient seen and evaluated at the bedside. Plan discussed with Dr. Cobb. Bilateral arterial duplex ordered - significant PVD noted b/l, more severe on left. Peripheral vascular procedure report - successful left SFA and pop artery jet stream arthrectomy and balloon angioplasty; successful left ant tib angioplasty with focal drug-eluting stent placement; successful left tibperoneal trunk and prox left PT artery angioplasty Left foot X-ray postoperative- S/P left TMA. Continue with IV abx as per ID. Surgical wound dressed using xeroform, DSD. Patient to bear weight as tolerated to the left heel in a left forefoot wedge shoe. Continue PT. Patient refused to go to [facility] and insists to go home despite having long discussion with her. Podiatry will continue to follow up the patient while in house. <Meek Cobb - Last Filed: 07/29/18 12:01> Objective - Vital Signs/Intake and Output Vital Signs (last 24 hours): Temp Pulse Resp BP Pulse Ox 97.9 F 82 16 145/74 100 07/29/18 06:00 07/29/18 06:00 07/29/18 06:00 07/29/18 10:06 07/29/18 06:00 Intake and Output: 07/29/18 07/29/18 06:59 18:59 Intake Total 720 Balance 720 - Medications Medications: Current Medications Atorvastatin Calcium (Lipitor) 20 mg PO HS [facility] Last Admin: 07/28/18 22:45 Dose: 20 mg Cephalexin Monohydrate (Keflex) 500 mg PO Q6 [facility]; Protocol Last Admin: 07/29/18 11:55 Dose: 500 mg Clonidine HCl (Catapres) 0.1 mg PO BID [facility] Last Admin: 07/29/18 10:06 Dose: 0.1 mg Clopidogrel Bisulfate (Plavix) 75 mg PO DAILY [facility] Last Admin: 07/29/18 10:06 Dose: 75 mg Insulin Human Regular (Humulin R Med) 0 units SC ACHS [facility]; Protocol Last Admin: 07/29/18 11:40 Dose: Not Given Lactic Acid (Lac-Hydrin 12% Lotion (225 G)) 0 gm EXT BID [facility] Last Admin: 07/28/18 17:39 Dose: Not Given Metoprolol Tartrate (Lopressor) 25 mg PO 0800,1800 [facility] Last Admin: 07/29/18 10:06 Dose: 25 mg Ondansetron HCl (Zofran Inj) 4 mg IVP ONCE PRN PRN Reason: Nausea/Vomiting Oxycodone HCl (Oxycodone Immediate Release Tab) 5 mg PO Q4H PRN PRN Reason: Pain, moderate (4-7) Last Admin: 07/27/18 17:31 Dose: 5 mg - Labs Labs: 07/29/18 07:00 07/29/18 07:00 Attending/Attestation - Attestation I have personally seen and examined this patient.: Yes I have fully participated in the care of the patient.: Yes I have reviewed all pertinent clinical information, including history, physical exam and plan: Yes
--- NOTE | 2018-07-29 12:42 | CP.PCM.PN ---
Subjective - Date & Time of Evaluation Date of Evaluation: 07/29/18 Time of Evaluation: 11:00 - Subjective Subjective: Infectious Disease Follow Up: July 29, 2018 73 yo female with history of Type II DM. The patient was found to be altered in a laundromat. Patient herself gives little information. Patient's PMD is apparently in [place], [place], his name is Dr. Akbar. The patient name is Jessica Brizuela. Patient had fever of 101.0 F. No leukocytosis. Limited information provided by the patient. Patient is hyperglycemic on admission and still has elevated glucose levels. Was under isolation for bedbugs. No further fever episodes today. Afebrile for the last few days now. Duplex showing disease of the vessels of the left leg. Abdominal CT Angiography showing severe stenosis in the distal superficial femoral arteries bilaterally. Single vessel runoff to both ankles via the posterior tibial. The anterior tibials are thin and narrow with multi focal stenosis. Significant peripheral vascular disease bilaterally. Had angioplasty with Dr. Ray in morning of 07/11/2018. Podiatry planning for TMA of the left foot due to gangrene of toes of the left foot. Remains on oral antibiotics of Keflex right now. Unclear if the patient is poor historian or unwilling to divulge information on herself. For example, when asking the patient how she wound up in [place] when she states that she lives in [place], the patient states she was visiting a friend but then refuses to to give a name or number for the patient. She would simply state that she doesn't know what her friend's name is, where she lives, or her phone number. She will even say she doesn't know what she looks like but that she is her friend. Podiatry performed TMA on 07/24/2018. Patient states mild to moderate pain at TMA site (6 out 10). Noted pathology results. Patient refusing GABBY. Objective - Vital Signs/Intake and Output Vital Signs (last 24 hours): Temp Pulse Resp BP Pulse Ox 97.9 F 82 16 145/74 100 07/29/18 06:00 07/29/18 06:00 07/29/18 06:00 07/29/18 10:06 07/29/18 06:00 Intake and Output: 07/29/18 07/29/18 06:59 18:59 Intake Total 720 Balance 720 - Medications Medications: Current Medications Atorvastatin Calcium (Lipitor) 20 mg PO HS [facility] Last Admin: 07/28/18 22:45 Dose: 20 mg Cephalexin Monohydrate (Keflex) 500 mg PO Q6 [facility]; Protocol Last Admin: 07/29/18 11:55 Dose: 500 mg Clonidine HCl (Catapres) 0.1 mg PO BID [facility] Last Admin: 07/29/18 10:06 Dose: 0.1 mg Clopidogrel Bisulfate (Plavix) 75 mg PO DAILY [facility] Last Admin: 07/29/18 10:06 Dose: 75 mg Insulin Human Regular (Humulin R Med) 0 units SC ACHS [facility]; Protocol Last Admin: 07/29/18 11:40 Dose: Not Given Lactic Acid (Lac-Hydrin 12% Lotion (225 G)) 0 gm EXT BID [facility] Last Admin: 07/28/18 17:39 Dose: Not Given Metoprolol Tartrate (Lopressor) 25 mg PO 0800,1800 [facility] Last Admin: 07/29/18 10:06 Dose: 25 mg Ondansetron HCl (Zofran Inj) 4 mg IVP ONCE PRN PRN Reason: Nausea/Vomiting Oxycodone HCl (Oxycodone Immediate Release Tab) 5 mg PO Q4H PRN PRN Reason: Pain, moderate (4-7) Last Admin: 07/27/18 17:31 Dose: 5 mg - Labs Labs: 07/29/18 07:00 07/29/18 07:00 - Constitutional Appears: Non-toxic, No Acute Distress, Chronically Ill - Head Exam Head Exam: ATRAUMATIC, NORMOCEPHALIC - Eye Exam Eye Exam: EOMI, PERRL Pupil Exam: NORMAL ACCOMODATION, PERRL - ENT Exam ENT Exam: Mucous Membranes Moist, Normal External Ear Exam, TM's Normal Bilaterally - Neck Exam Neck Exam: Full ROM, Normal Inspection - Respiratory Exam Respiratory Exam: Clear to Ausculation Bilateral, NORMAL BREATHING PATTERN. a bsent: Rales, Rhonchi, Wheezes - Cardiovascular Exam Cardiovascular Exam: REGULAR RHYTHM, RRR, +S1, +S2 - GI/Abdominal Exam GI & Abdominal Exam: Soft, Normal Bowel Sounds. absent: Distended, Tenderness Additional comments: midline abdominal scar - Extremities Exam Additional comments: S/P Left TMA. RLE big toe ulcer/eschar. - Neurological Exam Neurological Exam: Alert, Awake, CN II-XII Intact, Oriented x3 - Psychiatric Exam Additional comments: Distant at times. Jovial for things that she perceives as beneficial to her. - Skin Additional comments: As above Assessment and Plan - Assessment and Plan (Free Text) Assessment: 73 yo female presenting for altered mental status, fevers up to 101.0 F, and hyperglycemia. Negative Chest X-ray. X-ray right big toe showing swelling of the soft tissues only. Head CT negative. Patient was hyponatremic. Unclear how the patient's DM control is normally. Likely with some degree of dehydration in addition to the hyperglycemia. Check Hgb A1c... 15.5. Monitor glucose levels. Started on Vancomycin and Zosyn. Villagran cultures. Supportive care. Afebrile today. Found to have bedbugs and was isolated. Patient was washed and now off isolation. Duplex studies showing severe peripheral vascular disease bilaterally. Cultures negative. Left foot and ankle X-ray negative. Considering oral antibiotic care with Keflex. Patient with diabetes that is not under control. Borderline fevers. Angioplasty with Dr. Ray occurred on 07/11/2018. Impressions were: 1. Successful left SFA and popliteal arter jet stream atherectomy and drug- eluting stent balloon angioplasty. No stent was required. 2. Successful left anterior tibial artery angioplasty and focal drug-eluting stent placement 3. Successful left tibioperoneal trunk and proximal left posterior tibial artery angioplasty 4. 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 Critical right popliteal artery stenoses. No additional issues. Continue on oral Keflex for antibiotic treatment for up to a week s/p TMA although this may be extended depending on condition of the left foot stump. Toes of the left foot are already gangrenous. This has progressed during this hospitalization despite interventions. Podiatry is now planning TMA of the left foot on 07/24/[address] Parekh. Gangrene continues to progress up to the midfoot especially on the medial side of the left foot. No new issues. Periodically check ESR. Last check was 07/18/2018 with ESR of 143. The Left TMA was done on 07/24/2018. She complains of only mild to moderate pain of the left foot. Drains removed today by Podiatry. Noted echocardiogram report and severity of valve disease. 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 She has been working with PT. Unfortunately, the patient is refusing GABBY. The patient is being very difficult with discharge planning. Thank you for allowing me to participate in the care of the patient, we will follow with you.
--- NOTE | 2018-07-29 15:32 | CP.PCM.PN ---
<Brian Velasco - Last Filed: 07/29/18 15:24> Subjective - Date & Time of Evaluation Date of Evaluation: 07/29/18 Time of Evaluation: 09:00 - Subjective Subjective: Brian Velasco PGY-1 Progress Note for Hospitalist Service Patient seen and evaluated at bedside. No acute events reported overnight. Patient denies fevers, chills, shortness of breath, chest pain, abdominal pain, nausea, vomiting, diarrhea or dysuria. Objective - Vital Signs/Intake and Output Vital Signs (last 24 hours): Temp Pulse Resp BP Pulse Ox 98.7 F 70 18 133/77 99 07/29/18 14:00 07/29/18 14:00 07/29/18 14:00 07/29/18 14:00 07/29/18 14:00 Intake and Output: 07/29/18 07/29/18 06:59 18:59 Intake Total 720 480 Balance 720 480 - Medications Medications: Current Medications Atorvastatin Calcium (Lipitor) 20 mg PO HS [facility] Last Admin: 07/28/18 22:45 Dose: 20 mg Cephalexin Monohydrate (Keflex) 500 mg PO Q6 [facility]; Protocol Last Admin: 07/29/18 11:55 Dose: 500 mg Clonidine HCl (Catapres) 0.1 mg PO BID [facility] Last Admin: 07/29/18 10:06 Dose: 0.1 mg Clopidogrel Bisulfate (Plavix) 75 mg PO DAILY [facility] Last Admin: 07/29/18 10:06 Dose: 75 mg Insulin Human Regular (Humulin R Med) 0 units [place] [facility]; Protocol Last Admin: 07/29/18 11:40 Dose: Not Given Lactic Acid (Lac-Hydrin 12% Lotion (225 G)) 0 gm EXT BID [facility] Last Admin: 07/28/18 17:39 Dose: Not Given Metoprolol Tartrate (Lopressor) 25 mg PO 0800,1800 [facility] Last Admin: 07/29/18 10:06 Dose: 25 mg Ondansetron HCl (Zofran Inj) 4 mg IVP ONCE PRN PRN Reason: Nausea/Vomiting Oxycodone HCl (Oxycodone Immediate Release Tab) 5 mg PO Q4H PRN PRN Reason: Pain, moderate (4-7) Last Admin: 07/27/18 17:31 Dose: 5 mg - Labs Labs: 07/29/18 07:00 07/29/18 07:00 - Additional Findings Additional findings: - Constitutional Appears: Well, Non-toxic, No Acute Distress - Head Exam Head Exam: ATRAUMATIC, NORMAL INSPECTION - Eye Exam Eye Exam: EOMI, Normal appearance - ENT Exam ENT Exam: Mucous Membranes Moist - Respiratory Exam Respiratory Exam: Clear to Auscultation Bilateral. absent: Rales, Rhonchi, Wheezes, Respiratory Distress - Cardiovascular Exam Cardiovascular Exam: REGULAR RHYTHM, +S1, +S2. absent: Gallop, Rubs, Systolic Murmur - GI/Abdominal Exam GI & Abdominal Exam: Normal Bowel Sounds, Soft. absent: Distended, Tenderness - Extremities Exam Additional comments: Left toes dressing C/D/I. Lower extremities with normal temperature and non-tender to palpation. - Neurological Exam Neurological exam: Alert, CN II-XII Intact, Oriented x3 - Psychiatric Exam Psychiatric exam: Flat Affect - Skin Skin Exam: Dry, Normal Color, Warm Assessment and Plan - Assessment and Plan (Free Text) Assessment: Patient is a 73 year old female with PMH of diabetes, HTN, PVD, and noncompliance with medication was admitted with altered mental status and hyperglycemia. Clinical course complicated by ichemic rest pain of the left LE. Revascularization of LLE w/ IR on 07/11. Patient is s/p left transmetatarsal amputation on 07/24. Patient received L forefoot wedge shoe yesterday. Patient refuses to go to [facility]. Awaiting further rehab. Plan: LLE Gangrene/Necrosis- s/p left transmetatarsal amputation on 07/24 - Podiatry consulted, Dr. Parekh - Oxycodone 5mg PO Q4 PRN for pain - Keflex 500mg PO Q6 on day#6 of 7 - ID consulted, Dr. Guidry - Wound culture: grew Juanita - Wound pathology: bone resection margins are negative for acute osteomyelitis. Bone of 3rd toe showing acute osteomyelitis. - Lac-hydrin cream for wound care - Continue to work with PT, patient received forefoot wedge shoe Severe PAD - s/p IR revascularization of LLE on 07/11 - Arterial US: Severely abnormal L ALYSE @ rest ALYSE is .46. R ALYSE is at .77 and is moderately abnormal - CT angiogram 07/06: severe stenosis in the distal superficial femoral arteries bilaterally. Single vessel runoff to both ankles via the posterior tibial. The anterior tibials are thin and narrow with multi focal stenosis - Peripheral vascular procedure report: successful left SFA and pop artery jet stream arthrectomy and balloon angioplasty; successful left ant tib angioplasty with focal drug-eluting stent placement; successful left tibperoneal trunk and prox left PT artery angioplasty - ESR remains elevated but stable - Continue home Lipitor 20mg PO HS Iron deficiency - Fe, TIBC, % saturation are low - Iron sucrose 200mg IV given 07/28 Normocytic anemia - H&H stable - Patients baseline Hb appears to be around 8 - Continue to monitor Hypertension - Metoprolol 25mg PO BID - Clonidine 0.1mg BID DM II with Neuropathy - ISS - Accuchecks - Hgba1c: 15.5 - Levemir on hold due to hypoglycemic episodes, may resume tomorrow - Diabetic education - Gabapentin 300mg BID - Lipitor 20mg PO HS Stage II sacral ulcer - Wound care - Turn Q2, air mattress, conservative management PPX DVT: Plavix Diet: HHD Patient seen, case reviewed and plan approved by Dr. Rockwell. Brian Velasco, PGY-1 <Omari Rockwell - Last Filed: 07/29/18 16:19> Objective - Vital Signs/Intake and Output Vital Signs (last 24 hours): Temp Pulse Resp BP Pulse Ox 98.7 F 70 18 133/77 99 07/29/18 14:00 07/29/18 14:00 07/29/18 14:00 07/29/18 14:00 07/29/18 14:00 Intake and Output: 07/29/18 07/29/18 06:59 18:59 Intake Total 720 480 Balance 720 480 - Medications Medications: Current Medications Atorvastatin Calcium (Lipitor) 20 mg PO HS [facility] Last Admin: 07/28/18 22:45 Dose: 20 mg Cephalexin Monohydrate (Keflex) 500 mg PO Q6 [facility]; Protocol Last Admin: 07/29/18 11:55 Dose: 500 mg Clonidine HCl (Catapres) 0.1 mg PO BID [facility] Last Admin: 07/29/18 10:06 Dose: 0.1 mg Clopidogrel Bisulfate (Plavix) 75 mg PO DAILY [facility] Last Admin: 07/29/18 10:06 Dose: 75 mg Insulin Human Regular (Humulin R Med) 0 units [place] [facility]; Protocol Last Admin: 07/29/18 11:40 Dose: Not Given Lactic Acid (Lac-Hydrin 12% Lotion (225 G)) 0 gm EXT BID [facility] Last Admin: 07/28/18 17:39 Dose: Not Given Metoprolol Tartrate (Lopressor) 25 mg PO 0800,1800 [facility] Last Admin: 07/29/18 10:06 Dose: 25 mg Ondansetron HCl (Zofran Inj) 4 mg IVP ONCE PRN PRN Reason: Nausea/Vomiting Oxycodone HCl (Oxycodone Immediate Release Tab) 5 mg PO Q4H PRN PRN Reason: Pain, moderate (4-7) Last Admin: 07/27/18 17:31 Dose: 5 mg - Labs Labs: 07/29/18 07:00 07/29/18 07:00 Attending/Attestation - Attestation I have personally seen and examined this patient.: Yes I have fully participated in the care of the patient.: Yes I have reviewed all pertinent clinical information, including history, physical exam and plan: Yes Notes (Text): 07/29/18 16:16 73 year old female with past medical history of diabetes, hypertension, PVD and noncompliance was initially admitted with altered mental status; found to have elevated blood sugars (>700) which improved with iv fluids and insulin. Mental status improved back to normal. A1c was 15.5 and patient was started on levemir. Fingersticks reviewed over past 24 hrs patient has been running low. Will hold levemir for today and monitor. Consider resuming tomorrow at lower dose. Patient on admission was found to have right big toe ulcer and severe PAD/PVD. Arterial Doppler showed severely abnormal L ALYSE 0.46 and moderately abnormal R ALYSE 0.77. CT angiogram showed severe stenosis in the distal superficial femoral arteries bilaterally; single vessel runoff to both ankles via the posterior tibial; anterior tibials were thin and narrow with multifocal stenosis. Patient is s/p left SFA and popliteal artherectomy and drug eluting balloon angioplasty, successful left anterior tibial artery angioplasty and focal drug eluting stent placement, and successful left tibioperoneal trunk and proximal left posterior tibial artery angioplasty. She is on plavix. Patient was also noted to have dry gangrene of left foot. She is being followed by podiatry and is now s/p TMA POD #5. Pathology was reviewed. Continue with PO keflex as per ID. Special boot was delivered. Continue with PT as tolerated who is still recommending GABBY which patient is refusing. ?D/c home with home services once cleared by PT. However this may also be challenge as patient lives her friend. Mild transaminitis has improved. Continue to monitor closely. Continue with metoprolol and clonidine for hypertension. Omari Rockwell MD Hospitalist.
[2018-07-30] MEDS: Insulin Reg-MEDIUM-Coverage SC SCH ×4 (08:39→22:07)
[2018-07-30] MEDS: Ammonium Lactate 12% Lotion (225 g) EXT SCH ×2 (10:05→17:33)
--- NOTE | 2018-07-30 12:01 | CP.PCM.PN ---
<Shadi Covarrubias - Last Filed: 07/30/18 12:01> Subjective - Date & Time of Evaluation Date of Evaluation: 07/30/18 Time of Evaluation: 12:00 - Subjective Subjective: Podiatry progress note: for Dr. Cobb/Izabella 73 year old female seen and evaluated at the bedside 5 days S/P left TMA. Patient resting comfortably and in NAD. No acute events overnight. Patient states that she Her left foot is less painful now. She denies any overnight nausea/vomiting/fever/shortness of breath. Objective - Vital Signs/Intake and Output Vital Signs (last 24 hours): Temp Pulse Resp BP Pulse Ox 98.1 F 64 18 135/69 100 07/30/18 06:00 07/30/18 06:00 07/30/18 06:00 07/30/18 06:00 07/30/18 06:00 Intake and Output: 07/30/18 07/30/18 06:59 18:59 Intake Total 120 Balance 120 - Medications Medications: Current Medications Atorvastatin Calcium (Lipitor) 20 mg PO HS [facility] Last Admin: 07/29/18 22:11 Dose: 20 mg Clonidine HCl (Catapres) 0.1 mg PO BID [facility] Last Admin: 07/30/18 10:04 Dose: 0.1 mg Clopidogrel Bisulfate (Plavix) 75 mg PO DAILY [facility] Last Admin: 07/30/18 10:04 Dose: 75 mg Insulin Detemir (Levemir) 6 unit SC [facility] Insulin Human Regular (Humulin R Med) 0 units SC [facility]; Protocol Last Admin: 07/30/18 08:39 Dose: 3 units Lactic Acid (Lac-Hydrin 12% Lotion (225 G)) 0 gm EXT BID [facility] Last Admin: 07/30/18 10:05 Dose: 1 applic Metoprolol Tartrate (Lopressor) 25 mg PO 0800,1800 [facility] Last Admin: 07/30/18 10:04 Dose: 25 mg Ondansetron HCl (Zofran Inj) 4 mg IVP ONCE PRN PRN Reason: Nausea/Vomiting Oxycodone HCl (Oxycodone Immediate Release Tab) 5 mg PO Q4H PRN PRN Reason: Pain, moderate (4-7) Last Admin: 07/27/18 17:31 Dose: 5 mg - Labs Labs: 07/29/18 07:00 07/29/18 07:00 - Constitutional Appears: Well, Non-toxic, No Acute Distress - Head Exam Head Exam: ATRAUMATIC, NORMOCEPHALIC - Extremities Exam Additional comments: B/l LE focused VASC: non-palpable pulses bilaterally, Cap refill >3 seconds to all digits. Temperature gradient warm to cool b/l. NEURO: Epicritic and protective sensation grossly intact b/l DERM: Right foot: Dry eschar measuring approximately 1.5 x 1.5 cm noted to distal tuft of right hallux - hyperkeratotic rim present; absent drainage; absent purulence; absent flucutance; absent malodor; no periwound erythema present. No clinical signs of infection appreciated; left foot: Surgical site looks C/D/I with stables and sutures intact and in place. No drainage, No erythema, No malodor, No clinical signs of active infection. A small wound noted at the site of Lorenzo Martinez drain before removal. Wound looks C/D/I with no signs of active infection. MSK: No pain on palpation noted to right hallux eschar. Moderate pain on palpation of the surgical site. - Neurological Exam Neurological Exam: Alert, Awake, Oriented x3 Assessment and Plan - Assessment and Plan (Free Text) Assessment: 73 year old female seen and evaluated at the bedside 5 days S/P left TMA. Plan: Patient seen and evaluated at the bedside. Plan discussed with Dr. Cobb. Bilateral arterial duplex ordered - significant PVD noted b/l, more severe on left. Peripheral vascular procedure report - successful left SFA and pop artery jet stream arthrectomy and balloon angioplasty; successful left ant tib angioplasty with focal drug-eluting stent placement; successful left tibperoneal trunk and prox left PT artery angioplasty Left foot X-ray postoperative- S/P left TMA. Surgery pathology report: Inflammation and gangrenous changes of the amputated toes OM of the amputated 3rd toe with clean resection margins of the metatarsal bones negative of OM. Continue with IV abx as per ID. Surgical wound dressed using xeroform, DSD. Patient to bear weight as tolerated to the left heel in a left forefoot wedge shoe. Continue PT. Patient refused to go to [facility] and insists to go home despite having long discussion with her. Podiatry will continue to follow up the patient while in house. <Meek Cobb - Last Filed: 08/01/18 07:45> Objective - Vital Signs/Intake and Output Vital Signs (last 24 hours): Temp Pulse Resp BP Pulse Ox 98.7 F 67 18 108/61 100 07/31/18 14:00 07/31/18 14:00 07/31/18 14:00 07/31/18 14:00 07/31/18 14:00 - Labs Labs: 07/29/18 07:00 07/29/18 07:00 Attending/Attestation - Attestation I have personally seen and examined this patient.: Yes I have fully participated in the care of the patient.: Yes I have reviewed all pertinent clinical information, including history, physical exam and plan: Yes
[2018-07-30] MEDS: Insulin Detemir 100 units/ml Vial (Levemir) SC SCH ×2 (12:14→22:13)
--- NOTE | 2018-07-30 13:45 | CP.PCM.PN ---
<Brian Velasco - Last Filed: 07/30/18 13:46> Subjective - Date & Time of Evaluation Date of Evaluation: 07/30/18 Time of Evaluation: 09:15 - Subjective Subjective: Brian Velasco PGY-1 Progress Note for Hospitalist Service Patient seen and evaluated at bedside. No acute events reported overnight. Patient denies fevers, chills, shortness of breath, chest pain, abdominal pain, nausea, vomiting, diarrhea or dysuria. Patient requests further physical therapy. Objective - Vital Signs/Intake and Output Vital Signs (last 24 hours): Temp Pulse Resp BP Pulse Ox 98.1 F 64 18 135/69 100 07/30/18 06:00 07/30/18 06:00 07/30/18 06:00 07/30/18 06:00 07/30/18 06:00 Intake and Output: 07/30/18 07/30/18 06:59 18:59 Intake Total 120 Balance 120 - Medications Medications: Current Medications Atorvastatin Calcium (Lipitor) 20 mg PO [facility] Last Admin: 07/29/18 22:11 Dose: 20 mg Clonidine HCl (Catapres) 0.1 mg PO BID [facility] Last Admin: 07/30/18 10:04 Dose: 0.1 mg Clopidogrel Bisulfate (Plavix) 75 mg PO DAILY [facility] Last Admin: 07/30/18 10:04 Dose: 75 mg Insulin Detemir (Levemir) 6 unit SC [facility] Last Admin: 07/30/18 12:14 Dose: 6 units Insulin Human Regular (Humulin R Med) 0 units SC [facility]; Protocol Last Admin: 07/30/18 12:14 Dose: Not Given Lactic Acid (Lac-Hydrin 12% Lotion (225 G)) 0 gm EXT BID [facility] Last Admin: 07/30/18 10:05 Dose: 1 applic Metoprolol Tartrate (Lopressor) 25 mg PO 0800,1800 [facility] Last Admin: 07/30/18 10:04 Dose: 25 mg Ondansetron HCl (Zofran Inj) 4 mg IVP ONCE PRN PRN Reason: Nausea/Vomiting Oxycodone HCl (Oxycodone Immediate Release Tab) 5 mg PO Q4H PRN PRN Reason: Pain, moderate (4-7) Last Admin: 07/27/18 17:31 Dose: 5 mg - Labs Labs: 04/13/19 07:00 07/29/18 07:00 - Additional Findings Additional findings: - Constitutional Appears: Well, Non-toxic, No Acute Distress - Head Exam Head Exam: ATRAUMATIC, NORMAL INSPECTION - Eye Exam Eye Exam: EOMI, Normal appearance - ENT Exam ENT Exam: Mucous Membranes Moist - Respiratory Exam Respiratory Exam: Clear to Auscultation Bilateral. absent: Rales, Rhonchi, Wheezes, Respiratory Distress - Cardiovascular Exam Cardiovascular Exam: REGULAR RHYTHM, +S1, +S2. absent: Gallop, Rubs, Systolic Murmur - GI/Abdominal Exam GI & Abdominal Exam: Normal Bowel Sounds, Soft. absent: Distended, Tenderness - Extremities Exam Additional comments: Left toes dressing C/D/I. Lower extremities with normal temperature and non- tender to palpation. - Neurological Exam Neurological exam: Alert, CN II-XII Intact, Oriented x3 - Psychiatric Exam Psychiatric exam: Flat Affect - Skin Skin Exam: Dry, Normal Color, Warm Assessment and Plan - Assessment and Plan (Free Text) Assessment: Patient is a 73 year old female with PMH of diabetes, HTN, PVD, and noncompliance with medication was admitted with altered mental status and h yperglycemia. Clinical course complicated by ichemic rest pain of the left LE. Revascularization of LLE w/ IR on 07/11. Patient is s/p left transmetatarsal amputation on 07/24. Patient received L forefoot wedge shoe. Patient refuses to go to [facility]. Awaiting further rehab. Plan: LLE Gangrene/Necrosis- s/p left transmetatarsal amputation on 07/24 - Podiatry consulted, Dr. Parekh - Oxycodone 5mg PO Q4 PRN for pain - To complete 7 day Keflex course 07/30 - ID consulted, Dr. Guidry - Wound culture: grew Juanita - Wound pathology: bone resection margins are negative for acute osteomyelitis. Bone of 3rd toe showing acute osteomyelitis. - Lac-hydrin cream for wound care - Continue to work with PT, patient received forefoot wedge shoe Severe PAD - s/p IR revascularization of LLE on 07/11 - Arterial US: Severely abnormal L ALYSE @ rest ALYSE is .46. R ALYSE is at .77 and is moderately abnormal - CT angiogram 07/06: severe stenosis in the distal superficial femoral arteries bilaterally. Single vessel runoff to both ankles via the posterior tibial. The anterior tibials are thin and narrow with multi focal stenosis - Peripheral vascular procedure report: successful left SFA and pop artery jet stream arthrectomy and balloon angioplasty; successful left ant tib angioplasty with focal drug-eluting stent placement; successful left tibperoneal trunk and prox left PT artery angioplasty - ESR remains elevated but stable - Continue home Lipitor 20mg PO HS Iron deficiency - Fe, TIBC, % saturation are low - Iron sucrose 200mg IV given 07/28 Normocytic anemia - H&H stable - Patients baseline Hb appears to be around 8 - Continue to monitor Hypertension - Metoprolol 25mg PO BID with parameters - Clonidine 0.1mg BID with parameters DM II with Neuropathy - ISS - Accuchecks - Hgba1c: 15.5 - Levemir resumed at lower dose 6 units BID, continue to monitor accuchecks - Diabetic education - Gabapentin 300mg BID - Lipitor 20mg PO HS Stage II sacral ulcer - Wound care - Turn Q2, air mattress, conservative management PPX DVT: Plavix Diet: HHD Patient seen, case reviewed and plan approved by Dr. Rockwell. Brian Velasco, PGY-1 <Omari Rockwell - Last Filed: 07/30/18 14:11> Objective - Vital Signs/Intake and Output Vital Signs (last 24 hours): Temp Pulse Resp BP Pulse Ox 98.1 F 64 18 135/69 100 07/30/18 06:00 07/30/18 06:00 07/30/18 06:00 07/30/18 06:00 07/30/18 06:00 Intake and Output: 07/30/18 07/30/18 06:59 18:59 Intake Total 120 Balance 120 - Medications Medications: Current Medications Atorvastatin Calcium (Lipitor) 20 mg PO HS [facility] Last Admin: 07/29/18 22:11 Dose: 20 mg Cephalexin Monohydrate (Keflex) 500 mg PO Q6 [facility]; Protocol Stop: 07/30/18 18:01 Clonidine HCl (Catapres) 0.1 mg PO BID [facility] Clopidogrel Bisulfate (Plavix) 75 mg PO DAILY [facility] Last Admin: 07/30/18 10:04 Dose: 75 mg Insulin Detemir (Levemir) 6 unit SC [facility] Last Admin: 07/30/18 12:14 Dose: 6 units Insulin Human Regular (Humulin R Med) 0 units SC ACHS [facility]; Protocol Last Admin: 07/30/18 12:14 Dose: Not Given Lactic Acid (Lac-Hydrin 12% Lotion (225 G)) 0 gm EXT BID [facility] Last Admin: 07/30/18 10:05 Dose: 1 applic Metoprolol Tartrate (Lopressor) 25 mg PO 0800,1800 [facility] Ondansetron HCl (Zofran Inj) 4 mg IVP ONCE PRN PRN Reason: Nausea/Vomiting Oxycodone HCl (Oxycodone Immediate Release Tab) 5 mg PO Q4H PRN PRN Reason: Pain, moderate (4-7) Last Admin: 07/27/18 17:31 Dose: 5 mg - Labs Labs: 07/29/18 07:00 07/29/18 07:00 Attending/Attestation - Attestation I have personally seen and examined this patient.: Yes I have fully participated in the care of the patient.: Yes I have reviewed all pertinent clinical information, including history, physical exam and plan: Yes Notes (Text): 07/30/18 14:07 73 year old female with past medical history of diabetes, hypertension, PVD and noncompliance was initially admitted with altered mental status; found to have elevated blood sugars (>700) which improved with iv fluids and insulin. Mental status improved back to normal. A1c was 15.5 and patient was started on levemir. Fingersticks were running low on Tuesday/Tuesday so her levemir was held. Will resume today at lower dose. Continue to monitor FS closely and adjust levemir accordingly. Patient on admission was found to have right big toe ulcer and severe PAD/PVD. Arterial Doppler showed severely abnormal L ALYSE 0.46 and moderately abnormal R ALYSE 0.77. CT angiogram showed severe stenosis in the distal superficial femoral arteries bilaterally; single vessel runoff to both ankles via the posterior tibial; anterior tibials were thin and narrow with multifocal stenosis. Patient is s/p left SFA and popliteal artherectomy and drug eluting balloon angioplasty, successful left anterior tibial artery angioplasty and focal drug eluting stent placement, and successful left tibioperoneal trunk and proximal left posterior tibial artery angioplasty. She is on plavix. Patient was also noted to have dry gangrene of left foot. She is being followed by podiatry and is now s/p TMA POD #6. Pathology was reviewed. Continue with PO keflex as per ID. Special boot was delivered. Continue with PT as tolerated who is still recommending GAB[facility]. This was discussed with patient again today which she is still refusing. ?D/c home with home services once cleared by PT. However this may also be challenge as patient lives her friend. Continue to monitor anemia which has been stable. Iron studies reviewed. Will start iron supplements. Continue with metoprolol and clonidine for hypertension with holding parameters. Mild transaminitis has improved. Continue to monitor closely. Omari Rockwell MD Hospitalist.
--- NOTE | 2018-07-30 16:47 | CP.PCM.PN ---
Subjective - Date & Time of Evaluation Date of Evaluation: 07/30/18 Time of Evaluation: 15:45 - Subjective Subjective: Infectious Disease Follow Up: July 30, 2018 73 yo female with history of Type II DM. The patient was found to be altered in a laundromat. Patient herself gives little information. Patient's PMD is apparently in [place], [place], his name is Dr. Akbar. The patient name is Jessica Brizuela. Patient had fever of 101.0 F. No leukocytosis. Limited information provided by the patient. Patient is hyperglycemic on admission and still has elevated glucose levels. Was under isolation for bedbugs. No further fever episodes today. Afebrile for the last few days now. Duplex showing disease of the vessels of the left leg. Abdominal CT Angiography showing severe stenosis in the distal superficial femoral arteries bilaterally. Single vessel runoff to both ankles via the posterior tibial. The anterior tibials are thin and narrow with multi focal stenosis. Significant peripheral vascular disease bilaterally. Had angioplasty with Dr. Ray in morning of 07/11/2018. Podiatry planning for TMA of the left foot due to gangrene of toes of the left foot. Remains on oral antibiotics of Keflex right now. Unclear if the patient is poor historian or unwilling to divulge information on herself. For example, when asking the patient how she wound up in [place] when she states that she lives in [place], the patient states she was visiting a friend but then refuses to to give a name or number for the patient. She would simply state that she doesn't know what her friend's name is, where she lives, or her phone number. She will even say she doesn't know what she looks like but that she is her friend. Podiatry performed TMA on 07/24/2018. Patient states mild to moderate pain at TMA site (6 out 10). Noted pathology results. Patient refusing GABBY. Objective - Vital Signs/Intake and Output Vital Signs (last 24 hours): Temp Pulse Resp BP Pulse Ox 98.8 F 67 20 104/64 99 07/30/18 15:14 07/30/18 15:14 07/30/18 15:14 07/30/18 15:14 07/30/18 15:14 Intake and Output: 07/30/18 07/30/18 06:59 18:59 Intake Total 120 480 Balance 120 480 - Medications Medications: Current Medications Atorvastatin Calcium (Lipitor) 20 mg PO HS [facility] Last Admin: 07/29/18 22:11 Dose: 20 mg Cephalexin Monohydrate (Keflex) 500 mg PO Q6 [facility]; Protocol Stop: 07/30/18 18:01 Last Admin: 07/30/18 15:04 Dose: 500 mg Clonidine HCl (Catapres) 0.1 mg PO BID [facility] Clopidogrel Bisulfate (Plavix) 75 mg PO DAILY [facility] Last Admin: 07/30/18 10:04 Dose: 75 mg Ferrous Sulfate (Feosol) 324 mg PO TID [facility] Insulin Detemir (Levemir) 6 unit SC [facility] Last Admin: 07/30/18 12:14 Dose: 6 units Insulin Human Regular (Humulin R Med) 0 units SC ACHS [facility]; Protocol Last Admin: 07/30/18 12:14 Dose: Not Given Lactic Acid (Lac-Hydrin 12% Lotion (225 G)) 0 gm EXT BID [facility] Last Admin: 07/30/18 10:05 Dose: 1 applic Metoprolol Tartrate (Lopressor) 25 mg PO 0800,1800 [facility] Ondansetron HCl (Zofran Inj) 4 mg IVP ONCE PRN PRN Reason: Nausea/Vomiting Oxycodone HCl (Oxycodone Immediate Release Tab) 5 mg PO Q4H PRN PRN Reason: Pain, moderate (4-7) Last Admin: 07/27/18 17:31 Dose: 5 mg - Labs Labs: 07/29/18 07:00 07/29/18 07:00 - Constitutional Appears: Non-toxic, No Acute Distress, Chronically Ill - Head Exam Head Exam: ATRAUMATIC, NORMOCEPHALIC - Eye Exam Eye Exam: EOMI, PERRL Pupil Exam: NORMAL ACCOMODATION, PERRL - ENT Exam ENT Exam: Mucous Membranes Moist, Normal External Ear Exam, TM's Normal Bilaterally - Neck Exam Neck Exam: Full ROM, Normal Inspection - Respiratory Exam Respiratory Exam: Clear to Ausculation Bilateral, NORMAL BREATHING PATTERN. absent: Rales, Rhonchi, Wheezes - Cardiovascular Exam Cardiovascular Exam: REGULAR RHYTHM, RRR, +S1, +S2 - GI/Abdominal Exam GI & Abdominal Exam: Soft, Normal Bowel Sounds. absent: Distended, Tenderness Additional comments: midline abdominal scar - Extremities Exam Additional comments: S/P Left TMA. RLE big toe ulcer/eschar. - Neurological Exam Neurological Exam: Alert, Awake, CN II-XII Intact, Oriented x3 - Psychiatric Exam Additional comments: Distant at times. Jovial for things that she perceives as beneficial to her. - Skin Additional comments: As above. Assessment and Plan - Assessment and Plan (Free Text) Assessment: 73 yo female presenting for altered mental status, fevers up to 101.0 F, and hyperglycemia. Negative Chest X-ray. X-ray right big toe showing swelling of the soft tissues only. Head CT negative. Patient was hyponatremic. Unclear how the patient's DM control is normally. Likely with some degree of dehydration in addition to the hyperglycemia. Check Hgb A1c... 15.5. Monitor glucose levels. Started on Vancomycin and Zosyn. Villagran cultures. Supportive care. Afebrile today. Found to have bedbugs and was isolated. Patient was washed and now off isolation. Duplex studies showing severe peripheral vascular disease bilaterally. Cultures negative. Left foot and ankle X-ray negative. Considering oral antibiotic care with Keflex. Patient with diabetes that is not under control. Borderline fevers. Angioplasty with Dr. Ray occurred on 07/11/2018. Impressions were: 1. Successful left SFA and popliteal arter jet stream atherectomy and drug-el uting stent balloon angioplasty. No stent was required. 2. Successful left anterior tibial artery angioplasty and focal drug-eluting stent placement 3. Successful left tibioperoneal trunk and proximal left posterior tibial artery angioplasty 4. 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 Critical right popliteal artery stenoses. No additional issues. Continue on oral Keflex for antibiotic treatment for up to a week s/p TMA although this may be extended depending on condition of the left foot stump. Toes of the left foot are already gangrenous. This has progressed during this hospitalization despite interventions. Podiatry is now planning TMA of the left foot on 07/24/[address] Parekh. Gangrene continues to progress up to the midfoot especially on the medial side of the left foot. No new issues. Periodically check ESR. Last check was 07/18/2018 with ESR of 143. The Left TMA was done on 07/24/2018. She complains of only mild to moderate pain of the left foot. Drains removed today by Podiatry. Noted echocardiogram report and severity of valve disease. 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 She has been working with PT. Unfortunately, the patient is refusing GABBY. The patient is being very difficult with discharge planning. Thank you for allowing me to participate in the care of the patient, we will follow with you.
[2018-07-31] MEDS: Insulin Reg-MEDIUM-Coverage SC SCH ×3 (07:49→16:53)
[2018-07-31 08:08] VITALS: RESP 18
--- NOTE | 2018-07-31 09:08 | CP.PCM.PN ---
Subjective - Date & Time of Evaluation Date of Evaluation: 07/31/18 Time of Evaluation: 09:08 - Subjective Subjective: PGY-1 Medicine progress note for Dr. Orozco Patient seen and evaluated at bedside. No acute events reported overnight. Patient has no complaints at this time and is still refusing to go to [facility]. She denies fevers, chills, shortness of breath, chest pain, abdominal pain, nausea, vomiting, diarrhea or dysuria. Objective - Vital Signs/Intake and Output Vital Signs (last 24 hours): Temp Pulse Resp BP Pulse Ox 98.3 F 63 18 148/76 97 07/31/18 06:00 07/31/18 06:00 07/31/18 06:00 07/31/18 06:00 07/31/18 06:00 - Medications Medications: Current Medications Atorvastatin Calcium (Lipitor) 20 mg PO HS [facility] Last Admin: 07/30/18 21:30 Dose: 20 mg Clonidine HCl (Catapres) 0.1 mg PO BID [facility] Last Admin: 07/30/18 17:32 Dose: 0.1 mg Clopidogrel Bisulfate (Plavix) 75 mg PO DAILY [facility] Last Admin: 07/30/18 10:04 Dose: 75 mg Ferrous Sulfate (Feosol) 324 mg PO TID [facility] Last Admin: 07/30/18 17:33 Dose: 324 mg Insulin Detemir (Levemir) 6 unit SC [facility] Last Admin: 07/30/18 22:13 Dose: 6 units Insulin Human Regular (Humulin R Med) 0 units SC [facility]; Protocol Last Admin: 07/31/18 07:49 Dose: Not Given Lactic Acid (Lac-Hydrin 12% Lotion (225 G)) 0 gm EXT BID [facility] Last Admin: 07/30/18 17:33 Dose: Not Given Metoprolol Tartrate (Lopressor) 25 mg PO 0800,1800 [facility] Last Admin: 07/30/18 17:32 Dose: 25 mg Ondansetron HCl (Zofran Inj) 4 mg IVP ONCE PRN PRN Reason: Nausea/Vomiting Oxycodone HCl (Oxycodone Immediate Release Tab) 5 mg PO Q4H PRN PRN Reason: Pain, moderate (4-7) Last Admin: 07/27/18 17:31 Dose: 5 mg - Labs Labs: 07/29/18 07:00 07/29/18 07:00 - Additional Findings Additional findings: - Constitutional Appears: Well, Non-toxic, No Acute Distress - Head Exam Head Exam: ATRAUMATIC, NORMAL INSPECTION - Eye Exam Eye Exam: EOMI, Normal appearance - ENT Exam ENT Exam: Mucous Membranes Moist - Respiratory Exam Respiratory Exam: Clear to Auscultation Bilateral. absent: Rales, Rhonchi, Wheezes, Respiratory Distress - Cardiovascular Exam Cardiovascular Exam: REGULAR RHYTHM, +S1, +S2. absent: Gallop, Rubs, Systolic Murmur - GI/Abdominal Exam GI & Abdominal Exam: Normal Bowel Sounds, Soft. absent: Distended, Tenderness - Extremities Exam Additional comments: Left toes dressing C/D/I. Lower extremities with normal temperature and non- tender to palpation. - Neurological Exam Neurological exam: Alert, CN II-XII Intact, Oriented x3 - Psychiatric Exam Psychiatric exam: Flat Affect - Skin Skin Exam: Dry, Normal Color, Warm Assessment and Plan - Assessment and Plan (Free Text) Assessment: Patient is a 73 year old female with PMH of diabetes, HTN, PVD, and noncompliance with medication was admitted with altered mental status and hyperglycemia. Clinical course complicated by ischemic rest pain of the left LE. Revascularization of LLE w/ IR on 07/11. Patient is s/p left transmetatarsal amputation on 07/24. Patient received L forefoot wedge shoe. Patient refuses to go to [facility]. Awaiting further rehab. Plan: LLE Gangrene/Necrosis- s/p left transmetatarsal amputation on 07/24 - Podiatry consulted, Dr. aPrekh - Oxycodone 5mg PO Q4 PRN for pain - Completed 7 day Keflex course on 07/30 - ID consulted, Dr. Guidry - Wound culture: grew Juanita - Wound pathology: bone resection margins are negative for acute osteomyelitis. Bone of 3rd toe showing acute osteomyelitis. - Lac-hydrin cream for wound care - Continue to work with PT, patient received forefoot wedge shoe Severe PAD - s/p IR revascularization of LLE on 07/11 - Arterial US: Severely abnormal L ALYSE @ rest ALYSE is .46. R ALYSE is at .77 and is moderately abnormal - CT angiogram 07/06: severe stenosis in the distal superficial femoral arteries bilaterally. Single vessel runoff to both ankles via the posterior tibial. The anterior tibials are thin and narrow with multi focal stenosis - Peripheral vascular procedure report: successful left SFA and pop artery jet stream arthrectomy and balloon angioplasty; successful left ant tib angioplasty with focal drug-eluting stent placement; successful left tibperoneal trunk and prox left PT artery angioplasty - ESR remains elevated but stable - Continue home Lipitor 20mg PO HS Iron deficiency - Fe, TIBC, % saturation are low - Iron sucrose 200mg IV given 07/28 Normocytic anemia - H&H stable - Patients baseline Hb appears to be around 8 - Continue to monitor Hypertension - Metoprolol 25mg PO BID with parameters - Clonidine 0.1mg BID with parameters DM II with Neuropathy - ISS - Levemir 6 units BID - Accuchecks ACHS - Hgba1c: 15.5 - Diabetic education - Gabapentin 300mg BID - Lipitor 20mg PO HS Stage II sacral ulcer - Wound care - Turn Q2, air mattress, conservative management PPX DVT: Plavix Disposition: PT recommended [facility] but patient is refusing to go. Patient seen and case discussed with attending, Dr. Orozco. Azeem Agosto, PGY-1
[2018-07-31] MEDS: Insulin Detemir 100 units/ml Vial (Levemir) SC SCH (09:31)
[2018-07-31] MEDS: Ammonium Lactate 12% Lotion (225 g) EXT SCH ×2 (09:32→17:12)
--- NOTE | 2018-07-31 11:00 | CP.PCM.PN ---
<Geo Dhaliwal - Last Filed: 07/31/18 10:47> Subjective - Date & Time of Evaluation Date of Evaluation: 07/31/18 Time of Evaluation: 10:47 - Subjective Subjective: Podiatry progress note: for Dr. Cobb/Izabella 73 year old female seen and evaluated at the bedside 7 days S/P left TMA. Patient resting comfortably and in NAD. No acute events overnight. She denies any overnight nausea/vomiting/fever/shortness of breath. Objective - Vital Signs/Intake and Output Vital Signs (last 24 hours): Temp Pulse Resp BP Pulse Ox 98.3 F 63 18 148/76 97 07/31/18 06:00 07/31/18 06:00 07/31/18 06:00 07/31/18 06:00 07/31/18 06:00 - Medications Medications: Current Medications Atorvastatin Calcium (Lipitor) 20 mg PO HS [facility] Last Admin: 07/30/18 21:30 Dose: 20 mg Clonidine HCl (Catapres) 0.1 mg PO BID [facility] Last Admin: 07/31/18 09:32 Dose: 0.1 mg Clopidogrel Bisulfate (Plavix) 75 mg PO DAILY [facility] Last Admin: 07/31/18 09:31 Dose: 75 mg Ferrous Sulfate (Feosol) 324 mg PO TID [facility] Last Admin: 07/31/18 09:32 Dose: 324 mg Insulin Detemir (Levemir) 6 unit SC [facility] Last Admin: 07/31/18 09:31 Dose: 6 units Insulin Human Regular (Humulin R Med) 0 units SC [facility]; Protocol Last Admin: 07/31/18 07:49 Dose: Not Given Lactic Acid (Lac-Hydrin 12% Lotion (225 G)) 0 gm EXT BID [facility] Last Admin: 07/31/18 09:32 Dose: 1 applic Metoprolol Tartrate (Lopressor) 25 mg PO 0800,1800 [facility] Last Admin: 07/31/18 09:32 Dose: 25 mg Ondansetron HCl (Zofran Inj) 4 mg IVP ONCE PRN PRN Reason: Nausea/Vomiting Oxycodone HCl (Oxycodone Immediate Release Tab) 5 mg PO Q4H PRN PRN Reason: Pain, moderate (4-7) Last Admin: 07/27/18 17:31 Dose: 5 mg - Labs Labs: 07/29/18 07:00 07/29/18 07:00 - Constitutional Appears: Well, Non-toxic, No Acute Distress - Head Exam Head Exam: ATRAUMATIC, NORMOCEPHALIC - Extremities Exam Additional comments: B/l LE focused VASC: non-palpable pulses bilaterally, Cap refill >3 seconds to all digits. Temperature gradient warm to cool b/l. NEURO: Epicritic and protective sensation grossly intact b/l DERM: Right foot: Dry eschar measuring approximately 1.5 x 1.5 cm noted to distal tuft of right hallux - hyperkeratotic rim present; absent drainage; absent purulence; absent flucutance; absent malodor; no periwound erythema present. No clinical signs of infection appreciated; left foot: Surgical site looks C/D/I with stables and sutures intact and in place. No drainage, No erythema, No malodor, No clinical signs of active infection. Wound looks C/D/I with no signs of active infection. MSK: No pain on palpation noted to right hallux eschar. Moderate pain on palpation of the surgical site. - Neurological Exam Neurological Exam: Alert, Awake, Oriented x3 - Psychiatric Exam Psychiatric exam: Normal Affect, Normal Mood Assessment and Plan - Assessment and Plan (Free Text) Assessment: 73 year old female seen and evaluated at the bedside 7 days S/P left TMA. Plan: Patient seen and evaluated at the bedside with Dr. Parekh Plan discussed with Dr. Parekh Bilateral arterial duplex ordered - significant PVD noted b/l, more severe on left Peripheral vascular procedure report - successful left SFA and pop artery jet stream arthrectomy and balloon angioplasty; successful left ant tib angioplasty with focal drug-eluting stent placement; successful left tibperoneal trunk and prox left PT artery angioplasty Left foot X-ray postoperative- S/P left TMA Surgery pathology report: Inflammation and gangrenous changes of the amputated toes OM of the amputated 3rd toe with clean resection margins of the metatarsal bones negative of OM Continue with IV abx as per ID Surgical wound dressed using DSD Patient to bear weight as tolerated to the left heel in a left forefoot wedge shoe. Physical Therapy strongly encouraged Patient refused to go to [facility] Podiatry will continue to follow up the patient while in house. <Radha Parekh - Last Filed: 08/05/18 20:37> Objective - Vital Signs/Intake and Output Vital Signs (last 24 hours): Temp Pulse Resp BP Pulse Ox 98.7 F 67 18 108/61 100 07/31/18 14:00 07/31/18 14:00 07/31/18 14:00 07/31/18 14:00 07/31/18 14:00 - Labs Labs: 07/29/18 07:00 07/29/18 07:00 Attending/Attestation - Attestation I have personally seen and examined this patient.: Yes I have fully participated in the care of the patient.: Yes I have reviewed all pertinent clinical information, including history, physical exam and plan: Yes
[2018-07-31 15:08] VITALS: BP 108/61; PULSE 67; TEMP 98.7; O2SAT 100
--- NOTE | 2018-07-31 15:32 | CP.PCM.PN ---
Subjective - Date & Time of Evaluation Date of Evaluation: 07/31/18 Time of Evaluation: 14:15 - Subjective Subjective: Infectious Disease Follow Up: July 31, 2018 73 yo female with history of Type II DM. The patient was found to be altered in a laundromat. Patient herself gives little information. Patient's PMD is apparently in [place], [place], his name is Dr. Akbar. The patient name is Jessica Brizuela. Patient had fever of 101.0 F. No leukocytosis. Limited information provided by the patient. Patient is hyperglycemic on admission and still has elevated glucose levels. Was under isolation for bedbugs. No further fever episodes today. Afebrile for the last few days now. Duplex showing disease of the vessels of the left leg. Abdominal CT Angiography showing severe stenosis in the distal superficial femoral arteries bilaterally. Single vessel runoff to both ankles via the posterior tibial. The anterior tibials are thin and narrow with multi focal stenosis. Significant peripheral vascular disease bilaterally. Had angioplasty with Dr. Ray in morning of 07/11/2018. Podiatry planning for TMA of the left foot due to gangrene of toes of the left foot. Remains on oral antibiotics of Keflex right now. Unclear if the patient is poor historian or unwilling to divulge information on herself. For example, when asking the patient how she wound up in [place] when she states that she lives in [place], the patient states she was visiting a friend but then refuses to to give a name or number for the patient. She would simply state that she doesn't know what her friend's name is, where she lives, or her phone number. She will even say she doesn't know what she looks like but that she is her friend. Podiatry performed TMA on 07/24/2018. Patient states mild to moderate pain at TMA site (6 out 10). Noted pathology results. Patient refusing GABBY. She does NOT want to leave hospital. Objective - Vital Signs/Intake and Output Vital Signs (last 24 hours): Temp Pulse Resp BP Pulse Ox 98.7 F 67 18 108/61 100 07/31/18 14:00 07/31/18 14:00 07/31/18 14:00 07/31/18 14:00 07/31/18 14:00 Intake and Output: 07/31/18 07/31/18 06:59 18:59 Intake Total 480 Balance 480 - Medications Medications: Current Medications Atorvastatin Calcium (Lipitor) 20 mg PO HS [facility] Last Admin: 07/30/18 21:30 Dose: 20 mg Clonidine HCl (Catapres) 0.1 mg PO BID [facility] Last Admin: 07/31/18 09:32 Dose: 0.1 mg Clopidogrel Bisulfate (Plavix) 75 mg PO DAILY [facility] Last Admin: 07/31/18 09:31 Dose: 75 mg Ferrous Sulfate (Feosol) 324 mg PO TID [facility] Last Admin: 07/31/18 13:10 Dose: 324 mg Insulin Detemir (Levemir) 6 unit SC [facility] Last Admin: 07/31/18 09:31 Dose: 6 units Insulin Human Regular (Humulin R Med) 0 units SC [facility]; Protocol Last Admin: 07/31/18 12:38 Dose: 5 units Lactic Acid (Lac-Hydrin 12% Lotion (225 G)) 0 gm EXT BID [facility] Last Admin: 07/31/18 09:32 Dose: 1 applic Metoprolol Tartrate (Lopressor) 25 mg PO 0800,1800 [facility] Last Admin: 07/31/18 09:32 Dose: 25 mg Ondansetron HCl (Zofran Inj) 4 mg IVP ONCE PRN PRN Reason: Nausea/Vomiting Oxycodone HCl (Oxycodone Immediate Release Tab) 5 mg PO Q4H PRN PRN Reason: Pain, moderate (4-7) Last Admin: 07/27/18 17:31 Dose: 5 mg - Labs Labs: 07/29/18 07:00 07/29/18 07:00 - Constitutional Appears: Non-toxic, No Acute Distress, Chronically Ill - Head Exam Head Exam: ATRAUMATIC, NORMOCEPHALIC - Eye Exam Eye Exam: EOMI, PERRL Pupil Exam: NORMAL ACCOMODATION, PERRL - ENT Exam ENT Exam: Mucous Membranes Moist, Normal External Ear Exam, TM's Normal Bilaterally - Neck Exam Neck Exam: Full ROM, Normal Inspection - Respiratory Exam Respiratory Exam: Clear to Ausculation Bilateral, NORMAL BREATHING PATTERN. absent: Rales, Rhonchi, Wheezes - Cardiovascular Exam Cardiovascular Exam: REGULAR RHYTHM, RRR, +S1, +S2 - GI/Abdominal Exam GI & Abdominal Exam: Soft, Normal Bowel Sounds. absent: Distended, Tenderness Additional comments: midline abdominal scar - Extremities Exam Additional comments: S/P Left TMA. RLE big toe ulcer/eschar. - Neurological Exam Neurological Exam: Alert, Awake, CN II-XII Intact, Oriented x3 - Psychiatric Exam Additional comments: Distant at times. Jovial for things that she perceives as beneficial to her. - Skin Additional comments: As above. Assessment and Plan - Assessment and Plan (Free Text) Assessment: 73 yo female presenting for altered mental status, fevers up to 101.0 F, and hyperglycemia. Negative Chest X-ray. X-ray right big toe showing swelling of the soft tissues only. Head CT negative. Patient was hyponatremic. Unclear how the patient's DM control is normally. Likely with some degree of dehydration in addition to the hyperglycemia. Check Hgb A1c... 15.5. Monitor glucose levels. Started on Vancomycin and Zosyn. Villagran cultures. Supportive care. Afebrile today. Found to have bedbugs and was isolated. Helen ent was washed and now off isolation. Duplex studies showing severe peripheral vascular disease bilaterally. Cultures negative. Left foot and ankle X-ray negative. Considering oral antibiotic care with Keflex. Patient with diabetes that is not under control. Borderline fevers. Angioplasty with Dr. Ray occurred on 07/11/2018. Impressions were: 1. Successful left SFA and popliteal arter jet stream atherectomy and drug- eluting stent balloon angioplasty. No stent was required. 2. Successful left anterior tibial artery angioplasty and focal drug-eluting stent placement 3. Successful left tibioperoneal trunk and proximal left posterior tibial artery angioplasty 4. 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 Critical right popliteal artery stenoses. No additional issues. Continue on oral Keflex for antibiotic treatment for up to a week s/p TMA although this may be extended depending on condition of the left foot stump. Toes of the left foot are already gangrenous. This has progressed during this hospitalization despite interventions. Podiatry is now planning TMA of the left foot on 07/24/[address] Parekh. Gangrene continues to progress up to the midfoot especially on the medial side of the left foot. No new issues. Periodically check ESR. Last check was 07/18/2018 with ESR of 143. The Left TMA was done on 07/24/2018. She complains of only mild to moderate pain of the left foot. Drains removed today by Podiatry. Noted echocardiogram report and severity of valve disease. Pathology report showing osteomyelitis of the toe but not at margins of am putation. She has been working with PT. Unfortunately, the patient is refusing GABBY. The patient is being very difficult with discharge planning. No new issues so far. Thank you for allowing me to participate in the care of the patient, we will follow with you.
--- NOTE | 2018-07-31 15:51 | CP.PCM.DIS ---
<Azeem Agosto - Last Filed: 07/31/18 18:59> Provider - Provider Date of Admission: 07/25/18 12:35 Attending physician: Lorena Orozco MD Consults: 07/24/18 13:30 Podiatry Consult Routine Comment: Consulting Provider: Radha Parekh Consulting Physician: Radha Parekh Reason for Consult: s/p L transmetatarsal amputation 07/24/18 17:40 Infectious Disease Consult Routine Comment: Consulting Provider: Jericho Guidry Consulting Physician: Jericho Guidry Reason for Consult: LLE gangrene, RLE diabetic ulcer 07/25/18 23:22 Case Management Referral Routine Comment: CONFUSED PT. NO FAMILY. NO CERTIFIED MEDICAL DOSIMETRIST. Physician Instructions: Reason For Exam: EVALUATION Reason for Referral: Working Supervisor Eval Diabetic Education Referral Routine Comment: Physician Instructions: Reason For Exam: EVALUATION Nursing Referral for Wound Care Routine Comment: POST L TRANSMETATARSAL AMPUTATION L FOOT. Physician Instructions: Reason For Exam: EVALUATION 07/25/18 23:26 Social Work Referral Routine Comment: NEEDS ASSISTANCE ,PLACEMENT?LIVES ALONE NO CONTACT Physician Instructions: Reason For Exam: EVALUATION 07/25/18 23:30 Nursing Referral for Wound Care Routine Comment: POST TRANSMETATARSAL AMPUTATION L FOOT. Physician Instructions: Reason For Exam: EVALUATION Time Spent in preparation of Discharge (in minutes): 45 Diagnosis - Discharge Diagnosis (1) PAD (peripheral artery disease) Status: Chronic (2) Gangrene of left foot Status: Resolved (3) Altered mental status Status: Resolved (4) Diabetic neuropathy Status: Chronic Priority: Medium (5) HTN (hypertension) Status: Chronic Priority: Medium (6) Hyperglycemia Status: Chronic Priority: High (7) Lower extremity ulceration Status: Resolved Priority: High (8) Anemia Status: Chronic (9) Iron deficiency Status: Chronic Hospital Course - Lab Results Lab Results: Micro Results 07/24/18 15:04 Foot - Left Gram Stain - Final 07/24/18 15:04 Foot - Left Wound Culture - Final Jaunita Parapsilosis Most Recent Lab Values WBC 7.4 10^3/uL (4.5-11.0) D 07/29/18 07:00 RBC 3.13 10^6/uL (3.5-6.1) L 07/29/18 07:00 Hgb 8.7 g/dL (12.0-16.0) L 07/29/18 07:00 Hct 27.2 % (36.0-48.0) L 07/29/18 07:00 MCV 86.9 fl (80.0-105.0) 07/29/18 07:00 MCH 27.8 pg (25.0-35.0) 07/29/18 07:00 MCHC 32.0 g/dl (31.0-37.0) 07/29/18 07:00 RDW 13.7 % (11.5-14.5) 07/29/18 07:00 Plt Count 515 10^3/uL (120.0-450.0) H 07/29/18 07:00 MPV 9.2 fl (7.0-11.0) 07/29/18 07:00 Neut % (Auto) 76.5 % (50.0-68.0) H 07/29/18 07:00 Lymph % (Auto) 15.6 % (22.0-35.0) L 07/29/18 07:00 [place] % (Auto) 6.8 % (1.0-6.0) H 07/29/18 07:00 Eos % (Auto) 0.8 % (1.5-5.0) L 07/29/18 07:00 Baso % (Auto) 0.3 % (0.0-3.0) 07/29/18 07:00 Lymph # (Auto) 1.2 (1.2-3.4) 07/29/18 07:00 [place] # (Auto) 0.5 (0.1-0.6) 07/29/18 07:00 Eos # (Auto) 0.1 (0.0-0.7) 07/29/18 07:00 Baso # (Auto) 0.02 K/mm3 (0.0-2.0) 07/29/18 07:00 Absolute Neuts (auto) 5.65 (1.4-6.5) 07/29/18 07:00 ESR 140 mm/hr (0.0-20.0) H 07/28/18 07:15 Sodium 139 mmol/L (132-148) 07/29/18 07:00 Potassium 3.9 mmol/L (3.6-5.0) 07/29/18 07:00 Chloride 104 mmol/L (98-107) 07/29/18 07:00 Carbon Dioxide 27 mmol/L (21-33) 07/29/18 07:00 Anion Gap 12 (10-20) 07/29/18 07:00 BUN 17 mg/dL (7-21) 07/29/18 07:00 Creatinine 0.6 mg/dl (0.7-1.2) L 07/29/18 07:00 Est GFR ( Amer) > 60 07/29/18 07:00 Est GFR (Non-Af Amer) > 60 07/29/18 07:00 POC Glucose (mg/dL) 255 mg/dL (65-110) H 07/31/18 11:42 Random Glucose 93 mg/dL (70-110) 07/29/18 07:00 Calcium 8.8 mg/dL (8.4-10.5) 07/29/18 07:00 Magnesium 2.0 mg/dL (1.7-2.2) 07/26/18 08:50 Iron 23 ug/dL (45-180) L 07/27/18 13:15 TIBC 249 ug/dL (265-497) L 07/27/18 13:15 % Saturation 9 % (20-55) L 07/27/18 13:15 Ferritin 144.0 ng/mL 07/27/18 13:15 Total Bilirubin 0.2 mg/dL (0.2-1.3) 07/29/18 07:00 AST 36 U/L (14-36) 07/29/18 07:00 ALT 33 U/L (7-56) 07/29/18 07:00 Alkaline Phosphatase 191 U/L (38-126) H D 07/29/18 07:00 Total Protein 7.3 g/dL (5.8-8.3) 07/29/18 07:00 Albumin 3.1 g/dL (3.0-4.8) 07/29/18 07:00 Globulin 4.1 gm/dL 07/29/18 07:00 Albumin/Globulin Ratio 0.8 (1.1-1.8) L 07/29/18 07:00 - Hospital Course Hospital Course: Patient is a 73 year old female with past medical history of T2DM presenting with altered mental status. Patient was found at a laundromat and noted to be altered by the laundromat manager spanish and so EMS was called. Mental status improved during admission. The cause of AMS was hypergylcemia - uncontrolled with A1c 15. Hospital course was complicated by ischemic rest pain fo the left lower extremity. She had revascularization of LLE with IR on 07/11. Podiatry, IR, ID, and Cardiology followed the case. The recommendation as per podiatry is for left transmeta-tarsal amputation given she has necrosis and gangrene. Patient was transferred to TCU for rehab and return to the acute side prior to her planned transmetatarsal amputation. She was seen by cardio, Dr Merritt, who cleared he r for her TMA surgery. Patient had a left TMA with podiatry, Dr Parekh on 07/24/18. Plavix was held for 7 days as was requested by podiatry and restarted on 07/25. While in TCU her keflex was discontinued as she completed her 14 day couse as recommened by ID, Dr Guidry. Patient was put back on Keflex for 7 days post- TMA. After the surgery patient continued to work with physical therapy. Patient was recommended to go to subacute rehab by physical therapy but patient refused. Patient was educated everyday to reconsider going to subacute rehab but patient still refused to go to any kind of of rehab. Patient stated that she wants to go home and stay at her friend's house. Patient refused home services and visiting nurse. Patient was referred to [facility] and has been accepted to their service. Ramona Yo ([facility] liason) met with pt last week. Patient was given a list of primary care doctors so she can follow up with a PCP. Patient was given a cane and a special podiatric boot to help her ambulate. A wheelchair has been ordered and will be delivered to her home. Patient was instructed to be compliant will al her medications. She was given refills for new and home medications. Medications were delivered to her at bedside. Patient instructed to follow up with a primary care doctor within 1 week of discharge. Follow up with Podiatry in 1 week. She was instructed to return to the nearest emergency room for worsening or newly concerning symptoms. Discharge Exam - Additional Findings Additional findings: - Constitutional Appears: Well, Non-toxic, No Acute Distress - Head Exam Head Exam: ATRAUMATIC, NORMAL INSPECTION - Eye Exam Eye Exam: EOMI, Normal appearance - ENT Exam ENT Exam: Mucous Membranes Moist - Respiratory Exam Respiratory Exam: Clear to Auscultation Bilateral. absent: Rales, Rhonchi, Wheezes, Respiratory Distress - Cardiovascular Exam Cardiovascular Exam: REGULAR RHYTHM, +S1, +S2. absent: Gallop, Rubs, Systolic Murmur - GI/Abdominal Exam GI & Abdominal Exam: Normal Bowel Sounds, Soft. absent: Distended, Tenderness - Extremities Exam Additional comments: Left toes dressing C/D/I. Lower extremities with normal temperature and non- tender to palpation. - Neurological Exam Neurological exam: Alert, CN II-XII Intact, Oriented x3 - Psychiatric Exam Psychiatric exam: Flat Affect - Skin Skin Exam: Dry, Normal Color, Warm Discharge Plan - Discharge Medications Prescriptions: Atorvastatin [Lipitor] 20 mg PO HS #14 tab cloNIDine [Catapres] 0.1 mg PO BID #28 tab Clopidogrel [Plavix] 75 mg PO DAILY #14 tab Ferrous Sulfate [Feosol] 324 mg PO DAILY #14 ect Gabapentin [Neurontin] 300 mg PO BID #28 cap Insulin Detemir [Levemir] 6 unit SC AMHS 14 Days #1 unit Metoprolol Tartrate [Lopressor] 25 mg PO 0800,1800 #28 tab - Follow Up Plan Condition: GOOD Disposition: HOME/ ROUTINE Instructions: Type 2 Diabetes, Amputation of the Foot or Toe, Quitting Smoking for Older Adults Additional Instructions: You are being given new medication and refills of your home medications on discharge: - Levemir 6 units take twice daily- once in the morning and once at bedtime - Plavix 75mg daily - Lipitor 40mg daily - Clonidine 0.1mg twice daily - Lopressor 25mg twice daily - Feosol 325mg daily - Gabapentin 300mg twice daily Please follow-up with a Primary care doctor, Dr. Hilliard, within 7 days of discharge so he may be aware of this hospital stay. Please follow-up with podiatry, Dr Parekh/Reza, within 7 days of discharge for continued foot care. We have ordered a walker and a wheelchair that will be delivered to your house Resume home medications as prescribed by your doctor. If symptoms return please promptly go to nearest emergency department Referrals: Hilliard,Rashel S, DO [Staff Provider] - <Lorena Orozco - Last Filed: 08/01/18 07:59> Provider - Provider Date of Admission: 07/25/18 12:35 Attending physician: Lorena Orozco MD Consults: 07/24/18 13:30 Podiatry Consult Routine Comment: Consulting Provider: Radha Parekh Consulting Physician: Radha Parekh Reason for Consult: s/p L transmetatarsal amputation 07/24/18 17:40 Infectious Disease Consult Routine Comment: Consulting Provider: Jericho Guidry Consulting Physician: Jericho Guidry Reason for Consult: LLE gangrene, RLE diabetic ulcer 07/25/18 23:22 Case Management Referral Routine Comment: CONFUSED PT. NO FAMILY. NO CERTIFIED MEDICAL DOSIMETRIST. Physician Instructions: Reason For Exam: EVALUATION Reason for Referral: Working Supervisor Eval Diabetic Education Referral Routine Comment: Physician Instructions: Reason For Exam: EVALUATION Nursing Referral for Wound Care Routine Comment: POST L TRANSMETATARSAL AMPUTATION L FOOT. Physician Instructions: Reason For Exam: EVALUATION 07/25/18 23:26 Social Work Referral Routine Comment: NEEDS ASSISTANCE ,PLACEMENT?LIVES ALONE NO CONTACT Physician Instructions: Reason For Exam: EVALUATION 07/25/18 23:30 Nursing Referral for Wound Care Routine Comment: POST TRANSMETATARSAL AMPUTATION L FOOT. Physician Instructions: Reason For Exam: EVALUATION Hospital Course - Lab Results Lab Results: Micro Results 07/24/18 15:04 Foot - Left Gram Stain - Final 07/24/18 15:04 Foot - Left Wound Culture - Final Juanita Parapsilosis Most Recent Lab Values WBC 7.4 10^3/uL (4.5-11.0) D 07/29/18 07:00 RBC 3.13 10^6/uL (3.5-6.1) L 07/29/18 07:00 Hgb 8.7 g/dL (12.0-16.0) L 07/29/18 07:00 Hct 27.2 % (36.0-48.0) L 07/29/18 07:00 MCV 86.9 fl (80.0-105.0) 07/29/18 07:00 MCH 27.8 pg (25.0-35.0) 07/29/18 07:00 MCHC 32.0 g/dl (31.0-37.0) 07/29/18 07:00 RDW 13.7 % (11.5-14.5) 07/29/18 07:00 Plt Count 515 10^3/uL (120.0-450.0) H 07/29/18 07:00 MPV 9.2 fl (7.0-11.0) 07/29/18 07:00 Neut % (Auto) 76.5 % (50.0-68.0) H 07/29/18 07:00 Lymph % (Auto) 15.6 % (22.0-35.0) L 07/29/18 07:00 [place] % (Auto) 6.8 % (1.0-6.0) H 07/29/18 07:00 Eos % (Auto) 0.8 % (1.5-5.0) L 07/29/18 07:00 Baso % (Auto) 0.3 % (0.0-3.0) 07/29/18 07:00 Lymph # (Auto) 1.2 (1.2-3.4) 07/29/18 07:00 [place] # (Auto) 0.5 (0.1-0.6) 07/29/18 07:00 Eos # (Auto) 0.1 (0.0-0.7) 07/29/18 07:00 Baso # (Auto) 0.02 K/mm3 (0.0-2.0) 07/29/18 07:00 Absolute Neuts (auto) 5.65 (1.4-6.5) 07/29/18 07:00 ESR 140 mm/hr (0.0-20.0) H 07/28/18 07:15 Sodium 139 mmol/L (132-148) 07/29/18 07:00 Potassium 3.9 mmol/L (3.6-5.0) 07/29/18 07:00 Chloride 104 mmol/L (98-107) 07/29/18 07:00 Carbon Dioxide 27 mmol/L (21-33) 07/29/18 07:00 Anion Gap 12 (10-20) 07/29/18 07:00 BUN 17 mg/dL (7-21) 07/29/18 07:00 Creatinine 0.6 mg/dl (0.7-1.2) L 07/29/18 07:00 Est GFR ( Amer) > 60 07/29/18 07:00 Est GFR (Non-Af Amer) > 60 07/29/18 07:00 POC Glucose (mg/dL) 121 mg/dL (65-110) H 07/31/18 16:19 Random Glucose 93 mg/dL (70-110) 07/29/18 07:00 Calcium 8.8 mg/dL (8.4-10.5) 07/29/18 07:00 Magnesium 2.0 mg/dL (1.7-2.2) 07/26/18 08:50 Iron 23 ug/dL (45-180) L 07/27/18 13:15 TIBC 249 ug/dL (265-497) L 07/27/18 13:15 % Saturation 9 % (20-55) L 07/27/18 13:15 Ferritin 144.0 ng/mL 07/27/18 13:15 Total Bilirubin 0.2 mg/dL (0.2-1.3) 07/29/18 07:00 AST 36 U/L (14-36) 07/29/18 07:00 ALT 33 U/L (7-56) 07/29/18 07:00 Alkaline Phosphatase 191 U/L (38-126) H D 07/29/18 07:00 Total Protein 7.3 g/dL (5.8-8.3) 07/29/18 07:00 Albumin 3.1 g/dL (3.0-4.8) 07/29/18 07:00 Globulin 4.1 gm/dL 07/29/18 07:00 Albumin/Globulin Ratio 0.8 (1.1-1.8) L 07/29/18 07:00 Attending/Attestation - Attestation I have personally seen and examined this patient.: Yes I have fully participated in the care of the patient.: Yes I have reviewed all pertinent clinical information, including history, physical exam and plan: Yes Notes (Text): 08/01/18 07:47 Medical record note made by the resident after discussion with my direction and input after the patient was personally seen and examined by me. I have reviewed the chart and agree that the record accurately reflects by personal performance of the history, physical exam, data review, and medical decision-making, in the course for the patient. I have also personally directed the plan of care. 73 year old female with PMH of diabetes, hypertension, PVD and noncompliance was initially admitted with altered mental status; she was found to have elevated blood sugars (>700) which improved with iv fluids and insulin. Mental status improved back to normal. A1c was 15.5 and patient was started on levemir. Issue of compliance with medication was discussed in detail.Diabetic education was given to patient on multiple times during her stay in the hosp ital. On admission she was found to have right big toe ulcer and severe PAD/PVD. Arterial Doppler showed severely abnormal Left ALYSE 0.46 and moderately abnormal R ALYSE 0.77. CT angiogram showed severe stenosis in the distal superficial femoral arteries bilaterally; single vessel runoff to both ankles via the posterior tibial; anterior tibials were thin and narrow with multifocal stenosis. Patient is s/p left SFA and popliteal artherectomy and drug eluting balloon angioplasty, successful left anterior tibial artery angioplasty and focal drug eluting stent placement, and successful left tibioperoneal trunk and proximal left posterior tibial artery angioplasty. Patient was also noted to have dry gangrene of left foot. She is being followed by podiatry and is now s/p TMA POD #7 Pathology was reviewed. Continue with PO keflex as per ID. Special boot was delivered. Pathology margins were clear. Patient was evaluated by PT on multiple times during her stay in the hospital.GABBY was recommended .Patient has refused to go to [facility].She is alert,awake and oriented.The issue was discussed in detail with her .Patient has refused to go to [facility].She will be discharged home with home services. Prognosis is guarded. 08/01/18 07:56
== END 2018-07-31 20:57 | disposition home or self-care (01) | DRG 240 ==
LOC: SDS 07:52 → OR 07:52 → 5RSO 12:25 → SDS 07-25 12:35
PROVIDERS: ADMIT Internal Medicine; ATTEND Internal Medicine
PROC: 0Y6N0ZB Detachment at Left Foot, Partial 2nd Ray, Open Approach (ICD-10-PCS; 2018-07-24)
PROC: 0Y6N0ZC Detachment at Left Foot, Partial 3rd Ray, Open Approach (ICD-10-PCS; 2018-07-24)
PROC: 0Y6N0ZD Detachment at Left Foot, Partial 4th Ray, Open Approach (ICD-10-PCS; 2018-07-24)
PROC: 0Y6N0ZF Detachment at Left Foot, Partial 5th Ray, Open Approach (ICD-10-PCS; 2018-07-24)
PROC: 0Y6N0Z9 Detachment at Left Foot, Partial 1st Ray, Open Approach (ICD-10-PCS; principal; 2018-07-24 07:30)
DX: E11.52 Type 2 diabetes mellitus with diabetic peripheral angiopathy with gangrene (principal); E87.1 Hypo-osmolality and hyponatremia; M86.172 Other acute osteomyelitis, left ankle and foot; E11.69 Type 2 diabetes mellitus with other specified complication; E11.40 Type 2 diabetes mellitus with diabetic neuropathy, unspecified; E11.65 Type 2 diabetes mellitus with hyperglycemia; I10 Essential (primary) hypertension; R32 Unspecified urinary incontinence; L89.152 Pressure ulcer of sacral region, stage 2; Z79.4 Long term (current) use of insulin; Z79.899 Other long term (current) drug therapy; Z88.6 Allergy status to analgesic agent; Z91.14 Patient's other noncompliance with medication regimen; R50.9 Fever, unspecified

== ENCOUNTER 2018-08-07 17:07 | Observation (INO) | payer MEDICARE, OTHER | END 2018-08-08 17:53 | LOC: 5RNO 08-08 00:01 → ED 17:07 → ERH 19:30 ==